=== PATIENT | male | born 1955 | race Caucasian/White ===

== ENCOUNTER → 2023-12-16 15:43 | Outpatient (REF) | payer OTHER, SELFPAY | LOC: RCS 15:43 | PROVIDERS: ATTENDING PHYSICIAN Family Medicine | DX: I10 Essential (primary) hypertension (principal); E78.00 Pure hypercholesterolemia, unspecified; E11.9 Type 2 diabetes mellitus without complications | CPT/HCPCS: 93306 ==

== ENCOUNTER → 2025-01-12 14:28 | Outpatient (REF) | payer OTHER, SELFPAY | LOC: RAD 14:28 | PROVIDERS: ATTENDING PHYSICIAN Student in an Organized Health Care Education/Training Program; FAMILY PHYSICIAN Family Medicine | DX: R79.89 Other specified abnormal findings of blood chemistry (principal) | CPT/HCPCS: 76700; 93975 ==

== ENCOUNTER 2025-02-27 20:09 | Inpatient (IN) | payer OTHER, SELFPAY ==
[2025-02-27] VITALS (28 sets, daily range): BP systolic 46–169; BP diastolic 24–153; BMI 30.1
--- NOTE | 2025-02-27 17:57 | EDRN ---
Dr. Hall and respiratory at the pts bedside preparing for intubation
--- NOTE | 2025-02-27 18:03 | EDRN ---
20 etomidate administered
--- NOTE | 2025-02-27 18:04 | EDRN ---
10 vecoronium administered
--- NOTE | 2025-02-27 18:06 | EDRN ---
pt intubated, positive color change, #8 ETT at 27 at the lip to the right
--- NOTE | 2025-02-27 18:10 | EDRN ---
pt is having runs of Vtach, code cart was brought to the pts bedside
--- NOTE | 2025-02-27 18:13 | EDRN ---
the pt was shocked with 200J by Dr. Hall due to 'unstable Vtach'
--- NOTE | 2025-02-27 18:13 | EDRN ---
the pt was shocked with 200J by Dr. Dao Hall
--- NOTE | 2025-02-27 18:13 | EDRN ---
the pt was shocked with 200J for unstable Vtach
[2025-02-27 18:26] LABS: Glucose - Point of Care 228 mg/dl (70-99)
[2025-02-27 18:29] LABS: Hematocrit 65.0 % (39.0-52.0); Hemoglobin 21.7 g/dL (13.0-18.0); Mean Corp Hgb Conc. 33.4 g/dL (33.0-37.0); Mean Corpuscular Volume 102.5 fL (80.0-94.0); Nucleated Red Blood Cells % 0 % (-); Platelet Count 191 10^3/uL (130-400); Red Cell Dist. Width 15.1 % (11.5-14.5); Venous Blood Gas B.E. 9.7 mmol/L (-4 to +4); Venous Blood Gas O2 Sat % 86.5 %
[2025-02-27 18:33] LABS: Blood Urea Nitrogen 9 mg/dl (9-20); Calcium 9.4 mg/dl (8.4-10.2); Carbon Dioxide 16 mmol/L (22-30); Chloride 105 mmol/L (98-107); Estimated Creatinine Clearance 78 ml/min; Glucose 237 mg/dl (70-99); Sodium 137 mmol/L (135-145); eGFR > 60.00
[2025-02-27] MEDS: CORDARONE 518 MG IV (18:35)
[2025-02-27] MEDS: ATROVENT NEBULES 1 MG INH (18:39)
[2025-02-27] MEDS: VENTOLIN NEBULES 7.5 MG INH (18:39)
[2025-02-27] MEDS: DECADRON 10 MG IV (18:40)
[2025-02-27] MEDS: DIPRIVAN 100 IV (18:57)
--- NOTE | 2025-02-27 19:09 | ED.GENMED ---
History of Present Illness
General
Chief Complaint: Breathing Problem
Time Seen by Provider: 02/27/25 18:29
History of Present Illness
History of Present Illness:
See MDM
Past History
Past History
ED Past Medical History: CVA, GERD, HTN and NIDDM
ED Past Surgical History: None and Other
Social History
Tobacco: Former smoker
Alcohol: Chronic alcoholic
Personal: Other
Living: with family
Employment: Not employed
Family History
Family History: Unable to obtain
Phy Exam
Physical Exam
Physical Exam:
See MDM
Scores
Heart Failure Risk
Heart Failure Risk Score: Not Applicable
Course
Orders/Labs/Results
Orders:
Orders
02/27/25 18:02
Basic Metabolic Panel Urgent
Complete Blood Count/With Diff Urgent
Venous Blood Gas Urgent
%Oxygen/Room Air: 86%
02/27/25 18:04
Propofol 1,000,000 Mcg/100 ml [Diprivan] 1,000,000 mcg in 100 ml .ROUTE .STK-MED
02/27/25 18:26
CXR [CR Chest Portable - 1 View] Urgent
Comment:
Reason For Exam: post intubation
Reason Study Needs to be Portable: Patient Unstable
02/27/25 18:27
Diltiazem HCl [Cardizem] 25 mg .ROUTE .STK-MED ONE
02/27/25 18:30
Amiodarone [Cordarone] 900 mg DEXTROSE 5% PVC-free BAG [D5W PVC-free BAG] 500 ml IV PER PROTOCOL
02/27/25 18:31
Albuterol Sulfate [Ventolin Nebules] 7.5 mg INH R NOW STA
Amiodarone [Cordarone] 900 mg DEXTROSE 5% PVC-free BAG [D5W PVC-free BAG] 500 ml IV NOW
Initial Dose in mg/min:: 1
Duration of initial dose (hours):: 6
Subsequent dose in mg/min:: 0.5
Duration of subsequent dose (hours):: 18
Maximum dose in mg/min:: 1
Hold and notify provider if:: Heart rate < 60 BPM or SBP < 90 mmHg or MAP < 60 mmHg
Dexamethasone Sod Phosphate [Decadron] 10 mg IV NOW STA
Ipratropium Nebs [Atrovent Nebules] 1 mg INH R NOW STA
Propofol 1,000,000 Mcg/100 ml [Diprivan] 1,000,000 mcg in 100 ml IV NOW
Indication:: Light Sedation
Begin Infusion:: Now
Goal:: RASS 0 to -2
Maximum dose in mcg/kg/min:: 50
Initial dose based on RASS:: Yes
If RASS is:: +1 or pt hemodynamically unstable (SBP < 90mmHg), initiate at 10 mcg/kg/min
If RASS is:: +2, initiate at 20 mcg/kg/min
If RASS is:: greater than or equal to +3, initiate at 30 mcg/kg/min
Titration Instructions:: Titrate by 5-10 mcg/kg/min every 5 minutes until RASS 0 to -2 achieved.
Taper Instructions:: If RASS is at or below goal for 4 consecutive hours decrease infusion by
Taper Instructions:: 5-10 mcg/kg/min every 2 hours to off.
Over-sedation Instructions:: If CPOT 0-2 (at goal) AND RASS -3 to -5 (below goal) decrease sedative by
Over-sedation Instructions:: 50% first. If pain score remains at goal and RASS remains below goal in
Over-sedation Instructions:: 1 hour, decrease opioid infusion by 50%.
Notify provider:: immediately if patient exhibits signs/symptoms of propofol-related
Notify provider:: infusion syndrome.
Additional Instructions:: Patient MUST be mechanically ventilated and MUST receive analgesia.
02/27/25 18:33
CT Chest PE Study Urgent
Comment:
Reason For Exam: SOB, cardiac arrest
02/27/25 19:11
Aspirin 300 mg .ROUTE .STK-MED ONE
02/27/25 19:15
CT Head W/o Iv Contrast Urgent
Comment:
Reason For Exam: post cardiac arrest
02/27/25 19:35
CBC/No Diff [Complete Blood Count/No Diff] Urgent
Triglycerides Urgent
02/27/25 19:38
Admit/Transfer Patient As Directed
Co-Sign Provider:
Level of Care: Inpatient admission
Assign to:: ICU
Physician / Group: Ehsan
Diagnosis: Cardiac Arrest
Reason for Hospitalization: Cardiac Arrest
Expected length of stay greater than two midnights?: Yes
ELOS- Estimated Length of Stay in days: 5
I certify the patient meets the requirements for IP care: Yes
Code Status As Directed
Resuscitation Status: Full Code
PRN Pain Medication Management As Directed
May give lesser potent ordered pain med per pt: Yes
preference::
Protocol:: Medication orders for pain may be administered in a
manner that supports deferring to patient preference
when the pt is:
- Requesting an ordered lesser potent pain medication.
Least to most potent pain medications are defined
as: acetaminophen < NSAID < tramadol < opioids
(morphine, oxycodone, hydromorphone).
- Requesting a lesser dose of the same medication IF
ORDERED.
- Requesting a less intrusive route of administration
if both routes are prescribed by the provider (PO <
IV).
02/27/25 19:55
Heparin 5,000 units .ROUTE .STK-MED ONE
02/27/25 20:04
Comprehensive Metabolic Panel Urgent
Magnesium Urgent
NT-proBNP Urgent
Triglycerides Urgent
Troponin I Urgent
Abnormal Lab Results
02/27/25 02/27/25 02/27/25
18:02 18:24 19:35
WBC 20.9 H 10^3/uL
(4.8-10.8)
RBC 6.34 H 10^6/uL 6.39 H 10^6/uL
(4.70-6.10) (4.70-6.10)
Hgb 21.7 H* g/dL 22.4 H* g/dL
(13.0-18.0) (13.0-18.0)
Hct 65.0 H* % 64.9 H* %
(39.0-52.0) (39.0-52.0)
MCV 102.5 H fL 101.6 H fL
(80.0-94.0) (80.0-94.0)
MCH 34.2 H pg 35.1 H pg
(27.0-31.0) (27.0-31.0)
RDW 15.1 H % 15.6 H %
(11.5-14.5) (11.5-14.5)
MPV 11.3 H fL 11.3 H fL
(7.4-10.4) (7.4-10.4)
Abs Immat Gran (auto) 0.1 H 10^3/uL
(0-0.05)
Absolute Lymphs (auto) 5.1 H 10^3/uL
(1.2-3.4)
Immature Gran % 0.6 H %
(0-0.5)
Neutrophils % 37.5 L %
(42.2-75.2)
Lymphocytes % 51.6 H %
(20.5-51.1)
VBG pH 7.31 L
(7.32-7.43)
VBG pCO2 83 H* mmHg
(35-48)
VBG pO2 58 H mmHg
(30-50)
VBG HCO3 41.8 H mmol/L
(22-27)
Carbon Dioxide 16 L mmol/L
(22-30)
Glucose 237 H mg/dl
(70-99)
Triglycerides 205 H mg/dl
(10-149)
POC Glucose 228 H mg/dl
(70-99)
02/27/25 19:35
Vital Signs
Initial and Last Documented VS:
Initial Vital Signs
Temp Pulse Resp BP Pulse Ox
98.6 F 156 36 149/117 80
02/27/25 17:57 02/27/25 17:57 02/27/25 17:57 02/27/25 17:57 02/27/25 17:57
Last Documented Vital Signs
Temp Pulse Resp BP Pulse Ox
98.6 F 123 18 154/104 80
02/27/25 17:57 02/27/25 19:20 02/27/25 19:05 02/27/25 19:25 02/27/25 20:13
MDM/Problems Addressed
Differential Diagnosis Includes:
Note:
CHIEF COMPLAINT(S)
Sudden onset of shortness of breath.
HISTORY OF PRESENT ILLNESS
The patient is a 69-year-old male who [facility] with a sudden onset of shortness of breath. According to the patients spouse, this difficulty in breathing occurred just prior to arrival. The patient attempted
relief using an albuterol inhaler, but it was ineffective. Upon EMS arrival, the patient was experiencing significant sweating and was placed on Continuous Positive Airway Pressure (CPAP) for hypoxia and respiratory distress. Upon evaluation, the
patient showed significant respiratory distress and was able to give verbal consent for intubation due to fatigue and poor air exchange. The patient was noted to be extremely diaphragmatic, tachycardic, and was displayed on the monitor as having
atrial fibrillation (A-fib) with no previous history of the condition. As the patient was transitioning from bag ventilation to a ventilator, no pulses were detected, prompting synchronized cardioversion at 200 joules due to unstable rapid A-fib,
which recurred, necessitating a second cardioversion. Subsequently, the patient transitioned into unstable ventricular tachycardia (VTAC), leading to CPR and the administration of amiodarone, bicarbonate, and calcium. Cardiopulmonary resuscitation
(CPR) was initiated due to cardiac arrest, and epinephrine was administered. The patient underwent defibrillation at 200 joules (unsynchronized) and transitioned into ventricular fibrillation (V-fib), requiring multiple defibrillation attempts until
transitioning into a narrow complex rapid A-fib. An amiodarone drip was started. The complexes appeared wider before the administration of the medications.
PAST MEDICAL AND SURGICAL HISTORY
The patients spouse mentioned multiple medical issues without specific details but noted a history of non-compliance with treatments.
ADDITIONAL HISTORY OBTAINED FROM SOURCES OTHER THAN THE PATIENT
According to the patients spouse, the patient has several underlying medical issues and is known for non-compliance with treatments. The spouse also expressed concern regarding the patients alcohol abuse.
SOCIAL DETERMINANTS AFFECTING HEALTH
The patients spouse is concerned about the patients alcohol abuse.
PHYSICAL EXAM
General: Conversational dyspnea, cyanotic, significant respiratory distress
Skin: Diaphoretic
Head: Normocephalic, atraumatic
Neck: Appears supple, trachea midline.
Eyes, Ears, Nose, Mouth, and Throat: Oral mucosa moist.
Cardiovascular: Tachycardic and irregular
Respiratory: Respirations are labored. Decreased air exchange
Abdomen: Non-distended
Musculoskeletal: No deformities
Neurological: No focal neurological deficit observed.
Psychiatric: Extremely anxious
PROBLEM LIST
Acute:
1. Sudden onset of shortness of breath.
2. Unstable rapid atrial fibrillation.
3. Ventricular tachycardia.
4. Cardiac arrest.
5. Ventricular fibrillation.
PLAN
1. Intubation for airway management and respiratory support.
2. Synchronized cardioversion for unstable rapid atrial fibrillation.
3. Administration of amiodarone, bicarbonate, calcium, and epinephrine during cardiac arrest.
4. Defibrillation was performed at 200 joules for ventricular fibrillation.
5. Initiation of an amiodarone drip.
DIFFERENTIAL DIAGNOSIS
The Differential Diagnosis includes, in no particular order and is not limited to:
1. Acute coronary syndrome.
2. Pulmonary embolism.
3. Chronic obstructive pulmonary disease exacerbation.
4. Congestive heart failure exacerbation.
5. Electrolyte imbalance.
6. Cardiac arrhythmia secondary to alcohol abuse.
7. Pneumonia.
8. Acute respiratory distress syndrome.
9. Atrial fibrillation with rapid ventricular response.
10. Ischemic heart disease.
02/27/25 - 18:56
Repeat EKG indicates a new left bundle branch block. Consulted with red cross worker, and if pulmonary embolism is ruled out through CT, will proceed with laboratory development technician activation.
02/27/25 - 19:12
Interventional cardiology recommended a heparin bolus push and administration of rectal aspirin. Decision made to hold off on Brilinta for now.
SUMMARY OF ENCOUNTER
A patient presented with sudden onset of shortness of breath, which progressed into cardiac arrest. The patient was intubated and placed on an amiodarone drip in response to unstable ventricular tachycardia. The patient exhibited a new left bundle
branch block suggesting a potential ST-elevation myocardial infarction (STEMI) and was treated as such. Following a CT pulmonary embolism (CTPE) scan, which revealed no obvious pulmonary embolism, the patient was transferred to the laboratory development technician.
Management decisions involved an red cross worker, and discussions were held with the admitting hospitalist and intensivists regarding the possibility of initiating therapeutic hypothermia post-cardiac arrest.
DISPOSITION
Admit to laboratory development technician.
MANAGEMENT OF THE PATIENTS CARE WAS DISCUSSED WITH
Management of the patient was discussed with the red cross worker, admitting hospitalist, and intensivists.
PLAN
Proceed with catheterization for further investigation and management of the potential STEMI. Consider therapeutic hypothermia as recommended by the intensivists.
INDEPENDENT REVIEW OF LABS AND INTERPRETATION OF TESTS
My independent review of CTPE shows no obvious pulmonary embolism.
MEDICATION RECONCILIATION
1. Amiodarone drip initiated for unstable ventricular tachycardia.
MEDICAL DECISION MAKING
-Complexity of Data Reviewed: Chronic conditions affecting care include multiple unspecified medical issues and non-compliance with treatments. The differential diagnosis consists of acute coronary syndrome, pulmonary embolism, chronic obstructive
pulmonary disease exacerbation, congestive heart failure exacerbation, electrolyte imbalance, cardiac arrhythmia secondary to alcohol abuse, pneumonia, acute respiratory distress syndrome, atrial fibrillation with rapid ventricular response, and
ischemic heart disease.
-Data:
Category 3
Discussion of management with the red cross worker, hospitalist, and intensivists.
DIAGNOSIS
Acute Myocardial Infarction (ICD-10: I21.3)
Unstable Ventricular Tachycardia (ICD-10: I47.2)
Cardiac Arrest (ICD-10: I46.9)
Bundle Branch Block, Unspecified (ICD-10: I45.2)
*Pulse Oximetry
SaO2: 80
Oxygen Mode of Delivery: CPAP
Patient hypoxic: yes
*EKG
Interpretation: abnormal (Tachycardia, left bundle branch block, wide QRS)
*Critical Care Note
Total Time (30-74mins, 75-104mins- exclusive of procedures): 77 min
comment:
The high probability of a clinically significant, sudden or life threatening deterioration of the respiratory and cardiovascular system(s) required my full and direct attention, intervention and personal management. The aggregate critical care time
was 77 minutes. This time is in addition to time spent performing reported procedures but includes the following:
[x] Data Review and interpretation
[x] Patient assessment and monitoring of vital signs
[x] Documentation
[x] Medication orders and management
Update Note
Update Note:
The ET tube was pulled back approximately 1 to 2 cm after the postintubation x-ray. Radiology called indicating that it was still in the right mainstem after the CT PE. It was then moved back another 1 to 2 cm
ED Attending Note
-
Portions of this chart may have been created with voice recognition software.� Occasional wrong word or��sound alike� substitutions may have occurred due to the inherent limitations of voice recognition software.
Discharge Plan
Departure
Patient Disposition: Admit
Date of Disposition: 02/27/25
Time of Disposition: 19:00
Admit to: ICU
Presentation/result/management discussed w/ accepting MD/DO: Hospitalist
Discharge Problem:
Cardiac arrest, Acute respiratory distress
Interventions
Interventions:
*Risk Screen - Suicide Last Done: 02/27/25 17:57
*General Assessment Last Done: 02/27/25 17:57
*Neglect/Abuse Screening Last Done: 02/27/25 17:57
*ED- Fall Risk Assessment Last Done: 02/27/25 17:57
*ED COVID-19 Vaccine History Last Done: 02/27/25 17:57
ED- Cardiac Assessment Last Done: 02/27/25 18:07
ED- Pulmonary Assessment Last Done: 02/27/25 18:07
--- NOTE | 2025-02-27 19:24 | CON.CAR ---
Consultation
Consultation Request
Date/Time Consultation Requested: 02/27/2025; 19:03
Date/Time Consultation Performed: 02/27/2025; 19:15
Requesting Provider: Dao Hall D.O.
Performing Provider: Maximino Matamoros D.O.
Reason for Consultation: Cardiac arrest.
Medical History
-
Chief Complaint: Difficulty breathing, VDRF, VT/VF arrest.
History of Present Illness:
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
distress requiring intubation and mechanical ventilation. All history is obtained from the patient's and mother as well as the chart and ER staff. The patient was reportedly in his normal state of health this afternoon. His was outside
the house. When she came into the house, she found the patient acutely short of breath, struggling to breath and complete sentences. She administered her bronchodilator inhaler without significant effect. She called for EMS and the patient was
transported to the ED. In the ED, the patient's distress continued and the patient was consented for elective intubation. After intubation, the patient went into cardiac arrest and required CPR/ACLS. He received a total of 6-7 minutes of CPR.
Through this time, he developed VT and VF, both requiring defibrillation. ROSC was achieved. EKG showed new LBBB. CTPE was negative for PE but did suggest marked acute pulmonary edema. cath lab manager was activated and the ICU was consulted for vent
management. ICU requested CT head prior to catheterization.
On speaking with the patient's , she reports that the patient drinks daily/every other day but did not comment on volume. She brings the packet of the patient's pre-packaged medications, but also notes that the patient was not taking medication
for some time.
On review of the patient's outpatient records, he has been seen by GI for transaminitis that was attributed to EtOH abuse. Fibroscan was 7.5 kPa, consistent with moderate fibrosis. However, the patient was also noted ot have elevated Hbg and
ferritin levels, raising concern for hemochromatosis. Initial lab studies show a hemoglobin of 21 g and a hematocrit of 65%.
DATA:
TTE, 12/16/2023:
CONCLUSIONS
Normal left ventricular chamber size. Mild concentric left ventricular
hypertrophy. Normal left ventricular systolic function. Normal regional wall
motion. Left ventricular ejection fraction is 55% by visual assessment. Stage I
diastolic dysfunction suggestive of abnormal relaxation.
Normal right ventricular size and function.
Thickened aortic valve with restricted leaflet motion. Moderate aortic
stenosis. Peak/mean gradients across the aortic valve are 51/26 mmHg. Using an
LVOT diameter of 2.0 cm, the aortic valve by the Continuity equation is
calculated at 1.1 cm2.
Mild tricuspid regurgitation. Estimated pulmonary artery pressure of 35-40
mmHg. Assuming a right atrial pressure of 3 mmHg. Trace tricuspid
regurgitation.
Compared to the previous echo 08/01/21, there is no significant change.
Past Medical History
Past Medical History: CVA, HTN, Hypercholesterolemia and NIDDM
Social History
Tobacco: Former Smoker
Alcohol: Daily
Drug: Marijuana
Personal:
Living: With Family
Family History
Family History: CAD (Father with CAD/CABG, age 63, at age 72.)
Allergies / Home Medications
Allergy/AdvReac Type Severity Reaction Status Date / Time
No Known Allergies Allergy Verified 09/02/20 12:02
�Medication �Instructions �Recorded �Confirmed �Type
atorvastatin 40 mg tablet 40 mg PO QPM High cholesterol 09/02/20 02/27/25 History
aspirin 81 mg tablet,delayed 81 mg PO DAILY 09/07/20 02/27/25 Rx
release
bupropion HCl 100 mg tablet,12 hr 100 mg PO DAILY 09/07/20 02/27/25 Rx
sustained-release
folic acid 1 mg tablet 1 mg PO DAILY 09/07/20 02/27/25 Rx
lisinopril 10 mg tablet 10 mg PO DAILY 09/07/20 02/27/25 Rx
magnesium oxide 500 mg PO BID 09/07/20 02/27/25 Rx
metoprolol succinate 25 mg 25 mg PO DAILY 09/07/20 02/27/25 Rx
tablet,extended release 24 hr
pantoprazole 40 mg tablet,delayed 40 mg PO DAILY 09/07/20 02/27/25 Rx
release
thiamine HCl (vitamin B1) 100 mg 100 mg PO DAILY 02/27/25 02/27/25 History
tablet
Review of Systems
-
Unable to obtain full review of systems at this time due to: Patient Intubation
History Source: Family and Physician
Physical Exam
Vital Signs
Temp Pulse Resp BP Pulse Ox
37.0 C 104 16 147/100 92
02/27/25 17:57 02/27/25 18:28 02/27/25 18:28 02/27/25 18:28 02/27/25 19:11
Lab Results
Troponin I Cancelled 02/27/25 18:31
[id number] Pept Cancelled 02/27/25 18:31
Physical Exam
General: Well Developed, Well Nourished and Respiratory Distress
HEENT: Normocephalic, Anicteric, Moist Mucous Membranes and Other (ET Tube in place. Patient's face is plethoric and cyanotic.)
Respiratory: Crackles and Rhonchi
Cardiac: S1/S2 and Regular Rhythm
Breast: Deferred by me
GI: Soft, Non Tender, Non Distended and Normal Bowel Sounds
Rectal: Deferred by Provider
Musculoskeletal: No Clubbing, No Cyanosis and No Edema
Neuro: Sedated
Impression / Plan
-
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 possible hemochromatosis with at least moderate hepatic fibrosis and medication non-compliance admitted with acute, vent
dependent respiratory failure complicated by VT/VF arrest and new LBBB.
#Cardiac Arrest
-Acute, threat to life.
-VT/VF arrest in ER. EKG shows LBBB.
-CTPE negative for PE, does show marked pulmonary edema.
-Given VT/VF, risk factors and new LBBB, it is reasonable to proceed to cardiac catheterization after ruling out SAH/global anoxic brain injury.
-Risks/benefits and severity of presentation explained to the patient's and mother, in detail.
-Consent is signed and on the chart.
-Assuming negative CT head, we will proceed to cardiac catheterization.
#HTN
-Chronic, untreated.
-We will address medications post procedure.
#HLD
-Chronic, untreated.
-Patient would benefit from restarting statin.
#EtOH
-Chronic.
-Intubated, sedated.
-MSAS protocol when extubated.
#Hepatic fibrosis
-Chronic.
-At least moderate by Fibroscan.
-Etiology is likely EtOH vs. hemochromatosis.
-Check HFE gene mutation if he survives acute presentation.
Critical Care Time = 50 minutes.
Data Reviewed
-
EKG: Tracing Personally Visualized and interpreted, Report Reviewed by me and Discussed with Physician
Radiology: Image Personally Visualized and interpreted and Report Reviewed by me
CT Scan: Image Personally Visualized and interpreted and Report Reviewed by me
Ultrasound: Report Reviewed by me
Medical Tests (Nuc Med, Echo etc): Report Reviewed by me
Labs: Labs Reviewed by me
[2025-02-27 19:47] LABS: Hematocrit 64.9 % (39.0-52.0); Hemoglobin 22.4 g/dL (13.0-18.0); Mean Corp Hgb Conc. 34.5 g/dL (33.0-37.0); Mean Corpuscular Volume 101.6 fL (80.0-94.0); Platelet Count 165 10^3/uL (130-400); Red Cell Dist. Width 15.6 % (11.5-14.5)
--- NOTE | 2025-02-27 19:50 | HPS.HSE ---
Addendum entered and electronically signed by Abhi Moser, 02/27/25 21:18:
Update: Spoke with Cardiology post-cath. Chronic occlusions appreciated, but EMMA-3 flow / good perfusion throughout. No STEMI. Bumetanide infusion for elevated LVEDP / flash pulmonary edema. IV heparin gtt for now.
Patient with some meaningful movements post-cath - no need for TTM protocols.
Original Note:
Family Physician
-
Family Physician:
Chief Complaint
-
SOB
History of Present Illness
Patient is a 69y M with PMH significant for hypertension, DM-II and prior CVA with L hemiparesis who presents to ED complaining of SOB. History obtained from family at the beside and ED staff. states that patient began to complain of
significant SOB suddenly this evening around 5:15PM. He had significant work of breathing and 911 was called. Patient presented to the ED via EMS in respiratory distress with marked hypoxemia, diaphoresis and tachypnea. Patient was intubated in
the ED. During / shortly after intubation, patient became pulseless. He underwent synch cardioversion x 2 for suspected unstable A-Fib. He was then noted to have pulseless VT and periods of V-Fib on monitor. He underwent CPR and multiple rounds
of defibrillation here in the ED. He received epinephrine, bicarbonate, amiodarone and calcium. ROSC was achieved.
Patient has remained unresponsive since this event. EKG done in the ED shows new LBBB and patient is being taken to the cathead worker for emergent ischemic evaluation.
states that patient has had no specific complaints prior to this evening. No recent cough, fevers / chills, etc.
She states that he has not taken any of his prescribed medications for at least two years.
He does not smoke cigarettes, but smokes occasional marijuana.
He drinks about 10-12 beers daily.
Medical History
Past Medical History
Past Medical History: Reports Other
Additional Past Medical History:
ASCVD / CVA
Left Hemiparesis as Late Effect of CVA
Hypertension
DM-II
Alcoholic Hepatitis
Moderate Aortic Stenosis
Depression
Past Surgical History: Reports None
Social History
Tobacco: Non-smoker
Alcohol: Daily (10-12 beers daily.)
Drug: Marijuana (Occasional marijuana.)
Personal:
Living: With Family
Family History
Family History: Other (Father: CAD)
Allergies / Home Medications
Allergies reflects when Allergies were last updated in [employer].
Home Medications with original date entered in [employer]
Allergy/Medication List:
Rx med list 'reconciled' - however, patient has not taken any medications for at least two years.
i.e. - No Current Medications
Review of Systems
-
Unable to obtain full review of systems at this time due to: Patient Intubation
History Source: Family
Constitutional: Denies Fever
Respiratory: Denies Cough
Abdomen/GI: Denies Nausea, Vomiting or Diarrhea
Neurological: Denies Headache
Physical Exam
Vital Signs
Vital Signs
Temp Pulse Resp BP Pulse Ox
98.6 F 123 18 154/104 92
02/27/25 17:57 02/27/25 19:20 02/27/25 19:05 02/27/25 19:25 02/27/25 19:11
Physical Exam
General: Other (Critically ill-appearing 69y M intubated and sedated in the ED.)
HEENT: Moist mucous membranes and Other (ETT in place.)
Respiratory: Other (Decreased BS bilaterally.)
Cardiac: S1/S2, Tachycardia and Murmur (III/ NARGIS )
GI: Soft, Non Tender, Non Distended and Normal Bowel Sounds
Musculoskeletal: No Clubbing, No Cyanosis and No Edema
Neuro: Other (Unresponsive on ventilator.)
Laboratory Results
-
02/27/25 19:35
Laboratory Results
Total Bilirubin Cancelled 02/27/25 18:31
AST Cancelled 02/27/25 18:31
ALT Cancelled 02/27/25 18:31
Alkaline Phosphatase Cancelled 02/27/25 18:31
Troponin I Cancelled 02/27/25 18:31
Impression/Plan
-
A/P: Patient is a 69y M with PMH significant for HTN, DM-II and prior stroke who presents to ED complaining of SOB and suffered cardiac arrest in the ED.
V-Tach / V-Fib Cardiac Arrest
- Admit for further evaluation and treatment.
- With abrupt onset, significant risk factors, new LBBB, etc - patient going for emergent ischemic evaluation now.
- CT head to be completed prior to / en route to cathead worker.
- Admit to ICU post-cath.
- Continue IV amiodarone infusion protocol s/p V-Fib arrest.
- Cardiology and [employer] Expeditor [employer] Drier evaluations for additional recommendations.
- Continue vent support overnight.
- Remain off of sedation post-cath and monitor for responsiveness / recovery in mental function.
ASCVD
- Presentation suspicious for STEMI with abrupt SOB, EKG changes and ultimately VT / V-Fib arrest.
- lab head now as noted above.
- ASA via OGT.
- IV heparin gtt.
- Follow serial troponin to peak.
- IV Lopressor with holding parameters.
- Cardiology evaluation as noted above.
Pulmonary Edema
Acute Hypoxemic Respiratory Failure / VDRF
- CXR / CT chest shows pulmonary edema - likely secondary to acute ischemia as noted above,.
- lab head now as noted.
- IV Lasix BID and follow I/Os, daily weights, etc.
- Cardiology evaluation as noted above.
Polycythemia
- Patient with marked polycythemia with Hgb = 21 (confirmation / repeat = 22).
- Likely multiple underlying reasons for secondary polycythemia including chronic hypoxemia, liver disease, etc - but current elevation seems excessive.
- Check iron studies, AFP, EPO.
- Follow cell counts for changes.
- Hematology evaluation for additional recommendations.
Anion Gap Metabolic Acidosis
- Likely secondary to acute ischemia.
- Follow serial lactate levels.
Benign Hypertension
- Patient non-compliant with medications chronically.
- IV Lopressor for now + diuresis as noted above.
- Adjust med regimen as needed for BP control.
DM-II
- Uncontrolled / non-compliant.
- Follow glucose and cover with SSI as needed.
- Check A1C.
Left Hemiparesis as Late Effect of CVA
- CT head shows prior R MCA stroke. No acute findings appreciated / no significant cerebral edema.
- Patient has been non-compliant with med regimen for years - including ASA, etc.
Alcohol Use Disorder
- Long-standing alcohol use disorder. 10-12 beers daily per .
- Monitor for any evidence of withdrawal symptoms and treat with BZDs as needed.
- Thiamine, folate replacement.
- Check EPO and AFP levels given polycythemia.
DVT Prophylaxis: On IV Heparin
Code Status: Full
[2025-02-27 20:07] LABS: Triglycerides 205 mg/dl (10-149)
--- NOTE | 2025-02-27 21:00 | PTCARENOTE ---
pt adm from laborer carpentry dock, intubated/sedated, ST BBB HR 1teens. MV Fi02 100%. IV x 3 WNL- Amio/Prop gtt infusing per work list. cards to bedside to discuss plan. KFlahertyNP to insert delroy, care ongoing.
--- NOTE | 2025-02-27 21:02 | ITS.CL.CATH ---
Semiconductor Engineer - Catheterization
Cardiac Catheterization
Procedure Report:
CARDIAC CATHETERIZATION REPORT
Date of Procedure: 02/27/2025
Referring: Dao Hall D.O.
INDICATION: Cardiac arrest, left bundle branch block.
PROCEDURE:
1. Left heart catheterization.
2. Coronary angiography.
A total of 41 minutes of procedural/moderate sedation was utilized. An independent medical transcription radiology was present to assist with and help manage the patient's level of consciousness and physiologic status.
ACCESS:
1. 6 [place] right radial artery using a modified Seldinger technique.
CATHETERS:
1. 5 [place] JR4.
2. 5 [place] JL 3.5.
HEMODYNAMIC DATA
Weight (kg): 89.4
AO (s/d/x, mmHg): 168/113/133
LV (s/x mmHg): 202/40
LEFT VENTRICULOGRAPHY: Not performed.
CORONARY ANGIOGRAPHY
Dominance: Right.
Left Main: Normal size, bifurcating vessel. There is no coronary artery disease.
LAD: Large size vessel giving rise to 2 diagonals. There is severe, complex disease in the proximal/mid LAD around the origin of the second diagonal, including a 90% Sinha 1, 1, 1 lesion with EMMA-3 flow.
Ramus: Congenitally absent.
Circumflex: Normal size vessel giving rise to an obtuse marginal that subsequently bifurcates into an upper and lower branch. The distal circumflex after the origin of the first marginal is chronically totally occluded and supplied by collaterals
from the RCA, revealing at least 1 more notable marginal. The upper branch is chronically totally occluded. There is moderate disease throughout the remainder of the circumflex.
RCA: Normal size, dominant vessel. The vessel is chronically totally occluded in its proximal margin with a bridging right to right collateral. Competitive flow is observed in the distal RCA/RPDA. The distal RPDA is supplied by collaterals
from the distal LAD and septal perforators.
INTERVENTION(S)
None.
Closure Device: Vascular band.
Radiation (mGy): 489.50
DAP (cm2.Gy): 28.9910
Fluoroscopy time (minutes): 2.1
CONCLUSIONS
1. Right dominant circulation with a chronic total occlusion of the proximal RCA with a bridging right to right collateral, a chronic total occlusion of the distal circumflex immediately after the origin of OM1, chronic total occlusion of the small
upper branch of OM1, and a complex, 90% Sinha 1, 1, 1 lesion in the proximal/mid LAD with EMMA-3 flow. Collaterals are visible from the distal LAD to the distal RPDA and from the distal RCA to the distal circumflex.
2. Severely elevated filling pressures (LVEDP = 40 mmHg at 89.4 kg).
3. At least moderate aortic valve stenosis (mean gradient = 32 mmHg on pullback).
RECOMMENDATIONS:
1. Expectant management after cardiac catheterization via right radial approach.
2. Limited weight bearing on the right for one week.
3. Given the nature of the patient's presentation, including respiratory arrest with subsequent cardiac collapse, this raises suspicion for flash pulmonary edema rather than true acute coronary syndrome.
4. Revascularization was deferred to allow for medical management and recovery prior to intervention.
5. A Schultz catheter was placed. We will start bumetanide drip at 1 mg/h.
6. We will treat with therapeutic enoxaparin.
7. Blood pressure control with nicardipine drip.
8. Echocardiogram ordered and pending.
Copy to: Sobia Street M.D.
Maximino Matamoros DO, FACC, FACP
[2025-02-27 21:05] LABS: ALT (SGPT) 25 U/L (0-50); AST (SGOT) 159 U/L (17-59); Albumin 3.7 g/dl (3.5-5.0); Alkaline Phosphatase 69 U/L (38-126); Blood Urea Nitrogen 12 mg/dl (9-20); Calcium 9.9 mg/dl (8.4-10.2); Carbon Dioxide 25 mmol/L (22-30); Chloride 103 mmol/L (98-107); Estimated Creatinine Clearance 71 ml/min; Glucose 264 mg/dl (70-99); Magnesium 2.0 mg/dl (1.6-2.3); Potassium 3.8 mmol/L (3.5-5.1); Sodium 135 mmol/L (135-145); Total Protein 7.3 g/dl (6.3-8.2); Triglycerides 157 mg/dl (10-149); eGFR > 60.00
[2025-02-27 21:23] LABS: Troponin I 9.770 ng/ml
[2025-02-27 21:52] LABS: Glucose - Point of Care 251 mg/dl (70-99)
[2025-02-27] MEDS: SUBLIMAZE 50 MCG IV (22:11)
[2025-02-27 22:13] LABS: Hematocrit 65.6 % (39.0-52.0); Hemoglobin 22.1 g/dL (13.0-18.0); Mean Corp Hgb Conc. 33.7 g/dL (33.0-37.0); Mean Corpuscular Volume 102.5 fL (80.0-94.0); Platelet Count 181 10^3/uL (130-400); Red Cell Dist. Width 15.4 % (11.5-14.5)
[2025-02-27 22:29] LABS: Iron 312 ug/dl (49-181)
[2025-02-27] MEDS: LEVOPHED 250 IV (22:30)
[2025-02-27 22:36] LABS: Total Iron Binding Capacity 313 ug/dl (261-462)
[2025-02-27] MEDS: BUMEX 100 IV (22:45)
[2025-02-27 22:46] LABS: APTT 53.6 Sec (23.4-35.0)
[2025-02-27 22:55] LABS: Troponin I 11.900 ng/ml
--- NOTE | 2025-02-27 22:58 | W.PN.UPDATE ---
Update Note
Progress Note Update
ARTERIAL LINE (A-Line) PLACEMENT
Date: 02/27/25
Time: 2244
Indication: Hemodynamic monitoring, consent implied emergent
A time-out was completed verifying correct patient, procedure, site, positioning, and special equipment if applicable. Keegan�s test was performed to ensure adequate perfusion. The patient�s left wrist was prepped and draped in sterile fashion. A 18G
Arrow arterial line was introduced into the radial artery. The catheter was threaded over the guide wire and the needle was removed with appropriate pulsatile�blood return. A sterile dressing applied. Perfusion to the extremity distal to the point
of catheter insertion was checked and found to be adequate.
Estimated Blood Loss: <5cc
The patient tolerated the procedure well and there were no complications.
[2025-02-27 23:15] LABS: B.E. -6.4 mmol/L; HCO3 21.1 mmol/L (21-28); O2 Saturation % 98.7 % (94-98); PCO2 47 mmHg (35-48); PO2 97 mmHg (83-108)
[2025-02-27 23:23] LABS: Urine Character Clear (Clear)
[2025-02-27] MEDS: SUBLIMAZE 100 MCG IV (23:34)
[2025-02-27] MEDS: SUBLIMAZE 100 IV (23:34)
[2025-02-27 23:35] LABS: Ferritin 253.0 ng/ml (17.9-464.0)
[2025-02-27] MEDS: PITRESSIN 100 IV (23:59)
[2025-02-28] MEDS: KCL 160 MEQ IV (00:17)
[2025-02-28] MEDS: THIAMINE INJECTION 200 MG IV ×3 (00:17→15:59)
[2025-02-28 00:45] LABS: Glucose - Point of Care 308 mg/dl (70-99)
[2025-02-28] MEDS: NOVOLIN R 6 UNITS IV (01:03)
[2025-02-28] MEDS: NOVOLIN R INSULIN INFUSION 100 IV ×2 (01:04→07:21)
[2025-02-28 01:13] LABS: INR 1.07; PT 14.2 Sec (11.4-14.6)
[2025-02-28] MEDS: LEVOPHED 250 IV (01:59)
[2025-02-28 02:21] LABS: Glucose - Point of Care 280 mg/dl (70-99)
[2025-02-28] MEDS: DIPRIVAN 100 IV ×3 (02:22→18:12)
[2025-02-28] MEDS: HEPARIN 25000 UNITS/250 ML IV ×2 (02:22→23:12)
--- NOTE | 2025-02-28 03:09 | VATNOTE ---
5FR DL R PICC INSERTED DOCUMENTED.RETRACTED 1CM AND RD PER Ping CHARLTON NP.
[2025-02-28 03:28] LABS: Glucose - Point of Care 240 mg/dl (70-99)
[2025-02-28 03:42] LABS: B.E. -5.8 mmol/L; HCO3 20.7 mmol/L (21-28); O2 Saturation % 99.3 % (94-98); PCO2 43 mmHg (35-48); PO2 116 mmHg (83-108)
[2025-02-28 03:43] LABS: O2 Therapy VENT
[2025-02-28] MEDS: LEVOPHED 258 MG IV ×3 (04:12→16:01)
[2025-02-28 04:13] LABS: Hematocrit 59.9 % (39.0-52.0); Hemoglobin 20.4 g/dL (13.0-18.0); Mean Corp Hgb Conc. 34.1 g/dL (33.0-37.0); Mean Corpuscular Volume 101.7 fL (80.0-94.0); Platelet Count 193 10^3/uL (130-400); Red Cell Dist. Width 14.6 % (11.5-14.5)
[2025-02-28 04:15] LABS: Troponin I 28.900 ng/ml
[2025-02-28 04:17] LABS: AST (SGOT) 313 U/L (17-59); Albumin 4.0 g/dl (3.5-5.0); Alkaline Phosphatase 57 U/L (38-126); Blood Urea Nitrogen 13 mg/dl (9-20); Calcium 9.5 mg/dl (8.4-10.2); Carbon Dioxide 21 mmol/L (22-30); Chloride 104 mmol/L (98-107); Estimated Creatinine Clearance 65 ml/min; Glucose 295 mg/dl (70-99); HDL Cholesterol 63 mg/dl; LDL Cholesterol, Calculated 119 mg/dl; Magnesium 1.6 mg/dl (1.6-2.3); Potassium 4.6 mmol/L (3.5-5.1); Sodium 136 mmol/L (135-145); Total Protein 7.2 g/dl (6.3-8.2); Very Low Density Lipoprotein 63 mg/dl (0-30); eGFR > 60.00
[2025-02-28 04:31] LABS: ALT (SGPT) 40 U/L (0-50)
[2025-02-28] MEDS: CORDARONE 518 MG IV (04:33)
[2025-02-28 04:40] LABS: Glucose - Point of Care 233 mg/dl (70-99)
[2025-02-28 05:28] LABS: Glucose - Point of Care 292 mg/dl (70-99)
[2025-02-28] MEDS: MAGNESIUM SULFATE 102 GRAMS IV (05:56)
[2025-02-28 06:00] VITALS: BMI 29.7
--- NOTE | 2025-02-28 06:00 | PTCARENOTE ---
pt SR, BBB, BP labile t/o shift- dbl conc levo & vaso gtts now maxed. L rad Marysol & RUE PICC inserted during shift. pt now on amio, fent, prop, heparin, bumex, insulin, levo and vaso gtts. intermittent agitation, +simple commands when sedation
lowered. OGT at 65, clamped. Schultz draining large amts yellow urine. KFlahertyNP made aware pt temp rising- now 100.3 core. BOWLING FLOOR MANAGER ordered schneider cx, flu & covid swabs, ofirmev, abx. care ongoing. updated at bedside last night and again this am over
phone.
[2025-02-28 06:31] LABS: Glucose - Point of Care 168 mg/dl (70-99)
[2025-02-28] MEDS: OFIRMEV 100 IV (06:51)
[2025-02-28 07:28] LABS: Glucose - Point of Care 140 mg/dl (70-99)
[2025-02-28] MEDS: FOLVITE 1 MG PO (07:28)
[2025-02-28] MEDS: NSS (PRESERVATIVE FREE) 10 ML IV (07:28)
[2025-02-28] MEDS: PROTONIX IV 40 MG IV (07:28)
[2025-02-28] MEDS: UNASYN IV ×3 (07:29→20:04)
[2025-02-28] MEDS: LOW STRENGTH ASPIRIN 81 MG TUBE (07:29)
[2025-02-28 07:32] LABS: COVID-19 Antigen Negative (Negative)
--- NOTE | 2025-02-28 07:55 | PN.DE.MGMTRT ---
Insulin Management
- -
02/28/2025: Diabetes Management Consult
69 year old male with cardiac arrest in the ED. PMH: HTN, HLD, T2DM, Hx of CVA with L hemiparesis. Pt presented to the ED c/o SOB. He was then noted to have pulseless VT and periods of V-Fib on monitor. He underwent CPR and multiple rounds of
defibrillation here in the ED. He received epinephrine, bicarbonate, amiodarone and calcium. ROSC was achieved. Patient remained unresponsive since this event. EKG showed new LBBB and patient was taken to the laborer tan house for emergent ischemic
evaluation.
Pt is intubated and sedated. No family at bedside. History obtained from chart review and Nurse. Per chart review, stated that pt had not taken any of his prescribed medications for at least two years. He does not smoke cigarettes, but smokes
occasional marijuana and drinks about 10-12 beers daily. A1C is pending, Cr 1.2, eGFR >60.
Glucose on admission was 237 Venous. Pt was started on critical care glycemic protocol, glucose range 140 to 308, requiring 6 to 22 units of insulin/hr.
Pt will remain on continuos insulin infusion for now given his critically ill condition on pressors and high insulin requirements.
Will con to follow. Discussed with Nurse.
Diabetes History
- -
Type of Diabetes: 2 requiring insulin
Pre-Admission Diabetes Regimen
02/27/25 02/27/25 02/27/25
18:02 18:31 19:35
Creatinine 1.0 Cancelled Cancelled
02/27/25 02/28/25
Unknown 03:28
Creatinine 1.1 1.2
Insulin Pump Settings
IP Diabetes Regimen
02/27/25 02/27/25 02/27/25
18:02 18:24 18:31
Glucose 237 H Cancelled
POC Glucose 228 H
02/27/25 02/27/25 02/27/25
19:35 21:40 Unknown
Glucose Cancelled 264 H
POC Glucose 251 H
02/28/25 02/28/25 02/28/25
00:33 02:09 03:17
Glucose
POC Glucose 308 H 280 H 240 H
02/28/25 02/28/25 02/28/25
03:28 04:28 05:16
Glucose 295 H
POC Glucose 233 H 292 H
02/28/25 02/28/25
06:20 07:17
Glucose
POC Glucose 168 H 140 H
Patient Education
[2025-02-28 08:03] LABS: Urine Character Clear (Clear)
--- NOTE | 2025-02-28 08:20 | W.PN.HOSP.TC ---
Today's Communication/Plan
-
See plan
Assessment / Plan
Assessment / Plan
Physical Exam
General: Intubated and Sedated
HEENT: ETT in place.
Respiratory: Equal air entry bilaterally
Cardiac: S1/S2, RRR
GI: Soft, Non Tender, Non Distended and Normal Bowel Sounds
Musculoskeletal: No Cyanosis
Neuro: Other (Unresponsive on ventilator.)
Assessment/Plan
69 y/o male with past medical history significant for medication non-compliance (for at least 2 years), hypertension, DM-II, occasional Marijuana smoking, alcohol (drinking 10-12 beers daily) and prior CVA with left hemiparesis who presented to [facility]
ED complaining of SOB (prior to this patient was okay and had no specific complaints). stated that patient began to complain of significant SOB suddenly on 02/28/25 evening around 5:15PM. He had significant work of breathing and 911 was called.
Patient presented to the ED via EMS in respiratory distress with marked hypoxemia, diaphoresis and tachypnea. Patient was intubated in the ED. During/shortly after intubation, patient became pulseless. He underwent synch cardioversion x 2 for
suspected unstable A-Fib. He was then noted to have pulseless VT and periods of V-Fib on monitor. He underwent CPR and multiple rounds of defibrillation here in the ED. He received epinephrine, bicarbonate, amiodarone and calcium. ROSC was
achieved. Patient has remained unresponsive since this event. EKG done in the ED shows new LBBB and patient was taken to the flower shop laborer/designer for emergent ischemic evaluation.
V-Tach / V-Fib Cardiac Arrest
Shock -- suspected cardiogenic
- Flash pulmonary edema and hypoxia on presentation (LVEDP was high on cardiac cath)
- With abrupt onset, significant risk factors, new LBBB, etc - patient went for emergent ischemic evaluation 02/27/25
- Cath above showed chronic RCA occlusion, 90% LAD proximal LAD, and LVEDP = 40 mmHg
- No stents placed/medical management recommended
- Heparin Drip
- Continue IV amiodarone infusion protocol s/p V-Fib arrest.
- Continue vasopressors and wean as tolerated
- Cardiology and Ent Nurse evaluations for additional recommendations.
- Continue vent support
- Continue orogastric tube
- May need tube feeds
- Cardiology and curtain feller blindstitch evaluation appreciated
Pulmonary Edema
Acute Hypoxemic Respiratory Failure / VDRF
- CXR / CT chest showed pulmonary edema - possibly flash pulmonary edema
- laborer high density press results as above
- Continue IV Bumex
- Cardiology evaluation as noted above.
Leukocytosis
Low-Grade Fever
- Could be from CPR vs. infection
- With Temp at 100.3, continue Unasyn
Polycythemia
- Patient with marked polycythemia with Hgb = 21 (confirmation / repeat = 22).
- Likely multiple underlying reasons for secondary polycythemia including chronic hypoxemia, liver disease, etc - but current elevation seems excessive.
- Check EPO (pending), JAK2, hemochromatosis genetic panel.
- Follow cell counts for changes.
- Hematology evaluation appreciated: patient is not eligible for phlebotomy.
- Outpatient work-up for hemochromatosis demonstrated heterozygous mutation for H63D.
Anion Gap Metabolic Acidosis Suspected Secondary to Lactic Acidosis
- Likely secondary to acute ischemia
- Lactic acidosis trending down
Benign Hypertension
- Patient non-compliant with medications chronically.
- IV Lopressor 12.5 mg BID for now + IV Bumex diuresis above
- Adjust med regimen as needed for BP control.
DM-II
- Uncontrolled / non-compliant outpatient
- Was on Insulin Drip in the ICU
Left Hemiparesis as Late Effect of CVA
- CT head showed prior R MCA stroke. No acute findings appreciated / no significant cerebral edema.
- Patient has been non-compliant with med regimen for years - including ASA, etc.
Alcohol Use Disorder
- Long-standing alcohol use disorder. 10-12 beers daily per .
- Monitor for any evidence of withdrawal symptoms and treat with BZDs as needed.
- Patient is currently on sedation in the ICU
- Thiamine, folate replacement.
DVT Prophylaxis: On IV Heparin
Code Status: Full Code
Status post cardiac arrest needing ICU level of care, intubation, vasopressors, sedation, Heparin Drip and intravenous Bumex Drip is a high risk encounter.
Anticipated Discharge: > 48 hours
Subjective/Interval History
-
Date of Service: February 28, 2025
Patient was seen and examined. He remained intubated and sedated.
Objective Data
-
Labs:
Laboratory Results
02/27/25 02/27/25 02/27/25
21:50 22:21 22:57
WBC 18.8 H
Hgb 22.1 H*
Hct 65.6 H*
Plt Count 181
PT 14.2
INR 1.07
APTT Cancelled 53.6 H
HCO3 Cancelled 21.1
Sodium
Potassium
Chloride
Carbon Dioxide
BUN
Creatinine
Glucose
Calcium
Total Bilirubin
AST
ALT
Alkaline Phosphatase
02/27/25 02/28/25 02/28/25
Unknown 03:28 08:03
WBC 19.1 H
Hgb 20.4 H*
Hct 59.9 H
Plt Count 193
PT Pending
INR Pending
APTT Pending
HCO3 20.7 L
Sodium 135 136
Potassium 3.8 4.6
Chloride 103 104
Carbon Dioxide 25 21 L
BUN 12 13
Creatinine 1.1 1.2
Glucose 264 H 295 H
Calcium 9.9 9.5
Total Bilirubin 1.7 H 1.6 H
AST 159 H 313 H
ALT 25 40
Alkaline Phosphatase 69 57
Vital Signs:
Vital Signs
Temp Pulse Resp BP Pulse Ox
100.3 F 71 17 46 97
02/28/25 07:15 02/28/25 05:45 02/28/25 05:45 02/27/25 23:49 02/28/25 07:52
I&O
02/27/25 02/28/25 03/01/25
06:59 06:59 06:59
Intake Total 1172.8 / 1172.8
Output Total 1825 / 1825
Balance -652.2 / -652.2
[2025-02-28 08:22] LABS: AFP Male/Tumor Marker 13.7 ng/ml
--- NOTE | 2025-02-28 08:30 | PTCARENOTE ---
Assumed care of pt. Pt sedated with RASS -3 on propofol and fentanyl, propofol titrated down. Weak cough/gag, withdraws to pain. SR with LBBB on monitor, no edema, weak pedal pulses, murmur appreciated. Intubated with 8ETT/22cm at lip.
AC18/500/8/100%, SpO2 97%. Course rhonchi with thick yellow sputum, cx sent. OGT, 65cm clamped. Schultz draining clear yellow urine, on Bumex gtt. Amiodarone, Double concentrated Levophed, vasopressin, insulin, heparin gtts infusing as ordered.
[2025-02-28 08:34] LABS: Glucose - Point of Care 93 mg/dl (70-99)
[2025-02-28 08:36] LABS: INR 1.05; PT 14.2 Sec (11.4-14.6)
[2025-02-28 08:38] LABS: APTT 69.8 Sec (23.4-35.0)
[2025-02-28 08:43] LABS: Troponin I 45.800 ng/ml
[2025-02-28 09:00] VITALS: BP 102/68
[2025-02-28 09:10] LABS: Urine Squamous Cell 0-2 /LPF (Few); Urine Urothelial Cell 0-2 /LPF (FEW)
[2025-02-28 09:11] LABS: Urine Red Blood Cell 0-2 /HPF (0-2); Urine White Cell 0-2 /HPF (0-5)
--- NOTE | 2025-02-28 09:17 | CON.INTV ---
Consultation
Consultation Request
Date/Time Consultation Requested: 21:18 02/27/25
Date/Time Consultation Performed: 7:00 02/28/25
Medical History
-
History of Present Illness:
69yoM PMH HTN, HLD, CVA w/ residual hemiplegia/paresis, NIDDM, , hepatic fibrosis, and EtOH use presenting with acute respiratory distress s/p cardiac arrest and resuscitation.
Per chart, was with pt at his normal state of health with sudden SOB refractory to inhaler so she called EMS. In ED, pt consented to intubation in setting of acute respiratory distress. Once intubated, pt coded for around 7 min Vt/Vf with
eventual ROSC.
Overnight, followed commands. This morning, pt is sedated.
Pt was being worked up by PCP for hemochromatosis outpt with elevated ferritin 607. He was found to have heterozygous H63D mutation significant for hemochromatosis. His PCP discussed this was only concerning for iron overload if compounded with
alcohol use in which he refused support in stopping.
Past Medical History
Past Medical History: CVA, HTN, Hypercholesterolemia, NIDDM, Psychiatric (alcohol use disorder) and Other (aortic stenosis)
Social History
Alcohol: Chronic Alcoholic
Personal:
Allergies / Home Medications
Allergies
Allergy/AdvReac Type Severity Reaction Status Date / Time
No Known Allergies Allergy Verified 09/02/20 12:02
Home Medications
�Medication �Instructions �Recorded �Confirmed �Last Taken �Type
atorvastatin 40 mg tablet 40 mg PO QPM High cholesterol 09/02/20 02/27/25 09/01/20 History
aspirin 81 mg tablet,delayed 81 mg PO DAILY 09/07/20 02/27/25 Unknown Rx
release
lisinopril 10 mg tablet 10 mg PO DAILY 09/07/20 02/27/25 Unknown Rx
metoprolol succinate 25 mg 25 mg PO DAILY 09/07/20 02/27/25 Unknown Rx
tablet,extended release 24 hr
bupropion HCl 150 mg 24 hr tablet, 150 mg PO DAILY 02/27/25 02/27/25 Unknown History
extended release
Review of Systems
-
Unable to Obtain full review of systems at this time due to: Patient Intubation
Vitals / Labs / Diagnostic Testing
Vital Signs
Temp Pulse Resp BP Pulse Ox
100.3 F 71 17 46/31 97
02/28/25 07:15 02/28/25 05:45 02/28/25 05:45 02/27/25 23:49 02/28/25 08:00
Lab Data
02/28/25 03:28
02/28/25 03:28
Laboratory Results
02/27/25 02/27/25 02/27/25
21:50 22:21 22:57
PT 14.2
INR 1.07
APTT Cancelled 53.6 H
pH Cancelled 7.26 L
pCO2 Cancelled 47
pO2 Cancelled 97
HCO3 Cancelled 21.1
O2 Delivery Level Cancelled
02/28/25 02/28/25
03:28 08:03
PT 14.2
INR 1.05
APTT 69.8 H
pH 7.29 L
pCO2 43
pO2 116 H
HCO3 20.7 L
O2 Delivery Level Vent
Microbiology
02/28/25 06:54 Nasal Swab Influenza Types A & B (JESSA) - Final
Negative for Influenza A & B, NAAT
Negative results must be combined with clinical observations
and patient history.
Nucleic Acid Amplification test (NAAT)performed on the
[employer] platform.
Diagnostic Testing:
Physical Exam
-
HEENT: Normocephalic, Anicteric, Moist Mucous Membranes and Other (intubated)
Cardiovascular: S1/S2 and Regular Rhythm
Respiratory: Other (ventilator )
GI: Soft and Non Distended
Skin: Warm and Dry
Exam:
Pt sedated, intubated.
Assessment
-
69yoM PMH HTN, HLD, CVA with residual hemiplegia, NIDDM, , hepatic fibrosis, EtOH use, being worked up for hemochromatosis outpt presenting with acute respiratory distress compounded by cardiac arrest in ED now on pressors and intubated.
Hgb elevated 20.4. Leukocytosis to 19.1. Tmax 100.3. On pressors and ventilator. Continuing to wean sedation, pressors, and respiratory support.
Outpt Hgb 16 Ferritin 607 heterozygous mutation H63D.
Plan:
Neuro:
Sedated.
RASS goal 0
Hemiplegia at baseline s/p CVA
Cardio:
Sinus tach new LBBB s/p cardiac arrest in ED with ROSC established after 7 min code
kiln labourer yesterday demonstrated chronic RCA occlusion, 90% LAD proximal LAD, and LVEDP = 40 mmHg at 89.4 kg
Cardiology to manage medically no stents placed yesterday
Hemodynamically unstable on 0.03 vasopressin and Norepinephrine 26
Troponin elevated 45.8 post cath
On bumex, nicardipine, amiodarone
Cardiology following
Pulm:
Intubated for acute respiratory failure
Current vent settings 18/min, 500ml, 8 PEEP, 60%. Continue to wean.
GI:
OG tube placed. If continues to be intubated, begin tube feeds
LFTs elevated. Outpt work up for hemochromatosis compounded with EtOH use
Folate and thiamine replacement.
Triglyceridemia.
/renal:
Producing adequate urine.
Bumex
Lactic trending down
ID:
Lactic trending down
Unasyn in setting of leukocytosis and mild fever.
BC pending.
Endo:
NIDDM at baseline. Elevated BG to 295.
Insulin drip was taken off in AM.
No hx hypothyroidism
Heme:
Oncology consulted
Hgb 20.4. Plt normal. Jak2 testing pending.
Outpt work up for hemochromatosis demonstrated heterozygous mutation for H63D.
DVT prophylaxis: heparin
Diet: Tube feeds if still intubated tomorrow
Pain: ofrimev, fentanyl
[2025-02-28 09:23] LABS: Glucose - Point of Care 126 mg/dl (70-99)
--- NOTE | 2025-02-28 09:23 | CON.ONC ---
Consultation
-
Date Consultation Requested: 02/28/25
Date Consultation Performed: 02/28/25
Requesting Provider: Ehsan
Performing Provider: Marty
Reason for Consultation: Polycythemia
Impression
Impression
Cardiac Arrest
HTN-Chronic, untreated.
HLD-Chronic, untreated.
EtOH abuse
Hepatic fibrosis/cirhosis
Polycythemia - Primary vs secondary. Will need EPO and JAK2 testing
Elevayed iron sat with normal ferritin
+ Troponin - likely s/p CPR
Plan
Plan
Critically ill.
Not eligible for phlebotomy. Doubt needed acutely regardless and not indicated in secondary polycythemia.
Check EPO (pending), JAK2, hemochromatosis genetic panel.
Elevated PTT, on heparin.
Patient History
History of Present Illness
CC: SOB and cardiac arrest
HPI: 69y M with hypertension, DM-II and prior CVA with L hemiparesis who presents to ED complaining of SOB. Non-compliant with outpatient meds. states that patient began to complain of significant SOB suddenly yesterday evening around
5:15PM. He had significant work of breathing and 911 was called. Patient presented to the ED via EMS in respiratory distress with marked hypoxemia, diaphoresis and tachypnea. Patient was intubated in the ED. During / shortly after intubation,
patient became pulseless. He underwent synch cardioversion x 2 for suspected unstable A-Fib. He was then noted to have pulseless VT and periods of V-Fib on monitor. He underwent CPR and multiple rounds of defibrillation here in the ED. He
received epinephrine, bicarbonate, amiodarone and calcium. ROSC was achieved.
Patient has remained unresponsive since this event. Patient was taken to the greenhouse laborer for emergent ischemic evaluation.
states that patient has had no specific complaints prior to this evening. No recent cough, fevers / chills, etc.
She states that he has not taken any of his prescribed medications for at least two years.
He does not smoke cigarettes, but smokes occasional marijuana.
He drinks about 10-12 beers daily.
Noted to have abnormal labs with HgB = 22 (down to 20), iron sat 99% but ferritin = 253. Troponin 45.8
Past-Medical/Surgical History
Past Medical History
Past Medical History: CVA, HTN, Hypercholesterolemia and NIDDM
Social History
Tobacco: Former Smoker
Alcohol: Daily
Drug: Marijuana
Personal:
Living: With Family
Patient Medication
�Medication �Instructions �Recorded �Confirmed �Last Taken �Type
atorvastatin 40 mg tablet 40 mg PO QPM High cholesterol 09/02/20 02/27/25 09/01/20 History
aspirin 81 mg tablet,delayed 81 mg PO DAILY 09/07/20 02/27/25 Unknown Rx
release
lisinopril 10 mg tablet 10 mg PO DAILY 09/07/20 02/27/25 Unknown Rx
metoprolol succinate 25 mg 25 mg PO DAILY 09/07/20 02/27/25 Unknown Rx
tablet,extended release 24 hr
bupropion HCl 150 mg 24 hr tablet, 150 mg PO DAILY 02/27/25 02/27/25 Unknown History
extended release
Active Medications
Generic Name Dose Route Start Last Admin
Trade Name Freq PRN Reason Stop Dose Admin
Acetaminophen 650 mg 02/27/25 20:58
Acetaminophen 325 Mg Tablet PO 03/27/25 20:57
Q4HPRN PRN
mild pain
Aspirin 81 mg 02/28/25 08:00 02/28/25 07:29
Aspirin 81 Mg Chewable Tablet TUBE 03/28/25 07:59 81 mg
DAILY DIANE Administration
Bisacodyl 10 mg 02/27/25 23:28
Bisacodyl 10 Mg Rectal Suppository RECTAL 03/27/25 23:27
DAILYPRN PRN
no BM within 72 hours
Dextrose 12.5 grams 02/28/25 00:42
Dextrose 50% (0.5 Grams/Ml) 50 Ml Syringe IV 03/28/25 00:41
[id number] PRN
Blood Glucose < 70
Fentanyl Citrate 50 mcg 02/27/25 23:28
Fentanyl (50 Mcg/Ml) 100 Mcg/2 Ml Ampul IV 03/13/25 23:27
[id number] PRN
see protocol
Protocol
Folic Acid 1 mg 02/28/25 08:00 02/28/25 07:28
Folic Acid 1 Mg Tablet PO 03/28/25 07:59 1 mg
DAILY DIANE Administration
Propofol 1,000,000 mcg in 100 mls @ 0 mls/hr 02/27/25 20:45 02/28/25 05:56
Diprivan IV 100 mls
PER PROTOCOL DIANE Administration
Protocol
Per Protocol
Folic Acid 1 mg/ Sodium 50.2 mls @ 200.8 mls/hr 02/27/25 21:18
Chloride IV 03/27/25 21:17
DAILYPRN PRN
if NPO
Heparin Sodium 25,000 units in 250 mls @ 0 mls/hr 02/27/25 21:18 02/28/25 02:22
Heparin 21376 Units/250 Ml IV 250 mls
PER PROTOCOL DIANE Administration
Protocol
Per Protocol
Bumetanide 25 mg in 100 mls @ 4 mls/hr 02/27/25 21:30 02/27/25 22:45
Bumex IV 100 mls
ORDERED RATE DIANE Administration
1 MG/HR
Nicardipine/Sodium Chloride 40 mg in 200 mls @ 0 mls/hr 02/27/25 21:30
Cardene IV
PER PROTOCOL DIANE
Protocol
Per Protocol
Amiodarone HCl 900 mg/ 518 mls @ 0 mls/hr 02/27/25 22:15 02/28/25 04:33
Dextrose/Water IV 518 mls
PER PROTOCOL DIANE Administration
Protocol
Per Protocol
Fentanyl Citrate 1,000 mcg in 100 mls @ 0 mls/hr 02/27/25 23:30 02/27/25 23:34
Sublimaze IV 100 mls
PER PROTOCOL DIANE Administration
Protocol
Per Protocol
Insulin Human Regular 100 units in 100 mls @ 0 mls/hr 02/28/25 00:45 02/28/25 07:21
Novolin R Insulin Infusion IV 100 mls
PER PROTOCOL DIANE Administration
Protocol
Per Protocol
Norepinephrine Bitartrate 8 mg 258 mls @ 0 mls/hr 02/28/25 03:00 02/28/25 08:19
/ Sodium Chloride IV 258 mls
PER PROTOCOL DIANE Administration
Protocol
Per Protocol
Acetaminophen 1,000 mg in 100 mls @ 400 mls/hr 02/28/25 05:59 02/28/25 06:51
Ofirmev IV 03/01/25 05:58 100 mls
Q6HPRN PRN Administration
fever>100.3
Protocol
Ampicillin Sodium/Sulbactam 120 mls @ 240 mls/hr 02/28/25 08:00 02/28/25 07:29
Sodium 3 gm/ Sodium Chloride IV 120 mls
Q6H DIANE Administration
Insulin Aspart 0 units 02/28/25 07:30 02/28/25 07:28
Insulin Aspart (Novolog) 100 Units/Ml 3 Ml Flexpen SC 03/28/25 07:29 Not Given
AC DIANE
Protocol
Lorazepam 1 mg 02/27/25 21:18
Lorazepam 1 Mg Tablet PO 03/27/25 21:17
Q2HPRN PRN
MSAS 5-7
Lorazepam 1 mg 02/27/25 21:18
Lorazepam 2 Mg/Ml Vial IV 03/27/25 21:17
Q1HPRN PRN
MSAS 8-11
Lorazepam 2 mg 02/27/25 21:18
Lorazepam 2 Mg/Ml Vial IV 03/27/25 21:17
Q1HPRN PRN
MSAS > 11
Metoprolol Tartrate 5 mg 02/28/25 00:00 02/28/25 05:55
Metoprolol 5 Mg/5 Ml Vial IV 03/28/25 00:00 Not Given
Q6 DIANE
Midazolam HCl 1 mg 02/27/25 20:58
Midazolam (Preservative Free) 1 Mg/Ml 2 Ml Vial IV 02/28/25 21:00
Q5MPRN PRN
anxiety
Nitroglycerin 0.4 mg 02/27/25 20:58
Nitroglycerin 0.4 Mg Sl Tablet SL 02/28/25 21:00
[id number] PRN
chest pain or SBP > 150 mmHg
Pantoprazole Sodium 40 mg 02/28/25 08:00 02/28/25 07:28
Pantoprazole Sodium 40 Mg/10 Ml Vial IV 03/28/25 07:59 40 mg
DAILY DIANE Administration
Sodium Chloride 0 ml 02/27/25 21:18
Sodium Chloride 0.9% (Preservative Free) 10 Ml Vial IV 03/27/25 21:17
PRN PRN
To dilute IV Ativan
Protocol
Sodium Chloride 0 flush 02/27/25 22:00
Sodium Chloride 0.9% (Flush) Syringe IV 03/27/25 21:59
PER PROTOCOL DIANE
Sodium Chloride 10 ml 02/28/25 08:00 02/28/25 07:28
Sodium Chloride 0.9% (Preservative Free) 10 Ml Vial IV 03/28/25 07:59 10 ml
DAILY DIANE Administration
Thiamine HCl 200 mg 02/28/25 00:00 02/28/25 07:28
Thiamine (100 Mg/Ml) 2 Ml Vial IV 03/02/25 16:01 200 mg
Q8 DIANE Administration
Thiamine HCl 100 mg 03/02/25 20:00
Thiamine 100 Mg Tablet PO 03/30/25 19:59
BID DIANE
Physical Exam
-
unresponsive on vent
Cardiology: S1, S2 and Murmur
Pulmonary: Clear
GI: Soft
Labs
Lab Results
WBC 19.1 10^3/uL (4.8-10.8) H 02/28/25 03:28
RBC 5.89 10^6/uL (4.70-6.10) 02/28/25 03:28
Hgb 20.4 g/dL (13.0-18.0) H* 02/28/25 03:28
Hct 59.9 % (39.0-52.0) H 02/28/25 03:28
MCV 101.7 fL (80.0-94.0) H 02/28/25 03:28
MCH 34.6 pg (27.0-31.0) H 02/28/25 03:28
MCHC 34.1 g/dL (33.0-37.0) 02/28/25 03:28
RDW 14.6 % (11.5-14.5) H 02/28/25 03:28
Plt Count 193 10^3/uL (130-400) 02/28/25 03:28
MPV 11.5 fL (7.4-10.4) H 02/28/25 03:28
Abs Immat Gran (auto) 0.1 10^3/uL (0-0.05) H 02/27/25 18:02
Absolute Neuts (auto) 3.7 10^3/uL (1.4-6.5) 02/27/25 18:02
Absolute Lymphs (auto) 5.1 10^3/uL (1.2-3.4) H 02/27/25 18:02
Absolute Monos (auto) 0.6 10^3/uL (0.1-0.6) 02/27/25 18:02
Absolute Eos (auto) 0.3 10^3/uL (0-0.7) 02/27/25 18:02
Absolute Basos (auto) 0.2 10^3/uL (0-0.2) 02/27/25 18:02
Immature Gran % 0.6 % (0-0.5) H 02/27/25 18:02
Neutrophils % 37.5 % (42.2-75.2) L 02/27/25 18:02
Lymphocytes % 51.6 % (20.5-51.1) H 02/27/25 18:02
Monocytes % 5.8 % (1.7-9.3) 02/27/25 18:02
Eosinophils % 2.8 % (0-6) 02/27/25 18:02
Basophils % 1.7 % (0-2) 02/27/25 18:02
Creatinine 1.2 mg/dL (0.7-1.3) 02/28/25 03:28
Vital Signs
Vital Signs
Temp Pulse Resp BP Pulse Ox
100.3 F 67 18 102/68 98
02/28/25 07:15 02/28/25 09:15 02/28/25 09:15 02/28/25 09:00 02/28/25 09:15
[2025-02-28 10:11] LABS: Glucose - Point of Care 146 mg/dl (70-99)
[2025-02-28 10:12] LABS: Glycohemoglobin (HgbA1c) 5.4 % (4.0-5.6)
[2025-02-28 11:06] LABS: Glucose - Point of Care 148 mg/dl (70-99)
[2025-02-28] MEDS: PITRESSIN 100 IV ×3 (11:22→23:12)
[2025-02-28 11:52] VITALS: BMI 29.7
[2025-02-28 12:00] VITALS: BP 122/79
[2025-02-28] MEDS: VALIUM INJECTION 10 MG IV ×2 (12:01→20:04)
[2025-02-28 12:05] LABS: Glucose - Point of Care 152 mg/dl (70-99)
--- NOTE | 2025-02-28 12:20 | PTCARENOTE ---
Assessment unchanged. Wean down propofol and levophed. Pt awake and trying to remove lines/tubes, squeezed hand on request but would not nod head or look at RN. Significant diaphoresis, valium given for MSAS 11.
--- NOTE | 2025-02-28 13:35 | W.PN.CD ---
Today's Communication / Plan
-
Hemodynamic support.
Echocardiogram ordered/pending.
Continue diuresis.
Impression / Plan
-
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 possible hemochromatosis with at least moderate hepatic fibrosis and medication non-compliance admitted with acute, vent
dependent respiratory failure complicated by VT/VF arrest and new LBBB.
#Cardiac Arrest
-Acute, threat to life.
-VT/VF arrest in ER. EKG shows LBBB.
-CTPE negative for PE, does show marked pulmonary edema.
-Cardiac catheterization showed severe CAD (SAMPLE CASE PORTER of pRCA, SAMPLE CASE PORTER of smaller OM1, complex 90% Sinha 1,1,1 proximal LAD/Diagonal lesion) with EMMA III flow in all vessels.
-LVEDP 40 mmHg at the time of cath.
-Given his presentation, revascularization was deferred as the thought was his arrest was due to severely elevated LVEDP compounded by moderate and sedation for elective intubation.
-Troponin 11.900 --> 9.770 --> 28.900 --> 45.800.
-He is not ready for revascularization.
-Hemodynamic support with norepinephrine and vasopressin.
-Echocardiogram ordered/pending.
#Hypoxic respiratory failure
-Acute, threat to life.
-Multifactorial - heart failure, possible PNA.
-SARS-CoV-2 negative, Influenza A/B negative; Blood Cx/Respiratory Cx pending.
-ABG = 7.29/43/116/99.3.
-Treating HF with bumetanide gtt. Weight is down 1.4 kg.
-No role for GDMT at this time.
-Pulmonary toilet.
-Daily CXR.
#HTN
-Chronic, untreated.
-We will address medications when he has stabilized.
#HLD
-Chronic, untreated.
-Total cholesterol = 245, LDL = 119, HDL = 63, Triglycerides = 315.
-Resume atorvastatin.
#EtOH
-Chronic.
-Intubated, sedated. Adjust sedation as needed to mitigate withdrawal.
-Agree with B1/B12 supplementation.
-MSAS protocol when extubated.
#Hepatic fibrosis
-Chronic.
-At least moderate by Fibroscan.
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
-Heterozygous HFE gene mutation +.
Critical Care Time = 55 minutes.
Subjective/Interval History:
Presented with abrupt onset shortness in breath and hypoxic respiratory failure, complicated by VT/VF arrest with elective intubation.
Cardiac catheterization last night showed severe CAD with SAMPLE CASE PORTER of the RCA, OM1 and a 90% Sinha 1,1,1 lesion in the proximal LAD/Diagonal.
EMMA III flow in all vessels.
LVEDP 40 mmHg.
Patient transferred to ICU without PCI due to EMMA III flow and LVEDP serving as the likely culprit for the patient's acute decompensation.
Bumetanide gtt started.
Overnight, BP started to fall and the patient was started on norepinephrine and vasopressin.
Ampicillin/sulbactam started.
Hbg fell to 20.4.
Nursing reports increased sedation requirements suspicious for withdrawal.
DATA:
Cardiac Catheterization, 02/27/2025:
CONCLUSIONS
1. Right dominant circulation with a chronic total occlusion of the proximal RCA with a bridging right to right collateral, a chronic total occlusion of the distal circumflex immediately after the origin of OM1, chronic total occlusion of the small
upper branch of OM1, and a complex, 90% Sinha 1, 1, 1 lesion in the proximal/mid LAD with EMMA-3 flow. Collaterals are visible from the distal LAD to the distal RPDA and from the distal RCA to the distal circumflex.
2. Severely elevated filling pressures (LVEDP = 40 mmHg at 89.4 kg).
3. At least moderate aortic valve stenosis (mean gradient = 32 mmHg on pullback).
Physical Exam
Vital Signs/Labs
Vital Signs
Temp Pulse Resp BP Pulse Ox
37.5 C 63 19 122/79 99
02/28/25 11:22 02/28/25 13:00 02/28/25 13:00 02/28/25 12:00 02/28/25 13:00
02/27/25 02/28/25 03/01/25
11:59 11:59 11:59
Actual Weight 88.5 kg
02/28/25 03:28
PT 14.2 Sec (11.4-14.6) 02/28/25 08:03
INR 1.05 02/28/25 08:03
APTT 69.8 Sec (23.4-35.0) H 02/28/25 08:03
Magnesium 1.6 mg/dl (1.6-2.3) 02/28/25 03:28
Triglycerides 315 mg/dl (10-149) H 02/28/25 03:28
LDL Cholesterol, Calc 119 mg/dl 02/28/25 03:28
VLDL Cholesterol, Calc 63 mg/dl (0-30) H 02/28/25 03:28
HDL Cholesterol 63 mg/dl 02/28/25 03:28
02/27/25 02/27/25 02/27/25
18:02 18:31 19:35
[id number] Pept Cancelled Cancelled Cancelled
02/27/25
Unknown
[id number] Pept [id number]
LAB Results
02/27/25 02/27/25 02/27/25
18:02 18:31 19:35
Troponin I Cancelled Cancelled Cancelled
02/27/25 02/27/25 02/27/25
21:50 22:21 Unknown
Troponin I Cancelled 11.900 H* 9.770 H*
02/28/25 02/28/25
03:28 08:03
Troponin I 28.900 H* D 45.800 H* D
Physical Exam
Constitutional: No acute distress and Comfortable
EENT: Anicteric and Moist mucous membranes
Cardiovascular: Rhythm & rate is regular, Pedal edema is absent, Systolic murmur present and S1S2 is normal
Respiratory: Respiratory effort normal, Crackles Present and Rhonchi Present
GI: Soft, Distention absent, Flat, Non tender and Normal bowel sounds
Neuro/Psych: AO x 3
Other: Cath Site (Right radial access site is C/D/I.)
Data Reviewed
-
Date of Service: February 28, 2025
Medical Decision Making: Reviewed Test Results, Independent Historian Assessment and Test Interpretation
EKG: Tracing Personally Visualized and interpreted and Report Reviewed by me
Echo: Ordered by me
X-Ray/CT/US/MRI/NUC/PET: Image Personally Visualized and interpreted and Report Reviewed by me
Medical Tests (PFT, Pathology etc): Image Personally Visualized and interpreted and Report Reviewed by me
Labs: Labs Reviewed by me
Old Records: Reviewed
[2025-02-28 14:08] LABS: Glucose - Point of Care 187 mg/dl (70-99)
[2025-02-28 15:03] LABS: APTT 101.9 Sec (23.4-35.0)
[2025-02-28 15:23] LABS: Glucose - Point of Care 211 mg/dl (70-99)
--- NOTE | 2025-02-28 15:29 | CM ---
Cardiac arrest. Intubated. Initial assessment completed with and mother. Patient lives with and mother in a 1 story ranch style home with a small utility room in basement, 3 steps and/or a ramp. HOME HEALTH NURSE LICENSED [employer]ACTICAL patient was independent in ADL's and
ambulation, drives. Has a rollator and SPC. No in-home services. No VA benefits. No psychiatric hospitalizations. No HC-POA. PCP is Dr. S[address]. [facility] [place]. Discharge POC: TBD. Patient has a history of alcoholism.
Has been adverse to any treatment or services. Will send referral to [facility].
[2025-02-28 15:31] LABS: Blood Urea Nitrogen 19 mg/dl (9-20); Calcium 9.1 mg/dl (8.4-10.2); Carbon Dioxide 22 mmol/L (22-30); Estimated Creatinine Clearance 53 ml/min; Glucose 210 mg/dl (70-99); Magnesium 1.7 mg/dl (1.6-2.3); Potassium 4.3 mmol/L (3.5-5.1); Sodium 133 mmol/L (135-145); eGFR > 60.00
[2025-02-28 15:53] LABS: Chloride 102 mmol/L (98-107)
[2025-02-28 16:00] VITALS: BP 89/67
[2025-02-28 16:12] LABS: Glucose - Point of Care 161 mg/dl (70-99)
--- NOTE | 2025-02-28 16:45 | PTCARENOTE ---
Family at bedside, plan of care discussed with litigation docket manager. Continuing to wean levophed.
[2025-02-28] MEDS: MAGNESIUM OXIDE 400 MG TUBE (16:54)
[2025-02-28] MEDS: BUMEX 100 IV (17:03)
[2025-02-28 17:16] LABS: Glucose - Point of Care 147 mg/dl (70-99)
[2025-02-28 18:05] LABS: Troponin I 31.100 ng/ml
[2025-02-28] MEDS: SUBLIMAZE 100 IV (18:13)
[2025-02-28 18:25] LABS: Glucose - Point of Care 158 mg/dl (70-99)
[2025-02-28] MEDS: LOPRESSOR TUBE (19:37)
[2025-02-28 20:00] VITALS: BP 103/77
--- NOTE | 2025-02-28 20:00 | PTCARENOTE ---
hanger off, pt intub/sedated. SR BBB HR 60s. L rad [place] WNL. LA IV x 3/ RUE PICC WNL- levo, vaso, bumex, amio, heparin, insulin, Fent, prop infusing per work list. Sat 97% on MV Fi02 40%, mouth care done. OGT clamped. Schultz draining adequate amt
yellow urine. turned, repositioned. POC discussed with at bedside. care ongoing.
[2025-02-28 20:18] LABS: Glucose - Point of Care 157 mg/dl (70-99)
[2025-02-28 21:41] LABS: APTT 94.7 Sec (23.4-35.0)
[2025-02-28 22:20] LABS: Glucose - Point of Care 171 mg/dl (70-99)
[2025-03-01] MEDS: THIAMINE INJECTION 200 MG IV ×3 (00:09→15:18)
[2025-03-01 00:22] LABS: Glucose - Point of Care 160 mg/dl (70-99)
[2025-03-01] MEDS: UNASYN IV ×4 (02:16→19:16)
[2025-03-01 02:20] LABS: Glucose - Point of Care 157 mg/dl (70-99)
--- NOTE | 2025-03-01 02:30 | PTCARENOTE ---
increased ectopy/pvcs, am labs sent, KFlahertyNP aware, no further changes in assessment.
[2025-03-01 02:57] LABS: B.E. 7.9 mmol/L; HCO3 27.8 mmol/L (21-28); O2 Saturation % 98.1 % (94-98); PCO2 27 mmHg (35-48); PO2 77 mmHg (83-108)
[2025-03-01 03:01] LABS: Hematocrit 54.0 % (39.0-52.0); Hemoglobin 19.4 g/dL (13.0-18.0); Mean Corp Hgb Conc. 35.9 g/dL (33.0-37.0); Mean Corpuscular Volume 95.4 fL (80.0-94.0); Platelet Count 189 10^3/uL (130-400); Red Cell Dist. Width 14.5 % (11.5-14.5)
[2025-03-01 03:23] LABS: ALT (SGPT) 35 U/L (0-50); AST (SGOT) 181 U/L (17-59); Albumin 3.7 g/dl (3.5-5.0); Alkaline Phosphatase 43 U/L (38-126); Blood Urea Nitrogen 22 mg/dl (9-20); Calcium 9.0 mg/dl (8.4-10.2); Carbon Dioxide 26 mmol/L (22-30); Chloride 101 mmol/L (98-107); Estimated Creatinine Clearance 53 ml/min; Glucose 169 mg/dl (70-99); LDH 761 U/L (120-246); Magnesium 1.7 mg/dl (1.6-2.3); Potassium 3.5 mmol/L (3.5-5.1); Sodium 136 mmol/L (135-145); Total Protein 6.9 g/dl (6.3-8.2); eGFR > 60.00
[2025-03-01] MEDS: DIPRIVAN 100 IV (03:38)
[2025-03-01 04:12] LABS: APTT 84.1 Sec (23.4-35.0)
[2025-03-01 04:28] LABS: Glucose - Point of Care 141 mg/dl (70-99)
--- NOTE | 2025-03-01 04:30 | PTCARENOTE ---
CHG cloths, marty care, pt opens eyes with care/restless. no further changes in assessment.
[2025-03-01] MEDS: VALIUM INJECTION 5 MG IV ×2 (05:13→10:14)
[2025-03-01] MEDS: KCL 100 IV (05:13)
[2025-03-01] MEDS: CORDARONE 518 MG IV (05:38)
[2025-03-01] MEDS: MAGNESIUM SULFATE 102 GRAMS IV (05:49)
[2025-03-01 06:00] VITALS: BMI 28.6
[2025-03-01 06:23] LABS: Glucose - Point of Care 147 mg/dl (70-99)
--- NOTE | 2025-03-01 07:47 | W.PN.HOSP.TC ---
Today's Communication/Plan
-
Decrease Bumex Drip
Sedation trial
Continue Heparin Drip
Amiodarone Drip
Antibiotics
Assessment / Plan
Assessment / Plan
Physical Exam
General: Intubated and Sedated
HEENT: ETT in place.
Respiratory: Equal air entry bilaterally
Cardiac: S1/S2, RRR
GI: Soft, Non Tender, Non Distended and Normal Bowel Sounds
Musculoskeletal: No Cyanosis
Neuro: Other (Unresponsive on ventilator.)
Assessment/Plan
69 y/o male with past medical history significant for medication non-compliance (for at least 2 years), hypertension, DM-II, occasional Marijuana smoking, alcohol (drinking 10-12 beers daily) and prior CVA with left hemiparesis who presented to [facility]
ED complaining of SOB (prior to this patient was okay and had no specific complaints). stated that patient began to complain of significant SOB suddenly on 02/28/25 evening around 5:15PM. He had significant work of breathing and 911 was called.
Patient presented to the ED via EMS in respiratory distress with marked hypoxemia, diaphoresis and tachypnea. Patient was intubated in the ED. During/shortly after intubation, patient became pulseless. He underwent synch cardioversion x 2 for
suspected unstable A-Fib. He was then noted to have pulseless VT and periods of V-Fib on monitor. He underwent CPR and multiple rounds of defibrillation here in the ED. He received epinephrine, bicarbonate, amiodarone and calcium. ROSC was
achieved. Patient has remained unresponsive since this event. EKG done in the ED shows new LBBB and patient was taken to the public works laborer for emergent ischemic evaluation.
V-Tach / V-Fib Cardiac Arrest
Shock -- suspected cardiogenic
- Flash pulmonary edema and hypoxia on presentation (LVEDP was high on cardiac cath)
- With abrupt onset, significant risk factors, new LBBB, etc - patient went for emergent ischemic evaluation 02/27/25
- Cath above showed chronic RCA occlusion, 90% LAD proximal LAD, and LVEDP = 40 mmHg
- No stents placed/medical management recommended
- CT PE study showed no PE
- Heparin Drip
- Continue IV amiodarone infusion protocol s/p V-Fib arrest.
- Continue vasopressors and wean as tolerated
- Cardiology and Kids Activities Coach evaluations for additional recommendations.
- Continue vent support --- sedation weaning trials
- Continue orogastric tube
- May need tube feeds
- Cardiology and director bioinformatics evaluation appreciated
Medication Non-Compliance
Pulmonary Edema
Acute Hypoxemic Respiratory Failure / VDRF
- CXR / CT chest showed pulmonary edema - possibly flash pulmonary edema
- warehouse laborer results as above
- Continue IV Bumex drip -- decrease rate today to 0.5
- Cardiology evaluation as noted above.
- COVID negative, Influenza A/B negative, S. Pneumoniae UAG negative, Legionella UAG negative
Leukocytosis
Low-Grade Fever
- Could be from CPR vs. infection
- With Temp at 100.3, continue Unasyn
Polycythemia
- Patient with marked polycythemia with Hgb = 21 (confirmation / repeat = 22).
- Likely multiple underlying reasons for secondary polycythemia including chronic hypoxemia, liver disease, etc - but current elevation seems excessive.
- Check EPO (pending), JAK2, hemochromatosis genetic panel.
- Follow cell counts for changes.
- Hematology evaluation appreciated: patient is not eligible for phlebotomy.
- Outpatient work-up for hemochromatosis demonstrated heterozygous mutation for H63D.
Anion Gap Metabolic Acidosis Suspected Secondary to Lactic Acidosis
- RESOLVED
- Likely secondary to acute ischemia
- Lactic acidosis trended down
Benign Hypertension
- Patient non-compliant with medications chronically.
- IV Lopressor 12.5 mg BID for now + IV Bumex diuresis above
- Adjust med regimen as needed for BP control.
DM-II
- Uncontrolled / non-compliant outpatient
- Was on Insulin Drip in the ICU
Left Hemiparesis as Late Effect of CVA
- CT head showed prior R MCA stroke. No acute findings appreciated / no significant cerebral edema.
- Patient has been non-compliant with med regimen for years - including ASA, etc.
Alcohol Use Disorder
- Long-standing alcohol use disorder. 10-12 beers daily per .
- Monitor for any evidence of withdrawal symptoms and treat with BZDs as needed.
- Patient is currently on sedation in the ICU
- Thiamine, folate replacement.
- MSAS protocol
DVT Prophylaxis: On IV Heparin
Code Status: Full Code
Status post cardiac arrest needing ICU level of care, intubation, vasopressors, sedation, Heparin Drip and intravenous Bumex Drip is a high risk encounter.
Anticipated Discharge: > 48 hours
Subjective/Interval History
-
Date of Service: March 01, 2025
Patient was seen and examined. He remained intubated and sedated.
Objective Data
-
Labs:
Laboratory Results
02/28/25 03/01/25 03/01/25
21:09 02:27 03:34
WBC 17.9 H
Hgb 19.4 H
Hct 54.0 H
Plt Count 189
APTT 94.7 H Cancelled 84.1 H
HCO3 27.8
Sodium 136
Potassium 3.5
Chloride 101
Carbon Dioxide 26
BUN 22 H
Creatinine 1.3
Glucose 169 H
Calcium 9.0
Total Bilirubin 1.4 H
AST 181 H
ALT 35
Alkaline Phosphatase 43
03/01/25
08:00
WBC
Hgb
Hct
Plt Count
APTT
HCO3 Pending
Sodium
Potassium
Chloride
Carbon Dioxide
BUN
Creatinine
Glucose
Calcium
Total Bilirubin
AST
ALT
Alkaline Phosphatase
Vital Signs:
Vital Signs
Temp Pulse Resp BP Pulse Ox
99.2 F 57 16 103/77 98
02/28/25 20:00 03/01/25 06:45 03/01/25 06:45 02/28/25 20:00 03/01/25 06:45
I&O
02/28/25 03/01/25 03/02/25
06:59 06:59 06:59
Intake Total 1172.8 / 1358.6 2272.5 / 2272.5
Output Total 1825 / 1825 5385 / 5368
Balance -652.2 / -466.4 -3112.5 / -3112.5
--- NOTE | 2025-03-01 07:55 | W.PN.CD ---
Today's Communication / Plan
-
Continue supportive measures.
Decrease bumetanide gtt to 0.5 mg/hour.
Not ready for GDMT.
MSAS.
Wean vent per protocol.
Titrate pressors for MAP > 65 mmHg.
Impression / Plan
-
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 possible hemochromatosis with at least moderate hepatic fibrosis and medication non-compliance admitted with acute, vent
dependent respiratory failure complicated by VT/VF arrest and new LBBB.
#Cardiac Arrest
-Acute, threat to life.
-VT/VF arrest in ER. EKG shows LBBB.
-CTPE negative for PE, does show marked pulmonary edema.
-Cardiac catheterization showed severe CAD (SILK FOLDER of pRCA, SILK FOLDER of smaller OM1, complex 90% Sinha 1,1,1 proximal LAD/Diagonal lesion) with EMMA III flow in all vessels.
-LVEDP 40 mmHg at the time of cath.
-Given his presentation, revascularization was deferred as the thought was his arrest was due to severely elevated LVEDP compounded by moderate and sedation for elective intubation.
-Troponin 11.900 --> 9.770 --> 28.900 --> 45.800 --> 31.100.
-Lactic acid down to 2.2.
-Medical management of cardiac arrest at this time.
#HFrEF
-Acute on chronic/flash pulmonary edema.
-Likely due to untreated chronic medical conditions in combination with severe CAD.
-Still diuresing. Not ready for GDMT.
-Decrease bumetanide to 0.5 mg/hour.
-Pulmonary toilet.
-Daily CXR.
#Hypoxic respiratory failure
-Acute, threat to life.
-Multifactorial - heart failure, possible PNA.
-SARS-CoV-2 negative, Influenza A/B negative, S. Pneumoniae UAG negative, Legionella UAG negative; Blood Cx/Respiratory Cx pending.
-Diuresis as above.
#HTN
-Chronic, untreated.
-We will address medications when he has stabilized.
#HLD
-Chronic, untreated.
-Total cholesterol = 245, LDL = 119, HDL = 63, Triglycerides = 315.
-Resume atorvastatin.
#EtOH
-Chronic.
-Intubated, sedated. Adjust sedation as needed to mitigate withdrawal.
-Agree with B1/B12 supplementation.
-MSAS protocol when extubated.
#Hepatic fibrosis
-Chronic.
-At least moderate by Fibroscan.
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
-Heterozygous HFE gene mutation +.
Critical Care Time = 45 minutes.
Subjective/Interval History:
Weight down 3.2 kg from yesterday.
SaO2 98% on FiO2 of 0.4, PEEP of 8.
Invasive BP shows MAP consistently > 70 mmHg.
Diazepam given for MSAS protocol (10 mg x2 overnight, 5 mg this morning).
ABG @ 02:27 = 7.62//77/98.1
Echo shows severe LV systolic dysfunction, LVEF 15%
Norepinephrine down to 2 mcg/kg/min.
Vasopressin remains at 20 units.
DATA:
Cardiac Catheterization, 02/27/2025:
CONCLUSIONS
1. Right dominant circulation with a chronic total occlusion of the proximal RCA with a bridging right to right collateral, a chronic total occlusion of the distal circumflex immediately after the origin of OM1, chronic total occlusion of the small
upper branch of OM1, and a complex, 90% Sinha 1, 1, 1 lesion in the proximal/mid LAD with EMMA-3 flow. Collaterals are visible from the distal LAD to the distal RPDA and from the distal RCA to the distal circumflex.
2. Severely elevated filling pressures (LVEDP = 40 mmHg at 89.4 kg).
3. At least moderate aortic valve stenosis (mean gradient = 32 mmHg on pullback).
TTE, 02/28/2025:
SUMMARY
1. Left ventricular cavity size is 4.35 cm which is normal.
2. LV Wall Motion: entire septum, basal inferior segment, entire lateral wall, entire anterior wall, and mid and apical inferior wall are abnormal, as described below.
3. Ejection fraction is 15-20% by Morgan's method of discs.
4. Stage I diastolic dysfunction suggestive of abnormal relaxation.
5. Severe aortic valve stenosis. Aortic valve area = 0.54 cm².
6. The inferior vena cava appears dilated.
7. Compared to a prior transthoracic echocardiogram Left ventricular function is now severely depressed with akinesis of the septum and anteroseptum and global hypokinesis elsewhere. Aortic valve stenosis has progressed to severe.
Physical Exam
Vital Signs/Labs
Vital Signs
Temp Pulse Resp BP Pulse Ox
37.3 C 57 16 103/77 98
02/28/25 20:00 03/01/25 06:45 03/01/25 06:45 02/28/25 20:00 03/01/25 06:45
02/27/25 02/28/25 03/01/25
11:59 11:59 11:59
Actual Weight 88.5 kg 85.3 kg
03/01/25 02:27
03/01/25 02:27
PT 14.2 Sec (11.4-14.6) 02/28/25 08:03
INR 1.05 02/28/25 08:03
APTT 84.1 Sec (23.4-35.0) H 03/01/25 03:34
Magnesium 1.7 mg/dl (1.6-2.3) 03/01/25 02:27
Triglycerides 315 mg/dl (10-149) H 02/28/25 03:28
LDL Cholesterol, Calc 119 mg/dl 02/28/25 03:28
VLDL Cholesterol, Calc 63 mg/dl (0-30) H 02/28/25 03:28
HDL Cholesterol 63 mg/dl 02/28/25 03:28
02/27/25 02/27/25 02/27/25
18:02 18:31 19:35
Eon-V-Pwjnwjmsnck Pept Cancelled Cancelled Cancelled
02/27/25
Unknown
Oww-F-Qdcwosdkbqw Pept 10066
LAB Results
02/27/25 02/27/25 02/27/25
18:02 18:31 19:35
Troponin I Cancelled Cancelled Cancelled
02/27/25 02/27/25 02/27/25
21:50 22:21 Unknown
Troponin I Cancelled 11.900 H* 9.770 H*
02/28/25 02/28/25 02/28/25
03:28 08:03 17:13
Troponin I 28.900 H* D 45.800 H* D 31.100 H*
Physical Exam
Constitutional: No acute distress and Comfortable
EENT: Anicteric, Moist mucous membranes and Other (ET tube in place.)
Cardiovascular: Rhythm & rate is regular, Pedal edema is absent, JVD pressure is normal, Systolic murmur present and S1S2 is normal
Respiratory: Respiratory effort normal and Lungs clear to auscul.
GI: Soft, Distention absent, Flat, Non tender and Normal bowel sounds
Neuro/Psych: Other (Intubated/sedated.)
Other: Cath Site (Right radial access site is C/D/I.)
Data Reviewed
-
Date of Service: March 01, 2025
Medical Decision Making: Reviewed Test Results, Independent Historian Assessment, Test Interpretation and Review of Case with other Provider
EKG: Tracing Personally Visualized and interpreted and Report Reviewed by me
Echo: Tracing Personally Visualized and interpreted and Report Reviewed by me
X-Ray/CT/US/MRI/NUC/PET: Image Personally Visualized and interpreted and Report Reviewed by me
Medical Tests (PFT, Pathology etc): Image Personally Visualized and interpreted and Report Reviewed by me
Labs: Labs Reviewed by me
Old Records: Reviewed
[2025-03-01] MEDS: NSS (PRESERVATIVE FREE) 10 ML IV (08:01)
[2025-03-01] MEDS: FOLVITE 1 MG TUBE (08:02)
[2025-03-01] MEDS: LOW STRENGTH ASPIRIN 81 MG TUBE (08:02)
[2025-03-01] MEDS: VALIUM INJECTION 10 MG IV ×2 (08:02→19:16)
[2025-03-01] MEDS: LOPRESSOR 12.5 MG TUBE (08:02)
[2025-03-01] MEDS: PROTONIX IV 40 MG IV (08:03)
[2025-03-01 08:12] LABS: Glucose - Point of Care 154 mg/dl (70-99)
[2025-03-01 08:23] VITALS: BP 96/74
--- NOTE | 2025-03-01 08:25 | PN.DE.MGMTRT ---
Insulin Management
- -
03/01/2025: Diabetes Management Consult Follow up
Patient admitted by ambulance with c/o SOB - cardiac arrest in the ED. PMH: HTN, HLD, T2DM, Hx of CVA with L hemiparesis. He underwent CPR and multiple rounds of defibrillation in the ED. He received epinephrine, bicarbonate, amiodarone and
calcium. ROSC was achieved. Patient remained unresponsive since this event. EKG showed new LBBB and patient was taken to the labor relations director for emergent ischemic evaluation.
Pt is intubated and sedated. at bedside. History obtained from , chart review and Nurse. stated that pt had not taken any of his prescribed medications for at least two years. He was never diagnosed with diabetes or taken medication
for diabetes. He does not smoke cigarettes, but smokes occasional marijuana and drinks about 10-12 beers daily. A1C is 5.4%, Cr 1.3, eGFR >60.
Pt remained on critical care glycemic protocol overnight, glucose range 147 to 117, requiring 1.7 to 2 units of insulin/hr.
Pt will remain on continuos insulin infusion for now given his critically ill condition on pressors and high insulin requirements.
Will con to follow. Discussed with Nurse.
Diabetes History
- -
Type of Diabetes: 2
Pre-Admission Diabetes Regimen
02/28/25 03/01/25
14:39 02:27
Creatinine 1.3 1.3
Lab Results
Hemoglobin A1c 5.4 % (4.0-5.6) 02/28/25 03:28
Insulin Pump Settings
IP Diabetes Regimen
02/28/25 02/28/25 02/28/25
08:10 09:11 09:59
Glucose
POC Glucose 93 126 H 146 H
02/28/25 02/28/25 02/28/25
10:54 11:54 13:56
Glucose
POC Glucose 148 H 152 H 187 H
02/28/25 02/28/25 02/28/25
14:39 15:12 16:01
Glucose 210 H
POC Glucose 211 H 161 H
02/28/25 02/28/25 02/28/25
17:05 18:03 20:07
Glucose
POC Glucose 147 H 158 H 157 H
02/28/25 03/01/25 03/01/25
22:08 00:11 02:09
Glucose
POC Glucose 171 H 160 H 157 H
03/01/25 03/01/25 03/01/25
02:27 04:17 06:12
Glucose 169 H
POC Glucose 141 H 147 H
03/01/25
08:01
Glucose
POC Glucose 154 H
Patient Education
--- NOTE | 2025-03-01 09:01 | W.PN.INTV ---
Today's Communication / Plan
Recommendations
Plan reviewed with attending.
Assessment
-
69yoM PMH HTN, HLD, CVA with residual hemiplegia, NIDDM, , hepatic fibrosis, EtOH use, being worked up for hemochromatosis outpt presenting with acute respiratory distress compounded by cardiac arrest in ED put on pressors and intubated, now
weaning respiratory and cardiovascular support.
Hgb 19.4 today, improving from yesterday. Leukocytosis 17.9 improving. Continuing to wean sedation, pressors, and respiratory support. Reduced bumex to 0.5. CXR demonstrates resolved pulmonary congestion. Negative fluids balance- becoming euvolemic.
If not extubated later, plan on starting tube feeds. pH 7.55. LDH 761. Tbili and LFTs continue to be elevated, consistent with outpt workup and downtrending. Pt tracked and squeezed hand now off sedation.
Pt has episodes of diaphoresis, facial redness, and flailing scoring on MSAS receiving valium.
Outpt Hgb 16 Ferritin 607 heterozygous mutation H63D.
Plan:
Neuro:
Sedated.
RASS goal 0
Hemiplegia at baseline s/p CVA
Scoring on MSAS with diaphoresis, red face, and agitation. PRN valium.
Cardio:
Sinus tach new LBBB s/p cardiac arrest in ED with ROSC established after 7 min code
crime laboratory analyst yesterday demonstrated chronic RCA occlusion, 90% LAD proximal LAD, and LVEDP = 40 mmHg at 89.4 kg
Cardiology to manage medically no stents placed yesterday
Hemodynamically stable now off pressors
On bumex, reduced to 0.5 from 1
Cardiology following
Echo 02/28 demonstrated hypokinesis, low EF and severe
Pulm:
Intubated for acute respiratory failure. Weaning ventilator now more alert off sedation.
Current vent settings 14/min, 450ml, 8 PEEP, 40%.
GI:
OG tube placed. If continues to be intubated, begin tube feeds today.
LFTs elevated. Outpt work up for hemochromatosis compounded with EtOH use.
Abd US demonstrated no stones, positive for hepatocellular dx.
Folate and thiamine replacement.
Triglyceridemia.
/renal:
Producing adequate urine. euvolemic.
Bumex to 0.5
Lactic trending down
pH improving
ID:
Lactic trending down
Unasyn in setting of leukocytosis and mild fever.
BC pending.
Endo:
NIDDM at baseline. Euglycemic goal.
Insulin drip at 1.2
No hx hypothyroidism
Heme:
Oncology consulted
Elevted Hgb. Plt normal. Jak2 testing pending.
Outpt work up for hemochromatosis demonstrated heterozygous mutation for H63D.
DVT prophylaxis: heparin
Diet: Tube feeds if still intubated tomorrow
Pain: ofrimev, fentanyl
Subjective Dataa
Subjective Data
Date of Service:
Date of Service: March 01, 2025
Subjective:
Pt able to follow simple commands.
Objective Data
Data Reviewed
Vital Signs / I&O / Oxygen:
Vital Signs
Temp Pulse Resp BP Pulse Ox
98.9 F 57 16 103/77 99
03/01/25 08:00 03/01/25 06:45 03/01/25 06:45 02/28/25 20:00 03/01/25 08:12
Intake and Output
02/28/25 03/01/25 03/02/25
06:59 06:59 06:59
Intake Total 1172.8 / 1358.6 2272.5 / 2272.5
Output Total 1825 / 1825 5385 / 5385
Balance -652.2 / -466.4 -3112.5 / -3112.5
SaO2 [A/C] 99
SaO2 99
Physical Exam
General: Comfortable
HEENT: Normocephalic and Anicteric
Cardiovascular: S1-S2 and Regular Rhythm
Respiratory: Clear and ET Tube
GI: Soft and Non Distended
Neurology: Awake (awake following simple commands, tracking in room) and Other
Skin: Warm, Dry and Good Color
Labs/Micro/Reports
Lab Data
03/01/25 02:27
03/01/25 02:27
Laboratory Results
02/28/25 02/28/25 03/01/25
14:39 21:09 02:27
APTT 101.9 H 94.7 H Cancelled
pH 7.62 H*
pCO2 27 L
pO2 77 L
HCO3 27.8
O2 Delivery Level
03/01/25
03:34
APTT 84.1 H
pH
pCO2
pO2
HCO3
O2 Delivery Level
Microbiology
02/28/25 08:03 Blood/Venous Blood Culture - Preliminary
No Growth in 24 hours- Final report to follow
02/28/25 21:09 Urine Legionella Urinary Antigen - Final
Negative for Legionella pneumophila Serogroup 1 antigen.
A negative result does not rule out the possiblity of
Legionella infection due to other serogroups or species of
Legionella. Clinical correlation is recommended.
02/28/25 21:09 Urine Streptococcus pneumoniae Antigen (M - Final
Negative for Streptococcus pneumoniae antigen.
A negative result does not exclude infection with
Streptococcus pneumoniae. Clinical correlation is
recommended.
02/28/25 06:36 Blood/Venous Blood Culture - Preliminary
No Growth in 24 hours- Final report to follow
02/28/25 08:03 Sputum Gram Stain - Preliminary
02/28/25 06:54 Nasal Swab Influenza Types A & B (JESSA) - Final
Negative for Influenza A & B, NAAT
Negative results must be combined with clinical observations
and patient history.
Nucleic Acid Amplification test (NAAT)performed on the
[employer] ID NOW platform.
[2025-03-01 09:34] LABS: B.E. 10.0 mmol/L; HCO3 33.2 mmol/L (21-28); O2 Saturation % 100.0 % (94-98); PCO2 38 mmHg (35-48); PO2 181 mmHg (83-108)
--- NOTE | 2025-03-01 10:24 | W.PN.ONC2 ---
Today's Communication / Plan
-
.
Impression
Impression
Cardiac Arrest s/p CPR
HTN-Chronic, untreated.
HLD-Chronic, untreated.
EtOH abuse
Hepatic fibrosis/cirrhosis
former smoker
Polycythemia - Primary vs secondary unclerar - denies snoring/sleep apnea, carbon monoxide exposure, or active tobacco smoking
Elevayed iron sat with normal ferritin
+ Troponin
Plan
Plan
Critically ill.
Not eligible for phlebotomy. Doubt needed acutely regardless and not indicated in secondary polycythemia.
Check EPO (pending), JAK2, hemochromatosis genetic panel.
Elevated PTT, on heparin.
Subjective/Objective
Subjective
VDRF
Vital Signs:
Vital Signs
Temp Pulse Resp BP Pulse Ox
98.9 F 67 19 96/74 97
03/01/25 08:00 03/01/25 10:15 03/01/25 10:15 03/01/25 08:23 03/01/25 10:15
Lab Results:
Laboratory Data
WBC 17.9 10^3/uL (4.8-10.8) H 03/01/25 02:27
Hgb 19.4 g/dL (13.0-18.0) H 03/01/25 02:27
Plt Count 189 10^3/uL (130-400) 03/01/25 02:27
PT 14.2 Sec (11.4-14.6) 02/28/25 08:03
INR 1.05 02/28/25 08:03
APTT 84.1 Sec (23.4-35.0) H 03/01/25 03:34
eGFR > 60.00 03/01/25 02:27
Physical Exam
HEENT: Moist Mucous Membranes; No Jaundice
Pulmonary: Other (VDRF)
GI: Soft
[2025-03-01 10:25] LABS: Glucose - Point of Care 121 mg/dl (70-99)
--- NOTE | 2025-03-01 10:36 | PTCARENOTE ---
Assumed care of pt. Pt sedated with RASS -2, propofol off for SAT. +cough/weak gag, withdraws to pain. SR with LBBB on monitor, no edema, weak pedal pulses, murmur no longer appreciated. Intubated with 8ETT/22cm at lip. AC14/450/8/40%, SpO2 97%.
rhonchi with minimal sputum. OGT, 65cm clamped. Schultz draining clear yellow urine, on Bumex gtt. Amiodarone, Double concentrated Levophed, insulin, heparin gtts infusing as ordered, vasopressin stopped. at bedside.
--- NOTE | 2025-03-01 11:07 | PN.CDI ---
CDI
- -
CDI:
Physician Documentation Request
Admit Date: 02/27/25 20:09
Dear Doctor Nagi,
Please review the following and provide your response in the progress notes.
Clinical Indicators:
- RN skin assessments indicate Stage 1 sacrum pressure injury, POA
Physician documentation of the type and location of wounds is required for compliant documentation. Based on the above clinical findings and your assessment, please provide the following in your progress note:
1. Location of the ulcer/wound, including laterality.
2. Type (etiology) of ulcer/wound:
- Diabetic ulcer
- Arterial (ischemic) ulcer
- Traumatic wound
- Pressure (decubitus) ulcer
- Other
Use of terms such as suspected, likely, concern for, or probable (associated with a specific diagnosis that is being evaluated, monitored, or treated as if it exists) are acceptable and can be coded in the inpatient setting, when documented at the
time of discharge.
Thank you,
Laurita Minor RN
CDI Specialist
Please use your independent medical judgment in providing your response.
*Source: National Pressure Ulcer Advisory Panel (NPUAP)
[2025-03-01 12:17] LABS: Glucose - Point of Care 109 mg/dl (70-99)
--- NOTE | 2025-03-01 12:21 | PTCARENOTE ---
Propofol, vasopressin, and levophed off. Pt intermittently wakes up and follows basic commands. Very diaphoretic. Attempted spont vent settings unsuccessfully due to min resp drive.
[2025-03-01] MEDS: SUBLIMAZE 50 MCG IV (13:42)
[2025-03-01 14:29] LABS: Glucose - Point of Care 117 mg/dl (70-99)
[2025-03-01] MEDS: PRECEDEX 100 IV (15:18)
--- NOTE | 2025-03-01 15:38 | PTCARENOTE ---
Increasing tremors, diaphoresis, and flushed face noted. Precedex gtt started. Family updated by Draw Bench Operator at bedside.
[2025-03-01 15:50] VITALS: BP_SYST 57
[2025-03-01 16:00] LABS: Blood Urea Nitrogen 24 mg/dl (9-20); Calcium 8.5 mg/dl (8.4-10.2); Carbon Dioxide 31 mmol/L (22-30); Chloride 99 mmol/L (98-107); Estimated Creatinine Clearance 58 ml/min; Glucose 120 mg/dl (70-99); Magnesium 1.8 mg/dl (1.6-2.3); Potassium 3.4 mmol/L (3.5-5.1); Sodium 137 mmol/L (135-145); eGFR > 60.00
[2025-03-01 16:10] LABS: Glucose - Point of Care 108 mg/dl (70-99)
[2025-03-01] MEDS: SUBLIMAZE 100 IV (16:23)
[2025-03-01] MEDS: KCL ELIXIR 40 MEQ TUBE (17:28)
[2025-03-01] MEDS: MAGNESIUM OXIDE 400 MG TUBE (17:28)
[2025-03-01 18:13] LABS: Glucose - Point of Care 129 mg/dl (70-99)
[2025-03-01] MEDS: LEVOPHED 258 MG IV (19:15)
[2025-03-01] MEDS: LOPRESSOR TUBE (19:17)
--- NOTE | 2025-03-01 20:00 | PTCARENOTE ---
contracts administrator, pt intub/sedated. SR BBB HR 60s. L rad [place] WNL. LA IV x 3/ RUE PICC WNL- levo, bumex, amio, heparin, insulin, Fent, dex infusing per work list. Sat 98% on MV Fi02 40%, mouth care done. OGT with TF as documented. Schultz draining
adequate amt yellow urine. turned, repositioned. POC discussed with at bedside. care ongoing.
[2025-03-01] MEDS: HEPARIN 25000 UNITS/250 ML IV (20:17)
[2025-03-01 20:23] LABS: Glucose - Point of Care 116 mg/dl (70-99)
[2025-03-01] MEDS: BUMEX 100 IV (21:10)
[2025-03-01 22:22] LABS: Glucose - Point of Care 160 mg/dl (70-99)
[2025-03-02] MEDS: THIAMINE INJECTION 200 MG IV ×3 (00:12→15:37)
[2025-03-02] MEDS: TYLENOL ORAL SOLUTION 650 MG TUBE ×4 (00:14→16:47)
--- NOTE | 2025-03-02 00:15 | PTCARENOTE ---
temp 101.5, prn tylenol via OGT. no further changes in pt assessment.
[2025-03-02 00:21] LABS: Glucose - Point of Care 134 mg/dl (70-99)
[2025-03-02] MEDS: PRECEDEX 100 IV ×3 (00:21→23:53)
[2025-03-02] MEDS: UNASYN IV ×4 (01:46→20:02)
[2025-03-02 01:57] LABS: Glucose - Point of Care 158 mg/dl (70-99)
[2025-03-02 03:21] LABS: B.E. 10.4 mmol/L; HCO3 34.2 mmol/L (21-28); O2 Saturation % 99.6 % (94-98); PCO2 40 mmHg (35-48); PO2 108 mmHg (83-108)
[2025-03-02] MEDS: VALIUM INJECTION 5 MG IV ×2 (03:31→20:02)
[2025-03-02 03:42] LABS: APTT 60.1 Sec (23.4-35.0)
--- NOTE | 2025-03-02 04:00 | PTCARENOTE ---
CHG cloths, turned, repositioned, mouth care, hep gtt adjusted per protocol. no further changes.
[2025-03-02 04:20] LABS: Glucose - Point of Care 145 mg/dl (70-99)
[2025-03-02 04:41] LABS: ALT (SGPT) 30 U/L (0-50); AST (SGOT) 75 U/L (17-59); Albumin 3.7 g/dl (3.5-5.0); Alkaline Phosphatase 43 U/L (38-126); Blood Urea Nitrogen 29 mg/dl (9-20); Calcium 8.5 mg/dl (8.4-10.2); Carbon Dioxide 32 mmol/L (22-30); Chloride 99 mmol/L (98-107); Estimated Creatinine Clearance 53 ml/min; Glucose 185 mg/dl (70-99); Magnesium 1.9 mg/dl (1.6-2.3); Potassium 3.5 mmol/L (3.5-5.1); Sodium 138 mmol/L (135-145); Total Protein 6.9 g/dl (6.3-8.2); eGFR > 60.00
[2025-03-02 04:55] LABS: Hematocrit 54.0 % (39.0-52.0); Hemoglobin 19.0 g/dL (13.0-18.0); Mean Corp Hgb Conc. 35.2 g/dL (33.0-37.0); Mean Corpuscular Volume 98.4 fL (80.0-94.0); Platelet Count 150 10^3/uL (130-400); Red Cell Dist. Width 14.4 % (11.5-14.5)
[2025-03-02 05:46] VITALS: BMI 28.1
[2025-03-02 05:55] LABS: Glucose - Point of Care 193 mg/dl (70-99)
[2025-03-02] MEDS: MAGNESIUM SULFATE 102 GRAMS IV (06:16)
[2025-03-02] MEDS: KCL 100 IV (06:31)
[2025-03-02] MEDS: CORDARONE 518 MG IV (06:57)
[2025-03-02 07:08] LABS: Glucose - Point of Care 150 mg/dl (70-99)
[2025-03-02] MEDS: PROTONIX IV 40 MG IV (07:48)
[2025-03-02] MEDS: FOLVITE 1 MG TUBE (07:48)
[2025-03-02] MEDS: VALIUM INJECTION 10 MG IV (07:48)
[2025-03-02] MEDS: NSS (PRESERVATIVE FREE) 10 ML IV (07:48)
[2025-03-02] MEDS: LOW STRENGTH ASPIRIN 81 MG TUBE (07:49)
[2025-03-02] MEDS: LOPRESSOR 12.5 MG TUBE ×2 (07:49→20:03)
--- NOTE | 2025-03-02 08:00 | PN.DE.MGMTRT ---
Insulin Management
- -
03/02/2025: Diabetes Management Follow up
69 year old male with cardiac arrest in the ED. PMH: HTN, HLD, T2DM, Hx of CVA with L hemiparesis. Pt presented to the ED c/o SOB. He was then noted to have pulseless VT and periods of V-Fib on monitor. He underwent CPR and multiple rounds of
defibrillation here in the ED. He received epinephrine, bicarbonate, amiodarone and calcium. ROSC was achieved. Patient remained unresponsive since this event. EKG showed new LBBB and patient was taken to the computer lab assistant for emergent ischemic
evaluation.
Pt is intubated and sedated. No family at bedside. History obtained from chart review and Nurse. Per chart review, stated that pt had not taken any of his prescribed medications for at least two years. He does not smoke cigarettes, but smokes
occasional marijuana and drinks about 10-12 beers daily.
Glucose on admission was 237 Venous. A1C 5.4%, Cr 1.3, eGFR >60.
Was started on tube feeds, current rate 30 cc/hr. Continues on critical care glycemic protocol, glucose range 145 to 193, receiving 1.7 to 3 units of insulin/hr.
Pt will remain on continuos insulin infusion for now given his critically ill condition on pressors and high insulin requirements.
Will con to follow. Discussed with Nurse.
Diabetes History
- -
Type of Diabetes: 2 requiring insulin
Pre-Admission Diabetes Regimen
03/01/25 03/02/25
15:17 03:12
Creatinine 1.2 1.3
Lab Results
Hemoglobin A1c 5.4 % (4.0-5.6) 02/28/25 03:28
Insulin Pump Settings
IP Diabetes Regimen
03/01/25 03/01/25 03/01/25
08:01 10:08 12:05
Glucose
POC Glucose 154 H 121 H 109 H
03/01/25 03/01/25 03/01/25
14:08 15:17 15:58
Glucose 120 H
POC Glucose 117 H 108 H
03/01/25 03/01/25 03/01/25
18:02 20:12 22:11
Glucose
POC Glucose 129 H 116 H 160 H
03/02/25 03/02/25 03/02/25
00:10 01:45 03:12
Glucose 185 H
POC Glucose 134 H 158 H
03/02/25 03/02/25 03/02/25
04:09 05:44 06:56
Glucose
POC Glucose 145 H 193 H 150 H
Patient Education
--- NOTE | 2025-03-02 08:30 | PTCARENOTE ---
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 SR BBB, prolonged QT, HR 60s. L rad [place] WNL. LA IV x 3/ RUE PICC WNL- levo, bumex, amio, heparin, insulin, Fent, dex infusing per work list. Sat 98% on MV Fi02 40%, mouth care done. OGT with TF as documented. Schultz
draining adequate amt yellow urine. turned, repositioned. POC discussed with at bedside. care ongoing.
--- NOTE | 2025-03-02 08:46 | W.PN.ONC2 ---
Today's Communication / Plan
-
.
Impression
Impression
Cardiac Arrest s/p CPR
Fever on IVabx, BCx NTD
HTN/HLD/CAD on cath 02/27/severe /AF/HFrEF 15-20% -on heparin gtt -cardiology following
EtOH abuse
Hepatic fibrosis/cirrhosis
former smoker
Polycythemia - Primary vs secondary unclear - denies snoring/sleep apnea, carbon monoxide exposure, or active tobacco smoking. Normal Erythropoietin.
Elevayed iron sat with normal ferritin
Plan
Plan
critically ill in ICU -cardiology following -management per barrel centerer
follow up JAK2, hemochromatosis genetic panel pending
Subjective/Objective
Subjective
Tmax 101.5F
VDRF
Vital Signs:
Vital Signs
Temp Pulse Resp BP Pulse Ox
101.5 F H 67 17 96/74 98
03/02/25 07:36 03/02/25 07:30 03/02/25 07:30 03/01/25 08:23 03/02/25 07:30
Lab Results:
Laboratory Data
WBC 12.1 10^3/uL (4.8-10.8) H 03/02/25 03:12
Hgb 19.0 g/dL (13.0-18.0) H 03/02/25 03:12
Plt Count 150 10^3/uL (130-400) D 03/02/25 03:12
PT 14.2 Sec (11.4-14.6) 02/28/25 08:03
INR 1.05 02/28/25 08:03
APTT 60.1 Sec (23.4-35.0) H 03/02/25 03:12
eGFR > 60.00 03/02/25 03:12
Physical Exam
HEENT: Moist Mucous Membranes; No Jaundice
Pulmonary: Other (VDRF)
Extremities: Pulses Present
[2025-03-02 09:15] LABS: Glucose - Point of Care 163 mg/dl (70-99)
[2025-03-02 09:41] VITALS: BP 77/61
--- NOTE | 2025-03-02 10:18 | W.PN.CD ---
Today's Communication / Plan
-
stop bumex gtt
start bumex 1 mg bid this afternoon
Impression / Plan
-
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 possible hemochromatosis with at least moderate hepatic fibrosis and medication non-compliance admitted with acute, vent
dependent respiratory failure complicated by VT/VF arrest and new LBBB.
#Cardiac Arrest
-Acute, threat to life.
-VT/VF arrest in ER. EKG shows LBBB.
-CTPE negative for PE, does show marked pulmonary edema.
-Cardiac catheterization showed severe CAD (VICE PRESIDENT FIXED INCOME of pRCA, VICE PRESIDENT FIXED INCOME of smaller OM1, complex 90% Sinha 1,1,1 proximal LAD/Diagonal lesion) with EMMA III flow in all vessels.
-LVEDP 40 mmHg at the time of cath.
-Given his presentation, revascularization was deferred as the thought was his arrest was due to severely elevated LVEDP compounded by moderate and sedation for elective intubation.
-Troponin 11.900 --> 9.770 --> 28.900 --> 45.800 --> 31.100.
-Lactic acid down to 2.2.
-Medical management of cardiac arrest at this time.
#HFrEF ICMO
-STOP bumex gtt; Start Bumex 1 mg bid starting this afternoon
-Pulmonary toilet.
-Daily CXR.
#Severe
- noted on echo
#Hypoxic respiratory failure -- improving
-Acute, threat to life.
-Multifactorial - heart failure, possible PNA.
-SARS-CoV-2 negative, Influenza A/B negative, S. Pneumoniae UAG negative, Legionella UAG negative; Blood Cx/Respiratory Cx pending.
-Diuresis as above.
#HTN -- currently hypotensive
-Chronic, untreated.
-We will address medications when he has stabilized.
#HLD
-Chronic, untreated.
-Total cholesterol = 245, LDL = 119, HDL = 63, Triglycerides = 315.
-Resume atorvastatin.
#EtOH -- likely withdrawaling
-Chronic.
-Intubated, sedated. Adjust sedation as needed to mitigate withdrawal.
-Agree with B1/B12 supplementation.
-MSAS protocol when extubated.
#Hepatic fibrosis
-Chronic.
-At least moderate by Fibroscan.
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
-Heterozygous HFE gene mutation +.
Critical Care Time = 35 minutes.
Subjective/Interval History:
Febrile
Stop bumex gtt
Intermittent bumex 1mg bid IV
DATA:
Cardiac Catheterization, 02/27/2025:
CONCLUSIONS
1. Right dominant circulation with a chronic total occlusion of the proximal RCA with a bridging right to right collateral, a chronic total occlusion of the distal circumflex immediately after the origin of OM1, chronic total occlusion of the small
upper branch of OM1, and a complex, 90% Sinha 1, 1, 1 lesion in the proximal/mid LAD with EMMA-3 flow. Collaterals are visible from the distal LAD to the distal RPDA and from the distal RCA to the distal circumflex.
2. Severely elevated filling pressures (LVEDP = 40 mmHg at 89.4 kg).
3. At least moderate aortic valve stenosis (mean gradient = 32 mmHg on pullback).
TTE, 02/28/2025:
SUMMARY
1. Left ventricular cavity size is 4.35 cm which is normal.
2. LV Wall Motion: entire septum, basal inferior segment, entire lateral wall, entire anterior wall, and mid and apical inferior wall are abnormal, as described below.
3. Ejection fraction is 15-20% by Morgan's method of discs.
4. Stage I diastolic dysfunction suggestive of abnormal relaxation.
5. Severe aortic valve stenosis. Aortic valve area = 0.54 cm².
6. The inferior vena cava appears dilated.
7. Compared to a prior transthoracic echocardiogram Left ventricular function is now severely depressed with akinesis of the septum and anteroseptum and global hypokinesis elsewhere. Aortic valve stenosis has progressed to severe.
Physical Exam
Vital Signs/Labs
Vital Signs
Temp Pulse Resp BP Pulse Ox
101.5 F H 63 14 77/61 97
03/02/25 07:36 03/02/25 09:45 03/02/25 09:45 03/02/25 09:41 03/02/25 09:45
03/01/25 03/02/25 03/03/25
06:59 06:59 06:59
Actual Weight 188 lb 0.869 oz 184 lb 8.43 oz
03/02/25 03:12
03/02/25 03:12
PT 14.2 Sec (11.4-14.6) 02/28/25 08:03
INR 1.05 02/28/25 08:03
APTT 60.1 Sec (23.4-35.0) H 03/02/25 03:12
Magnesium 1.9 mg/dl (1.6-2.3) 03/02/25 03:12
Triglycerides 315 mg/dl (10-149) H 02/28/25 03:28
LDL Cholesterol, Calc 119 mg/dl 02/28/25 03:28
VLDL Cholesterol, Calc 63 mg/dl (0-30) H 02/28/25 03:28
HDL Cholesterol 63 mg/dl 02/28/25 03:28
02/27/25 02/27/25 02/27/25
18:02 18:31 19:35
Qix-Q-Velgztuuixh Pept Cancelled Cancelled Cancelled
02/27/25 03/01/25
Unknown 15:17
Suu-Z-Xnniierrhfe Pept [id number]
LAB Results
02/27/25 02/27/25 02/27/25
18:02 18:31 19:35
Troponin I Cancelled Cancelled Cancelled
02/27/25 02/27/25 02/27/25
21:50 22:21 Unknown
Troponin I Cancelled 11.900 H* 9.770 H*
02/28/25 02/28/25 02/28/25
03:28 08:03 17:13
Troponin I 28.900 H* D 45.800 H* D 31.100 H*
Physical Exam
Constitutional: Other (intubated and sedated )
EENT: Anicteric
Cardiovascular: Rhythm & rate is regular
Respiratory: Crackles Present
GI: Soft
Neuro/Psych: Other (intubated )
Data Reviewed
-
Date of Service: March 02, 2025
Medical Decision Making: Reviewed Test Results
EKG: Tracing Personally Visualized and interpreted (sr)
Echo: Report Reviewed by me
Labs: Labs Reviewed by me
[2025-03-02 10:22] LABS: APTT 106.5 Sec (23.4-35.0)
--- NOTE | 2025-03-02 10:43 | W.PN.HOSP.TC ---
Today's Communication/Plan
-
See plan
Assessment / Plan
Assessment / Plan
Physical Exam
General: Intubated and Sedated
HEENT: ETT in place.
Respiratory: Equal air entry bilaterally
Cardiac: S1/S2, RRR
GI: Soft, Non Tender, Non Distended and Normal Bowel Sounds
Musculoskeletal: No Cyanosis
Neuro: Other (Unresponsive on ventilator.)
Assessment/Plan
69 y/o male with past medical history significant for medication non-compliance (for at least 2 years), hypertension, DM-II, occasional Marijuana smoking, alcohol (drinking 10-12 beers daily) and prior CVA with left hemiparesis who presented to [facility]
ED complaining of SOB (prior to this patient was okay and had no specific complaints). stated that patient began to complain of significant SOB suddenly on 02/28/25 evening around 5:15PM. He had significant work of breathing and 911 was called.
Patient presented to the ED via EMS in respiratory distress with marked hypoxemia, diaphoresis and tachypnea. Patient was intubated in the ED. During/shortly after intubation, patient became pulseless. He underwent synch cardioversion x 2 for
suspected unstable A-Fib. He was then noted to have pulseless VT and periods of V-Fib on monitor. He underwent CPR and multiple rounds of defibrillation here in the ED. He received epinephrine, bicarbonate, amiodarone and calcium. ROSC was
achieved. Patient has remained unresponsive since this event. EKG done in the ED shows new LBBB and patient was taken to the supervisor labor gang for emergent ischemic evaluation.
V-Tach / V-Fib Cardiac Arrest
Shock -- suspected cardiogenic
- Flash pulmonary edema and hypoxia on presentation (LVEDP was high on cardiac cath)
- With abrupt onset, significant risk factors, new LBBB, etc - patient went for emergent ischemic evaluation 02/27/25
- Cath above showed chronic RCA occlusion, 90% LAD proximal LAD, and LVEDP = 40 mmHg
- Echo 02/28/25 showed hypokinesis, low EF and severe
- No stents placed/medical management recommended
- CT PE study showed no PE
- Heparin Drip
- Continue IV amiodarone infusion protocol s/p V-Fib arrest.
- Continue vasopressors and wean as tolerated
- Cardiology and Sports Equipment Supervisor evaluations for additional recommendations.
- Continue vent support --- sedation weaning trials
- Continue orogastric tube
- May need tube feeds
- Cardiology and joy operator evaluation appreciated
Fever
- Possibly from post-code state, alcohol withdrawal or infection
- Repeat blood cultures x2, CXR and UA with reflex to culture
- Continue antibiotics
Medication Non-Compliance
Pulmonary Edema
Acute Hypoxemic Respiratory Failure / VDRF
- CXR / CT chest showed pulmonary edema - possibly flash pulmonary edema
- clinical laboratory technician results as above
- IV Bumex drip switched to IV BID Bumex
- Cardiology evaluation as noted above.
- COVID negative, Influenza A/B negative, S. Pneumoniae UAG negative, Legionella UAG negative
Polycythemia
- Patient with marked polycythemia with Hgb = 21 (confirmation / repeat = 22).
- Likely multiple underlying reasons for secondary polycythemia including chronic hypoxemia, liver disease, etc - but current elevation seems excessive.
- Check EPO (pending), JAK2, hemochromatosis genetic panel.
- Follow cell counts for changes.
- Hematology evaluation appreciated: patient is not eligible for phlebotomy.
- Outpatient work-up for hemochromatosis demonstrated heterozygous mutation for H63D.
Anion Gap Metabolic Acidosis Suspected Secondary to Lactic Acidosis
- RESOLVED
- Likely secondary to acute ischemia
- Lactic acidosis trended down
Benign Hypertension
- Patient non-compliant with medications chronically.
- IV Lopressor 12.5 mg BID for now + IV Bumex diuresis above
- Adjust med regimen as needed for BP control.
DM-II
- Uncontrolled / non-compliant outpatient
- Continue Insulin Drip
Left Hemiparesis as Late Effect of CVA
- CT head showed prior R MCA stroke. No acute findings appreciated / no significant cerebral edema.
- Patient has been non-compliant with med regimen for years - including ASA, etc.
Alcohol Use Disorder
- Long-standing alcohol use disorder. 10-12 beers daily per .
- He is currently displaying withdrawal symptoms -- adjust sedation to manage withdrawal symptoms
- Monitor for any evidence of withdrawal symptoms and treat with BZDs as needed.
- Patient is currently on sedation in the ICU
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
- Thiamine, folate replacement
- Vitamin B12 supplementation
- MSAS protocol
Transaminitis
- From alcohol vs. shock state from CPR
Hyperlipidemia
- Continue Atorvastatin
DVT Prophylaxis: On IV Heparin
Diet: Continue orogastric tube feeds
Code Status: Full Code
Status post cardiac arrest needing ICU level of care, intubation, vasopressors, sedation, Heparin Drip, Insulin Drip and intravenous Bumex Drip is a high risk encounter.
Anticipated Discharge: > 48 hours
Subjective/Interval History
-
Date of Service: March 02, 2025
Patient was seen and examined. He remained intubated and sedated.
Objective Data
-
Labs:
Laboratory Results
03/02/25 03/02/25
03:12 10:01
WBC 12.1 H
Hgb 19.0 H
Hct 54.0 H
Plt Count 150 D
APTT 60.1 H 106.5 H
HCO3 34.2 H
Sodium 138
Potassium 3.5
Chloride 99
Carbon Dioxide 32 H
BUN 29 H
Creatinine 1.3
Glucose 185 H
Calcium 8.5
Total Bilirubin 1.5 H
AST 75 H
ALT 30
Alkaline Phosphatase 43
Vital Signs:
Vital Signs
Temp Pulse Resp BP Pulse Ox
101.5 F H 64 15 77/61 98
03/02/25 07:36 03/02/25 10:15 03/02/25 10:15 03/02/25 09:41 03/02/25 10:15
I&O
03/01/25 03/02/25 03/03/25
06:59 06:59 06:59
Intake Total 2272.5 / 2334.4 1994.9 / 2253.1 568.9 / 568.9
Output Total 5385 / 5385 4640 / 4840 650 / 650
Balance -3112.5 / -3050.6 -2645.1 / -2586.9 -81.1 / -81.1
--- NOTE | 2025-03-02 10:51 | W.PN.INTV ---
Documented by User: Bebe Xavier MD, Resident 03/02/25 10:58
Today's Communication / Plan
Recommendations
Plan reviewed with attending.
Attempt extubation today. Continue to wean pressors and sedation.
Assessment
-
69yoM PMH HTN, HLD, CVA with residual hemiplegia, NIDDM, , hepatic fibrosis, EtOH use, being worked up for hemochromatosis outpt presenting with acute respiratory distress compounded by cardiac arrest in ED put on pressors and intubated, now
weaning respiratory and cardiovascular support.
Hgb 19 today, improving from yesterday. Leukocytosis improved to 12.1. Continuing to wean sedation, pressors, and respiratory support. Minimal oral secretions. Reduced bumex to 0.5. CXR demonstrates resolved pulmonary congestion. On tube feeds.
Continues to be febrile 101.5 despite tylenol. Off sedation. Planning to attempt extubation today. Levophed down to 2. LFTs improving.
Plan:
Neuro:
Sedated. fentanyl off. Precedex 0.4
RASS goal 0
Hemiplegia at baseline s/p CVA
MSAS
Cardio:
Sinus tach new LBBB s/p cardiac arrest in ED with ROSC established after 7 min code
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
Cardiology to manage medically no stents placed yesterday
Hemodynamically stable back on low pressors
On bumex 0.5
Cardiology following
Echo 02/28 demonstrated hypokinesis, low EF and severe
Pulm:
Intubated for acute respiratory failure. Weaning ventilator now more alert off sedation.
Current vent settings ASV peep 5 110, 40%
GI:
OG tube tube feeds started
LFTs reducing.
Abd US demonstrated no stones, positive for hepatocellular dx.
Folate and thiamine replacement.
Triglyceridemia.
/renal:
Producing adequate urine. 4L yesterday
Bumex to 0.5
pH improving
ID:
Lactic trending down
Unasyn in setting of leukocytosis and fever.
BC no growth to date. Respiratory and urine cultures negative.
Endo:
NIDDM at baseline. Euglycemic goal.
Insulin drip at 1.7
No hx hypothyroidism
Heme:
Oncology consulted
Elevted Hgb. Plt normal. Jak2 testing pending.
Outpt work up for hemochromatosis demonstrated heterozygous mutation for H63D.
DVT prophylaxis: heparin
Diet: Tube feeds if still intubated tomorrow
Pain: ofrimev, fentanyl
Subjective Dataa
Subjective Data
Date of Service:
Date of Service: March 02, 2025
Subjective:
Pt continues to be on ventilator. Seen right after Valium given, not arousable.
Objective Data
Data Reviewed
Vital Signs / I&O / Oxygen:
Vital Signs
Temp Pulse Resp BP Pulse Ox
101.5 F H 64 15 77/61 98
03/02/25 07:36 03/02/25 10:15 03/02/25 10:15 03/02/25 09:41 03/02/25 10:15
Intake and Output
03/01/25 03/02/25 03/03/25
06:59 06:59 06:59
Intake Total 2272.5 / 2334.4 1994.9 / 2253.1 568.9 / 568.9
Output Total 5385 / 5385 4640 / 4840 650 / 650
Balance -3112.5 / -3050.6 -2645.1 / -2586.9 -81.1 / -81.1
SaO2 [ASV] 98
SaO2 [A/C] 95
SaO2 98
Physical Exam
General: Comfortable
HEENT: Normocephalic and Anicteric
Cardiovascular: S1-S2 and Regular Rhythm
Respiratory: Clear and ET Tube
GI: Soft and Non Distended
Neurology: Awake (awake following simple commands, tracking in room) and Other
Skin: Warm, Dry and Good Color
Labs/Micro/Reports
Lab Data
03/02/25 03:12
03/02/25 03:12
Laboratory Results
03/02/25 03/02/25
03:12 10:01
APTT 60.1 H 106.5 H
pH 7.54 H
pCO2 40
pO2 108
HCO3 34.2 H
O2 Delivery Level
Microbiology
02/28/25 08:03 Sputum Respiratory Culture - Final
Usual Respiratory Evelyn
02/28/25 08:03 Sputum Gram Stain - Final
02/28/25 08:03 Blood/Venous Blood Culture - Preliminary
No Growth in 48 hours- Final report to follow
02/28/25 06:36 Blood/Venous Blood Culture - Preliminary
No Growth in 48 hours- Final report to follow
02/28/25 21:09 Urine Legionella Urinary Antigen - Final
Negative for Legionella pneumophila Serogroup 1 antigen.
A negative result does not rule out the possiblity of
Legionella infection due to other serogroups or species of
Legionella. Clinical correlation is recommended.
02/28/25 21:09 Urine Streptococcus pneumoniae Antigen (M - Final
Negative for Streptococcus pneumoniae antigen.
A negative result does not exclude infection with
Streptococcus pneumoniae. Clinical correlation is
recommended.
02/28/25 06:54 Nasal Swab Influenza Types A & B (JESSA) - Final
Negative for Influenza A & B, NAAT
Negative results must be combined with clinical observations
and patient history.
Nucleic Acid Amplification test (NAAT)performed on the
[employer] platform.

Documented by User: Guy Taveras MD 03/02/25 12:16
Subjective Dataa
Subjective Data
Chief Complaint: Outpatient Coding Specialist Follow Up
[2025-03-02 11:28] LABS: Urine Character Clear (Clear)
[2025-03-02 11:43] LABS: Urine Squamous Cell 0-2 /LPF (Few)
[2025-03-02 11:44] LABS: Urine Red Blood Cell 21-25 /HPF (0-2); Urine Urothelial Cell 0-2 /LPF (FEW)
[2025-03-02 13:18] LABS: Glucose - Point of Care 143 mg/dl (70-99)
--- NOTE | 2025-03-02 13:47 | PTCARENOTE ---
Pt waking up, becoming increasingly diaphoretic. Further assessment unchanged. Family at bedside and updated. Bumex gtt stopped as ordered. IV in LAC displaced due to diaphoresis.
[2025-03-02 13:52] VITALS: BP_SYST 130
[2025-03-02 14:17] VITALS: BP_SYST 116
[2025-03-02 14:19] VITALS: BP_SYST 123
--- NOTE | 2025-03-02 14:47 | CM ---
Remains intubated. Plan to attempt extubation in near future. IV/Bumex d/cd, IV/AB, IV/Vasopressin. Discharge POC: TBD..
[2025-03-02 15:11] LABS: Glucose - Point of Care 152 mg/dl (70-99)
[2025-03-02] MEDS: HEPARIN 25000 UNITS/250 ML IV (15:37)
[2025-03-02 17:03] LABS: Glucose - Point of Care 143 mg/dl (70-99)
[2025-03-02 17:18] LABS: APTT 107.6 Sec (23.4-35.0)
[2025-03-02] MEDS: NOVOLIN R INSULIN INFUSION 100 IV (18:25)
[2025-03-02 19:09] LABS: Glucose - Point of Care 164 mg/dl (70-99)
--- NOTE | 2025-03-02 20:00 | PTCARENOTE ---
Received pt. at 1900. Pt. currently intubated on ventilator. Opens eyes, follow some simple commands. No signs of pain/discomfort. Afebrile. Heart rhythm sinus. Levophed gtt infusing to maintain MAP >65. Ventilator settings verified. Lungs sound
coarse. OG tube in place. Tube feeds running at goal. Schultz catheter in place, draining without issue. Skin as documented. Discussed plan of care with family. Vital signs stable at this time.
[2025-03-02] MEDS: VITAMIN B1 100 MG PO (20:03)
[2025-03-02] MEDS: BUMEX 1 MG IV (20:03)
[2025-03-02 21:08] LABS: Glucose - Point of Care 103 mg/dl (70-99)
[2025-03-02 23:10] LABS: Glucose - Point of Care 158 mg/dl (70-99)
--- NOTE | 2025-03-03 | PTCARENOTE ---
Pt. assessment unchanged. Remains on multiple ICU level drips. Vital signs stable at this time.
[2025-03-03 01:28] LABS: Glucose - Point of Care 137 mg/dl (70-99)
[2025-03-03] MEDS: UNASYN IV ×4 (02:08→19:29)
[2025-03-03] MEDS: TYLENOL ORAL SOLUTION 650 MG TUBE (02:11)
[2025-03-03] MEDS: LEVOPHED 258 MG IV (03:07)
[2025-03-03 03:17] LABS: Glucose - Point of Care 166 mg/dl (70-99)
[2025-03-03 03:29] LABS: Hematocrit 48.5 % (39.0-52.0); Hemoglobin 17.1 g/dL (13.0-18.0); Mean Corp Hgb Conc. 35.3 g/dL (33.0-37.0); Mean Corpuscular Volume 99.6 fL (80.0-94.0); Platelet Count 128 10^3/uL (130-400); Red Cell Dist. Width 14.4 % (11.5-14.5)
[2025-03-03 03:45] LABS: ALT (SGPT) 22 U/L (0-50); AST (SGOT) 44 U/L (17-59); Albumin 3.6 g/dl (3.5-5.0); Alkaline Phosphatase 47 U/L (38-126); Blood Urea Nitrogen 38 mg/dl (9-20); Calcium 8.8 mg/dl (8.4-10.2); Carbon Dioxide 33 mmol/L (22-30); Chloride 100 mmol/L (98-107); Estimated Creatinine Clearance 50 ml/min; Glucose 183 mg/dl (70-99); Magnesium 2.1 mg/dl (1.6-2.3); Potassium 2.9 mmol/L (3.5-5.1); Sodium 139 mmol/L (135-145); Total Protein 7.2 g/dl (6.3-8.2); eGFR 55.09
[2025-03-03 03:59] LABS: APTT 167.6 Sec (23.4-35.0)
--- NOTE | 2025-03-03 04:00 | PTCARENOTE ---
Pt. assessment remains unchanged. AM labs drawn. Vital signs stable at this time.
[2025-03-03] MEDS: KCL 100 IV (04:14)
[2025-03-03] MEDS: KCL ELIXIR 40 MEQ TUBE ×2 (04:14→12:44)
[2025-03-03 05:07] LABS: Glucose - Point of Care 104 mg/dl (70-99)
[2025-03-03 05:23] VITALS: BMI 28.2
[2025-03-03 07:20] LABS: Glucose - Point of Care 201 mg/dl (70-99)
--- NOTE | 2025-03-03 07:40 | PTCARENOTE ---
Precedex off
On Precedex 0.3; SB 53 to 55; Temp 100.8 Precedex infusion off
[2025-03-03 08:27] LABS: Glucose - Point of Care 212 mg/dl (70-99)
--- NOTE | 2025-03-03 08:28 | W.PN.INTV ---
Today's Communication / Plan
Recommendations
Mechanical ventilation with plan to extubate today
Continue intermittent diuresis
Defer PCI + TAVR versus SAVR to interventional cardiology +/- CT surgery, depending on neurological recovery
He is much more awake today and following commands, although is slow to respond
Monitor for alcohol withdrawal and unable to do phenobarbital while on amiodarone
Continue diazepam, weaning down the dose as tolerated
Continue heparin drip
Continue ICU level of care for this critically ill patient
Assessment
-
69yoM PMH HTN, HLD, CVA with residual hemiplegia, NIDDM, , hepatic fibrosis, EtOH use, being worked up for hemochromatosis outpt presenting with acute respiratory distress compounded by cardiac arrest in ED put on pressors and intubated, he went
to [facility] and found to have severe CAD with left-sided heart failure, started on Bumex drip and admitted to the ICU.
Impression:
#Acute hypoxic + hypercapnic respiratory failure on mechanical ventilation (intubated 02/28/2025 in ER)
#Acute pulmonary edema - given its acute onset this is consistent with flash pulmonary edema, likely related to his severe aortic stenosis in setting of chronic hypertension, rapid A-fib and CAD
#In-hospital cardiac arrest with VT/VF with EKG showing LBBB
#History of aortic stenosis (peak/mean gradients were 51/26 mmHg on prior echo in November 2023) which is now severe with mean gradient of 35 mmHg
#Pulmonary hypertension (estimated PASP was 35-40 mmHg with trace TR and normal RV size/function, normal RA size on prior echo from November 2023)--> improved now with PASP 26mmHg
#Hepatic fibrosis
#Polycythemia (unclear if primary versus secondary)
#Elevated iron saturation with normal ferritin
#Transaminitis with hyperbilirubinemia (suspicious for alcoholic steatohepatitis)
#Elevated troponin initially due to suspected demand ischemia and now significantly elevated after his left heart catheterization
#Alcohol abuse (negative level on admission)
#Marijuana use
Plan:
- Patient brought to [facility] which showed severe CAD (GENERAL LEDGER ACCOUNTANT of pRCA, GENERAL LEDGER ACCOUNTANT of smaller OM1, complex 90% Sinha 1,1,1 proximal LAD/Diagonal lesion) with EMMA III flow in all vessels
- Severe left-sided heart failure seen with LVEDP 40 mmHg at the time of the cath
- Revascularization on hold to allow for assessment of neurological recovery, at which point he will likely need a PCI to his LAD/D lesion
- Continue diuresis with intermittent bumex as his CXR looks markedly improved and he has been hypotensive requiring levophed at times; continue strict I/O; while diuresing, replete electrolytes with K>4, Mg>2
- Echo shows severe aortic valve stenosis with HANNAH 0.54 cm� with LVEF 15-20% with severe depression of LV function with abnormal wall motions of the septum, basal inferior segment, entire lateral wall, entire anterior wall and mid and apical
inferior torres.
- Will need interventional cardiology to comment about if he is a candidate for TAVR vs SAVR
- Keep MAP>65; lactate is now <2mmol/L - no longer need to continue trending at this time
- Troponin peaked at 45.8 on 02/28/2025; no longer need to continue trending at this time
- Continue with mechanical ventilation with daily SAT/SBT if clinically appropriate --> planning to extubate today
- Maintain plateau pressure <30 and titrate FiO2 + PEEP to keep SpO2 >90-94%
- Continue aspiration precautions; keep HOB >30-45�
- prn nebulized bronchodilators - not currently bronchospastic
- Oropharyngeal + deep ETT suctioning with subglottic as needed
- Daily CXR + blood gas
- Daily vent adjustments as needed based on blood gas and SaO2
- Low level of sedation with goal RASS as 0 to -2 --> to help wean him off sedation better given his agitation, precedex started --> pt now having bradycardia so precedex now weaned off; believe his alcohol withdrawal is contributing to his
agitation at times although he is much more calm and awake today
- Of note, he has been having fevers but I believe that this is due to Precedex as he is not tachycardic
- Prior to today, he was having low-grade fevers and had possible aspiration --> continue antibiotics with Unasyn
- Follow-up cultures (blood and respiratory - both show NGTD)
- Legionella + strep pneumoniae urine antigens both negative
- Trend WBC and monitor temperature curve
- Given his elevated T bili, RUQ US with Doppler was checked showing diffuse hepatocellular disease with no focal hepatic lesions, with patent portal and hepatic veins and no evidence for cholelithiasis or dilatation of the biliary tree
- Regarding his high iron saturation with concern for hemochromatosis, follow-up HFE-3 variant blood work
- Also follow-up EPO + JAK2 mutation, ordered by hematology, of which recommendations are appreciated
- Trend LFTs; trend Hb
- Maintain euglycemia with goal BG 140-180; HbA1c: 5.4 on 02/28/2025; currently on insulin gtt; I will try to wean this off and start basal-bolus SQ insulin
- Trend H/H and transfuse if needed to keep Hb>7-8g/dL; keep plt>20k, unless there is concern for bleeding then keep plt>50k
- Early nutrition --> continue tube feeds
- DVT ppx: Heparin gtt
Continue ICU level of care for this critically ill patient
Critical care statement: A total of 37 minutes of critical care time was provided for this patient today. This includes management of unstable vital signs, evaluation of the patient at bedside, reviewing the patient's pertinent medical records
including radiographs, microbiology, laboratory evaluations, and discussion with primary team, consultants, pharmacy, nutrition, physical therapy, case management, charge nurse, critical care nursing, and respiratory therapy.
Subjective Dataa
Subjective Data
Date of Service:
Date of Service: March 03, 2025
Chief Complaint: Station Gateman Follow Up
Subjective:
Patient seen this morning. Remains intubated on CPAP trial on 10/23 at 40% FiO2. PIP 13 cmH2O, VTe 277 cc and breathing at 31 breaths/min. He is much more awake today, following commands although slow to respond. He is able to slightly lift his
head up off the pillow. Current heart rate 72, BP via A-line: 139/74 and saturating 97%. Patient's and mother are both at bedside, all questions were answered. Patient currently on amiodarone drip at 0.5 mg/hr and insulin drip at 2 units/hr.
Review of Systems
General: Other (Unobtainable as patient is intubated)
Objective Data
Data Reviewed
Vital Signs / I&O / Oxygen:
Vital Signs
Temp Pulse Resp BP Pulse Ox
100.2 F 61 14 113/72 99
03/03/25 07:26 03/03/25 08:37 03/03/25 06:00 03/03/25 08:37 03/03/25 08:00
Intake and Output
03/02/25 03/03/25 03/04/25
06:59 06:59 06:59
Intake Total 1994.9 / 2253.1 2770.2 / 2808.8 96.8 / 96.8
Output Total 4640 / 4840 2690 / 2865 475 / 475
Balance -2645.1 / -2586.9 80.2 / -56.2 -378.2 / -378.2
SaO2 [CPAP] 96
SaO2 [ASV] 99
SaO2 [A/C] 95
SaO2 99
Physical Exam
General: Respiratory Distress (negative), Comfortable, Chills (negative) and Sweats (positive)
HEENT: Normocephalic, Anicteric and Other (ETT in place)
Cardiovascular: S1-S2, Regular Rhythm and Peripheral Edema (negative)
Respiratory: Wheeze (negative), Crackles (negative), Rhonchi (negative), Non-Labored Respirations, ET Tube (Mechanical breath sounds heard bilaterally) and Other (Reduced inspiratory)
GI: Soft, Distended (Abdominal obesity), Non Tender and Normal Bowel Sounds
Neurology: Awake (following simple commands, tracking in room, sometimes lethargic) and Tremors (negative)
Skin: Warm, Dry, Cyanosis (negative) and Jaundice (negative)
Labs/Micro/Reports
Lab Data
03/03/25 03:19
03/03/25 03:19
Laboratory Results
03/02/25 03/02/25 03/03/25
10: 16:55 03:19
APTT 106.5 H 107.6 H 167.6 H*
Microbiology
02/28/25 08:03 Blood/Venous Blood Culture - Preliminary
No Growth in 72 hours- Final report to follow
02/28/25 06:36 Blood/Venous Blood Culture - Preliminary
No Growth in 72 hours- Final report to follow
02/28/25 08:03 Sputum Respiratory Culture - Final
Usual Respiratory Evelyn
02/28/25 08:03 Sputum Gram Stain - Final
02/28/25 21:09 Urine Legionella Urinary Antigen - Final
Negative for Legionella pneumophila Serogroup 1 antigen.
A negative result does not rule out the possiblity of
Legionella infection due to other serogroups or species of
Legionella. Clinical correlation is recommended.
02/28/25 21:09 Urine Streptococcus pneumoniae Antigen (M - Final
Negative for Streptococcus pneumoniae antigen.
A negative result does not exclude infection with
Streptococcus pneumoniae. Clinical correlation is
recommended.
02/28/25 06:54 Nasal Swab Influenza Types A & B (JESSA) - Final
Negative for Influenza A & B, NAAT
Negative results must be combined with clinical observations
and patient history.
Nucleic Acid Amplification test (NAAT)performed on the
[employer] platform.
[2025-03-03] MEDS: NSS (PRESERVATIVE FREE) 10 ML IV (08:35)
[2025-03-03] MEDS: LOW STRENGTH ASPIRIN 81 MG TUBE (08:35)
[2025-03-03] MEDS: PROTONIX IV 40 MG IV (08:35)
[2025-03-03] MEDS: BUMEX 1 MG IV (08:35)
[2025-03-03] MEDS: VALIUM INJECTION 5 MG IV (08:36)
[2025-03-03] MEDS: VITAMIN B1 100 MG PO ×2 (08:37→19:29)
[2025-03-03] MEDS: LOPRESSOR 12.5 MG TUBE ×2 (08:37→19:29)
[2025-03-03] MEDS: FOLVITE 1 MG TUBE (08:37)
[2025-03-03 09:21] LABS: Glucose - Point of Care 135 mg/dl (70-99)
--- NOTE | 2025-03-03 09:29 | W.PN.CD ---
Today's Communication / Plan
-
Hold bumex today
stop precedex given bradycardia
cont amio
Impression / Plan
-
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 possible hemochromatosis with at least moderate hepatic fibrosis and medication non-compliance admitted with acute, vent
dependent respiratory failure complicated by VT/VF arrest and new LBBB.
#Cardiac Arrest
-Acute, threat to life.
-VT/VF arrest in ER. EKG shows LBBB.
-CTPE negative for PE, does show marked pulmonary edema.
-Cardiac catheterization showed severe CAD (FUEL MANAGER of pRCA, FUEL MANAGER of smaller OM1, complex 90% Sinha 1,1,1 proximal LAD/Diagonal lesion) with EMMA III flow in all vessels.
-LVEDP 40 mmHg at the time of cath.
-Given his presentation, revascularization was deferred as the thought was his arrest was due to severely elevated LVEDP compounded by moderate and sedation for elective intubation.
-Troponin 11.900 --> 9.770 --> 28.900 --> 45.800 --> 31.100.
-Lactic acid down to 2.2.
-Medical management of cardiac arrest at this time.
#HFrEF ICMO
-Hold bumex for now given rise in Cr
-Pulmonary toilet.
-Daily CXR.
- GDMT to be added once stable
#Severe
- noted on echo
#Hypoxic respiratory failure -- improving
-Acute, threat to life.
-Multifactorial - heart failure, possible PNA.
-SARS-CoV-2 negative, Influenza A/B negative, S. Pneumoniae UAG negative, Legionella UAG negative; Blood Cx/Respiratory Cx pending.
-hold diuresis today
#HTN -- stabilized
-Chronic, untreated.
-We will address medications when he has stabilized.
#HLD
-Chronic, untreated.
-Total cholesterol = 245, LDL = 119, HDL = 63, Triglycerides = 315.
-Resume atorvastatin.
#EtOH -- likely withdrawaling
-Chronic.
-Intubated, sedated. Adjust sedation as needed to mitigate withdrawal.
-Agree with B1/B12 supplementation.
-MSAS protocol when extubated.
#Hepatic fibrosis
-Chronic.
-At least moderate by Fibroscan.
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
-Heterozygous HFE gene mutation +.
Critical Care Time = 35 minutes.
Subjective/Interval History:
remains intubated
DATA:
Cardiac Catheterization, 02/27/2025:
CONCLUSIONS
1. Right dominant circulation with a chronic total occlusion of the proximal RCA with a bridging right to right collateral, a chronic total occlusion of the distal circumflex immediately after the origin of OM1, chronic total occlusion of the small
upper branch of OM1, and a complex, 90% Sinha 1, 1, 1 lesion in the proximal/mid LAD with EMMA-3 flow. Collaterals are visible from the distal LAD to the distal RPDA and from the distal RCA to the distal circumflex.
2. Severely elevated filling pressures (LVEDP = 40 mmHg at 89.4 kg).
3. At least moderate aortic valve stenosis (mean gradient = 32 mmHg on pullback).
TTE, 02/28/2025:
SUMMARY
1. Left ventricular cavity size is 4.35 cm which is normal.
2. LV Wall Motion: entire septum, basal inferior segment, entire lateral wall, entire anterior wall, and mid and apical inferior wall are abnormal, as described below.
3. Ejection fraction is 15-20% by Morgan's method of discs.
4. Stage I diastolic dysfunction suggestive of abnormal relaxation.
5. Severe aortic valve stenosis. Aortic valve area = 0.54 cm².
6. The inferior vena cava appears dilated.
7. Compared to a prior transthoracic echocardiogram Left ventricular function is now severely depressed with akinesis of the septum and anteroseptum and global hypokinesis elsewhere. Aortic valve stenosis has progressed to severe.
Physical Exam
Vital Signs/Labs
Vital Signs
Temp Pulse Resp BP Pulse Ox
100.2 F 61 14 113/72 99
03/03/25 07:26 03/03/25 08:37 03/03/25 06:00 03/03/25 08:37 03/03/25 08:00
03/02/25 03/03/25 03/04/25
06:59 06:59 06:59
Actual Weight 184 lb 8.43 oz 185 lb 3.013 oz
03/03/25 03:19
03/03/25 03:19
PT 14.2 Sec (11.4-14.6) 02/28/25 08:03
INR 1.05 02/28/25 08:03
APTT 167.6 Sec (23.4-35.0) H* 03/03/25 03:19
Magnesium 2.1 mg/dl (1.6-2.3) 03/03/25 03:19
Triglycerides 315 mg/dl (10-149) H 02/28/25 03:28
LDL Cholesterol, Calc 119 mg/dl 02/28/25 03:28
VLDL Cholesterol, Calc 63 mg/dl (0-30) H 02/28/25 03:28
HDL Cholesterol 63 mg/dl 02/28/25 03:28
02/27/25 02/27/25 02/27/25
18:02 18:31 19:35
Uoz-O-Bnkhefedwwr Pept Cancelled Cancelled Cancelled
02/27/25 03/01/25
Unknown 15:17
Qpx-Q-Vqskfbdtopm Pept [id number]
LAB Results
02/28/25
17:13
Troponin I 31.100 H*
Physical Exam
Constitutional: Other (intubated)
Cardiovascular: Rhythm & rate is regular
Respiratory: Respiratory effort normal and Other (coarse breath sounds)
GI: Soft
Neuro/Psych: Other (intuabtd and sedated)
Data Reviewed
-
Date of Service: March 03, 2025
Medical Decision Making: Reviewed Test Results
EKG: Tracing Personally Visualized and interpreted (sr)
Echo: Report Reviewed by me
Labs: Labs Reviewed by me
--- NOTE | 2025-03-03 09:37 | PTCARENOTE ---
0700 Assumed care. patient in bed intubated; Precedex 0.3/6.5 + Heparin 04/1100+Levophed 2mcg via Rt PICC line; Amiodorone 0.5 via PICC line.
left radial A/line
Secondary to Sinus Bradycardia heart rate 54 to 56 Precedex and Amiodarone off. per Cardiologis Amiodrone turned back on. Auto BP and [place] BP correlate
[2025-03-03 09:42] VITALS: BP 88/66
[2025-03-03 10:26] LABS: Glucose - Point of Care 165 mg/dl (70-99)
[2025-03-03 11:18] LABS: Glucose - Point of Care 170 mg/dl (70-99)
[2025-03-03] MEDS: HEPARIN 25000 UNITS/250 ML IV (11:24)
[2025-03-03 12:32] VITALS: BP_SYST 142
[2025-03-03 12:34] VITALS: BP_SYST 142
[2025-03-03] MEDS: DIAMOX 250 MG TUBE (12:43)
[2025-03-03 13:15] LABS: APTT > 200 Sec (23.4-35.0)
[2025-03-03 13:24] LABS: Glucose - Point of Care 91 mg/dl (70-99)
[2025-03-03 13:33] VITALS: BP_SYST 133
[2025-03-03] MEDS: CORDARONE 518 MG IV (14:01)
[2025-03-03 14:29] LABS: Glucose - Point of Care 130 mg/dl (70-99)
[2025-03-03 15:02] LABS: B.E. 6.9 mmol/L; HCO3 32.0 mmol/L (21-28); O2 Saturation % 97.8 % (94-98); PCO2 46 mmHg (35-48); PO2 119 mmHg (83-108)
[2025-03-03 15:27] LABS: Glucose - Point of Care 120 mg/dl (70-99)
[2025-03-03 16:36] LABS: Glucose - Point of Care 122 mg/dl (70-99)
--- NOTE | 2025-03-03 16:36 | PTCARENOTE ---
Extubated:
Patietn have bee on Spontaneous wean trial 5/5/40% since 12:36 am; Off Precedex since this am. Tube Feed on hold; AB.45/46/119/32.0. patient awake, alert to himself only. Following commands. Able to lift head off pillow. extubated 16:00 to
oxygen 4L via nasal canual . SpO2 98% 4L via nasal cannula. Suctioned thick white secretion . HOB elevated
[2025-03-03 16:40] LABS: Blood Urea Nitrogen 30 mg/dl (9-20); Calcium 8.5 mg/dl (8.4-10.2); Carbon Dioxide 30 mmol/L (22-30); Chloride 104 mmol/L (98-107); Estimated Creatinine Clearance 53 ml/min; Glucose 129 mg/dl (70-99); Potassium 4.0 mmol/L (3.5-5.1); Sodium 140 mmol/L (135-145); eGFR > 60.00
[2025-03-03 17:35] LABS: Glucose - Point of Care 124 mg/dl (70-99)
[2025-03-03] MEDS: ROBITUSSIN 200 MG TUBE (17:50)
[2025-03-03] MEDS: DUONEB 3 ML INH (17:58)
--- NOTE | 2025-03-03 18:25 | W.PN.HOSP.TC ---
Addendum entered and electronically signed by Felipe Lazar MD 03/03/25 20:38:
Stop Precedex given bradycardia
Hold Bumex given rising creatinine today
Original Note:
Today's Communication/Plan
-
See plan
Assessment / Plan
Assessment / Plan
Physical Exam
General: Intubated and Sedated
HEENT: ETT in place.
Respiratory: Equal air entry bilaterally
Cardiac: S1/S2, RRR
GI: Soft, Non Tender, Non Distended and Normal Bowel Sounds
Musculoskeletal: No Cyanosis
Neuro: Other (Unresponsive on ventilator.)
Assessment/Plan
69 y/o male with past medical history significant for medication non-compliance (for at least 2 years), hypertension, DM-II, occasional Marijuana smoking, alcohol (drinking 10-12 beers daily) and prior CVA with left hemiparesis who presented to [facility]
ED complaining of SOB (prior to this patient was okay and had no specific complaints). stated that patient began to complain of significant SOB suddenly on 02/28/25 evening around 5:15PM. He had significant work of breathing and 911 was called.
Patient presented to the ED via EMS in respiratory distress with marked hypoxemia, diaphoresis and tachypnea. Patient was intubated in the ED. During/shortly after intubation, patient became pulseless. He underwent synch cardioversion x 2 for
suspected unstable A-Fib. He was then noted to have pulseless VT and periods of V-Fib on monitor. He underwent CPR and multiple rounds of defibrillation here in the ED. He received epinephrine, bicarbonate, amiodarone and calcium. ROSC was
achieved. Patient has remained unresponsive since this event. EKG done in the ED shows new LBBB and patient was taken to the catholic priest for emergent ischemic evaluation.
V-Tach / V-Fib Cardiac Arrest
Shock -- suspected cardiogenic
- Flash pulmonary edema and hypoxia on presentation (LVEDP was high on cardiac cath)
- With abrupt onset, significant risk factors, new LBBB, etc - patient went for emergent ischemic evaluation 02/27/25
- Cath above showed chronic RCA occlusion, 90% LAD proximal LAD, and LVEDP = 40 mmHg
- Echo 02/28/25 showed hypokinesis, low EF and severe
- No stents placed/medical management recommended
- CT PE study showed no PE
- Heparin Drip
- Continue IV amiodarone infusion protocol s/p V-Fib arrest.
- Continue vasopressors and wean as tolerated
- Cardiology and Product Design Manager evaluations for additional recommendations.
- Continue vent support --- sedation weaning trials
- Continue orogastric tube
- Tube Feeds
- Cardiology and brand designer evaluation appreciated
Fever
- Suspected from Precedex, as per brand designer -- Precedex now stopped
- Possibly from post-code state, alcohol withdrawal or infection
- Repeat blood cultures x2, CXR and UA with reflex to culture
- Continue antibiotics
Medication Non-Compliance
Pulmonary Edema
Acute Hypoxemic Respiratory Failure / VDRF
- CXR / CT chest showed pulmonary edema - possibly flash pulmonary edema
- floating labor gang supervisor results as above
- IV Bumex drip switched to IV BID Bumex
- Cardiology evaluation as noted above.
- COVID negative, Influenza A/B negative, S. Pneumoniae UAG negative, Legionella UAG negative
Polycythemia
- Patient with marked polycythemia with Hgb = 21 (confirmation / repeat = 22).
- Likely multiple underlying reasons for secondary polycythemia including chronic hypoxemia, liver disease, etc - but current elevation seems excessive.
- Check EPO (pending), JAK2, hemochromatosis genetic panel.
- Follow cell counts for changes.
- Hematology evaluation appreciated: patient is not eligible for phlebotomy.
- Outpatient work-up for hemochromatosis demonstrated heterozygous mutation for H63D.
Anion Gap Metabolic Acidosis Suspected Secondary to Lactic Acidosis
- RESOLVED
- Likely secondary to acute ischemia
- Lactic acidosis trended down
Benign Hypertension
- Patient non-compliant with medications chronically.
- IV Lopressor 12.5 mg BID for now + IV Bumex diuresis above
- Adjust med regimen as needed for BP control.
DM-II
- Uncontrolled / non-compliant outpatient
- Insulin Drip --> subq Insulin
Left Hemiparesis as Late Effect of CVA
- CT head showed prior R MCA stroke. No acute findings appreciated / no significant cerebral edema.
- Patient has been non-compliant with med regimen for years - including ASA, etc.
Alcohol Use Disorder
- Long-standing alcohol use disorder. 10-12 beers daily per .
- He is currently displaying withdrawal symptoms -- adjust sedation to manage withdrawal symptoms
- Monitor for any evidence of withdrawal symptoms and treat with BZDs as needed.
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
- Thiamine, folate replacement
- Vitamin B12 supplementation
- MSAS protocol
Transaminitis
- From alcohol vs. shock state from CPR
Hyperlipidemia
- Continue Atorvastatin
DVT Prophylaxis: On IV Heparin
Diet: Continue orogastric tube feeds
Code Status: Full Code
Status post cardiac arrest needing ICU level of care, intubation, vasopressors, sedation, Heparin Drip is a high risk encounter.
Anticipated Discharge: > 48 hours
Subjective/Interval History
-
Date of Service: March 03, 2025
Patient was seen and examined. He remained intubated and sedated.
Objective Data
-
Labs:
Laboratory Results
03/03/25 03/03/25 03/03/25
12:29 14:55 15:08
APTT > 200 H*
HCO3 32.0 H
Sodium 140
Potassium 4.0 D
Chloride 104
Carbon Dioxide 30
BUN 30 H
Creatinine 1.3
Glucose 129 H
Calcium 8.5
03/03/25 03/03/25
18:00 22:30
APTT Pending
HCO3 Pending
Sodium
Potassium
Chloride
Carbon Dioxide
BUN
Creatinine
Glucose
Calcium
Vital Signs:
Vital Signs
Temp Pulse Resp BP Pulse Ox
99.2 F 74 18 135/71 97
03/03/25 15:00 03/03/25 17:59 03/03/25 17:59 03/03/25 12:43 03/03/25 17:59
I&O
03/02/25 03/03/25 03/04/25
06:59 06:59 06:59
Intake Total 1994.9 / 2253.1 2770.2 / 2808.8 375.7 / 375.7
Output Total 4640 / 4840 2690 / 2865 1025 / 1025
Balance -2645.1 / -2586.9 80.2 / -56.2 -649.3 / -649.3
[2025-03-03 18:29] LABS: Glucose - Point of Care 139 mg/dl (70-99)
[2025-03-03] MEDS: VALIUM INJECTION 2.5 MG IV (19:29)
--- NOTE | 2025-03-03 20:00 | PTCARENOTE ---
Received pt. at 1900. Pt. currently in bed. Lethargic but arousable. Nodding appropriately, following simple commands. Denies pain/discomfort. Afebrile. Heart rhythm sinus. Blood pressure normotensive. Currently on 2L nasal cannula. Strong cough.
Oral suctioning performed. OG tube in place. Schultz catheter in place, draining without issue. Skin as documented. Discussed plan of care with patient. Vital signs stable at this time.
[2025-03-03] MEDS: ATROVENT NEBULES 0.5 MG INH (20:12)
[2025-03-03] MEDS: VENTOLIN NEBULES 1.25 MG INH (20:12)
[2025-03-03 20:48] LABS: B.E. 5.8 mmol/L; HCO3 31.2 mmol/L (21-28); O2 Saturation % 96.4 % (94-98); PCO2 46 mmHg (35-48); PO2 135 mmHg (83-108)
[2025-03-03 22:35] LABS: Glucose - Point of Care 118 mg/dl (70-99)
[2025-03-03 22:47] LABS: APTT 56.2 Sec (23.4-35.0)
[2025-03-03] MEDS: LANTUS 0.08 UNITS SC (22:55)
--- NOTE | 2025-03-04 | PTCARENOTE ---
Pt. assessment unchanged. Remains on heparin gtt and amiodarone gtt. Vital signs stable at this time.
[2025-03-04] MEDS: UNASYN IV ×4 (02:10→21:00)
[2025-03-04 03:44] LABS: B.E. 4.9 mmol/L; HCO3 30.5 mmol/L (21-28); O2 Saturation % 98.9 % (94-98); PCO2 47 mmHg (35-48); PO2 127 mmHg (83-108)
[2025-03-04 03:58] LABS: Hematocrit 47.5 % (39.0-52.0); Hemoglobin 16.1 g/dL (13.0-18.0); Mean Corp Hgb Conc. 33.9 g/dL (33.0-37.0); Mean Corpuscular Volume 103.7 fL (80.0-94.0); Platelet Count 94 10^3/uL (130-400); Red Cell Dist. Width 14.3 % (11.5-14.5)
--- NOTE | 2025-03-04 04:00 | PTCARENOTE ---
Pt. assessment remains unchanged. AM labs drawn. Vital signs stable at this time.
[2025-03-04 04:45] LABS: ALT (SGPT) 20 U/L (0-50); AST (SGOT) 36 U/L (17-59); Albumin 3.4 g/dl (3.5-5.0); Alkaline Phosphatase 45 U/L (38-126); Blood Urea Nitrogen 32 mg/dl (9-20); Calcium 9.1 mg/dl (8.4-10.2); Carbon Dioxide 28 mmol/L (22-30); Chloride 106 mmol/L (98-107); Estimated Creatinine Clearance 63 ml/min; Glucose 131 mg/dl (70-99); Magnesium 2.3 mg/dl (1.6-2.3); Potassium 3.9 mmol/L (3.5-5.1); Sodium 140 mmol/L (135-145); Total Protein 6.6 g/dl (6.3-8.2); eGFR > 60.00
[2025-03-04 05:12] VITALS: BMI 27.9
[2025-03-04 05:46] LABS: APTT 73.4 Sec (23.4-35.0)
[2025-03-04] MEDS: VENTOLIN NEBULES 1.25 MG INH ×3 (07:24→19:40)
[2025-03-04] MEDS: ATROVENT NEBULES 0.5 MG INH ×3 (07:24→19:40)
[2025-03-04] MEDS: VALIUM INJECTION 2.5 MG IV ×2 (07:43→20:59)
[2025-03-04] MEDS: NSS (PRESERVATIVE FREE) 10 ML IV (07:45)
[2025-03-04] MEDS: LOPRESSOR 12.5 MG TUBE (07:45)
[2025-03-04] MEDS: PROTONIX IV 40 MG IV (07:45)
[2025-03-04] MEDS: VITAMIN B1 100 MG PO ×2 (07:45→21:00)
[2025-03-04] MEDS: ROBITUSSIN 200 MG TUBE (07:45)
[2025-03-04] MEDS: LOW STRENGTH ASPIRIN 81 MG TUBE (07:45)
[2025-03-04] MEDS: FOLVITE 1 MG TUBE (07:46)
--- NOTE | 2025-03-04 07:50 | W.PN.CD ---
Addendum entered and electronically signed by Tee Desai MD 03/04/25 12:24:
I saw and evaluated the patient, and I provided the substantive portion of the medical decision making.
I reviewed and agree with the note by Pilo and it accurately reflects our care.
I personally performed the medical decision making of the this encounter and my assessment and plan is below:
GDMT when tolerating PO
Will need discussion about intervention on CAD and when mentating more appropriately
cont amio and heparin gtt; cont metop
Original Note:
Today's Communication / Plan
-
Continue metoprolol
Continue heparin GTT
Continue amiodarone gtt.
Monitor platelets closely.
Impression / Plan
-
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 possible hemochromatosis with at least moderate hepatic fibrosis and medication non-compliance admitted with acute, vent
dependent respiratory failure complicated by VT/VF arrest and new LBBB.
#Cardiac Arrest
VT/VF arrest in ER. EKG with LBBB.
Cardiac catheterization showed severe CAD (RIDING TEACHER of pRCA, RIDING TEACHER of smaller OM1, complex 90% Sinha 1,1,1 proximal LAD/Diagonal lesion)
LVEDP 40 mmHg at the time of cath.
Medically managed without stenting as his arrest likely due to severely elevated LVEDP, moderate and sedation for elective intubation.
Troponin peaked at 45
Lactic acid down to 2.2.
Continue IV amiodarone, IV heparin
#HFrEF
Echo with EF of 15-20%
His Bumex was on hold since yesterday due to elevated creatinine
Creatinine back to 1.1
Weights down to 183
Good urine output
GDMT when able
#Severe
noted on echo -severe aortic valve stenosis with HANNAH 0.54 cm�
Decision for SAVR versus TAVR, pending interventional cardiology evaluation
#Hypoxic respiratory failure
S/p extubation on 03/03/2025
Multifactorial - heart failure with flash pulmonary edema, possible PNA.
SARS-CoV-2 negative, Influenza A/B negative, S. Pneumoniae UAG negative, Legionella UAG negative
Blood Cx/Respiratory Cx pending.
#Thrombocytopenia
Platelet count trending down to 94
Patient on IV heparin
Monitor CBC closely
Patient being worked up for hemochromatosis, marked polycythemia with hemoglobin 21 at admission
#HTN --
stabilized
Continue metoprolol 12.5 mg tube
#HLD
Chronic, untreated.
Total cholesterol = 245, LDL = 119, HDL = 63, Triglycerides = 315.
Resume atorvastatin.
#EtOH
likely in withdrawal
Thiamine/B12 supplementation
Continue with M asif protocol
#Hepatic fibrosis/ steatosis
At least moderate by Fibroscan.
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
Heterozygous HFE gene mutation +.
Physical Exam
Vital Signs/Labs
Vital Signs
Temp Pulse Resp BP Pulse Ox
98 F 66 18 122/65 96
03/04/25 07:09 03/04/25 07:45 03/04/25 07:25 03/04/25 07:45 03/04/25 07:25
03/03/25 03/04/25 03/05/25
06:59 06:59 06:59
Actual Weight 185 lb 3.013 oz 183 lb 3.266 oz
03/04/25 03:37
03/04/25 03:37
PT 14.2 Sec (11.4-14.6) 02/28/25 08:03
INR 1.05 02/28/25 08:03
APTT 73.4 Sec (23.4-35.0) H 03/04/25 04:51
Magnesium 2.3 mg/dl (1.6-2.3) 03/04/25 03:37
Triglycerides 315 mg/dl (10-149) H 02/28/25 03:28
LDL Cholesterol, Calc 119 mg/dl 02/28/25 03:28
VLDL Cholesterol, Calc 63 mg/dl (0-30) H 02/28/25 03:28
HDL Cholesterol 63 mg/dl 02/28/25 03:28
02/27/25 02/27/25 02/27/25
18:02 18:31 19:35
Znz-Y-Wrvoxillijj Pept Cancelled Cancelled Cancelled
02/27/25 03/01/25
Unknown 15:17
Wgq-L-Htxaxbficwn Pept [id number]
Physical Exam
Constitutional: Confusion
Cardiovascular: Rhythm & rate is regular, Pedal edema is absent and S1S2 is normal
Respiratory: Lungs clear to auscul. (Anteriorly)
GI: Soft and Normal bowel sounds
Neuro/Psych: Other (Appears confused, AO x 2)
Data Reviewed
-
Date of Service: March 04, 2025
--- NOTE | 2025-03-04 08:19 | W.PN.INTV ---
Today's Communication / Plan
Recommendations
Extubated yesterday, breathing well on room air
Continue intermittent diuresis
Defer PCI + TAVR versus SAVR to interventional cardiology +/- CT surgery, depending on neurological recovery
Amio gtt
He is more awake and following commands, although is very slow to respond (not his baseline per the )
Monitor for alcohol withdrawal and unable to do phenobarbital while on amiodarone; using valium instead
Continue diazepam, weaning down the dose as tolerated
Continue heparin drip
Will need PT/OT
Continue ICU level of care for this critically ill patient; hopefully we can downgrade him tomorrow to IMU.
Assessment
-
69yoM PMH HTN, HLD, CVA with residual hemiplegia, NIDDM, , hepatic fibrosis, EtOH use, being worked up for hemochromatosis outpt presenting with acute respiratory distress compounded by cardiac arrest in ED put on pressors and intubated, he went
to [facility] and found to have severe CAD with left-sided heart failure, started on Bumex drip and admitted to the ICU.
Impression:
#Acute hypoxic + hypercapnic respiratory failure on mechanical ventilation (intubated 02/28/2025 in ER --> extubated in ICU on 03/03)
#Acute pulmonary edema - given its acute onset this is consistent with flash pulmonary edema, likely related to his severe aortic stenosis in setting of chronic hypertension, rapid A-fib and CAD
#In-hospital cardiac arrest with VT/VF with EKG showing LBBB s/p ROSC
#History of aortic stenosis (peak/mean gradients were 51/26 mmHg on prior echo in November 2023) which is now severe with mean gradient of 35 mmHg
#Pulmonary hypertension (estimated PASP was 35-40 mmHg with trace TR and normal RV size/function, normal RA size on prior echo from November 2023)--> improved now with PASP 26mmHg
#Hepatic fibrosis
#Polycythemia (unclear if primary versus secondary)
#Elevated iron saturation with normal ferritin
#Transaminitis with hyperbilirubinemia (suspicious for alcoholic steatohepatitis)
#Elevated troponin initially due to suspected demand ischemia and now significantly elevated after his left heart catheterization
#Alcohol abuse (negative level on admission)
#Marijuana use
Plan:
- Patient brought to [facility] initially s/p ROSC which showed severe CAD (911 EMERGENCY DISPATCHER of pRCA, 911 EMERGENCY DISPATCHER of smaller OM1, complex 90% Sinha 1,1,1 proximal LAD/Diagonal lesion) with EMMA III flow in all vessels
- Severe left-sided heart failure seen with LVEDP 40 mmHg at the time of the cath
- Revascularization on hold to allow for assessment of neurological recovery, at which point he will likely need a PCI to his LAD/D lesion
- Diuresis now on hold as CXR today (03/04) shows no obvious pleural effusion or pulmonary edema; there is a retrocardiac opacity; continue strict I/O; replete electrolytes with K>4, Mg>2
- Echo on 02/28/2025 showed severe aortic valve stenosis with HANNAH 0.54 cm� with LVEF 15-20% with severe depression of LV function with abnormal wall motions of the septum, basal inferior segment, entire lateral wall, entire anterior wall and mid and
apical inferior torres.
- Will need interventional cardiology to comment about if he is a candidate for TAVR vs SAVR
- Keep MAP>65; lactate is now <2mmol/L - no longer need to continue trending at this time
- Troponin peaked at 45.8 on 02/28/2025; no longer need to continue trending at this time
- Continue amiodarone gtt given his VF/VT arrest - defer transition to PO amio to cardiology
- Patient was extubated on 03/03, and is now breathing comfortably on room air saturating 92%
- Continue with aspiration precautions, keep HOB >30-45�
- Keep SpO2 >90-94%
- prn nebulized bronchodilators - not currently bronchospastic
- Of note, he had been having fevers but I believe that this is due to Precedex as he is not tachycardic --> fevers now resolved since early AM on 03/03
- Prior to today, he was having low-grade fevers and had possible aspiration --> continue antibiotics with Unasyn --> plan for 7 days ABx
- Follow-up cultures (blood and respiratory - both show NGTD)
- Legionella + strep pneumoniae urine antigens both negative
- Trend WBC and monitor temperature curve
- Given his elevated T bili, RUQ US with Doppler was checked showing diffuse hepatocellular disease with no focal hepatic lesions, with patent portal and hepatic veins and no evidence for cholelithiasis or dilatation of the biliary tree
- Regarding his high iron saturation with concern for hemochromatosis, follow-up HFE-3 variant blood work
- Also follow-up EPO + JAK2 mutation, ordered by hematology, of which recommendations are appreciated
- Trend LFTs; trend Hb
- Maintain euglycemia with goal BG 140-180; HbA1c: 5.4 on 02/28/2025; continue basal-bolus SQ insulin s/p insulin gtt
- Trend H/H and transfuse if needed to keep Hb>7-8g/dL; keep plt>20k, unless there is concern for bleeding then keep plt>50k
- Early nutrition --> diet as per PATTERN HAND (to remain NPO for now given mental status with risk of aspiration, but ok for essential meds crushed in puree)
- PT/OT
- DC stress ulcer ppx
- DVT ppx: Heparin gtt
Continue ICU level of care for this critically ill patient; hopefully we can downgrade him tomorrow to IMU.
Total time spent today was 76 minutes for this encounter. Time includes reviewing laboratory test/imaging results, reviewing pertinent medical records, obtaining and reviewing medical history, performing an appropriate exam, ordering medications,
tests and procedures. Time also includes documentation of this encounter, coordinating patient care and communicating with other healthcare professionals. Total time does not include separately billed tests performed on this date of service.
Subjective Dataa
Subjective Data
Date of Service:
Date of Service: March 04, 2025
Chief Complaint: Tobacco Grader Follow Up
Subjective:
Patient was seen and evaluated today at bedside. Extubated yesterday. He is awake, however very slow to respond and according to he is not usually like this. Currently saturating 92% on room air, heart rate 67 and BP via A-line: 132/77.
Currently on amiodarone drip and heparin drip. I answered all the and the mother's questions.
Review of Systems
General: Other (Unable to obtain given patient's acute clinical status)
Objective Data
Data Reviewed
Vital Signs / I&O / Oxygen:
Vital Signs
Temp Pulse Resp BP Pulse Ox
98 F 66 17 122/65 94
03/04/25 07:09 03/04/25 08:00 03/04/25 08:00 03/04/25 07:45 03/04/25 08:00
Intake and Output
03/03/25 03/04/25 03/05/25
06:59 06:59 06:59
Intake Total 2770.2 / 2888.8 1801.6 / 1829.3 27.7 / 27.7
Output Total 2690 / 2865 2004 75 / 75
Balance 80.2 / 23.8 -203.4 / -250.7 -47.3 / -47.3
SaO2 [CPAP/PSV] 100
SaO2 [CPAP] 96
SaO2 [ASV] 99
SaO2 [A/C] 95
SaO2 94
Nasal Cannula flow liters per 4
minute
Physical Exam
General: Respiratory Distress (negative), Comfortable, Chills (negative), Sweats (positive) and Other (obese male in NAD)
HEENT: Normocephalic and Anicteric
Cardiovascular: S1-S2, Regular Rhythm and Peripheral Edema (negative)
Respiratory: Wheeze (negative), Crackles (negative), Rhonchi (negative), Non-Labored Respirations and Other (Reduced inspiratory effort)
GI: Soft, Distended (Abdominal obesity), Non Tender and Normal Bowel Sounds
Neurology: Awake (Slow to respond but answers most questions) and Tremors (negative)
Skin: Warm, Dry, Cyanosis (negative) and Jaundice (negative)
Labs/Micro/Reports
Lab Data
03/04/25 03:37
03/04/25 03:37
Laboratory Results
03/03/25 03/03/25 03/03/25
12: 14:55 20:43
APTT > 200 H*
pH 7.45 7.44
pCO2 46 46
pO2 119 H 135 H
HCO3 32.0 H 31.2 H
O2 Delivery Level
03/03/25 03/04/25 03/04/25
22:29 03:37 04:51
APTT 56.2 H 73.4 H
pH 7.42
pCO2 47
pO2 127 H
HCO3 30.5 H
O2 Delivery Level
Microbiology
02/28/25 08:03 Blood/Venous Blood Culture - Preliminary
No Growth in 4 days- Final report to follow
02/28/25 06:36 Blood/Venous Blood Culture - Preliminary
No Growth in 4 days- Final report to follow
03/02/25 11:06 Blood/Venous Blood Culture - Preliminary
No Growth in 24 hours- Final report to follow
03/02/25 11:06 Blood/Venous Blood Culture - Preliminary
No Growth in 24 hours- Final report to follow
03/02/25 11:07 Urine Urine Culture - Final
NO GROWTH
02/28/25 08:03 Sputum Respiratory Culture - Final
Usual Respiratory Evelyn
02/28/25 08:03 Sputum Gram Stain - Final
02/28/25 21:09 Urine Legionella Urinary Antigen - Final
Negative for Legionella pneumophila Serogroup 1 antigen.
A negative result does not rule out the possiblity of
Legionella infection due to other serogroups or species of
Legionella. Clinical correlation is recommended.
02/28/25 21:09 Urine Streptococcus pneumoniae Antigen (M - Final
Negative for Streptococcus pneumoniae antigen.
A negative result does not exclude infection with
Streptococcus pneumoniae. Clinical correlation is
recommended.
--- NOTE | 2025-03-04 08:31 | PTCARENOTE ---
0700 assumed care; Patient in bed. On Oxygen 4L via nasal cannula; Heparin at 04/1100 next PTT 1130; Amiodarone 0.5; MSAS 5
[2025-03-04 12:04] LABS: APTT 88.1 Sec (23.4-35.0)
[2025-03-04 12:21] LABS: Glucose - Point of Care 125 mg/dl (70-99)
--- NOTE | 2025-03-04 13:27 | W.PN.HOSP.TC ---
Today's Communication/Plan
-
On nasal cannula oxygen
Continue Amio and Heparin Drips
Continue to monitor for alcohol withdrawal -- he was having withdrawal while intubated as well
Continue Unasyn
NPO except meds for now -- speech to re-evaluate
Orogastric tube came out while patient coughing -- if patient still unsafe for PO food, consider placing NG tube
Assessment / Plan
Assessment / Plan
Physical Exam
General: Intubated and Sedated
HEENT: Normocephalic.
Respiratory: Equal air entry bilaterally. NOW ON 2 L NC OXYGEN (EXTUBATED ON 03/03/25)
Cardiac: S1/S2, RRR
GI: Soft, Non Tender, Non Distended and Normal Bowel Sounds
Musculoskeletal: No Cyanosis
Neuro: Other (Unresponsive on ventilator.)
Assessment/Plan
69 y/o male with past medical history significant for medication non-compliance (for at least 2 years), hypertension, DM-II, occasional Marijuana smoking, alcohol (drinking 10-12 beers daily) and prior CVA with left hemiparesis who presented to [facility]
ED complaining of SOB (prior to this patient was okay and had no specific complaints). stated that patient began to complain of significant SOB suddenly on 02/28/25 evening around 5:15PM. He had significant work of breathing and 911 was called.
Patient presented to the ED via EMS in respiratory distress with marked hypoxemia, diaphoresis and tachypnea. Patient was intubated in the ED. During/shortly after intubation, patient became pulseless. He underwent synch cardioversion x 2 for
suspected unstable A-Fib. He was then noted to have pulseless VT and periods of V-Fib on monitor. He underwent CPR and multiple rounds of defibrillation here in the ED. He received epinephrine, bicarbonate, amiodarone and calcium. ROSC was
achieved. Patient has remained unresponsive since this event. EKG done in the ED shows new LBBB and patient was taken to the cardiac cath lab manager for emergent ischemic evaluation.
V-Tach / V-Fib Cardiac Arrest
Shock -- suspected cardiogenic
- Flash pulmonary edema and hypoxia on presentation (LVEDP was high on cardiac cath)
- Extubated on 03/03/25
- With abrupt onset, significant risk factors, new LBBB, etc - patient went for emergent ischemic evaluation 02/27/25
- Cath above showed chronic RCA occlusion, 90% LAD proximal LAD, and LVEDP = 40 mmHg
- Echo 02/28/25 showed hypokinesis, low EF and severe
- No stents placed/medical management recommended
- CT PE study showed no PE
- Continue Heparin Drip
- Continue Amiodarone Drip
- Vasopressors/Levophed previously weaned off
- Orogastric tube came out after patient was coughing
- Cardiology and hardwood sawyer evaluation appreciated
HFrEF
- GDMT when tolerating PO reliably -- trial of other PO medications started on 03/04/25
- Bumex placed on hold due to elevated creatinine
Fever
- Suspected from Precedex, as per hardwood sawyer -- Precedex previously stopped
- Possibly from post-code state, alcohol withdrawal or infection
- Repeat blood cultures x2, CXR and UA with reflex to culture
- Continue antibiotics for 7 days total for pneumonia
Medication Non-Compliance for Years
Pulmonary Edema
Acute Hypoxemic Respiratory Failure / VDRF
- CXR / CT chest showed pulmonary edema - possibly flash pulmonary edema
- laboratory manager results as above
- Bumex on hold given elevated creatinine
- Cardiology evaluation as noted above.
- COVID negative, Influenza A/B negative, S. Pneumoniae UAG negative, Legionella UAG negative
Polycythemia
- Patient with marked polycythemia with Hgb = 21 (confirmation / repeat = 22).
- Likely multiple underlying reasons for secondary polycythemia including chronic hypoxemia, liver disease, etc - but current elevation seems excessive.
- Check EPO (pending), JAK2, hemochromatosis genetic panel.
- Follow cell counts for changes.
- Hematology evaluation appreciated: patient is not eligible for phlebotomy.
- Outpatient work-up for hemochromatosis demonstrated heterozygous mutation for H63D.
Anion Gap Metabolic Acidosis Suspected Secondary to Lactic Acidosis
- RESOLVED
- Likely secondary to acute ischemia
- Lactic acidosis trended down
Benign Hypertension
- Patient non-compliant with medications chronically.
- Continue Metoprolol
- Adjust med regimen as needed for BP control.
DM-II
- Uncontrolled / non-compliant outpatient
- Insulin Drip --> subq Insulin
Left Hemiparesis as Late Effect of CVA
- CT head showed prior R MCA stroke.
- Patient has been non-compliant with med regimen for years - including ASA, etc.
Alcohol Use Disorder
- Long-standing alcohol use disorder. 10-12 beers daily per .
- Continue to monitor for alcohol withdrawal
- Monitor for any evidence of withdrawal symptoms and treat with BZDs as needed.
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
- Thiamine, folate replacement
- Vitamin B12 supplementation
- MSAS protocol
Transaminitis
- From alcohol vs. shock state from CPR
Hyperlipidemia
- Continue Atorvastatin
Stage 1 sacrum pressure injury, POA
-Wound care
DVT Prophylaxis: On Heparin Drip
Diet: NPO except meds as per speech
Code Status: Full Code
Anticipated Discharge: > 48 hours
Subjective/Interval History
-
Date of Service: March 04, 2025
Patient was seen and examined. He was extubated yesterday. He denied any complaints.
Objective Data
-
Labs:
Laboratory Results
03/04/25 03/04/25 03/04/25
03:37 04:51 11:41
WBC 7.6
Hgb 16.1
Hct 47.5
Plt Count 94 L D
APTT 73.4 H 88.1 H
HCO3 30.5 H
Sodium 140
Potassium 3.9
Chloride 106
Carbon Dioxide 28
BUN 32 H
Creatinine 1.1
Glucose 131 H
Calcium 9.1
Total Bilirubin 1.4 H
AST 36
ALT 20
Alkaline Phosphatase 45
Vital Signs:
Vital Signs
Temp Pulse Resp BP Pulse Ox
97.8 F 66 17 122/65 94
03/04/25 11:30 03/04/25 08:00 03/04/25 08:00 03/04/25 07:45 03/04/25 08:00
I&O
03/03/25 03/04/25 03/05/25
06:59 06:59 06:59
Intake Total 2770.2 / 2888.8 1801.6 / 1829.3 27.7 / 27.7
Output Total 2690 / 2865 2004 / 2079 75 / 75
Balance 80.2 / 23.8 -203.4 / -250.7 -47.3 / -47.3
--- NOTE | 2025-03-04 13:38 | PTCARENOTE ---
Left Radial A-line Removed Pressure help unit bleeding stopped. Pressure dressing applied
--- NOTE | 2025-03-04 13:42 | PTOTSP ---
Speech Therapy Evaluation:
Pt presents with signs concerning for oropharyngeal dysphagia, likely chronic related to hx of CVA, acutely compounded by prolonged intubation (02/27-03/03) and cardiac arrest. Pt with intermittent s/sx of aspiration with thin liquids via straw. No
s/sx of aspiration with ice chips, thin liquids via tsp, thin liquids via cup, or puree. CXR's have remained without concern for pneumonia, WBC WNL, and pt on room air.
Recommend:
1. Temporary NPO
2. Essential medications crushed in puree
3. ARHP via sparing ice chips/sips of water via cup only with RN supervision, following oral care
4. Oral care 3x/daily
5. MAT MAN to follow to assess candidacy for diet initiation versus need for instrumental assessment
[2025-03-04] MEDS: HEPARIN 25000 UNITS/250 ML IV (13:59)
[2025-03-04 17:35] LABS: Glucose - Point of Care 100 mg/dl (70-99)
[2025-03-04] MEDS: ROBITUSSIN 200 MG PO ×2 (17:46→22:43)
[2025-03-04] MEDS: CORDARONE 518 MG IV (18:19)
--- NOTE | 2025-03-04 18:23 | PTCARENOTE ---
Patient in bed. Temp 99.0 via Schultz; Normal Sinus Rhythm 65. BP via left upper arm 114/73 MAP 86;
- RASS 0; Awake and alert to person only, disoriented of time and place. Left side upper and lower extremity weakness residual from CVA from about 10 years ago per family
- Lungs clear through, 95%RA No cough.
-abdomen soft. Last BM 03/03; NPO except meds crushed with sip of water.
-Schultz draining clear yellow urine
-RT UE PiCC Line DL: Amiodarone 0.5; Heparin 05/01,000 PTT x 2 therapeutical Next PTT in am; Peripheral rohan left hand x 2 dressing changed +blood return
call asencio within reach
[2025-03-04 18:25] VITALS: BP 114/73
[2025-03-04 19:00] VITALS: BP 122/75
[2025-03-04 20:00] VITALS: BP 123/73
[2025-03-04 21:00] VITALS: BP 113/78
[2025-03-04] MEDS: LOPRESSOR 12.5 MG PO (21:01)
[2025-03-04] MEDS: FLUSH (NSS) 2 FLUSH IV (21:01)
--- NOTE | 2025-03-04 21:30 | PTCARENOTE ---
Report received from previous shift RN [id number]. Pt is AAO2, forgetful to time. Pt has slow speech and very flat/withdrawn affect. MSAS Q4H. Pt denies pain. Pt has chronic weakness of L side from prior CVA. Lung sounds are decreased/coarse throughout w
crackles in b/l base, pox 90-93% on room air, oc weak moist cough, coughing/deep breathing encouraged. Telemetry rhythm reveals SR w BBB and prolonged QT, HR 60-70's, + murmur, no edema noted, palpable peripheral pulses present. B/l foot pumps
placed on pt per MD order. +BS, abdomen soft round nontender, NPO x meds/sips of clears. Pt requested to use bedpan, assisted pt on/off, no bm at this time. Denies discomfort. Thermistor Schultz catheter draining jinny urine. Skin as documented. L FA
and L hand int's flushed and patent, capped. R DL PICC with Heparin infusion at 1100 units/hr via purple lumen and Amiodarone 0.5 mg/min via white lumen. Safe environment maintained, call asencio within reach. Will monitor closely.
[2025-03-04 22:00] VITALS: BP 121/84
[2025-03-04] MEDS: LANTUS 0.08 UNITS SC (22:53)
[2025-03-04 22:59] LABS: Glucose - Point of Care 90 mg/dl (70-99)
[2025-03-04 23:12] VITALS: BP 113/74
[2025-03-05] VITALS (22 sets, daily range): BP systolic 104–125; BP diastolic 64–83; PULSE 76; O2SAT 96; BMI 27.6; BMI 28.7
--- NOTE | 2025-03-05 00:59 | PTCARENOTE ---
Turning pt Q2H for skin integrity. Sacral foam dressing changed, see documentation. Percussion per MD order on sport bed. Complete CHG bath, Schultz care & oral care provided. No change in pt assessment. Will continue to monitor.
[2025-03-05] MEDS: FLUSH (NSS) 1 FLUSH IV (02:32)
[2025-03-05] MEDS: UNASYN IV ×2 (02:32→08:44)
[2025-03-05 04:54] LABS: APTT 66.5 Sec (23.4-35.0)
[2025-03-05 05:01] LABS: Hematocrit 44.2 % (39.0-52.0); Hemoglobin 14.6 g/dL (13.0-18.0); Mean Corp Hgb Conc. 33.0 g/dL (33.0-37.0); Mean Corpuscular Volume 104.0 fL (80.0-94.0); Platelet Count 94 10^3/uL (130-400); Red Cell Dist. Width 14.4 % (11.5-14.5)
[2025-03-05] MEDS: TYLENOL/FEVERALL 650 MG RECTAL (05:53)
--- NOTE | 2025-03-05 06:26 | PTCARENOTE ---
Pt yelled out approx 0400, requested to use bedpan for bm. Assisted pt onto bedpan, however, pt was not able to have bm at that time.
Pt's core temp increased to 100.7 F. JOANN Morataya ordered Tylenol suppository. Administered, will monitor for effect.
[2025-03-05 06:32] LABS: ALT (SGPT) 18 U/L (0-50); AST (SGOT) 27 U/L (17-59); Albumin 3.3 g/dl (3.5-5.0); Alkaline Phosphatase 48 U/L (38-126); Blood Urea Nitrogen 28 mg/dl (9-20); Calcium 8.5 mg/dl (8.4-10.2); Carbon Dioxide 25 mmol/L (22-30); Chloride 110 mmol/L (98-107); Estimated Creatinine Clearance 87 ml/min; Glucose 108 mg/dl (70-99); Magnesium 2.0 mg/dl (1.6-2.3); Potassium 3.6 mmol/L (3.5-5.1); Sodium 141 mmol/L (135-145); Total Protein 6.4 g/dl (6.3-8.2); eGFR > 60.00
[2025-03-05] MEDS: VENTOLIN NEBULES 1.25 MG INH (07:19)
[2025-03-05] MEDS: ATROVENT NEBULES 0.5 MG INH (07:19)
--- NOTE | 2025-03-05 08:05 | W.PN.HOSP.TC ---
Today's Communication/Plan
-
Stop IV heparin
Start argatroban
HIT panel
Speech therapy follow-up
PT/OT
Stop antibiotics
Stop [id number] diazepam
Assessment / Plan
Assessment / Plan
Gen-AAOx3, NAD
HEENT-NC, AT, anicteric, clear oral mm
Neck-supple
CV-reg, no M, +S1/S2
Lungs-clear B/L
Abd-soft, NT, ND
Ext-no edema
Musculoskeletal-no cyanosis, clubbing
Skin-warm and dry
Neuro-left hemiparesis, left leg weaker than arm
Psych-calm, cooperative
V-Tach / V-Fib Cardiac Arrest -in hospital, emergency room.
Shock -- suspected cardiogenic
- Flash pulmonary edema and hypoxia on presentation (LVEDP was high on cardiac cath)
- Extubated on 03/03/25
- With abrupt onset, significant risk factors, new LBBB, etc - patient went for emergent ischemic evaluation 02/27/25
- Cath above showed chronic RCA occlusion, 90% LAD proximal LAD, and LVEDP = 40 mmHg
- Echo 02/28/25 showed hypokinesis, low EF and severe
- No stents placed/medical management recommended
- CT PE study showed no PE
- Continue Heparin Drip
- Continue Amiodarone Drip
- Vasopressors/Levophed previously weaned off
- Orogastric tube came out after patient was coughing
- Cardiology and gill tender evaluation appreciated
Acute heart failure reduced EF exacerbation
- GDMT when tolerating PO reliably -- trial of other PO medications started on 03/04/25
- Bumex placed on hold due to elevated creatinine
Fever -no evidence of pneumonia or infection. Has received 5 days of Unasyn so far. Discontinue further antibiotics. Patient denies cough.
- Suspected from Precedex, as per gill tender -- Precedex previously stopped
- Possibly from post-code state, alcohol withdrawal or infection
- Repeat blood cultures x2, CXR and UA with reflex to culture
- COVID negative, Influenza A/B negative, S. Pneumoniae UAG negative, Legionella UAG negative
Medication Non-Compliance for Years
Pulmonary Edema
Acute Hypoxemic Respiratory Failure / VDRF -due to acute heart failure exacerbation.
- CXR / CT chest showed pulmonary edema - possibly flash pulmonary edema
- lab systems analyst results as above
- Bumex on hold given elevated creatinine
- Cardiology evaluation as noted above.
Polycythemia
- Patient with marked polycythemia with Hgb = 21 (confirmation / repeat = 22). Hemoglobin improved to 14.6 today.
- Likely multiple underlying reasons for secondary polycythemia including chronic hypoxemia, liver disease, etc - but current elevation seems excessive.
- Check JAK2, hemochromatosis genetic panel. Erythropoietin level normal.
- Follow cell counts for changes.
- Hematology evaluation appreciated: patient is not eligible for phlebotomy.
- Outpatient work-up for hemochromatosis demonstrated heterozygous mutation for H63D.
Acute thrombocytopenia -platelet count dropped to 128k on 03/03, 94,000 today. Admission platelet count 191k.
4T score is 5. Stop IV heparin, start IV argatroban. Check HIT panel. Discussed with hematology.
Anion Gap Metabolic Acidosis Suspected Secondary to Lactic Acidosis
- RESOLVED
- Likely secondary to acute ischemia
- Lactic acidosis trended down
Essential hypertension
- Patient non-compliant with medications chronically.
- Continue Metoprolol
- Adjust med regimen as needed for BP control.
DM 2 without hyperglycemia
- Uncontrolled / non-compliant outpatient
- Insulin Drip discontinued. Now on Lantus 8 units at bedtime, moderate resistance aspart scale. Will change to low resistance
Left Hemiparesis as Late Effect of CVA
- CT head showed prior R MCA stroke.
- Patient has been non-compliant with med regimen for years - including ASA, etc.
- Patient claims he ambulates at home without assistive device. Consult PT/OT.
Alcohol Use Disorder
- Long-standing alcohol use disorder. 10-12 beers daily per .
- Continue to monitor for alcohol withdrawal
- Monitor for any evidence of withdrawal symptoms and treat with BZDs as needed. Stop diazepam [id number]. Continue as needed.
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
- Thiamine, folate replacement
- Vitamin B12 supplementation
- MSAS protocol
Transaminitis
- From alcohol vs. shock state from CPR. Transaminases normalized. Bilirubin now normal.
Hyperlipidemia
- Continue Atorvastatin
Stage 1 sacrum pressure injury, POA
-Wound care
DVT Prophylaxis: On Heparin Drip
Diet: NPO except meds as per speech
Code Status: Full Code
Anticipated Discharge: > 48 hours
Subjective/Interval History
-
Date of Service: March 05, 2025
Patient seen and examined, no complaints.
Objective Data
-
Labs:
Laboratory Results
03/05/25 03/05/25 03/05/25
04:30 05:22 11:10
WBC 8.8
Hgb 14.6
Hct 44.2
Plt Count 94 L
APTT 66.5 H Pending
Sodium Cancelled 141
Potassium Cancelled 3.6
Chloride Cancelled 110 H
Carbon Dioxide Cancelled 25
BUN Cancelled 28 H
Creatinine Cancelled 0.8
Glucose Cancelled 108 H
Calcium Cancelled 8.5
Total Bilirubin Cancelled 1.3
AST Cancelled 27
ALT Cancelled 18
Alkaline Phosphatase Cancelled 48
Vital Signs:
Vital Signs
Temp Pulse Resp BP Pulse Ox
99.2 F 77 20 119/77 93
03/05/25 07:59 03/05/25 07:22 03/05/25 07:22 03/05/25 06:00 03/05/25 07:22
I&O
03/04/25 03/05/25 03/06/25
06:59 06:59 06:59
Intake Total 1801.6 / 1829.3 870.1 / 898.8 57.4 / 57.4
Output Total 2004 1235 / 123 60 / 60
Balance -203.4 / -250.7 -364.9 / -336.2 -2.6 / -2.6
Review of Systems
-
History Source: Patient
All other systems: Reviewed and negative
--- NOTE | 2025-03-05 08:14 | PN.DE.MGMTRT ---
Insulin Management
- -
03/05/2025: Diabetes Management Follow up
69 year old male with cardiac arrest in the ED. PMH: HTN, HLD, T2DM, Hx of CVA with L hemiparesis. Pt presented to the ED c/o SOB. He was then noted to have pulseless VT and periods of V-Fib on monitor. He underwent CPR and multiple rounds of
defibrillation here in the ED. He received epinephrine, bicarbonate, amiodarone and calcium. ROSC was achieved. Patient remained unresponsive since this event. EKG showed new LBBB and patient was taken to the open hearth furnace laborer for emergent ischemic
evaluation. No family at bedside. History obtained from chart review and Nurse. Per chart review, stated that pt had not taken any of his prescribed medications for at least two years. He does not smoke cigarettes, but smokes occasional
marijuana and drinks about 10-12 beers daily.
Glucose on admission was 237 Venous. A1C 5.4%, Cr 1.3, eGFR >60.
Pt was extubated on 03/03. Awake, alert, disoriented to place and time and forgetful, able to briefly discuss diabetes care plan
Was transitioned off insulin infusion on 03/04 to Lantus 8 units @ HS and corrective insulin.
Remains NPO due to failed swallow eval yesterday. Scheduled for repeat swallow eval today.
Glucose range of 100 to 125, fasting 108 V this AM.
Will make no changes to current regimen. Cont Lantus 8 units @ HS and low corrective.
Will con to follow. Discussed with Nurse.
Diabetes History
- -
Type of Diabetes: 2
Pre-Admission Diabetes Regimen
03/05/25 03/05/25
04:30 05:22
Creatinine Cancelled 0.8
Lab Results
Hemoglobin A1c 5.4 % (4.0-5.6) 02/28/25 03:28
Insulin Pump Settings
IP Diabetes Regimen
03/04/25 03/04/25 03/04/25
12:07 17:23 22:47
Glucose
POC Glucose 125 H 100 H 90
03/05/25 03/05/25
04:30 05:22
Glucose Cancelled 108 H
POC Glucose
Meal type: Breakfast
Patient Education
--- NOTE | 2025-03-05 08:42 | W.PN.INTV ---
Today's Communication / Plan
Recommendations
Plan reviewed with attending
Assessment
-
69yoM PMH HTN, HLD, CVA with residual hemiplegia, NIDDM, , hepatic fibrosis, EtOH use, being worked up for hemochromatosis outpt presenting with acute respiratory distress compounded by cardiac arrest in ED put on pressors and intubated, he went
to Occupational Health And Safety Officer and found to have severe CAD with left-sided heart failure, started on Bumex drip and admitted to the ICU.
Today, pt continues to have slower verbal responses but answers questions appropriately. Unable to move L side, residual hemiplegia from remote stroke seems worse than baseline. Breathing comfortably on room air. Hemodynamically stable off pressors,
AFVSS. plan to downgrade today
#Acute hypoxic + hypercapnic respiratory failure on mechanical ventilation (intubated 02/28/2025 in ER --> extubated in ICU on 03/03)
- Patient was extubated on 03/03, and is now breathing comfortably on room air saturating well
- Continue with aspiration precautions, keep HOB >30-45�
- Keep SpO2 >90-94%
- prn nebulized bronchodilators - not currently bronchospastic
#Acute pulmonary edema - given its acute onset this is consistent with flash pulmonary edema, likely related to his severe aortic stenosis in setting of chronic hypertension, rapid A-fib and CAD
- CXR improving. Diuresing well
- Diuresis now on hold as CXR today (03/04) shows no obvious pleural effusion or pulmonary edema; there is a retrocardiac opacity; continue strict I/O; replete electrolytes with K>4, Mg>2
#In-hospital cardiac arrest with VT/VF with EKG showing LBBB s/p ROSC
#History of aortic stenosis (peak/mean gradients were 51/26 mmHg on prior echo in November 2023) which is now severe with mean gradient of 35 mmHg
#Pulmonary hypertension (estimated PASP was 35-40 mmHg with trace TR and normal RV size/function, normal RA size on prior echo from November 2023)--> improved now with PASP 26mmHg
#Elevated troponin initially due to suspected demand ischemia and now significantly elevated after his left heart catheterization
- Patient brought to Occupational Health And Safety Officer initially s/p ROSC which showed severe CAD (FOUNDRY PATTERNMAKER of pRCA, FOUNDRY PATTERNMAKER of smaller OM1, complex 90% Sinha 1,1,1 proximal LAD/Diagonal lesion) with EMMA III flow in all vessels
- Severe left-sided heart failure seen with LVEDP 40 mmHg at the time of the cath
- Revascularization on hold to allow for assessment of neurological recovery, at which point he will likely need a PCI to his LAD/D lesion
- Echo on 02/28/2025 showed severe aortic valve stenosis with HANNAH 0.54 cm� with LVEF 15-20% with severe depression of LV function with abnormal wall motions of the septum, basal inferior segment, entire lateral wall, entire anterior wall and mid and
apical inferior torres.
- Will need interventional cardiology to comment about if he is a candidate for TAVR vs SAVR
- Keep MAP>65; lactate is now <2mmol/L - no longer need to continue trending at this time
- Troponin peaked at 45.8 on 02/28/2025; no longer need to continue trending at this time
- Continue amiodarone gtt given his VF/VT arrest - defer transition to PO amio to cardiology
#Hepatic fibrosis
#Transaminitis with hyperbilirubinemia (suspicious for alcoholic steatohepatitis)
- Given his elevated T bili, RUQ US with Doppler was checked showing diffuse hepatocellular disease with no focal hepatic lesions, with patent portal and hepatic veins and no evidence for cholelithiasis or dilatation of the biliary tree
- Improved LFTs. Below baseline
#Alcohol abuse (negative level on admission)
#Marijuana use
-MSAS stopped. 6 days from admission
-Standing Valium stopped for continued somnolence
#NIDDM
- Maintain euglycemia with goal BG 140-180; HbA1c: 5.4 on 02/28/2025; continue basal-bolus SQ insulin s/p insulin gtt
#Fevers of unknown origin
- Continues having low grade fevers. Thought due to Precedex as he is not tachycardic, now off since 03/03
- Prior to today, he was having low-grade fevers and had possible aspiration --> antibiotics with Unasyn --> plan for 7 days ABx. Stopped this morning
- Follow-up cultures (blood and respiratory - both show NGTD)
- Legionella + strep pneumoniae urine antigens both negative
- Trend WBC and monitor temperature curve
#Polycythemia
#Elevated iron saturation with normal ferritin
- Trend H/H and transfuse if needed to keep Hb>7-8g/dL; keep plt>20k, unless there is concern for bleeding then keep plt>50k
- Heme/onc following
- Regarding his high iron saturation with concern for hemochromatosis, follow-up HFE-3 variant blood work
- Also follow-up EPO + JAK2 mutation, ordered by hematology, of which recommendations are appreciated
- Trend LFTs; trend Hb
- Diffuse reduction in blood lines with plts dropped to 94 and Hgb 14.6. HIT panel sent. Heparin transitioned to argatroban
- Early nutrition --> diet as per MANAGER TRANSITION (to remain NPO for now given mental status with risk of aspiration, but ok for essential meds crushed in puree) Stop scheduled Valium to improve mental status
- PT/OT
- DC stress ulcer ppx
- DVT ppx: Argatroban. Heparin held pending HIT panel
- Disposition: downgrade from ICU
Subjective Dataa
Subjective Data
Date of Service:
Date of Service: March 05, 2025
Chief Complaint: Fisher Trawl Line Follow Up
Subjective:
Pt denies SOB since extubation. Reports controlled pain.
Objective Data
Data Reviewed
Vital Signs / I&O / Oxygen:
Vital Signs
Temp Pulse Resp BP Pulse Ox
99.2 F 77 20 119/77 93
03/05/25 07:59 03/05/25 07:22 03/05/25 07:22 03/05/25 06:00 03/05/25 07:22
Intake and Output
03/04/25 03/05/25 03/06/25
06:59 06:59 06:59
Intake Total 1801.6 / 1829.3 870.1 / 898.8 57.4 / 57.4
Output Total 2004 1235 / 123 60 / 60
Balance -203.4 / -250.7 -364.9 / -336.2 -2.6 / -2.6
SaO2 [CPAP/PSV] 100
SaO2 [CPAP] 96
SaO2 [ASV] 99
SaO2 [A/C] 95
SaO2 93
Nasal Cannula flow liters per 2
minute
Physical Exam
General: Respiratory Distress (negative), Comfortable, Chills (negative), Sweats (positive) and Other (obese male in NAD)
HEENT: Normocephalic and Anicteric
Cardiovascular: S1-S2, Regular Rhythm, Murmur and Peripheral Edema (negative)
Respiratory: Wheeze (negative), Crackles (negative), Rhonchi (negative), Non-Labored Respirations and Other (Reduced inspiratory effort)
GI: Soft, Distended (Abdominal obesity) and Non Tender
Neurology: Awake (Slow to respond but answers most questions), AO x 3, No Motor Deficits (worsened L sided hemiparesis from baseline hemiplegia) and Tremors (negative)
Skin: Warm, Dry, Cyanosis (negative) and Jaundice (negative)
Labs/Micro/Reports
Lab Data
03/05/25 04:30
03/05/25 05:22
Laboratory Results
03/04/25 03/05/25 03/05/25
11:41 04:30 11:10
APTT 88.1 H 66.5 H Cancelled
Microbiology
02/28/25 08:03 Blood/Venous Blood Culture - Final
No Growth - Final Report
02/28/25 06:36 Blood/Venous Blood Culture - Final
No Growth - Final Report
03/02/25 11:06 Blood/Venous Blood Culture - Preliminary
No Growth in 48 hours- Final report to follow
03/02/25 11:06 Blood/Venous Blood Culture - Preliminary
No Growth in 48 hours- Final report to follow
03/02/25 11:07 Urine Urine Culture - Final
NO GROWTH
02/28/25 08:03 Sputum Respiratory Culture - Final
Usual Respiratory Evelyn
02/28/25 08:03 Sputum Gram Stain - Final
[2025-03-05] MEDS: VALIUM INJECTION IV (08:44)
[2025-03-05] MEDS: VITAMIN B1 100 MG PO ×2 (08:48→20:53)
[2025-03-05] MEDS: FOLVITE 1 MG PO (08:48)
[2025-03-05] MEDS: LOPRESSOR 12.5 MG PO ×2 (08:48→20:52)
[2025-03-05] MEDS: LOW STRENGTH ASPIRIN 81 MG PO (08:48)
[2025-03-05] MEDS: ROBITUSSIN 200 MG PO ×3 (08:48→22:00)
--- NOTE | 2025-03-05 09:11 | PTCARENOTE ---
will continue to be NPO with meds and sips of water today. diet advancement vs. video swallow tomorrow per speech.
[2025-03-05] MEDS: ARGATROBAN 252.5 MG IV (09:46)
[2025-03-05] MEDS: KCL 100 IV (10:18)
[2025-03-05 12:42] LABS: Glucose - Point of Care 105 mg/dl (70-99)
[2025-03-05 13:37] LABS: APTT 152 Sec (23.4-35.0)
--- NOTE | 2025-03-05 13:53 | W.PN.ONC ---
Today's Communication / Plan
-
Continue Argatroban
Pending Heparin-Induced Platelet Antibody study
Impression
Impression
Cardiac Arrest s/p CPR
Fever on IVabx, BCx NTD
HTN/HLD/CAD on cath 02/27/severe /AF/HFrEF 15-20% -on heparin gtt -cardiology following
EtOH abuse
Hepatic fibrosis/cirrhosis
Former smoker
Polycythemia - Primary vs secondary unclear - denies snoring/sleep apnea, carbon monoxide exposure, or active tobacco smoking. Normal Erythropoietin.
Elevayed iron sat with normal ferritin
Plan
Plan
-Patient has had recent decrease in platelet counts over the last few days with history of Heparin administration on 02/27/2025.
-Platelet count on 02/27/2025 191, 128 on 03/03/2025, and 94 since 03/04
-Hemoglobin has also decreased from 21.7 on 02/27/2025 to 14.6 today. His white blood cell count has also been downtrending since admission, though both of these values are currently normal. Would monitor these over time as they too may decrease
further.
-In patient with complicated medical course thus far requiring antibiotics and history of alcohol abuse, overall have low clinical suspicion for HIT. However, given patient does need anticoagulation and concern for HIT, do not disagree with the
decision to switch anticoagulation to Argatroban. Patient should continue Argatroban
-Pending Heparin-Induced Platelet Antibody study
-Will monitor
Subjective/Objective
Subjective/Objective
Patient had just finished participation with physical therapy when I arrived. He was tired on presentation, and his and mother who were present state he seems more tired today than he did yesterday. He was responsive to calling his name but did
not contribute much to the conversation as a whole. His reports patient does have a history of alcohol abuse, and was told he had elevated iron counts requiring he stop drinking. He was supposed to follow up outpatient for this this week. He
has no known history of reaction to Heparin that his or mother is aware of.
Vital Signs:
Vital Signs
Temp Pulse Resp BP Pulse Ox
100.9 F H 83 29 113/83 96
03/05/25 12:05 03/05/25 13:00 03/05/25 13:00 03/05/25 13:00 03/05/25 12:30
Lab Results:
Laboratory Data
WBC 8.8 10^3/uL (4.8-10.8) 03/05/25 04:30
Hgb 14.6 g/dL (13.0-18.0) 03/05/25 04:30
Plt Count 94 10^3/uL (130-400) L 03/05/25 04:30
PT 14.2 Sec (11.4-14.6) 02/28/25 08:03
INR 1.05 02/28/25 08:03
APTT 152 Sec (23.4-35.0) H* 03/05/25 12:17
eGFR > 60.00 03/05/25 05:22
[2025-03-05] MEDS: TYLENOL ORAL SOLUTION 650 MG PO (14:16)
[2025-03-05 14:25] LABS: APTT 66.5 Sec (23.4-35.0)
--- NOTE | 2025-03-05 14:48 | CM ---
Addendum entered by Bo Steven 03/05/25 15:24:
[facility] notified of need for eval since extubated. Being transferred to [address] [place] [address].
Original Note:
Extubated 03/03/25. Awake and alert, drowsy. Responds to questioning with nod of head. On RA, aspiration precautions. Bumex IV. First therapy eval today. Discharge POC: Recommended for SNF. [employer] lists provided and explained to
and mother.
--- NOTE | 2025-03-05 15:03 | PTCARENOTE ---
initial PTT believed to be erroneous, resent and is in therapeutic range.
--- NOTE | 2025-03-05 15:08 | W.PN.CD ---
Today's Communication / Plan
-
no more heparin/amio
start valsartan 40 BID
cont. diuresis
complex planning re: valvular heart disease and CAD pending mental status improvement
Impression / Plan
-
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 possible hemochromatosis with at least moderate hepatic fibrosis and medication non-compliance admitted with acute, vent
dependent respiratory failure complicated by VT/VF arrest and new LBBB. Found to have severe MV CAD and severe .
#Cardiac Arrest
VT/VF arrest in ER. EKG with LBBB.
Cardiac catheterization showed severe CAD (INSIDE SALES TERRITORY MANAGER of pRCA, INSIDE SALES TERRITORY MANAGER of smaller OM1, complex 90% Sinha 1,1,1 proximal LAD/Diagonal lesion)
LVEDP 40 mmHg at the time of cath.
now nearly 10 kg negative with diuresis
Medically managed without stenting as his arrest likely due to severely elevated LVEDP, moderate and sedation for elective intubation.
Troponin peaked at 45
At this point would stop IV heparin as no clear thrombotic culprit lesion and >48 hours from NH
At this point would stop IV amio as no ongoing VT and arrest likely precipitated in setting of acute CHF/ischemia
#HFrEF
Echo with EF of 15-20%
His Bumex has been on hold since yesterday due to elevated creatinine; Cr now normal, would continue to challenge with diruesis until signs of euvolemia (contraction, etc.)
Low dose GDMT with metop 12.5 BID and valsartan 40 BID, uptitrate as tolerated
Outpatient re-evaluation of EF to determine ICD/RUBBER TILE FLOOR LAYER need
#Severe
noted on echo -severe aortic valve stenosis with HANNAH 0.54 cm�
Decision for SAVR versus TAVR, complex decision making and will await improved mental status if possible. Will need to decide on inpatient vs. outpatient workup pending patient trajectory.
#Hypoxic respiratory failure
S/p extubation on 03/03/2025
Multifactorial - heart failure with flash pulmonary edema, possible PNA.
SARS-CoV-2 negative, Influenza A/B negative, S. Pneumoniae UAG negative, Legionella UAG negative
Blood Cx/Respiratory Cx pending.
#Thrombocytopenia
Platelet count stable at 94
Stop heparin
Monitor CBC closely
Patient being worked up for hemochromatosis, marked polycythemia with hemoglobin 21 at admission
#HTN
stabilized
Continue metoprolol 12.5 mg tube
#HLD
Chronic, untreated.
Total cholesterol = 245, LDL = 119, HDL = 63, Triglycerides = 315.
Resume atorvastatin.
#EtOH
likely in withdrawal
Thiamine/B12 supplementation
Continue with M asif protocol
#Hepatic fibrosis/ steatosis
At least moderate by Fibroscan.
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
Heterozygous HFE gene mutation +.
Physical Exam
Vital Signs/Labs
Vital Signs
Temp Pulse Resp BP Pulse Ox
38.3 C H 83 31 112/69 92
03/05/25 12:05 03/05/25 15:00 03/05/25 15:00 03/05/25 15:00 03/05/25 15:00
03/04/25 03/05/25 03/06/25
06:59 06:59 06:59
Actual Weight 83.1 kg 82.4 kg
03/05/25 04:30
03/05/25 05:22
PT 14.2 Sec (11.4-14.6) 02/28/25 08:03
INR 1.05 02/28/25 08:03
APTT 66.5 Sec (23.4-35.0) H 03/05/25 13:56
Magnesium 2.0 mg/dl (1.6-2.3) 03/05/25 05:22
Triglycerides 315 mg/dl (10-149) H 02/28/25 03:28
LDL Cholesterol, Calc 119 mg/dl 02/28/25 03:28
VLDL Cholesterol, Calc 63 mg/dl (0-30) H 02/28/25 03:28
HDL Cholesterol 63 mg/dl 02/28/25 03:28
02/27/25 02/27/25 02/27/25
18:02 18:31 19:35
Dzp-C-Iijcustuwzy Pept Cancelled Cancelled Cancelled
02/27/25 03/01/25
Unknown 15:17
Fnh-B-Baqqubbrbot Pept [id number]
Physical Exam
Constitutional: Comfortable
Cardiovascular: Rhythm & rate is regular
Respiratory: Respiratory effort normal
Neuro/Psych: Other (drowsy, oriented to place and self, not time)
Data Reviewed
-
Date of Service: March 05, 2025
Medical Decision Making: Reviewed Test Results
EKG: Tracing Personally Visualized and interpreted
Echo: Tracing Personally Visualized and interpreted
Labs: Labs Reviewed by me
--- NOTE | 2025-03-05 15:47 | PTCARENOTE ---
report given to Tyson MARQUEZ. amio and argatroban discontinued will transffer in bed.
--- NOTE | 2025-03-05 16:05 | WOUNDNOTE ---
ESTIVEN RN NOTE: Confirmed with nurse Ann chanel cancel consult, only one stage 1 PI on sacrum.
--- NOTE | 2025-03-05 16:19 | PTCARENOTE ---
Patient transferred to room 2121. Both argatroban and amio gtt discontinued. patient's family accompanied transport. report given to ALMA flynn.
[2025-03-05 18:10] LABS: Glucose - Point of Care 114 mg/dl (70-99)
[2025-03-05 20:43] LABS: C282y Hemochromatosis Variant Negative; H63D Hemochromatosis Variant Heterozygous; Hemochromatosis (HFE) Specimen Whole Blood; S65c Hemochromatosis Variant Negative
[2025-03-05] MEDS: DIOVAN 40 MG PO (20:52)
[2025-03-05] MEDS: BUMEX 1 MG IV (20:53)
[2025-03-05] MEDS: LANTUS 0.08 UNITS SC (22:00)
[2025-03-05 22:04] LABS: Glucose - Point of Care 107 mg/dl (70-99)
[2025-03-05 22:45] LABS: JAK2 Qual Mutation by PCR Not Detected; JAK2-PCR Source Whole Blood
[2025-03-06] VITALS (10 sets, daily range): BP systolic 91–113; BP diastolic 58–76; BMI 26.9
[2025-03-06 00:11] LABS: Glucose - Point of Care 110 mg/dl (70-99)
[2025-03-06 05:43] LABS: Glucose - Point of Care 114 mg/dl (70-99)
[2025-03-06 06:21] LABS: Hematocrit 48.7 % (39.0-52.0); Hemoglobin 16.5 g/dL (13.0-18.0); Mean Corp Hgb Conc. 33.9 g/dL (33.0-37.0); Mean Corpuscular Volume 103.2 fL (80.0-94.0); Platelet Count 120 10^3/uL (130-400); Red Cell Dist. Width 14.1 % (11.5-14.5)
[2025-03-06 06:30] LABS: ALT (SGPT) 24 U/L (0-50); AST (SGOT) 37 U/L (17-59); Albumin 3.6 g/dl (3.5-5.0); Alkaline Phosphatase 76 U/L (38-126); Blood Urea Nitrogen 29 mg/dl (9-20); Calcium 9.3 mg/dl (8.4-10.2); Carbon Dioxide 23 mmol/L (22-30); Chloride 109 mmol/L (98-107); Estimated Creatinine Clearance 77 ml/min; Glucose 121 mg/dl (70-99); Potassium 3.7 mmol/L (3.5-5.1); Sodium 141 mmol/L (135-145); Total Protein 7.0 g/dl (6.3-8.2); eGFR > 60.00
--- NOTE | 2025-03-06 07:40 | PN.DE.MGMTRT ---
Insulin Management
- -
03/06/2025: Diabetes Management Follow up
69 year old male with cardiac arrest in the ED. PMH: HTN, HLD, T2DM, Hx of CVA with L hemiparesis. Pt presented to the ED c/o SOB. He was then noted to have pulseless VT and periods of V-Fib on monitor. He underwent CPR and multiple rounds of
defibrillation here in the ED. He received epinephrine, bicarbonate, amiodarone and calcium. ROSC was achieved. Patient remained unresponsive since this event. EKG showed new LBBB and patient was taken to the labor relations supervisor for emergent ischemic
evaluation. No family at bedside. History obtained from chart review and Nurse. Per chart review, stated that pt had not taken any of his prescribed medications for at least two years. He does not smoke cigarettes, but smokes occasional
marijuana and drinks about 10-12 beers daily.
Glucose on admission was 237 Venous. A1C 5.4%, Cr 1.3, eGFR >60.
Pt was extubated on 03/03. Awake, alert, nods head appropriately to any questions but does not answer verbally.
Was transitioned off insulin infusion on 03/04 to Lantus 8 units @ HS and corrective insulin.
Remains NPO due to failed swallow eval yesterday. Scheduled for repeat swallow eval today.
Glucose range of 105 to 114, fasting 114 this AM.
Will make no changes to current regimen. Cont Lantus 8 units @ HS and low corrective.
Will con to follow. Discussed with Nurse.
Diabetes History
- -
Type of Diabetes: 2 requiring insulin
Pre-Admission Diabetes Regimen
03/06/25
05:42
Creatinine 0.9
Lab Results
Hemoglobin A1c 5.4 % (4.0-5.6) 02/28/25 03:28
Insulin Pump Settings
IP Diabetes Regimen
03/05/25 03/05/25 03/05/25
12:30 18:08 22:03
Glucose
POC Glucose 105 H 114 H 107 H
03/06/25 03/06/25 03/06/25
00:08 05:38 05:42
Glucose 121 H
POC Glucose 110 H 114 H
Meal type: Dinner
Meal type: Lunch
Meal type: Breakfast
Patient Education
--- NOTE | 2025-03-06 07:57 | W.PN.UPDATE ---
Addendum entered and electronically signed by Letty Flowers MD 03/06/25 09:30:
Correction - argatroban was stopped, no indication for anticoagulation
Original Note:
Update Note
Progress Note Update
Jak2 is negative and EPO normal -- essentially rules out PVera
Testing for hemochromatosis shows one copy of H63D mutation. This genotype has not been associated with symptoms of hereditary hemochromatosis. No indication for phlebotomy.
Continue argatroban while HIT Phylicia pending. Platelet count trending up.
--- NOTE | 2025-03-06 09:06 | W.PN.HOSP.TC ---
Addendum entered and electronically signed by Jeronimo Molina DO 03/06/25 13:44:
SIRS without obvious source for infection. Possibly due to aspiration pneumonitis.
Original Note:
Today's Communication/Plan
-
Speech therapy follow-up
Assessment / Plan
Assessment / Plan
Gen-awake, alert, NAD
HEENT-NC, AT, anicteric, clear oral mm
Neck-supple
CV-reg, no M, +S1/S2
Lungs-clear B/L
Abd-soft, NT, ND
Ext-no edema
Musculoskeletal-no cyanosis, clubbing
Skin-warm and dry
Neuro-left hemiparesis, left leg weaker than arm
Psych-calm, cooperative
V-Tach / V-Fib Cardiac Arrest -in hospital, emergency room.
Shock -- suspected cardiogenic
- Flash pulmonary edema and hypoxia on presentation (LVEDP was high on cardiac cath)
- Extubated on 03/03/25
- With abrupt onset, significant risk factors, new LBBB, etc - patient went for emergent ischemic evaluation 02/27/25
- Cath above showed chronic RCA occlusion, 90% LAD proximal LAD, and LVEDP = 40 mmHg
- Echo 02/28/25 showed hypokinesis, low EF and severe
- No stents placed/medical management recommended
- CT PE study showed no PE
- No need to continue anticoagulation and amiodarone as per cardiology, both were discontinued 03/05.
- Vasopressors/Levophed previously weaned off
- Orogastric tube came out after patient was coughing
- Cardiology and machined parts metal sprayer evaluation appreciated
Acute heart failure reduced EF exacerbation
- GDMT when tolerating PO reliably -- trial of other PO medications started on 03/04/25
- Bumex resumed by cardiology 03/05.
Dysphagia -speech therapy evaluated 03/05 and recommended NPO. Awaiting speech therapy follow-up today.
Fever -no evidence of pneumonia or infection. Has received 5 days of Unasyn so far. Antibiotics discontinued 03/05. Patient denies cough. Last fever 03/05.
Differential diagnosis for fever includes aspiration pneumonitis. 03/04 chest x-ray clear, resolution of pulmonary edema.
- Suspected from Precedex, as per machined parts metal sprayer -- Precedex previously stopped
-Blood cultures 02/28 and 03/02 negative so far. Urine culture no growth.
- COVID negative, Influenza A/B negative, S. Pneumoniae UAG negative, Legionella UAG negative
Medication Non-Compliance for Years
Pulmonary Edema
Acute Hypoxemic Respiratory Failure / VDRF -due to acute heart failure exacerbation.
- CXR / CT chest showed pulmonary edema - possibly flash pulmonary edema
- lab analyst results as above
- Bumex on hold given elevated creatinine
- Cardiology evaluation as noted above.
Polycythemia
- Patient with marked polycythemia with Hgb = 21 (confirmation / repeat = 22). Hemoglobin improved, 16.5 today.
- Likely multiple underlying reasons for secondary polycythemia including chronic hypoxemia, liver disease, etc - but current elevation seems excessive.
- JAK2 negative, erythropoietin level normal. Rules out polycythemia vera. Testing for hemochromatosis shows 1 copy of H63D mutation per hematology. No indication for phlebotomy.
Acute thrombocytopenia -platelet count now improving, 120k. No further indication for anticoagulation, argatroban discontinued 03/05. HIT panel pending.
Anion Gap Metabolic Acidosis Suspected Secondary to Lactic Acidosis
- RESOLVED
- Likely secondary to acute ischemia
- Lactic acidosis trended down
Essential hypertension
- Patient non-compliant with medications chronically.
- Continue Metoprolol
- Adjust med regimen as needed for BP control.
DM 2 without hyperglycemia
- Uncontrolled / non-compliant outpatient
- Insulin Drip discontinued. Now on Lantus 8 units at bedtime, low resistance aspart scale. Glucose 121 this morning. Daytime glucoses controlled.
Left Hemiparesis as Late Effect of CVA
- CT head showed prior R MCA stroke.
- Patient has been non-compliant with med regimen for years - including ASA, etc.
- Patient claims he ambulates at home without assistive device. Continue PT/OT
Alcohol Use Disorder
- Long-standing alcohol use disorder. 10-12 beers daily per .
- Continue to monitor for alcohol withdrawal
- Monitor for any evidence of withdrawal symptoms and treat with BZDs as needed. Stop diazepam [id number]. Continue as needed.
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
- Thiamine, folate replacement
- Vitamin B12 supplementation
- MSAS protocol
Transaminitis
- From alcohol vs. shock state from CPR. Transaminases normalized. Bilirubin now normal.
Hyperlipidemia
- Continue Atorvastatin
Stage 1 sacrum pressure injury, POA
-Wound care
Code Status: Full Code
Dispo -anticipate SNF when medically stable.
Anticipated Discharge: > 48 hours
Subjective/Interval History
-
Date of Service: March 06, 2025
Patient seen and examined, complaining of thirst.
Objective Data
-
Labs:
Laboratory Results
03/06/25
05:42
WBC 10.0
Hgb 16.5
Hct 48.7
Plt Count 120 L D
Sodium 141
Potassium 3.7
Chloride 109 H
Carbon Dioxide 23
BUN 29 H
Creatinine 0.9
Glucose 121 H
Calcium 9.3
Total Bilirubin 1.6 H
AST 37
ALT 24
Alkaline Phosphatase 76
Vital Signs:
Vital Signs
Temp Pulse Resp BP Pulse Ox
99.2 F 80 16 101/71 95
03/06/25 03:29 03/06/25 03:29 03/06/25 03:29 03/06/25 03:29 03/06/25 03:29
I&O
03/05/25 03/06/25 03/07/25
06:59 06:59 06:59
Intake Total 870.1 / 898.8 233.7 / 233.7
Output Total 1235 / 1235 1520 / 1520
Balance -364.9 / -336.2 -1286.3 / -1286.3
Review of Systems
-
History Source: Patient
All other systems: Reviewed and negative
--- NOTE | 2025-03-06 09:19 | PN.CDI ---
CDI
- -
CDI:
Physician Documentation Request
Admit Date: 02/27/25 20:09
Dear Doctor Jesse,
Please review the following and provide your response in the progress notes.
Clinical Indicators:
- Patient admit after cardiac arrest
- Acute pulmonary edema with acute heart failure and acute hypoxic respiratory failure
- 03/06 PN 'Fever -no evidence of pneumonia or infection'
- 'Differential diagnosis for fever includes aspiration pneumonitis'
- WBC 17.9, Tmax 101.5, RR 20s
Please clarify which most accurately describes the patient:
SIRS due to a non-infectious source with associated organ dysfunction, acute hypoxic respiratory failure
Abnormal lab value only
Other
Use of terms such as suspected, likely, concern for, or probable (associated with a specific diagnosis that is being evaluated, monitored, or treated as if it exists) are acceptable and can be coded in the inpatient setting, when documented at the
time of discharge.
Thank you,
Laurita Minor RN
CDI Specialist
Please use your independent medical judgment in providing your response.
[2025-03-06] MEDS: ROBITUSSIN 200 MG PO ×2 (09:23→21:59)
[2025-03-06] MEDS: VITAMIN B1 100 MG PO ×2 (09:23→19:24)
[2025-03-06] MEDS: DIOVAN 40 MG PO (09:24)
[2025-03-06] MEDS: LOPRESSOR 12.5 MG PO (09:24)
[2025-03-06] MEDS: FOLVITE 1 MG PO (09:24)
[2025-03-06] MEDS: LOW STRENGTH ASPIRIN 81 MG PO (09:25)
[2025-03-06] MEDS: BUMEX 1 MG IV ×2 (09:25→22:49)
--- NOTE | 2025-03-06 09:59 | W.PN.CD ---
Today's Communication / Plan
-
- Can consider LifeVest
- Interventional cardiology involved in terms of revascularization and TAVR vs SAVR
- Advancing medical therapy for HFrEF
- Continue IV BID Bumex. Continue low dose ARB
- Will add low dose MRA and add SGLT2-I
- Move to metoprolol succinate from tartrate
- Will be a candidate for CURTAIN INSPECTOR with backup defibrillation in the future
- Will start rosuvastatin 40 daily
- For now no heparin
55 min spent caring for patient today, reviewing all records, discussing with hospitalist, preparing this document
Impression / Plan
-
Background: 69 y/o male with HTN, HLD, remote CVA complicated by left hemiparesis, transaminitis related to EtOH abuse vs. possible hemochromatosis with at least moderate hepatic fibrosis and medication non-compliance admitted with acute, vent
dependent respiratory failure complicated by VT/VF arrest and new LBBB. Found to have severe MV CAD and severe .
Secondary VT/F arrest in the ER
- [place] to be secondary to respiratory failure from lung disease and heart failure
- No further VT/VF since ER admit
- Can consider LifeVest
Severe 3 V CAD
- Cath 02/27/2025: 100% pRCA, 100% dLCx, 100% OM1, 90% complex p-mLAD
- No angina
- Interventional cardiology involved in terms of revascularization
- ASA
Severe HFrEF from a Severe Ischemic cardiomyopathy
- Cath 02/27/2025 LVEDP 40 mmHg
- Echo 02/28/2025: LVEF 15-20%
- Medical therapy in progress
- Low dose ARB
- Low dose metoprolol
- Adding SGLT2-I
- Adding low dose MRA/Aldactone
- On IV BID loop diuretic
Severe Aortic Stenosis
- Echo 02/28/2025: HANNAH 0.54 cm2, mean 35 mmHg
- Interventional cardiology involved in terms of evaluation for TAVR vs SAVR
LBBB, QRS 176 ms
- Watch for heart block
- Will be a candidate for CURTAIN INSPECTOR with backup defibrillation in the future
Elevated Hgb, elevated MCV, and acquired transient thrombocytopenia, heme involved
- Plt improved (plt 120 on 03/06/2025), Heparin off, off Argatroban
- Not sure heparin can be used again
- Per hematology:
- 'Jak2 is negative and EPO normal -- essentially rules out PVera
- One copy of H63D mutation. This genotype has not been associated with symptoms of hereditary hemochromatosis. No indication for phlebotomy.
- HIT Phylicia pending. Platelet count trending up'
HTN
Mixed hyperlipidemia, LDL was not at goal, goal LDL less than 55
- Will start rosuvastatin 40 daily
ETOH
Hepatic fibrosis/ steatosis, at least moderate by Fibroscan.
S/p stroke with chronic LUE weakness an mild LLE weakness
Lung disease suspected, per hospitalist, on Atrovent/albuterol
Subjective:
Supine without chest pain or dyspnea
Physical Exam
Vital Signs/Labs
Vital Signs
Temp Pulse Resp BP Pulse Ox
98.4 F 84 16 113/76 92
03/06/25 07:00 03/06/25 07:00 03/06/25 07:00 03/06/25 07:00 03/06/25 07:00
03/05/25 03/06/25 03/07/25
06:59 06:59 06:59
Actual Weight 82.4 kg 80.15 kg
03/06/25 05:42
03/06/25 05:42
PT 14.2 Sec (11.4-14.6) 02/28/25 08:03
INR 1.05 02/28/25 08:03
APTT Cancelled 03/05/25 18:00
Magnesium 2.0 mg/dl (1.6-2.3) 03/05/25 05:22
Triglycerides 315 mg/dl (10-149) H 02/28/25 03:28
LDL Cholesterol, Calc 119 mg/dl 02/28/25 03:28
VLDL Cholesterol, Calc 63 mg/dl (0-30) H 02/28/25 03:28
HDL Cholesterol 63 mg/dl 02/28/25 03:28
02/27/25 02/27/25 02/27/25
18:02 18:31 19:35
Tht-R-Euwujgjjbin Pept Cancelled Cancelled Cancelled
02/27/25 03/01/25
Unknown 15:17
Olp-V-Hulrsccwtlw Pept [id number]
Physical Exam
Constitutional: No acute distress
EENT: Anicteric
Cardiovascular: Rhythm & rate is regular, Pedal edema is absent and Systolic murmur present
Respiratory: Respiratory effort normal and Lungs clear to auscul.
GI: Soft and Distention absent
Neuro/Psych: Alert
Data Reviewed
-
Date of Service: March 06, 2025
[2025-03-06 11:33] LABS: Glucose - Point of Care 138 mg/dl (70-99)
--- NOTE | 2025-03-06 12:28 | CM ---
CM following re: discharge planning.
Reviewed pt's chart, met with pt. pt's spouse Julián and pt's mother at bedside.
Pt is s/p Cardiac arrest, VT/VF requiring CPR as well as defibrillation, intubated on 02/27/25, extubated 03/03/25, continue supportive care.
PT/OT and ST evaluations noted - skilled services indicated.
Both pt and his spouse and mother are aware, expressed their agreement. Pt responding with verbalizing answers in a very low tone and nodding his head to YES/NO responses.
Both pt and his family requested [facility] as number one choice. Pt and his family have been informed of admitting criteria for acute level of rehab, expressed their understanding. Alternative level of care that is SNF level discussed with pt
and his family and they requested [facility].
Per CM note from yesterday [facility] team following. [facility] team might see the pt in the nearest future when pt improved clinically and physically.
A referral to both [facility] and [facility] SNF made.
D/C plan: Plan A: [facility]. Plan B: [facility]
CM will follow with discharge plan updates as hospitalization progresses
[2025-03-06] MEDS: ROBITUSSIN PO (15:47)
[2025-03-06] MEDS: CRESTOR 40 MG PO (17:08)
[2025-03-06 17:10] LABS: Glucose - Point of Care 102 mg/dl (70-99)
--- NOTE | 2025-03-06 18:03 | PTCARENOTE ---
made aware of soft bp. No new orders at this time. Cw to monitor bp.
[2025-03-06] MEDS: BUMEX IV (21:18)
[2025-03-06] MEDS: DIOVAN PO (21:19)
[2025-03-06] MEDS: LANTUS 0.08 UNITS SC (21:59)
[2025-03-06 22:03] LABS: Glucose - Point of Care 101 mg/dl (70-99)
[2025-03-07] VITALS (7 sets, daily range): BP systolic 98–105; BP diastolic 62–73; BMI 26.7
--- NOTE | 2025-03-07 02:23 | DOWNTIME ---
There was a [employer] Client [employer] Downtime on 03/07/2025 from 0100 to 03/07/2025 at 0215. Downtime documentation of patient's care, including medication administrations, has been reconciled in the electronic record per guidelines. Refer to the
patient's paper chart under the miscellaneous tab to see printed paper medication records and downtime forms.
[2025-03-07 05:12] LABS: Hematocrit 48.3 % (39.0-52.0); Hemoglobin 16.5 g/dL (13.0-18.0); Mean Corp Hgb Conc. 34.2 g/dL (33.0-37.0); Mean Corpuscular Volume 101.7 fL (80.0-94.0); Platelet Count 154 10^3/uL (130-400); Red Cell Dist. Width 13.8 % (11.5-14.5)
[2025-03-07 05:33] LABS: ALT (SGPT) 42 U/L (0-50); AST (SGOT) 68 U/L (17-59); Albumin 3.6 g/dl (3.5-5.0); Alkaline Phosphatase 94 U/L (38-126); Blood Urea Nitrogen 32 mg/dl (9-20); Calcium 8.8 mg/dl (8.4-10.2); Carbon Dioxide 24 mmol/L (22-30); Chloride 106 mmol/L (98-107); Estimated Creatinine Clearance 69 ml/min; Glucose 120 mg/dl (70-99); Potassium 3.4 mmol/L (3.5-5.1); Sodium 139 mmol/L (135-145); Total Protein 6.8 g/dl (6.3-8.2); eGFR > 60.00
[2025-03-07 07:13] LABS: Glucose - Point of Care 111 mg/dl (70-99)
--- NOTE | 2025-03-07 07:16 | PN.DE.MGMTRT ---
Insulin Management
- -
03/07/2025: Diabetes Management Follow up
69 year old male with cardiac arrest in the ED. PMH: HTN, HLD, T2DM, Hx of CVA with L hemiparesis. Pt presented to the ED c/o SOB. He was then noted to have pulseless VT and periods of V-Fib on monitor. He underwent CPR and multiple rounds of
defibrillation here in the ED. He received epinephrine, bicarbonate, amiodarone and calcium. ROSC was achieved. Patient remained unresponsive since this event. EKG showed new LBBB and patient was taken to the receiver/laborer for emergent ischemic
evaluation. No family at bedside.
Glucose on admission was 237 Venous. A1C 5.4%, Cr 1.3, eGFR >60.
Pt was extubated on 03/03. Awake, alert, nods head appropriately to any questions but does not answer verbally.
Was transitioned off insulin infusion on 03/04 to Lantus 8 units @ HS and corrective insulin.
Patient started soft small bite diet yesterday with lunch. Glucose range of 101 to 138, required no corrective insulin.
Fasting glucose today 111.
Will make no changes to current regimen. Cont Lantus 8 units @ HS and low corrective.
Discussed with Nurse.
Will follow.
Diabetes History
- -
Type of Diabetes: 2
Pre-Admission Diabetes Regimen
03/07/25
04:14
Creatinine 1.0
Lab Results
Hemoglobin A1c 5.4 % (4.0-5.6) 02/28/25 03:28
Insulin Pump Settings
IP Diabetes Regimen
03/06/25 03/06/25 03/06/25
11:32 17:09 22:01
Glucose
POC Glucose 138 H 102 H 101 H
03/07/25 03/07/25
04:14 07:12
Glucose 120 H
POC Glucose 111 H
Meal type: Lunch
Meal type: Breakfast
Amount consumed: 50%
Patient Education
--- NOTE | 2025-03-07 08:16 | W.PN.ONC ---
Today's Communication / Plan
-
HIT panel negative, platelets + hemoglobin now normal
Hematology signing off
Impression
Impression
Cardiac Arrest s/p CPR
Fever on IVabx, BCx NTD
HTN/HLD/CAD on cath 02/27/severe /AF/HFrEF 15-20% -on heparin gtt -cardiology following
EtOH abuse
Hepatic fibrosis/cirrhosis
Former smoker
Polycythemia - Primary vs secondary unclear - denies snoring/sleep apnea, carbon monoxide exposure, or active tobacco smoking. Normal Erythropoietin.
Elevayed iron sat with normal ferritin
Plan
Plan
-Patient has had decrease in platelet counts over the last few days with history of Heparin administration on 02/27/2025 with low of 94 on 03/04, but has since increased and is now normal at 154. HIT panel was negative.
-Hemoglobin initially elevated on presentation but has since returned to normal and is 16.5 today.
-Patient has had a complicated medical course thus far requiring many different interventions which could contribute to transiently decreased platelets or transiently increased hemoglobin and also has a personal history of alcohol abuse. These
factors, along with his initial presentation to the hospital, could represent his originally abnormal lab values, which have now returned to normal levels.
-Would recommend continuing to monitor CBC to ensure values remain stable throughout the remainder of his hospital stay
-Thank you for the consult. Hematology will be signing off. If you have any questions, please do not hesitate to contact the team.
Subjective/Objective
Subjective/Objective
Patient was resting comfortably in bed when I arrived. He is more alert than when I had seen him previously. He denies any shortness of breath, chest pain, abdominal pain, nausea, vomiting, fevers, or chills.
Vital Signs:
Vital Signs
Temp Pulse Resp BP Pulse Ox
98.1 F 84 18 99/63 98
03/07/25 03:05 03/07/25 03:05 03/07/25 03:05 03/07/25 03:05 03/07/25 03:05
Lab Results:
Laboratory Data
WBC 9.5 10^3/uL (4.8-10.8) 03/07/25 04:14
Hgb 16.5 g/dL (13.0-18.0) 03/07/25 04:14
Plt Count 154 10^3/uL (130-400) D 03/07/25 04:14
PT 14.2 Sec (11.4-14.6) 02/28/25 08:03
INR 1.05 02/28/25 08:03
APTT Cancelled 03/05/25 18:00
eGFR > 60.00 03/07/25 04:14
--- NOTE | 2025-03-07 08:20 | W.PN.CD ---
Today's Communication / Plan
-
- Planning for revascularization and aortic valve replacement.
- Hold Diovan today
- Hold Bumex this Am
Impression / Plan
-
Background: 69 y/o male with HTN, HLD, remote CVA complicated by left hemiparesis, transaminitis related to EtOH abuse vs. possible hemochromatosis with at least moderate hepatic fibrosis and medication non-compliance admitted with acute, vent
dependent respiratory failure complicated by VT/VF arrest and new LBBB. Found to have severe MV CAD and severe .
Secondary VT/F arrest in the ER
- Severe CAD - obstructive and severe with heart failure and class III-IV NYHA symptoms.
- No further VT/VF since ER admit
- Consider LifeVest if able to achieve revascularization. Otherwise will need ICD before discharge.
Severe 3 V CAD
- Cath 02/27/2025: 100% pRCA, 100% dLCx, 100% OM1, 90% complex p-mLAD
- No angina
- Interventional cardiology involved in terms of revascularization
- ASA
Severe HFrEF from a Severe Ischemic cardiomyopathy
- Cath 02/27/2025 LVEDP 40 mmHg
- Echo 02/28/2025: LVEF 15-20%
- Medical therapy in progress
- Low dose ARB - Hold this Am due to hypotension.
- Low dose metoprolol
- Adding SGLT2-I
- Adding low dose MRA/Aldactone
- On IV loop diuretic - appears euvolemic now alexus with hypotension - will reduce to QD dose.
Severe Aortic Stenosis
- Echo 02/28/2025: HANNAH 0.54 cm2, mean 35 mmHg
- Interventional cardiology involved in terms of evaluation for TAVR vs SAVR
LBBB, QRS 176 ms
- Watch for heart block
- Will be a candidate for UX ENGINEER with backup defibrillation in the future
- Telemetry reviewed - no pause or block noted.
Elevated Hgb, elevated MCV, and acquired transient thrombocytopenia, heme involved
- Plt improved (plt 120 on 03/06/2025), Heparin off, off Argatroban
- Not sure heparin can be used again
- Per hematology:
- 'Jak2 is negative and EPO normal -- essentially rules out PVera
- One copy of H63D mutation. This genotype has not been associated with symptoms of hereditary hemochromatosis. No indication for phlebotomy.
- HIT Phylicia pending. Platelet count trending up'
HTN
Mixed hyperlipidemia, LDL was not at goal, goal LDL less than 55
- Will start rosuvastatin 40 daily
ETOH
Hepatic fibrosis/ steatosis, at least moderate by Fibroscan.
S/p stroke with chronic LUE weakness an mild LLE weakness
Lung disease suspected, per hospitalist, on Atrovent/albuterol
Subjective:
Supine without chest pain or dyspnea
Physical Exam
Vital Signs/Labs
Vital Signs
Temp Pulse Resp BP Pulse Ox
98.1 F 84 18 99/63 98
03/07/25 03:05 03/07/25 03:05 03/07/25 03:05 03/07/25 03:05 03/07/25 03:05
03/06/25 03/07/25 03/08/25
06:59 06:59 06:59
Actual Weight 80.15 kg 79.634 kg
03/07/25 04:14
03/07/25 04:14
PT 14.2 Sec (11.4-14.6) 02/28/25 08:03
INR 1.05 02/28/25 08:03
APTT Cancelled 03/05/25 18:00
Magnesium 2.0 mg/dl (1.6-2.3) 03/05/25 05:22
Triglycerides 315 mg/dl (10-149) H 02/28/25 03:28
LDL Cholesterol, Calc 119 mg/dl 02/28/25 03:28
VLDL Cholesterol, Calc 63 mg/dl (0-30) H 02/28/25 03:28
HDL Cholesterol 63 mg/dl 02/28/25 03:28
02/27/25 02/27/25 02/27/25
18:02 18:31 19:35
Vqb-Z-Xuuoysygwmf Pept Cancelled Cancelled Cancelled
02/27/25 03/01/25
Unknown 15:17
Mem-U-Xrnpmgutzdq Pept [id number]
Physical Exam
Constitutional: No acute distress and Comfortable
EENT: Anicteric and Moist mucous membranes
Cardiovascular: Rhythm & rate is regular, Pedal edema is absent, JVD pressure is normal and Systolic murmur present
Respiratory: Respiratory effort normal, Wheeze Absent and Crackles Absent
GI: Soft, Non tender and Normal bowel sounds
Neuro/Psych: Alert, Oriented and AO x 3
Data Reviewed
-
Date of Service: March 07, 2025
Medical Decision Making: Reviewed Test Results, Test Interpretation and Review of Case with other Provider
EKG: Tracing Personally Visualized and interpreted
Echo: Report Reviewed by me
Labs: Labs Reviewed by me
Old Records: Reviewed
[2025-03-07] MEDS: VITAMIN B1 100 MG PO ×2 (08:41→20:44)
[2025-03-07] MEDS: ALDACTONE PO (08:41)
[2025-03-07] MEDS: FOLVITE 1 MG PO (08:41)
[2025-03-07] MEDS: FARXIGA 10 MG PO (08:41)
[2025-03-07] MEDS: LOW STRENGTH ASPIRIN 81 MG PO (08:42)
[2025-03-07] MEDS: TOPROL XL 25 MG PO (08:42)
[2025-03-07] MEDS: BUMEX IV (08:43)
[2025-03-07] MEDS: DIOVAN PO (08:43)
--- NOTE | 2025-03-07 08:57 | W.PN.HOSP.TC ---
Today's Communication/Plan
-
Continue diuretics
Assessment / Plan
Assessment / Plan
Gen-awake, alert, NAD
HEENT-NC, AT, anicteric, clear oral mm
Neck-supple
CV-reg, no M, +S1/S2
Lungs-clear B/L
Abd-soft, NT, ND
Ext-no edema
Musculoskeletal-no cyanosis, clubbing
Skin-warm and dry
Neuro-left hemiparesis, left leg weaker than arm
Psych-calm, cooperative
V-Tach / V-Fib Cardiac Arrest -in hospital, emergency room.
Shock -- suspected cardiogenic
- Flash pulmonary edema and hypoxia on presentation (LVEDP was high on cardiac cath)
- Extubated on 03/03/25
- With abrupt onset, significant risk factors, new LBBB, etc - patient went for emergent ischemic evaluation 02/27/25
- Cath above showed chronic RCA occlusion, 90% LAD proximal LAD, and LVEDP = 40 mmHg
- Echo 02/28/25 showed hypokinesis, low EF and severe
- No stents placed/medical management recommended
- CT PE study showed no PE
- No need to continue anticoagulation and amiodarone as per cardiology, both were discontinued 03/05.
Cardiology contemplating LifeVest versus ICD before discharge.
Acute heart failure reduced EF exacerbation -EF 15 to 20% on echocardiogram. Stage I diastolic dysfunction.
- GDMT when tolerating PO reliably -- trial of other PO medications started on 03/04/25
- Bumex resumed by cardiology 03/05.
Severe aortic stenosis -noted on echocardiogram, aortic valve area 0.54 cm�. Cardiology planning on AVR. Timing to be determined.
Dysphagia -speech therapy advance diet to minced/moist, thin liquids.
Hypokalemia -suspect due to diuretics. Will replete orally. Check magnesium.
Fever/SIRS -no evidence of pneumonia or infection. Has received 5 days of Unasyn so far. Antibiotics discontinued 03/05. Patient denies cough. Last fever 03/05.
Differential diagnosis for fever includes aspiration pneumonitis. 03/04 chest x-ray clear, resolution of pulmonary edema.
- Suspected from Precedex, as per table keeper -- Precedex previously stopped
-Blood cultures 02/28 and 03/02 negative so far. Urine culture no growth.
- COVID negative, Influenza A/B negative, S. Pneumoniae UAG negative, Legionella UAG negative
Medication Non-Compliance for Years
Pulmonary Edema
Acute Hypoxemic Respiratory Failure / VDRF -due to acute heart failure exacerbation.
- CXR / CT chest showed pulmonary edema - possibly flash pulmonary edema
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
- Bumex on hold given elevated creatinine
- Cardiology evaluation as noted above.
Polycythemia
- Patient with marked polycythemia with Hgb = 21 (confirmation / repeat = 22). Hemoglobin improved, 16.5 today.
- Likely multiple underlying reasons for secondary polycythemia including chronic hypoxemia, liver disease, etc - but current elevation seems excessive.
- JAK2 negative, erythropoietin level normal. Rules out polycythemia vera. Testing for hemochromatosis shows 1 copy of H63D mutation per hematology. No indication for phlebotomy.
Acute thrombocytopenia -platelet count now improving, 154k. No further indication for anticoagulation, argatroban discontinued 03/05. HIT panel negative.
Anion Gap Metabolic Acidosis Suspected Secondary to Lactic Acidosis
- RESOLVED
- Likely secondary to acute ischemia
- Lactic acidosis trended down
Essential hypertension -now hypotensive. Will defer to cardiology as GDMT is being added.
- Patient non-compliant with medications chronically.
- Continue Metoprolol
- Adjust med regimen as needed for BP control.
DM 2 without hyperglycemia
- Uncontrolled / non-compliant outpatient
- Insulin Drip discontinued. Now on Lantus 8 units at bedtime, low resistance aspart scale. Glucose 121 this morning. Daytime glucoses controlled. Hemoglobin A1c 5.4%.
Left Hemiparesis as Late Effect of CVA
- CT head showed prior R MCA stroke.
- Patient has been non-compliant with med regimen for years - including ASA, etc.
- Patient claims he ambulates at home without assistive device. Continue PT/OT
Alcohol Use Disorder
- Long-standing alcohol use disorder. 10-12 beers daily per .
- Continue to monitor for alcohol withdrawal
- Monitor for any evidence of withdrawal symptoms and treat with BZDs as needed. Stopped diazepam [id number].
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
- Thiamine, folate replacement
- Vitamin B12 supplementation
- MSAS protocol
Transaminitis
- From alcohol vs. shock state from CPR. Transaminases normalized. Bilirubin now normal.
Hyperlipidemia
- Continue Atorvastatin
Stage 1 sacrum pressure injury, POA
-Wound care
Code Status: Full Code
Dispo -anticipate acute rehab when medically stable. PMR consulted.
Anticipated Discharge: > 48 hours
Subjective/Interval History
-
Date of Service: March 07, 2025
Patient seen and examined, no complaints.
Objective Data
-
Labs:
Laboratory Results
03/07/25
04:14
WBC 9.5
Hgb 16.5
Hct 48.3
Plt Count 154 D
Sodium 139
Potassium 3.4 L
Chloride 106
Carbon Dioxide 24
BUN 32 H
Creatinine 1.0
Glucose 120 H
Calcium 8.8
Total Bilirubin 1.1
AST 68 H
ALT 42
Alkaline Phosphatase 94
Vital Signs:
Vital Signs
Temp Pulse Resp BP Pulse Ox
98.3 F 86 16 98/62 92
03/07/25 07:00 03/07/25 08:41 03/07/25 07:00 03/07/25 08:41 03/07/25 07:00
I&O
03/06/25 03/07/25 03/08/25
06:59 06:59 06:59
Intake Total 233.7 / 233.7 480 / 480
Output Total 1520 / 1520 1275 / 1275
Balance -1286.3 / -1286.3 -795 / -795
Review of Systems
-
History Source: Patient
All other systems: Reviewed and negative
[2025-03-07] MEDS: KCL ELIXIR 40 MEQ PO (09:39)
--- NOTE | 2025-03-07 09:40 | CON.MR ---
Documented by User: Winston Cortez MD, Resident 03/09/25 17:38
Consultation
Consultation Request
Date/Time Consultation Requested: 03/07/25
Date/Time Consultation Performed: 03/09/25
Requesting Provider: Jeronimo Storey
Performing Provider: Dr. Little
Reason for Consultation: Rehab eval
Medical History
-
Chief Complaint: acute respiratory distresss/ cardiac arrest
History of Present Illness:
Mr. 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
hemochromatosis who presents to ED on 02/27 complaining of SOB. states that patient began to complain of significant SOB suddenly 02/27 evening with significant work of breathing and 911 was called. states that he has not taken any of his
prescribed medications for at least two years. Patient presented to the ED via EMS in respiratory distress with marked hypoxemia, diaphoresis and tachypnea. Patient was intubated in the ED. During /shortly after intubation, patient became
pulseless. He underwent synch cardioversion x 2 for suspected unstable A-Fib. He was then noted to have pulseless VT and periods of V-Fib on monitor. He underwent CPR and multiple rounds of defibrillation here in the ED. He received epinephrine,
bicarbonate, amiodarone and calcium. ROSC was achieved. Patient has remained unresponsive since this event. EKG done in the ED shows new LBBB. CTPE was negative for PE but did suggest marked acute pulmonary edema. cleaning laborer was activated and the
ICU was consulted for vent management. Cath showed chronic RCA occlusion, 90% LAD proximal LAD, and elevated LVEDP. Echo showed ejection fraction of 15 to 20%, revascularization was deferred to allow for medical management of pulmonary edema which
is thought to be the cause of his cardiac arrest and to assess for recovery. CT head showed prior R MCA stroke with no significant findings. 03/01 he was weaned off of vasopressors but remained intubated and was receiving benzos for agitation.
Hematology was consulted for elevated hemoglobin with labs sent for hemochromatosis panel. On 03/03 patient was extubated and breathing well on room air, he was mentating better and following commands. On 03/05 there was concerns for HIT and patient
was stopped on IV heparin and started on DOAC, he was downgraded from ICU to telemetry. On 03/06 hemochromatosis panel came back negative ruling out polycythemia vera patient was stopped on anticoagulation. HIT panel negative. Patient was advanced
on GDMT. Cardiology planning for revascularization and aortic valve replacement. Repeat echo 03/08 showed EF recovery to 25 to 30%.
Past Medical History
Past Medical History: CVA (Residual left hemiparesis), HTN, Hypercholesterolemia, NIDDM, Valvular Disease (Moderate aortic stenosis) and Other (Moderate hepatic fibrosis, SIADH/hyponatremia in the setting of alcohol abuse)
Past Surgical History: None
Family History
Family History: Reviewed & Not Pertinent
Social History
Functional Level Premorbidity:
Independent for all activities.
Current Funct Level: Ambulation, Transfer, UE/LE Dressing:
Bed mobility: Max a
Transfer: Max a
Ambulation: Unable to assess due to safety
ADL status: Toileting dependent
Tobacco: Non-Smoker
Alcohol: Daily (10-12 beers )
Drug: Marijuana
Personal:
Living: With Spouse
Is 24 hour care available: Yes
Number of Floors: 1
# Steps to Enter: 0
# Steps to Second Floor: -
Potential First Floor Set Up: Yes
Driving: Yes
Employment: Disabled
Allergies / Home Medications
Allergy/AdvReac Type Severity Reaction Status Date / Time
No Known Allergies Allergy Verified 09/02/20 12:02
�Medication �Instructions �Recorded �Confirmed �Last Taken �Type
atorvastatin 40 mg tablet 40 mg PO QPM High cholesterol 09/02/20 02/27/25 09/01/20 History
aspirin 81 mg tablet,delayed 81 mg PO DAILY 09/07/20 02/27/25 Unknown Rx
release
lisinopril 10 mg tablet 10 mg PO DAILY 09/07/20 02/27/25 Unknown Rx
metoprolol succinate 25 mg 25 mg PO DAILY 09/07/20 02/27/25 Unknown Rx
tablet,extended release 24 hr
bupropion HCl 150 mg 24 hr tablet, 150 mg PO DAILY Mental 02/27/25 02/27/25 Unknown History
extended release Health/Anxiety
Review Of Systems
-
History Source: Patient
Constitutional: Reports No Symptoms; Denies Fever or Fatigue
Eye: Reports No Symptoms; Denies Blurry Vision or Visual Field Cut
EENT: Reports No Symptoms; Denies Sore Throat or Runny Nose
Respiratory: Reports No Symptoms; Denies Cough or Trouble Breathing
Cardiac: Reports No Symptoms; Denies Chest Pain or Palpitations
Abdomen/GI: Reports No Symptoms; Denies Abdominal Pain, Nausea, Vomiting, Diarrhea or Constipated
: Reports No Symptoms; Denies Dysuria
Musculoskeletal: Reports No Symptoms; Denies Joint Pain
Integumentary: Reports No Symptoms
Neurological: Reports Weakness; Denies Dizzy, Headache or Numbness
Physical Exam
Active Medications
Generic Name Dose Route Start Last Admin
Trade Name Freq PRN Reason Stop Dose Admin
Acetaminophen 650 mg 03/04/25 14:07 03/05/25 14:16
Acetaminophen (Oral Solution) 650 Mg/20.3 Ml Cup PO 03/28/25 10:43 650 mg
Q4HPRN PRN Administration
mild pain, temp >100.4F
Albuterol/Ipratropium 3 ml 03/03/25 17:21 03/03/25 17:58
Ipratropium 0.5/Albuterol 3 Mg (3 Ml Ampul) INH 3 ml
R Q4HPRN PRN Administration
SOB/wheezing/cough
Protocol
Aspirin 81 mg 03/04/25 14:07 03/07/25 08:42
Aspirin 81 Mg Chewable Tablet PO 03/28/25 07:59 81 mg
DAILY DIANE Administration
Bisacodyl 10 mg 02/27/25 23:28
Bisacodyl 10 Mg Rectal Suppository RECTAL 03/27/25 23:27
DAILYPRN PRN
no BM within 72 hours
Bumetanide 1 mg 03/08/25 08:00
Bumetanide (0.25 Mg/1 Ml) 4 Ml Vial IV 04/05/25 07:59
DAILY DIANE
Dapagliflozin 10 mg 03/07/25 08:00 03/07/25 08:41
Dapagliflozin (Farxiga) 10 Mg Tablet PO 04/04/25 07:59 10 mg
DAILY DIANE Administration
Dextrose 12.5 grams 02/28/25 00:42
Dextrose 50% (0.5 Grams/Ml) 50 Ml Syringe IV 03/28/25 00:41
[id number] PRN
Blood Glucose < 70
Enoxaparin Sodium 40 mg 03/07/25 18:00
Enoxaparin Sodium 40 Mg/0.4 Ml Syringe SC 04/04/25 17:59
QPM DIANE
Folic Acid 1 mg 03/04/25 14:07 03/07/25 08:41
Folic Acid 1 Mg Tablet PO 03/29/25 07:59 1 mg
DAILY DIANE Administration
Folic Acid 1 mg/ Sodium 50.2 mls @ 200.8 mls/hr 02/27/25 21:18
Chloride IV 03/27/25 21:17
DAILYPRN PRN
if NPO
Insulin Glargine 8 units/ 0.08 mls @ 0 mls/hr 03/03/25 22:00 03/06/25 21:59
Device SC 03/31/25 21:59 0.08 mls
HS DIANE Administration
As Directed
Insulin Aspart 0 units 03/06/25 15:29 03/07/25 07:18
Insulin Aspart Low Resistance 300 Units/3 Ml Pen.Injctr SC 04/02/25 11:59 Not Given
AC DIANE
Protocol
Metoprolol Succinate 25 mg 03/07/25 08:00 03/07/25 08:42
Metoprolol 25 Mg Extended Release Tablet PO 04/04/25 07:59 25 mg
DAILY DIANE Administration
Potassium Chloride 40 meq 03/08/25 08:00
Potassium Chloride 10% Oral Solution (40 Meq/30 Ml) Cup PO 04/05/25 07:59
DAILY DIANE
Rosuvastatin Calcium 40 mg 03/06/25 18:00 03/06/25 17:08
Rosuvastatin (Crestor) 20 Mg Tablet PO 04/03/25 17:59 40 mg
QPM DIANE Administration
Sodium Chloride 0 flush 02/27/25 22:00 03/05/25 02:32
Sodium Chloride 0.9% (Flush) Syringe IV 03/27/25 21:59 1 flush
PER PROTOCOL DIANE Administration
Spironolactone 12.5 mg 03/07/25 08:00 03/07/25 08:41
Spironolactone 12.5 Mg Dose (1/2 Of 25 Mg Tablet) PO 04/04/25 07:59 Not Given
DAILY DIANE
Thiamine HCl 100 mg 03/02/25 20:00 03/07/25 08:41
Thiamine 100 Mg Tablet PO 03/30/25 19:59 100 mg
BID DIANE Administration
Valsartan 40 mg 03/05/25 20:00 03/07/25 08:43
Valsartan 40 Mg Tablet PO 04/02/25 19:59 Not Given
BID DIANE
Vital Signs
Temp Pulse Resp BP Pulse Ox
98.3 F 86 16 98/62 92
03/07/25 07:00 03/07/25 08:43 03/07/25 07:00 03/07/25 08:43 03/07/25 07:00
Height 5 ft 8 in
Actual Weight 79.634 kg
Body Mass Index (BMI) 26.7
Physical Exam
Physical Exam:
General Appearance/Observation: Well-developed, well-nourished individual in no apparent distress.
Pain/Comfort Assessment: Denies
Mood/Affect: Appropriate
Integumentary/Operative Site:
Pressure Ulcer: absent
Other Type of Wound: absent
Eyes: Conjunctiva/Lids: normal Pupils: pupils equal round and reactive to light and Accommodation
Ears/Nose/Throat: oral mucosa moist, throat clear. Lips/Teeth/Gums: normal
Neck: No muscle spasm or tenderness
Cardiovascular: Heart: regular regular rate, rhythm, murmur present
Pulses: dorsalis pedis 2+ bilaterally
Respiratory: Respiratory Effort/Chest Expansion: normal Auscultation: Clear to auscultation bilaterally
Gastrointestinal: abdomen not tender, no distension, normal abdominal bowel sounds
Genitourinary: Schultz
Rectal Exam: Deferred
Extremities: Edema: None Cyanosis: None Trophic changes: None
Neurology Exam:
Orientation: Alert, Oriented to self, Time, Place
Memory: Intact immediately
Higher cortical function
Speech: Intact
Repetition: Intact
Comprehension: Intact
Two step command: Intact
Naming: Intact
Cranial Nerves:
CNII: Pupillary light reflex: Intact Visual Field: Intact
CN III, IV, : Extraocular muscles: Difficult to assess patient unable to follow instructions
CN V: Facial Sensation at Forehead: Intact , Maxilla: Intact, Mandible: Intact
CN VII: Facial movement: Asymmetric left facial weakness
CN VIII: Hearing: Normal
CN IX/X: Speech & swallow: Normal, Position of Uvula: Midline
CN XI: Shoulder shrug: asymmetric left weakness
CN XII: Tongue protrusion: Midline
Sensory:
Light touch: Intact in bilateral upper and lower extremities
Proprioception: Intact right lower extremity
Reflexes:
Biceps: 2+ bilaterally
Brachioradialis: 2+ bilaterally
Triceps: 0 bilaterally
Patellar: 0 bilaterally
Achilles: 0 bilaterally
Babinski: Downgoing bilaterally
Clonus: None
Sarita: Negative bilaterally
Cerebellar: Dysmetria/Ataxia: None
Musculoskeletal:
Motor: (Manual muscle scale 0-5)
Muscle SA EF WE EE FF FA HF KE DF EHL PF
Right 4 4 4 4 4 4 3 4 4 4 4
Left 3 0 0 0 0 0 0 0 1 1 1
Tone: Normal in all extremities
Range of Motion: Passively within normal limits in all extremities
Lab Results
03/07/25 04:14
03/07/25 04:14
WBC 9.5 10^3/uL (4.8-10.8) 03/07/25 04:14
Hgb 16.5 g/dL (13.0-18.0) 03/07/25 04:14
Hct 48.3 % (39.0-52.0) 03/07/25 04:14
MCV 101.7 fL (80.0-94.0) H 03/07/25 04:14
Plt Count 154 10^3/uL (130-400) D 03/07/25 04:14
PT 14.2 Sec (11.4-14.6) 02/28/25 08:03
INR 1.05 02/28/25 08:03
Sodium 139 mmol/L (135-145) 03/07/25 04:14
Potassium 3.4 mmol/L (3.5-5.1) L 03/07/25 04:14
Chloride 106 mmol/L (98-107) 03/07/25 04:14
Carbon Dioxide 24 mmol/L (22-30) 03/07/25 04:14
BUN 32 mg/dl (9-20) H 03/07/25 04:14
Creatinine 1.0 mg/dL (0.7-1.3) 03/07/25 04:14
eGFR > 60.00 03/07/25 04:14
Glucose 120 mg/dl (70-99) H 03/07/25 04:14
Hemoglobin A1c 5.4 % (4.0-5.6) 02/28/25 03:28
Calcium 8.8 mg/dl (8.4-10.2) 03/07/25 04:14
Phosphorus 2.7 mg/dl (2.5-4.5) 03/05/25 05:22
Magnesium 2.0 mg/dl (1.6-2.3) 03/05/25 05:22
Total Bilirubin 1.1 mg/dl (0.2-1.3) 03/07/25 04:14
Direct Bilirubin 0.7 mg/dl (0.0-0.4) H 03/01/25 02:27
AST 68 U/L (17-59) H 03/07/25 04:14
ALT 42 U/L (0-50) 03/07/25 04:14
Alkaline Phosphatase 94 U/L (38-126) 03/07/25 04:14
Total Protein 6.8 g/dl (6.3-8.2) 03/07/25 04:14
Albumin 3.6 g/dl (3.5-5.0) 03/07/25 04:14
Diagnostic Results
As per HPI.
Assessment / Plan
Assessment
Mr Mckeon is a 69 y/o male with PMHx listed above presents to [facility] with SOB and then suffered a cardiac arrest. Rosc was achieved and was taken to the [facility] where CAD and aortic stenosis was found. Patient was then medically stablized and now Ct
surgery was consulted for surgical evaluation for aortic valve replacement.
Plan
PM&R PT/OT to increase independence with ADLs, improve balance, coordination, endurance, strength, mobility, community reintegration, decreased burden of care on others and family education.
CVA: Secondary prophylaxis with aspirin, statin, and blood pressure control (SBP less than 180 and diastolic less than 100 to participate with therapy for ischemic stroke). Continue to monitor neurologic status.
Left nondominant hemiparesis: High risk for falls and sliding out of chair/bed. Safety reinforced.
- Avoid using affected arm to help lift or pull patient as this will cause trauma to the shoulder.
Left Neglect: makes patient at increased risk for falls. Will need therapy to work on scanning of environment for safe navigation. Patient with increased inattention/cognitive difficulties due to possible anoxic brain injury versus heart failure
versus alcohol use
Dysphagia: speech evaluation, oral care protocol, chlorhexidine rinse after meals and HS, aspiration precautions. Advance diet as tolerated.
HTN: continue medications, monitor closely
HLD: Statin
Coronary artery disease : Aspirin, statin, beta-indigo
CHF: EF 25-30%, beta indigo, monitor fluid status
DM II: Accu-Cheks, insulin sliding scale, metformin, lispro, lantus.
Skin: monitor for pressure sores/rashes/lesions.
Pain: acetaminophen or oxycodone as needed.
Bowel: Colace and Senna, PRN bisacodyl.
Bladder: Time void, PVRs, PRN straight cath.
Alcohol Abuse: Alcohol cessation education, offering of outpatient alcohol abuse program
GI Prophylaxis: no ppx, consider pantoprazole
DVT Prophylaxis: lovenox
Pulmonary: Incentive spirometry
Safety: Continue to reinforce assistance with all transfers.
Code Status: Full code
Dispo: Acute rehab patient will benefit from PT/OT to increase independence with ADLs, improve balance, coordination, endurance, strength, mobility, community reintegration, decreased burden of care on others and family education.
Functional and Medical Goals: Modified Independent with ADL�s, ambulation, transfers
Summary
-
Things that must be addressed in Hospital prior to discharge:
Patient must be stable on oral pain medications.
Only Pigtail chest tubes are possible.
Blood pressure must be less than 180 systolic and 100 diastolic for 24 hours before being stable for transfer to SNF/acute rehab.
Please give blood pressure parameters.
Please comment on sternal precautions.
Please comment on dvt chemoprophylaxis restrictions.
Discharge Destination:
Summary of recommendations:
- Discharge Destination: Acute rehab patient will benefit from PT/OT to increase independence with ADLs, improve balance, coordination, endurance, strength, mobility, community reintegration, decreased burden of care on others and family education.
Will continue to follow patient.
Thank you for allowing me to care for your patient. Please contact me with any questions or concerns.
Comments
-
This note was dictated using a voice recognition system. Please excuse any typographical errors from senior software architect. If you believe there are any discrepancies, please notify our office.

Documented by User: Jai Little MD 03/09/25 21:10
Physical Exam
Physical Exam
Physical Exam:
General Appearance/Observation: Well-developed, well-nourished male in no apparent distress.
Pain/Comfort Assessment: Denies
Mood/Affect: Appropriate
Integumentary/Operative Site: No lesions noted during exam
Eyes: Conjunctiva/Lids: normal Pupils: pupils equal round and reactive to light and Accommodation
Ears/Nose/Throat: oral mucosa moist, throat clear. Lips/Teeth/Gums: normal
Neck: No muscle spasm or tenderness
Cardiovascular: Heart: regular regular rate, rhythm, murmur present
Pulses: dorsalis pedis 2+ bilaterally
Respiratory: Respiratory Effort/Chest Expansion: normal Auscultation: Clear to auscultation bilaterally
Gastrointestinal: abdomen not tender, no distension, normal abdominal bowel sounds
Genitourinary: Schultz with yellow urine
Rectal Exam: Deferred
Extremities: Edema: None Cyanosis: None Trophic changes: None
Neurology Exam:
Orientation: Alert, Oriented to self, Time, Place
Memory: Intact immediately
Repetition: Intact
Comprehension: Intact
Two step command: Intact
Naming: Intact
Cranial Nerves:
CNII: Pupillary light reflex: Intact Visual Field: Intact
CN III, IV, : Extraocular muscles: Appear intact can not get patient to do full range
CN V: Facial Sensation at Forehead: Intact , Maxilla: Intact, Mandible: Intact
CN VII: Facial movement: left facial weakness
CN VIII: Hearing: Normal
CN IX/X: Speech & swallow: Normal, Position of Uvula: Midline
CN XI: Shoulder shrug: asymmetric left weakness
CN XII: Tongue protrusion: Midline
Sensory:
Light touch: Intact in bilateral upper and lower extremities
Reflexes:
Biceps: 2+ bilaterally
Brachioradialis: 2+ bilaterally
Triceps: 2+ bilaterally
Patellar: 2+ bilaterally
Achilles: 0 bilaterally
Babinski: Downgoing bilaterally
Clonus: None
Sarita: Negative bilaterally
Cerebellar: Dysmetria/Ataxia: None on the right, unable to do on the left
Musculoskeletal: Motor: (Manual muscle scale 0-5)
Muscle SA EF WE EE FF FA HF KE DF EHL PF
Right 4 4 4 4 4 4 3 4 4 4 4
Left 1 0 0 0 0 0 0 0 0 0 1
Tone: Normal in all extremities
Range of Motion: Passively within normal limits in all extremities
Assessment / Plan
Assessment
Mr Mckeon is a 69 y/o male with PMHx listed above presents to [facility] with SOB, suffered a cardiac arrest with ROSC, S/P cath noting CAD and aortic stenosis was found now pending Ct surgery surgical evaluation for aortic valve replacement with ADl,
ambulatory, speech and swallow dysfunction.
Plan
PM&R PT/OT to increase independence with ADLs, improve balance, coordination, endurance, strength, mobility, community reintegration, decreased burden of care on others and family education.
CVA history: Secondary prophylaxis with aspirin, statin, and blood pressure control (SBP less than 180 and diastolic less than 100 to participate with therapy for ischemic stroke). Continue to monitor neurologic status.
Left nondominant hemiparesis: High risk for falls and sliding out of chair/bed. Safety reinforced.
- Avoid using affected arm to help lift or pull patient as this will cause trauma to the shoulder.
Left Neglect: makes patient at increased risk for falls. Will need therapy to work on scanning of environment for safe navigation. Patient with increased inattention/cognitive difficulties due to possible anoxic brain injury versus heart failure
versus alcohol use
Dysphagia: speech, oral care protocol, aspiration precautions. Advance soft and bite diet as tolerated.
Cognitive dysfunction: Patient notes worse cognition. Could be from anoxic injury during cardiac arrest or significant acute heart failure with EF 15-20% initially. Also with significant alcohol history.
HTN: IV bumex, metoprolol, spironolactone, valsartan, monitor closely
HLD: Statin
Coronary artery disease: Aspirin, statin, beta-indigo
CHF: EF 25-30%, beta indigo, monitor fluid status
DM II: Accu-Cheks, insulin sliding scale, lantus. Farxiga
FEN: potassium supplement
Skin: monitor for pressure sores/rashes/lesions.
Pain: acetaminophen as needed.
Bowel: Colace and Senna, PRN bisacodyl.
Bladder: Time void, PVRs, PRN straight cath.
Alcohol Abuse: Alcohol cessation education, offering of outpatient alcohol abuse program. folic acid, thiamine
GI Prophylaxis: consider pantoprazole
DVT Prophylaxis: mechanical and lovenox
Pulmonary: Incentive spirometry
Safety: Continue to reinforce assistance with all transfers.
Code Status: Full code
Dispo: Acute rehab patient will benefit from PT/OT to increase independence with ADLs, improve balance, coordination, endurance, strength, mobility, community reintegration, decreased burden of care on others and family education.
Functional and Medical Goals: Modified Independent with ADL�s, ambulation, transfers
Attending Statement: I performed a history and examined the patient today.� I reviewed the care plan with therapy, nursing, and the resident.� I agree with the history and ROS above as modified.� The physical exam and plan documented reflects my
examination and plan.��A total of 60 minutes were spent with the patient preparing for the evaluation, obtaining history, performing examination and evaluation, counseling, data review, case management, care coordination, drive thru order taker, and EMR
documentation.�������
Summary
-
Summary of recommendations:
- Discharge Destination: Acute rehab patient will benefit from PT/OT to increase independence with ADLs, improve balance, coordination, endurance, strength, mobility, community reintegration, decreased burden of care on others and family education.
Left nondominant hemiparesis: High risk for falls and sliding out of chair/bed. Safety reinforced.
- Avoid using affected arm to help lift or pull patient as this will cause trauma to the shoulder.
Left Neglect: makes patient at increased risk for falls. Will need therapy to work on scanning of environment for safe navigation. Patient with increased inattention/cognitive difficulties due to possible anoxic brain injury versus heart failure
versus alcohol use
Cognitive dysfunction: Patient notes worse cognition. Could be from anoxic injury during cardiac arrest or significant acute heart failure with EF 15-20% initially. Also with significant alcohol history.
Bowel: Colace and Senna, PRN bisacodyl.
Bladder: Time void, PVRs, PRN straight cath.
GI Prophylaxis: consider pantoprazole
DVT Prophylaxis: mechanical and lovenox
Will continue to follow patient.
Thank you for allowing me to care for your patient. Please contact me with any questions or concerns.
[2025-03-07 09:45] LABS: Magnesium 2.1 mg/dl (1.6-2.3)
[2025-03-07 12:22] LABS: Glucose - Point of Care 130 mg/dl (70-99)
--- NOTE | 2025-03-07 15:16 | CM ---
CM following re: discharge planning.
Reviewed pt's chart, met with pt. pt's spouse Julián and pt's mother at bedside.
Pt is s/p Cardiac arrest, VT/VF requiring CPR as well as defibrillation, intubated on 02/27/25, extubated 03/03/25, continue supportive care.
PT/OT and ST evaluations noted - acute rehab level of care recommended.
Per pt and his family request a referral to both [facility] and [facility] made yesterday. [facility] liaison following.
D/C plan: Plan A: [facility]. Plan B: [facility]
CM will follow with discharge plan updates as hospitalization progresses
--- NOTE | 2025-03-07 15:18 | PTOTSP ---
Videofluoroscopic swallow study
Patient presents with mild oral/pharyngeal dysphagia. Trace transient aspiration occurred with thin liquids via consecutive straw sips and cleared to supraglottic space with a cued throat clear.
Recommend:
1. IDDSI 6 Soft/Bite Sized, Thin Liquids
2. Medications: in puree (whole or crushed)
3. Strategies: full supervision, assist as needed, single sips, slow rate, ensure oral cavity clear before next sip/bite, single sips of liquid as needed to assist with oral clearance
4. Dysphagia therapy at the acute care level for education, trials of advanced solids
[2025-03-07 16:49] LABS: Glucose - Point of Care 93 mg/dl (70-99)
[2025-03-07] MEDS: LOVENOX 40 MG SC (17:16)
[2025-03-07] MEDS: CRESTOR 40 MG PO (17:16)
[2025-03-07] MEDS: DIOVAN 40 MG PO (20:44)
[2025-03-07] MEDS: DESENEX/MITRAZOL/ZEASORB 1 APPLIC TOPICAL (20:44)
[2025-03-07 21:54] LABS: Glucose - Point of Care 115 mg/dl (70-99)
[2025-03-07] MEDS: LANTUS 0.08 UNITS SC (22:00)
[2025-03-08] VITALS (9 sets, daily range): BP systolic 102–113; BP diastolic 64–79; PULSE 87–89; O2SAT 92; BMI 26.9
--- NOTE | 2025-03-08 07:23 | PN.DE.MGMTRT ---
Insulin Management
- -
03/08/2025: Diabetes Management Follow up
69 year old male with cardiac arrest in the ED. PMH: HTN, HLD, T2DM, Hx of CVA with L hemiparesis. Pt presented to the ED c/o SOB. He was then noted to have pulseless VT and periods of V-Fib on monitor. He underwent CPR and multiple rounds of
defibrillation here in the ED. He received epinephrine, bicarbonate, amiodarone and calcium. ROSC was achieved. Patient remained unresponsive since this event. EKG showed new LBBB and patient was taken to the feed mill lab technician for emergent ischemic
evaluation. No family at bedside.
Glucose on admission was 237 Venous. A1C 5.4%, Cr 1.3, eGFR >60.
Patient off the unit for ECHO this AM.
Was transitioned off insulin infusion on 03/04 to Lantus 8 units @ HS and corrective insulin.
Patient started soft small bite diet, tolerating well. Glucose range of 93 to 130, required no corrective insulin.
Fasting glucose today 111.
Will make no changes to current regimen. Cont Lantus 8 units @ HS and low corrective.
Discussed with Nurse.
Will follow.
Diabetes History
- -
Pre-Admission Diabetes Regimen
Lab Results
Hemoglobin A1c 5.4 % (4.0-5.6) 02/28/25 03:28
Insulin Pump Settings
IP Diabetes Regimen
03/07/25 03/07/25 03/07/25
12:21 16:48 21:49
POC Glucose 130 H 93 115 H
Meal type: Dinner
Meal type: Lunch
Meal type: Breakfast
Amount consumed: 25%
Amount consumed: 0
Amount consumed: 50%
Patient Education
[2025-03-08 07:54] LABS: Glucose - Point of Care 92 mg/dl (70-99)
--- NOTE | 2025-03-08 08:21 | W.PN.HOSP.TC ---
Today's Communication/Plan
-
Continue current care
Await labs
Assessment / Plan
Assessment / Plan
Gen-sleepy but arousable, NAD
HEENT-NC, AT, anicteric, clear oral mm
Neck-supple
CV-reg, no M, +S1/S2
Lungs-clear B/L
Abd-soft, NT, ND
Ext-no edema
Musculoskeletal-no cyanosis, clubbing
Skin-warm and dry
Neuro-left hemiparesis, left leg weaker than arm
Psych-calm, cooperative
V-Tach / V-Fib Cardiac Arrest -in hospital, emergency room.
Shock -- suspected cardiogenic
- Flash pulmonary edema and hypoxia on presentation (LVEDP was high on cardiac cath)
- Extubated on 03/03/25
- With abrupt onset, significant risk factors, new LBBB, etc - patient went for emergent ischemic evaluation 02/27/25
- Cath above showed chronic RCA occlusion, 90% LAD proximal LAD, and LVEDP = 40 mmHg
- Echo 02/28/25 showed hypokinesis, low EF and severe
- No stents placed/medical management recommended. Cardiology contemplating revascularization.
- CT PE study showed no PE
- No need to continue anticoagulation and amiodarone as per cardiology, both were discontinued 03/05.
Cardiology contemplating LifeVest versus ICD before discharge.
Acute heart failure reduced EF exacerbation -EF 15 to 20% on echocardiogram. Stage I diastolic dysfunction.
- GDMT when tolerating PO reliably -- trial of other PO medications started on 03/04/25
- Bumex per cardiology. Currently on IV 1 mg daily.
Severe aortic stenosis -noted on echocardiogram, aortic valve area 0.54 cm�. Cardiology planning on AVR. Timing to be determined.
Dysphagia -speech therapy advance diet to soft/bite sized with thin liquids.
Hypokalemia -labs pending for today.
Fever/SIRS -no evidence of pneumonia or infection. Has received 5 days of Unasyn so far. Antibiotics discontinued 03/05. Patient denies cough. Last fever 03/05.
Differential diagnosis for fever includes aspiration pneumonitis. 03/04 chest x-ray clear, resolution of pulmonary edema.
- Suspected from Precedex, as per generator worker -- Precedex previously stopped
-Blood cultures 02/28 and 03/02 negative so far. Urine culture no growth.
- COVID negative, Influenza A/B negative, S. Pneumoniae UAG negative, Legionella UAG negative
Medication Non-Compliance for Years
Pulmonary Edema
Acute Hypoxemic Respiratory Failure / VDRF -due to acute heart failure exacerbation.
- CXR / CT chest showed pulmonary edema - possibly flash pulmonary edema
- roving tester laboratory results as above
- Bumex on hold given elevated creatinine
- Cardiology evaluation as noted above.
Polycythemia
- Patient with marked polycythemia with Hgb = 21 (confirmation / repeat = 22). Hemoglobin improved, 16.5 today.
- Likely multiple underlying reasons for secondary polycythemia including chronic hypoxemia, liver disease, etc - but current elevation seems excessive.
- JAK2 negative, erythropoietin level normal. Rules out polycythemia vera. Testing for hemochromatosis shows 1 copy of H63D mutation per hematology. No indication for phlebotomy.
Acute thrombocytopenia -platelet count now improving. No further indication for anticoagulation, argatroban discontinued 03/05. HIT panel negative.
Anion Gap Metabolic Acidosis Suspected Secondary to Lactic Acidosis
- RESOLVED
- Likely secondary to acute ischemia
- Lactic acidosis trended down
Essential hypertension -now hypotensive. Will defer to cardiology as GDMT is being added.
- Patient non-compliant with medications chronically.
- Continue Metoprolol
- Adjust med regimen as needed for BP control.
DM 2 without hyperglycemia
- Uncontrolled / non-compliant outpatient
- Insulin Drip discontinued. Now on Lantus 8 units at bedtime, low resistance aspart scale. Glucose 92 this morning. Daytime glucoses controlled. Hemoglobin A1c 5.4%.
Left Hemiparesis as Late Effect of CVA
- CT head showed prior R MCA stroke.
- Patient has been non-compliant with med regimen for years - including ASA, etc.
- Patient claims he ambulates at home without assistive device. Continue PT/OT
Alcohol Use Disorder
- Long-standing alcohol use disorder. 10-12 beers daily per .
- Continue to monitor for alcohol withdrawal
- Monitor for any evidence of withdrawal symptoms and treat with BZDs as needed. Stopped diazepam [id number].
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
- Thiamine, folate replacement
- Vitamin B12 supplementation
- MSAS protocol
Transaminitis
- From alcohol vs. shock state from CPR. Transaminases normalized. Bilirubin now normal.
Hyperlipidemia
- Continue Atorvastatin
Stage 1 sacrum pressure injury, POA
-Wound care
Code Status: Full Code
Dispo -anticipate acute rehab when medically stable. PMR consulted.
Anticipated Discharge: 24 - 48 hours
Subjective/Interval History
-
Date of Service: March 08, 2025
Patient seen and examined. Feeling sleepy this morning. No complaints.
Objective Data
-
Labs:
Laboratory Results
03/08/25
08:01
WBC Pending
Hgb Pending
Hct Pending
Plt Count Pending
Sodium Pending
Potassium Pending
Chloride Pending
Carbon Dioxide Pending
BUN Pending
Creatinine Pending
Glucose Pending
Calcium Pending
Total Bilirubin Pending
AST Pending
ALT Pending
Alkaline Phosphatase Pending
Vital Signs:
Vital Signs
Temp Pulse Resp BP Pulse Ox
98 F 82 16 104/73 93
03/08/25 07:04 03/08/25 07:04 03/08/25 07:04 03/08/25 07:04 03/08/25 07:04
I&O
03/07/25 03/08/25 03/09/25
06:59 06:59 06:59
Intake Total 480 / 480 1200 / 1200
Output Total 1275 / 1275 1075 / 1075
Balance -795 / -795 125 / 125
Review of Systems
-
History Source: Patient
All other systems: Reviewed and negative
[2025-03-08] MEDS: ALDACTONE 12.5 MG PO (08:48)
[2025-03-08] MEDS: DIOVAN 40 MG PO ×2 (08:48→20:33)
[2025-03-08] MEDS: FARXIGA 10 MG PO (08:48)
[2025-03-08] MEDS: BUMEX 1 MG IV (08:48)
[2025-03-08] MEDS: FOLVITE 1 MG PO (08:48)
[2025-03-08] MEDS: TOPROL XL 25 MG PO (08:48)
[2025-03-08] MEDS: VITAMIN B1 100 MG PO ×2 (08:48→20:35)
[2025-03-08] MEDS: LOW STRENGTH ASPIRIN 81 MG PO (08:48)
[2025-03-08] MEDS: KCL ELIXIR 40 MEQ PO (08:50)
[2025-03-08] MEDS: DESENEX/MITRAZOL/ZEASORB 1 APPLIC TOPICAL ×2 (08:55→20:32)
[2025-03-08 09:12] LABS: Hematocrit 49.3 % (39.0-52.0); Hemoglobin 16.8 g/dL (13.0-18.0); Mean Corp Hgb Conc. 34.1 g/dL (33.0-37.0); Mean Corpuscular Volume 100.6 fL (80.0-94.0); Platelet Count 186 10^3/uL (130-400); Red Cell Dist. Width 13.8 % (11.5-14.5)
[2025-03-08 09:41] LABS: ALT (SGPT) 76 U/L (0-50); AST (SGOT) 106 U/L (17-59); Albumin 3.5 g/dl (3.5-5.0); Alkaline Phosphatase 113 U/L (38-126); Blood Urea Nitrogen 29 mg/dl (9-20); Calcium 9.3 mg/dl (8.4-10.2); Carbon Dioxide 22 mmol/L (22-30); Chloride 106 mmol/L (98-107); Estimated Creatinine Clearance 87 ml/min; Glucose 102 mg/dl (70-99); Potassium 3.8 mmol/L (3.5-5.1); Sodium 137 mmol/L (135-145); Total Protein 7.0 g/dl (6.3-8.2); eGFR > 60.00
[2025-03-08 12:38] LABS: Glucose - Point of Care 143 mg/dl (70-99)
--- NOTE | 2025-03-08 13:09 | CM ---
CM following re: discharge planning.
Reviewed pt's chart, met with pt. pt's spouse Julián and pt's mother at bedside.
Pt is s/p Cardiac arrest, VT/VF requiring CPR as well as defibrillation, intubated on 02/27/25, extubated 03/03/25, continue supportive care.
PT/OT and ST evaluations noted - acute rehab level of care recommended.
Per pt and his family request a referral to both [facility] and [facility] made yesterday. [facility] office coordinator following.
D/C plan: Plan A: [facility]. Plan B: [facility]
CM will follow with discharge plan updates as hospitalization progresses
--- NOTE | 2025-03-08 14:00 | PTCARENOTE ---
Patient ringing call asencio stating to this RN and tech he feels wet, upon assessment patient saturated in urine despite Schultz catheter in place. Schultz order to be DCed in AM, this RN communicated with MD, Schultz order DCed at this time, catheter
pulled by this RN, patient due to void by 20:00. CC #[id number] short placed on patient - see charting.
[2025-03-08] MEDS: CRESTOR 40 MG PO (17:18)
[2025-03-08] MEDS: LOVENOX 40 MG SC (17:18)
--- NOTE | 2025-03-08 17:19 | W.PN.CD ---
Today's Communication / Plan
-
need to discuss procedural planning and timing with POA
called today without sucess, will continue to reach out
Impression / Plan
-
Background: 69 y/o male with HTN, HLD, remote CVA complicated by left hemiparesis, transaminitis related to EtOH abuse vs. possible hemochromatosis with at least moderate hepatic fibrosis and medication non-compliance admitted with acute, vent
dependent respiratory failure complicated by VT/VF arrest and new LBBB. Found to have severe MV CAD and severe .
Secondary VT/F arrest in the ER
- Severe CAD - obstructive and severe with heart failure and class III-IV NYHA symptoms.
- No further VT/VF since ER admit
- Consider LifeVest if able to achieve revascularization. Otherwise consider ICD before discharge.
Severe 3 V CAD
- Cath 02/27/2025: 100% pRCA, 100% dLCx, 100% OM1, 90% complex p-mLAD; no clear cuprit lesion for FL, arrest may have been in setting of decompensated heart failure with underlying IHD
- No angina
- Will discussion timing and mode of revascularization
- cont. ASA
Severe HFrEF from a Severe Ischemic cardiomyopathy
- Cath 02/27/2025 LVEDP 40 mmHg
- Echo 02/28/2025: LVEF 15-20%
- Echo 03/08/2025: LVEF 25-30%
- Medical therapy in progress
- Low dose ARB
- Low dose metoprolol
- SGLT2-I
- low dose MRA/Aldactone
- On IV loop diuretic daily, appears euvolemic
Severe Aortic Stenosis
- Echo 02/28/2025: HANANH 0.54 cm2, mean 35 mmHg
- will discuss mode and timing of valve replacement
LBBB, QRS 176 ms
- Watch for heart block
- Will be a candidate for WHEAT SHIPPER with backup defibrillation in the future
- Telemetry reviewed - no pause or block noted.
Elevated Hgb, elevated MCV, and acquired transient thrombocytopenia, heme involved
- Plt improved (plt 120 on 03/06/2025), Heparin off, off Argatroban
- HIT negative, heparin can be used again if needed
- Per hematology:
- 'Jak2 is negative and EPO normal -- essentially rules out PVera
- One copy of H63D mutation. This genotype has not been associated with symptoms of hereditary hemochromatosis. No indication for phlebotomy.
- HIT Phylicia pending. Platelet count trending up'
HTN
Mixed hyperlipidemia, LDL was not at goal, goal LDL less than 55
- cont. rosuvastatin 40 daily
ETOH
Hepatic fibrosis/ steatosis, at least moderate by Fibroscan.
S/p stroke with chronic LUE weakness an mild LLE weakness
Lung disease suspected, per hospitalist, on Atrovent/albuterol
Subjective:
Supine without chest pain or dyspnea
Physical Exam
Vital Signs/Labs
Vital Signs
Temp Pulse Resp BP Pulse Ox
37.1 C 83 16 104/64 94
03/08/25 15:00 03/08/25 15:00 03/08/25 15:00 03/08/25 15:00 03/08/25 15:00
03/07/25 03/08/25 03/09/25
06:59 06:59 06:59
Actual Weight 79.634 kg 80.331 kg
03/08/25 08:01
03/08/25 08:01
PT 14.2 Sec (11.4-14.6) 02/28/25 08:03
INR 1.05 02/28/25 08:03
APTT Cancelled 03/05/25 18:00
Magnesium 2.1 mg/dl (1.6-2.3) 03/07/25 04:14
Triglycerides 315 mg/dl (10-149) H 02/28/25 03:28
LDL Cholesterol, Calc 119 mg/dl 02/28/25 03:28
VLDL Cholesterol, Calc 63 mg/dl (0-30) H 02/28/25 03:28
HDL Cholesterol 63 mg/dl 02/28/25 03:28
02/27/25 02/27/25 02/27/25
18:02 18:31 19:35
Gpt-L-Xhbjjfxvqmn Pept Cancelled Cancelled Cancelled
02/27/25 03/01/25
Unknown 15:17
Akq-V-Qyytpnoejez Pept [id number]
Physical Exam
Constitutional: Comfortable
Cardiovascular: Rhythm & rate is regular
Respiratory: Respiratory effort normal
Neuro/Psych: AO x 3
Data Reviewed
-
Date of Service: March 08, 2025
Medical Decision Making: Reviewed Test Results
EKG: Tracing Personally Visualized and interpreted
Echo: Tracing Personally Visualized and interpreted
Labs: Labs Reviewed by me
[2025-03-08 17:20] LABS: Glucose - Point of Care 145 mg/dl (70-99)
[2025-03-08] MEDS: LANTUS 0.08 UNITS SC (21:38)
[2025-03-08 21:53] LABS: Glucose - Point of Care 114 mg/dl (70-99)
[2025-03-09] VITALS (7 sets, daily range): BP systolic 87–111; BP diastolic 58–72; BMI 26.8
[2025-03-09 07:04] LABS: Glucose - Point of Care 100 mg/dl (70-99)
[2025-03-09 07:45] LABS: Blood Urea Nitrogen 28 mg/dl (9-20); Calcium 9.2 mg/dl (8.4-10.2); Carbon Dioxide 26 mmol/L (22-30); Chloride 103 mmol/L (98-107); Estimated Creatinine Clearance 69 ml/min; Glucose 121 mg/dl (70-99); Potassium 4.4 mmol/L (3.5-5.1); Sodium 137 mmol/L (135-145); eGFR > 60.00
--- NOTE | 2025-03-09 08:16 | PN.DE.MGMTRT ---
Insulin Management
- -
03/09/2025: Diabetes Management Follow up
69 year old male with cardiac arrest in the ED. PMH: HTN, HLD, T2DM, Hx of CVA with L hemiparesis. Pt presented to the ED c/o SOB. He was then noted to have pulseless VT and periods of V-Fib on monitor. He underwent CPR and multiple rounds of
defibrillation here in the ED. He received epinephrine, bicarbonate, amiodarone and calcium. ROSC was achieved. Patient remained unresponsive since this event. EKG showed new LBBB and patient was taken to the cathode ray tube salvage processor for emergent ischemic
evaluation. No family at bedside.
Glucose on admission was 237 Venous. A1C 5.4%, Cr 1.3, eGFR >60.
Pt was extubated on 03/03. Awake, alert, able to briefly discuss diabetes care plan, family at bedside.
Was transitioned off insulin infusion on 03/04 to Lantus 8 units @ HS and corrective insulin.
Patient started soft small bite diet, tolerating well. Currently NPO for TAVR workup.
Glucose range of 93 to 145 yesterday, required no corrective insulin.
Fasting glucose today 121 V, 100 POC.
Will make no changes to current regimen. Cont Lantus 8 units @ HS and low corrective.
Discussed with Nurse. Will cont to follow.
Diabetes History
- -
Type of Diabetes: 2 requiring insulin
Pre-Admission Diabetes Regimen
03/08/25 03/09/25
08:01 06:35
Creatinine 0.8 1.0
Lab Results
Hemoglobin A1c 5.4 % (4.0-5.6) 02/28/25 03:28
Insulin Pump Settings
IP Diabetes Regimen
03/08/25 03/08/25 03/08/25
08:01 12:33 17:19
Glucose 102 H
POC Glucose 143 H 145 H
03/08/25 03/09/25 03/09/25
21:43 06:35 07:03
Glucose 121 H
POC Glucose 114 H 100 H
Meal type: Lunch
Meal type: Breakfast
Amount consumed: 50%
Amount consumed: 70%
Patient Education
[2025-03-09] MEDS: ALDACTONE 12.5 MG PO (08:41)
[2025-03-09] MEDS: KCL ELIXIR PO (08:41)
[2025-03-09] MEDS: LOW STRENGTH ASPIRIN 81 MG PO (08:41)
[2025-03-09] MEDS: TOPROL XL 25 MG PO (08:41)
[2025-03-09] MEDS: FARXIGA 10 MG PO (08:41)
[2025-03-09] MEDS: DIOVAN 40 MG PO (08:41)
[2025-03-09] MEDS: VITAMIN B1 100 MG PO ×2 (08:41→20:21)
[2025-03-09] MEDS: BUMEX 1 MG IV (08:41)
[2025-03-09] MEDS: FOLVITE 1 MG PO (08:41)
[2025-03-09] MEDS: DESENEX/MITRAZOL/ZEASORB 1 APPLIC TOPICAL ×2 (08:42→20:22)
--- NOTE | 2025-03-09 08:53 | W.PN.HOSP.TC ---
Today's Communication/Plan
-
Continue current care
Assessment / Plan
Assessment / Plan
Gen-sleepy but arousable, NAD
HEENT-NC, AT, anicteric, clear oral mm
Neck-supple
CV-reg, no M, +S1/S2
Lungs-clear B/L
Abd-soft, NT, ND
Ext-no edema
Musculoskeletal-no cyanosis, clubbing
Skin-warm and dry
Neuro-left hemiparesis, left leg weaker than arm
Psych-calm, cooperative
V-Tach / V-Fib Cardiac Arrest -in hospital, emergency room.
Shock -- suspected cardiogenic
- Flash pulmonary edema and hypoxia on presentation (LVEDP was high on cardiac cath)
- Extubated on 03/03/25
- With abrupt onset, significant risk factors, new LBBB, etc - patient went for emergent ischemic evaluation 02/27/25
- Cath above showed chronic RCA occlusion, 90% LAD proximal LAD, and LVEDP = 40 mmHg
- Echo 02/28/25 showed hypokinesis, low EF and severe
- No stents placed/medical management recommended. Cardiology contemplating revascularization.
- CT PE study showed no PE
- No need to continue anticoagulation and amiodarone as per cardiology, both were discontinued 03/05.
Cardiology contemplating LifeVest versus ICD before discharge.
Acute heart failure reduced EF exacerbation -EF 15 to 20% on echocardiogram. Stage I diastolic dysfunction.
- GDMT when tolerating PO reliably -- trial of other PO medications started on 03/04/25
- Bumex per cardiology. Currently on IV 1 mg daily.
Weight stable at 80 kg. Admission weight was 89 kg.
Severe aortic stenosis -noted on echocardiogram, aortic valve area 0.54 cm�. Cardiology planning on AVR. Timing to be determined.
Dysphagia -speech therapy advance diet to soft/bite sized with thin liquids.
Hypokalemia -improved.
Fever/SIRS -no evidence of pneumonia or infection. Has received 5 days of Unasyn so far. Antibiotics discontinued 03/05. Patient denies cough. Last fever 03/05.
Differential diagnosis for fever includes aspiration pneumonitis. 03/04 chest x-ray clear, resolution of pulmonary edema.
- Suspected from Precedex, as per special needs tutor -- Precedex previously stopped
-Blood cultures 02/28 and 03/02 negative so far. Urine culture no growth.
- COVID negative, Influenza A/B negative, S. Pneumoniae UAG negative, Legionella UAG negative
Medication Non-Compliance for Years
Pulmonary Edema
Acute Hypoxemic Respiratory Failure / VDRF -due to acute heart failure exacerbation.
- CXR / CT chest showed pulmonary edema - possibly flash pulmonary edema
- slab polisher results as above
- Bumex on hold given elevated creatinine
- Cardiology evaluation as noted above.
Polycythemia
- Patient with marked polycythemia with Hgb = 21 (confirmation / repeat = 22). Hemoglobin improved, 16.5 today.
- Likely multiple underlying reasons for secondary polycythemia including chronic hypoxemia, liver disease, etc - but current elevation seems excessive.
- JAK2 negative, erythropoietin level normal. Rules out polycythemia vera. Testing for hemochromatosis shows 1 copy of H63D mutation per hematology. No indication for phlebotomy.
Acute thrombocytopenia -platelet count now improving. No further indication for anticoagulation, argatroban discontinued 03/05. HIT panel negative.
Anion Gap Metabolic Acidosis Suspected Secondary to Lactic Acidosis
- RESOLVED
- Likely secondary to acute ischemia
- Lactic acidosis trended down
Essential hypertension -now hypotensive. Will defer to cardiology as GDMT is being added.
- Patient non-compliant with medications chronically.
- Continue Metoprolol
- Adjust med regimen as needed for BP control.
DM 2 without hyperglycemia
- Uncontrolled / non-compliant outpatient
- Insulin Drip discontinued. Now on Lantus 8 units at bedtime, low resistance aspart scale. Glucose 92 this morning. Daytime glucoses controlled. Hemoglobin A1c 5.4%.
Left Hemiparesis as Late Effect of CVA
- CT head showed prior R MCA stroke.
- Patient has been non-compliant with med regimen for years - including ASA, etc.
- Patient claims he ambulates at home without assistive device. Continue PT/OT
Alcohol Use Disorder
- Long-standing alcohol use disorder. 10-12 beers daily per .
- Continue to monitor for alcohol withdrawal
- Monitor for any evidence of withdrawal symptoms and treat with BZDs as needed. Stopped diazepam [id number].
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
- Thiamine, folate replacement
- Vitamin B12 supplementation
- MSAS protocol
Transaminitis
- From alcohol vs. shock state from CPR. Transaminases normalized. Bilirubin now normal.
Hyperlipidemia
- Continue Atorvastatin
Stage 1 sacrum pressure injury, POA
-Wound care
Acute urinary retention -Schultz catheter remains in place.
Code Status: Full Code
Dispo -anticipate acute rehab when medically stable. PMR consulted.
Anticipated Discharge: > 48 hours
Subjective/Interval History
-
Date of Service: March 09, 2025
Patient seen and examined. No complaints.
Objective Data
-
Labs:
Laboratory Results
03/09/25
06:35
Sodium 137
Potassium 4.4
Chloride 103
Carbon Dioxide 26
BUN 28 H
Creatinine 1.0
Glucose 121 H
Calcium 9.2
Vital Signs:
Vital Signs
Temp Pulse Resp BP Pulse Ox
98.5 F 81 16 110/72 94
03/09/25 07:00 03/09/25 07:00 03/09/25 07:00 03/09/25 07:00 03/09/25 07:00
I&O
03/08/25 03/09/25 03/10/25
06:59 06:59 06:59
Intake Total 1200 / 1200 1440 / 1440
Output Total 1075 / 1075 1160 / 1160
Balance 125 / 125 280 / 280
Review of Systems
-
History Source: Patient
All other systems: Reviewed and negative
--- NOTE | 2025-03-09 09:04 | CONSULT.CT ---
Consultation
-
Date/Time Consultation Requested: 03/09/25 0754
Date/Time Consultation Performed: 03/09/25 0900
Requesting Provider: Imer DESOUZA
Performing Provider: Jem DESOUZA for Shaina NORMAN
Reason for Consultation: AVR VS TAVR evaluation
Patient History
Physicians
Family Physician: unknown
Outpatient [employer]: unknown
Inpatient [employer]: Dr. Matamoros
History of Present Illness
69-year-old male with past medical history significant for hypertension, diabetes type 2, and prior CVA with left hemiparesis presented to [facility] on 02/27 with complaints of shortness of breath. The respiratory distress started that evening and got
significantly worse where EMS was then called. He was intubated in the emergency room and shortly after patient became pulseless and underwent 2 synchronized cardioversions for suspected unstable atrial fibrillation. He was then noted to have
progressed to pulseless ventricular tachycardia with periods of ventricular fibrillation. Patient underwent several rounds of CPR, defibrillation and medications until ROSC was achieved. Postarrest patient's EKG noted to have a new left bundle
branch block and patient was emergently taken to the cardiac Customer Marketing Assistant. During the cath he was found to have chronic total occlusions of multiple coronary arteries, severely elevated filling pressures, and moderate aortic valve stenosis. Given the
patient's presentation he was then started on a Bumex, amiodarone, and heparin drip and an echocardiogram was performed. Echocardiogram on 02/28 showed hypokinesis, low EF, and severe .
Subsequently patient was extubated on 03/03. Of note patient was noted to be febrile however workup has been negative so far. He has completed 5 days of Unasyn. Patient's transaminitis has since normalized and a Schultz catheter remains in place for
urinary retention. Patient is also noted to have a stage I sacral pressure injury. Due to the patient's comorbidities CT surgery was consulted for SAVR versus TAVR evaluation.
Past Medical History
Past Medical History: CAD, CVA/TIA, HTN, NIDDM, Psychiatric (depression), SOB and Valvular Disease
Past Surgical History
Past Surgical History: None
Family History
Family Medical History: CAD
Social History
Alcohol: Daily
Drug: Marijuana
Tobacco: Non-Smoker
Personal:
Living: With Spouse
Allergies
Allergy/AdvReac Type Severity Reaction Status Date / Time
No Known Allergies Allergy Verified 09/02/20 12:02
Home Medications
�Medication �Instructions �Recorded �Confirmed �Type
atorvastatin 40 mg tablet 40 mg PO QPM High cholesterol 09/02/20 02/27/25 History
aspirin 81 mg tablet,delayed 81 mg PO DAILY 09/07/20 02/27/25 Rx
release
lisinopril 10 mg tablet 10 mg PO DAILY 09/07/20 02/27/25 Rx
metoprolol succinate 25 mg 25 mg PO DAILY 09/07/20 02/27/25 Rx
tablet,extended release 24 hr
bupropion HCl 150 mg 24 hr tablet, 150 mg PO DAILY Mental 02/27/25 02/27/25 History
extended release Health/Anxiety
Review of Systems
-
Unable to obtain full review of systems at this time due to: Patient Non Verbal (patient would only nod to certain questions)
History Source: Patient
General: Reports Fatigue
HEENT: Reports No Symptoms
Respiratory: Reports SOB
Cardiac: Reports No Symptoms
Abdomen/GI: Reports No Symptoms
: Reports No Symptoms
Musculoskeletal: Reports No Symptoms
Skin: Reports No Symptoms
Neurological: Reports No Symptoms
Vascular: Reports No Symptoms
Physical Exam
Vital Signs
Temp 98.5 F 03/09/25 07:00
Temp route: Oral 03/09/25 07:00
Pulse 81 03/09/25 07:00
Rhythm: Normal sinus rhythm 03/08/25 20:00
With- Left Bundle Branch Block, Prolonged QT interval 03/08/25 20:00
Resp Rate 16 03/09/25 07:00
Systolic BP: 133 03/03/25 13:33
Blood pressure 110/72 03/09/25 07:00
Blood pressure extremity used: Right upper arm 03/09/25 07:00
Position: Lying 03/09/25 07:00
MAP (cuff-Funmilayo Monitor) 83 03/05/25 15:00
MAP 114 02/27/25 18:28
SaO2 94 03/09/25 07:00
Nasal Cannula flow liters per minute 2 03/04/25 13:39
Oxygen Mode of Delivery Room air 03/09/25 07:00
% Oxygen delivered 40 03/02/25 20:00
Pulse Ox at Rest 92 03/08/25 16:28
Acceptable pain level during hospitalization? 5 02/27/25 17:57
Can the patient verbally communicate their pain? Yes 03/08/25 20:00
Pain scale ratin 03/04/25 08:18
Arterial Systolic Pressure 126 03/04/25 13:00
Arterial Diastolic Pressure 72 03/04/25 13:00
MAP (W-Yvni-Tymrblu Monitor) 90 03/04/25 13:00
Actual Weight 80.031 kg 03/09/25 06:00
Body Mass Index (BMI) 26.8 03/09/25 06:00
Supine- Blood Pressure 113/79 03/08/25 16:28
Supine- Pulse 89 03/08/25 16:28
etC02 value 25 02/28/25 23:25
Heart rate after activity 71 03/05/25 12:00
Blood pressure after activity 105/74 03/05/25 12:00
Labs
03/08/25 08:01
03/09/25 06:35
PT 14.2 Sec (11.4-14.6) 02/28/25 08:03
APTT Cancelled 03/05/25 18:00
Hemoglobin A1c 5.4 % (4.0-5.6) 02/28/25 03:28
Troponin I 31.100 ng/ml H* 02/28/25 17:13
Fxx-Y-Zmeqwjaxuvl Pept 7350 pg/ml 03/01/25 15:17
Arterial Blood Gases
pH 7.42 (7.35-7.45) 03/04/25 03:37
pCO2 47 mmHg (35-48) 03/04/25 03:37
pO2 127 mmHg (83-108) H 03/04/25 03:37
HCO3 30.5 mmol/L (21-28) H 03/04/25 03:37
Base Excess 4.9 mmol/L 03/04/25 03:37
ABG O2 Sat (Measured) 98.9 % (94-98) H 03/04/25 03:37
O2 Delivery Level 03/04/25 03:37
Urinalysis
Urine Color Yellow 03/02/25 11:07
Urine Clarity Clear (Clear) 03/02/25 11:07
Urine pH 6.0 (5.0-9.0) 03/02/25 11:07
Ur Specific [place] 1.010 (<1.030) 03/02/25 11:07
Urine Ketones Negative (Negative) 03/02/25 11:07
Urine Occult Blood 4+ (Negative) A 02/27/25 22:57
Ur Occult Blood Reflex 4+ (Negative) A 03/02/25 11:07
Urine Bilirubin Negative (Negative) 03/02/25 11:07
Ur Leukocyte Esterase 1+ (Negative) A 02/27/25 22:57
Leukocyte Esterase Rfl 1+ (Negative) A 03/02/25 11:07
Urine RBC 21-25 /HPF (0-2) A 03/02/25 11:07
Urine WBC 3-5 /HPF (0-5) 02/27/25 22:57
Urine WBC (Reflex) 6-10 /HPF (0-5) 03/02/25 11:07
Ur Squamous Epith Cells 0-2 /LPF (Few) 03/02/25 11:07
Urine Bacteria (Reflex) Few (Negative) A 02/28/25 06:45
Urine Mucus Few 03/02/25 11:07
Urine Glucose Negative (Negative) 03/02/25 11:07
Urine Albumin 3+ (Neg - Trace) A 02/27/25 22:57
Urine Albumin (Reflex) 1+ (Neg - Trace) A 03/02/25 11:07
Exam
General: No Apparent Distress and Comfortable
HEENT: Normocephalic
Neck: JVD
Respiratory: Crackles
Cardiac: S1/S2 and Murmur
GI: Soft and Non Distended
Rectal: Deferred by Provider
Skin: Warm
Neuro: Other (patient wouldn't open eyes but nodding to questions)
Lymph: No Lymphadenopathy
Psych: Calm
Assessment / Plan
-
69 y/o male with PMHx listed above presents to [facility] with SOB and then suffered a cardiac arrest. Rosc was achieved and was taken to the CCL where CAD and aortic stenosis was found. Patient was then medically stablized and now Ct surgery was
consulted for surgical evaluation for aortic valve replacement.
#Severe
-Patient's case will be discussed with attending physician. Further details regarding surgical timing intervention will be determined after attending physicians full evaluation
-Routine preoperative cardiothoracic surgery orders will be initiated.
-STS risk stratification score will be calculated after preoperative testing is complete
--- NOTE | 2025-03-09 10:05 | CM ---
CM following re: discharge planning.
Reviewed pt's chart, met with pt.
Pt is s/p Cardiac arrest, VT/VF requiring CPR as well as defibrillation, intubated on 02/27/25, extubated 03/03/25, continue supportive care.
PT/OT and ST evaluations noted - acute rehab level of care recommended. PM&R evaluation pending.
[facility] acute rehabilitation engineer following.
[facility] civil defense director requested more information closer to discharge.
D/C plan: Plan A: [facility]. Plan B: [facility]
CM will follow with discharge plan updates as hospitalization progresses
[2025-03-09 11:51] LABS: Glucose - Point of Care 114 mg/dl (70-99)
[2025-03-09] MEDS: LOVENOX 40 MG SC (17:03)
[2025-03-09] MEDS: CRESTOR 40 MG PO (17:04)
[2025-03-09 17:09] LABS: Glucose - Point of Care 101 mg/dl (70-99)
--- NOTE | 2025-03-09 18:01 | W.PN.CD ---
Today's Communication / Plan
-
likely robotic CABG and TAVR next week. CT AP TAVR tomorrow.
Impression / Plan
-
Background: 69 y/o male with HTN, HLD, remote CVA complicated by left hemiparesis, transaminitis related to EtOH abuse vs. possible hemochromatosis with at least moderate hepatic fibrosis and medication non-compliance admitted with acute, vent
dependent respiratory failure complicated by VT/VF arrest and new LBBB. Found to have severe MV CAD and severe .
I had an extensive conversion with the patient, his , and his mother at bedside today, and discussed his case at length with the structural heart team in detail and specifically with Dr. Merritt. Mr. Mckeon was alert and participated in all
aspects of the conversion, however, he still is slow to respond to questions and his believes this is a change from prior to his presentation. He does seem to understand his current medical situation and appears today to have capacity to make
medical decisions. We discussed options including percutaneous and surgical revascularization and AVR, as well as timing of any possible procedures (i.e., on this admission vs. after close outpatient follow up). Given the patient's severe coronary
and valvular disease and cardiac arrest, as well as concern for loss to follow up, we feel, and the patient/family agrees, that inpatient treatment would be optimal. We discussed various options in detail and the patient and family are interested in
being aggressive and optimizing fpc health, but also wish to avoid highest risk interventions. In this spirit, we think a hybrid approach of minimally invasive surgical revascularization of his GARCIA-LAD/diag before or after transfemoral TAVR
would be optimal. He still needs to undergo CT A&P which can be completed this weekend, and then we will finalize plans. Surgery is tentatively scheduled for Tuesday 03/[address] Merritt, and relative timing of surgery and TAVR will need to be
determined. For now, will cont. current mediations and complete TAVR CT scan over the weekend.
Severe 3 V CAD
- Cath 02/27/2025: 100% pRCA, 100% dLCx, 100% OM1, 90% complex p-mLAD; no clear cuprit lesion for IA, arrest may have been in setting of decompensated heart failure with underlying IHD
- No angina
- cont. ASA
Severe Aortic Stenosis
- Echo 02/28/2025: HANNAH 0.54 cm2, mean 35 mmHg
Secondary VT/F arrest in the ER
- Severe CAD - obstructive and severe with heart failure and class III-IV NYHA symptoms.
- No further VT/VF since ER admit
- Consider LifeVest if able to achieve revascularization.
Severe HFrEF from a Severe Ischemic cardiomyopathy
- Cath 02/27/2025 LVEDP 40 mmHg
- Echo 02/28/2025: LVEF 15-20%
- Echo 03/08/2025: LVEF 25-30%
- Medical therapy in progress
- Low dose ARB
- Low dose metoprolol
- SGLT2-I
- low dose MRA/Aldactone
- On IV loop diuretic daily, appears euvolemic
LBBB, QRS 176 ms
- Watch for heart block
- Will be a candidate for SOAP BOILER with backup defibrillation in the future
- Telemetry reviewed - no pause or block noted.
Elevated Hgb, elevated MCV, and acquired transient thrombocytopenia, heme involved
- Plt improved (plt 120 on 03/06/2025), Heparin off, off Argatroban
- HIT negative, heparin can be used again if needed
- Per hematology:
- 'Jak2 is negative and EPO normal -- essentially rules out PVera
- One copy of H63D mutation. This genotype has not been associated with symptoms of hereditary hemochromatosis. No indication for phlebotomy.
- HIT Phylicia pending. Platelet count trending up'
HTN
Mixed hyperlipidemia, LDL was not at goal, goal LDL less than 55
- cont. rosuvastatin 40 daily
ETOH
Hepatic fibrosis/ steatosis, at least moderate by Fibroscan.
S/p stroke with chronic LUE weakness an mild LLE weakness
Lung disease suspected, per hospitalist, on Atrovent/albuterol
Subjective:
Supine without chest pain or dyspnea
Physical Exam
Vital Signs/Labs
Vital Signs
Temp Pulse Resp BP Pulse Ox
36.7 C 94 18 100/66 94
03/09/25 15:00 03/09/25 15:00 03/09/25 15:00 03/09/25 15:00 03/09/25 15:00
03/08/25 03/09/25 03/10/25
06:59 06:59 06:59
Actual Weight 80.331 kg 80.031 kg
03/08/25 08:01
03/09/25 06:35
PT 14.2 Sec (11.4-14.6) 02/28/25 08:03
INR 1.05 02/28/25 08:03
APTT Cancelled 03/05/25 18:00
Magnesium 2.1 mg/dl (1.6-2.3) 03/07/25 04:14
Triglycerides 315 mg/dl (10-149) H 02/28/25 03:28
LDL Cholesterol, Calc 119 mg/dl 02/28/25 03:28
VLDL Cholesterol, Calc 63 mg/dl (0-30) H 02/28/25 03:28
HDL Cholesterol 63 mg/dl 02/28/25 03:28
02/27/25 02/27/25 02/27/25
18:02 18:31 19:35
Rok-Z-Phbutssubrq Pept Cancelled Cancelled Cancelled
02/27/25 03/01/25
Unknown 15:17
Akn-H-Nvmqcedgjdk Pept [id number]
Physical Exam
Constitutional: Comfortable
Cardiovascular: Rhythm & rate is regular
Respiratory: Respiratory effort normal
Neuro/Psych: AO x 3
Data Reviewed
-
Date of Service: March 09, 2025
Medical Decision Making: Reviewed Test Results
EKG: Tracing Personally Visualized and interpreted
Echo: Tracing Personally Visualized and interpreted
X-Ray/CT/US/MRI/NUC/PET: Image Personally Visualized and interpreted
Labs: Labs Reviewed by me
[2025-03-09] MEDS: DIOVAN PO (20:21)
[2025-03-09 21:29] LABS: Glucose - Point of Care 116 mg/dl (70-99)
[2025-03-09] MEDS: LANTUS 0.08 UNITS SC (22:14)
[2025-03-10] VITALS (8 sets, daily range): BP systolic 92–109; BP diastolic 62–75; BMI 27.1
[2025-03-10 07:01] LABS: ALT (SGPT) 105 U/L (0-50); AST (SGOT) 99 U/L (17-59); Albumin 3.6 g/dl (3.5-5.0); Alkaline Phosphatase 162 U/L (38-126); Blood Urea Nitrogen 34 mg/dl (9-20); Calcium 9.4 mg/dl (8.4-10.2); Carbon Dioxide 24 mmol/L (22-30); Chloride 101 mmol/L (98-107); Estimated Creatinine Clearance 58 ml/min; Glucose 108 mg/dl (70-99); Potassium 3.9 mmol/L (3.5-5.1); Sodium 136 mmol/L (135-145); Total Protein 7.3 g/dl (6.3-8.2); eGFR > 60.00
[2025-03-10 07:38] LABS: Glucose - Point of Care 111 mg/dl (70-99)
--- NOTE | 2025-03-10 08:33 | W.PN.HOSP.TC ---
Today's Communication/Plan
-
Continue current care
Assessment / Plan
Assessment / Plan
Gen-sleepy but arousable, NAD
HEENT-NC, AT, anicteric, clear oral mm
Neck-supple
CV-reg, no M, +S1/S2
Lungs-clear B/L
Abd-soft, NT, ND
Ext-no edema
Musculoskeletal-no cyanosis, clubbing
Skin-warm and dry
Neuro-left hemiparesis, left leg weaker than arm
Psych-calm, cooperative
V-Tach / V-Fib Cardiac Arrest -in hospital, emergency room.
Shock -- suspected cardiogenic
- Flash pulmonary edema and hypoxia on presentation (LVEDP was high on cardiac cath)
- Extubated on 03/03/25
- With abrupt onset, significant risk factors, new LBBB, etc - patient went for emergent ischemic evaluation 02/27/25
- Cath above showed chronic RCA occlusion, 90% LAD proximal LAD, and LVEDP = 40 mmHg
- Echo 02/28/25 showed hypokinesis, low EF and severe
- No stents placed/medical management recommended. Cardiology contemplating revascularization.
- CT PE study showed no PE
- No need to continue anticoagulation and amiodarone as per cardiology, both were discontinued 03/05.
Cardiology contemplating LifeVest versus ICD before discharge.
Acute heart failure reduced EF exacerbation -EF 15 to 20% on echocardiogram. Stage I diastolic dysfunction.
- GDMT when tolerating PO reliably -- trial of other PO medications started on 03/04/25
- Bumex per cardiology. Currently on IV 1 mg daily. Blood pressure relatively low, consider changing to oral Bumex.
Weight stable at 80 kg. Admission weight was 89 kg.
Severe three-vessel CAD -Plan for TAVR with minimally invasive surgical revascularization of his CAD this Tuesday 03/13.
Severe aortic stenosis -noted on echocardiogram, aortic valve area 0.54 cm�. Plan for TAVR with minimally invasive surgical revascularization of his CAD this Tuesday 03/13.
Dysphagia -speech therapy advance diet to soft/bite sized with thin liquids.
Hypokalemia -improved.
Fever/SIRS -no evidence of pneumonia or infection. Has received 5 days of Unasyn so far. Antibiotics discontinued 03/05. Patient denies cough. Last fever 03/05.
Differential diagnosis for fever includes aspiration pneumonitis. 03/04 chest x-ray clear, resolution of pulmonary edema.
- Suspected from Precedex, as per clockmaker -- Precedex previously stopped
-Blood cultures 02/28 and 03/02 negative so far. Urine culture no growth.
- COVID negative, Influenza A/B negative, S. Pneumoniae UAG negative, Legionella UAG negative
Medication Non-Compliance for Years
Pulmonary Edema
Acute Hypoxemic Respiratory Failure / VDRF -due to acute heart failure exacerbation.
- CXR / CT chest showed pulmonary edema - possibly flash pulmonary edema
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
- Bumex on hold given elevated creatinine
- Cardiology evaluation as noted above.
Polycythemia
- Patient with marked polycythemia with Hgb = 21 (confirmation / repeat = 22). Hemoglobin improved, 16.5 today.
- Likely multiple underlying reasons for secondary polycythemia including chronic hypoxemia, liver disease, etc - but current elevation seems excessive.
- JAK2 negative, erythropoietin level normal. Rules out polycythemia vera. Testing for hemochromatosis shows 1 copy of H63D mutation per hematology. No indication for phlebotomy.
Acute thrombocytopenia -platelet count now improving. No further indication for anticoagulation, argatroban discontinued 03/05. HIT panel negative.
Anion Gap Metabolic Acidosis Suspected Secondary to Lactic Acidosis
- RESOLVED
- Likely secondary to acute ischemia
- Lactic acidosis trended down
Essential hypertension -now hypotensive. Will defer to cardiology as GDMT is being added.
- Patient non-compliant with medications chronically.
- Continue Metoprolol
- Adjust med regimen as needed for BP control.
DM 2 without hyperglycemia
- Uncontrolled / non-compliant outpatient
- Insulin Drip discontinued. Now on Lantus 8 units at bedtime, low resistance aspart scale. Glucose 92 this morning. Daytime glucoses controlled. Hemoglobin A1c 5.4%.
Left Hemiparesis as Late Effect of CVA
- CT head showed prior R MCA stroke.
- Patient has been non-compliant with med regimen for years - including ASA, etc.
- Patient claims he ambulates at home without assistive device. Continue PT/OT
Alcohol Use Disorder
- Long-standing alcohol use disorder. 10-12 beers daily per .
- Continue to monitor for alcohol withdrawal
- Monitor for any evidence of withdrawal symptoms and treat with BZDs as needed. Stopped diazepam [id number].
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
- Thiamine, folate replacement
- Vitamin B12 supplementation
- MSAS protocol
Transaminitis
- From alcohol vs. shock state from CPR. Transaminases normalized, but now on the rise again. Bilirubin normal but alkaline phosphatase elevated as well. Etiology unclear but differential diagnosis includes adverse drug reaction versus
hypotension induced ischemic hepatitis versus other.
Hold rosuvastatin. Abdominal ultrasound done December of this year showed no acute hepatobiliary abnormalities, patent portal and hepatic veins. Heterogeneous and echogenic appearance of the hepatic parenchyma suggestive of fatty infiltration,
steatosis. No focal hepatic lesions.
Hyperlipidemia
- Continue Atorvastatin
Stage 1 sacrum pressure injury, POA
-Wound care
Acute urinary retention -Schultz catheter remains in place.
Code Status: Full Code
Dispo -anticipate acute rehab when medically stable. PMR consulted.
Anticipated Discharge: > 48 hours
Subjective/Interval History
-
Date of Service: March 10, 2025
Patient seen and examined. Sleepy but arousable. Denies shortness of breath.
Objective Data
-
Labs:
Laboratory Results
03/10/25
05:23
Sodium 136
Potassium 3.9
Chloride 101
Carbon Dioxide 24
BUN 34 H
Creatinine 1.2
Glucose 108 H
Calcium 9.4
Total Bilirubin 1.0
AST 99 H
ALT 105 H
Alkaline Phosphatase 162 H
Vital Signs:
Vital Signs
Temp Pulse Resp BP Pulse Ox
98.4 F 91 16 101/69 93
03/10/25 07:00 03/10/25 07:00 03/10/25 07:00 03/10/25 07:00 03/10/25 07:00
I&O
03/09/25 03/10/25 03/11/25
06:59 06:59 06:59
Intake Total 1440 / 1440 240 / 240
Output Total 1160 / 1160 1050 / 1050
Balance 280 / 280 -810 / -810
Review of Systems
-
History Source: Patient
All other systems: Reviewed and negative
--- NOTE | 2025-03-10 08:59 | CM ---
CM reviewed chart, tentative plan for TAVR 03/13. Therapy continues to recommend Acute Rehab- PMR consulted, Eric liaison following.
Plan remains [facility], [facility] if [facility] unable to accept.
Will continue to follow for medical progress during hospitalization for all discharge planning.
Plan; [facility] vs SNF ([facility])
[2025-03-10] MEDS: VITAMIN B1 100 MG PO ×2 (09:03→19:37)
[2025-03-10] MEDS: FOLVITE 1 MG PO (09:03)
[2025-03-10] MEDS: LOW STRENGTH ASPIRIN 81 MG PO (09:04)
[2025-03-10] MEDS: KCL ELIXIR PO (09:08)
[2025-03-10] MEDS: FARXIGA 10 MG PO (09:15)
[2025-03-10] MEDS: BUMEX IV (10:33)
[2025-03-10] MEDS: TOPROL XL 25 MG PO (10:36)
[2025-03-10] MEDS: ALDACTONE 12.5 MG PO (10:36)
[2025-03-10] MEDS: DESENEX/MITRAZOL/ZEASORB 1 APPLIC TOPICAL ×2 (10:37→19:45)
[2025-03-10] MEDS: DIOVAN PO (10:52)
--- NOTE | 2025-03-10 11:04 | W.PN.CD ---
Today's Communication / Plan
-
Respiratory status stable appears euvolemic
Hold IV diuretic today
Transition to oral diuretic tomorrow
Continue for evaluation for possible cardiothoracic surgery as outlined by Dr. Thornton (please see Dr. Thornton comments which were also repeated in the note above).
Impression / Plan
-
Background: 69 y/o male with HTN, HLD, remote CVA complicated by left hemiparesis, transaminitis related to EtOH abuse vs. possible hemochromatosis with at least moderate hepatic fibrosis and medication non-compliance admitted with acute, vent
dependent respiratory failure complicated by VT/VF arrest and new LBBB. Found to have severe MV CAD and severe .
On 03/10/2025 Dr. Thornton after conferring with patient, family and CT surgery/Dr. Merritt stated the following in his note 03/09/2025
I had an extensive conversion with the patient, his , and his mother at bedside today, and discussed his case at length with the structural heart team in detail and specifically with Dr. Merritt. Mr. Mckeon was alert and participated in all
aspects of the conversion, however, he still is slow to respond to questions and his believes this is a change from prior to his presentation. He does seem to understand his current medical situation and appears today to have capacity to make
medical decisions. We discussed options including percutaneous and surgical revascularization and AVR, as well as timing of any possible procedures (i.e., on this admission vs. after close outpatient follow up). Given the patient's severe coronary
and valvular disease and cardiac arrest, as well as concern for loss to follow up, we feel, and the patient/family agrees, that inpatient treatment would be optimal. We discussed various options in detail and the patient and family are interested in
being aggressive and optimizing longterm health, but also wish to avoid highest risk interventions. In this spirit, we think a hybrid approach of minimally invasive surgical revascularization of his GARCIA-LAD/diag before or after transfemoral TAVR
would be optimal. He still needs to undergo CT A&P which can be completed this weekend, and then we will finalize plans. Surgery is tentatively scheduled for Tuesday 03/[address] Merritt, and relative timing of surgery and TAVR will need to be
determined.
Patient's condition was stable overnight 03/09 -l 03/15. Patient sitting up awake and alert. Appears euvolemic on exam.
Severe 3 V CAD
- Cath 02/27/2025: 100% pRCA, 100% dLCx, 100% OM1, 90% complex p-mLAD; no clear cuprit lesion for [place], arrest may have been in setting of decompensated heart failure with underlying IHD
- No angina
- cont. ASA
Severe Aortic Stenosis
- Echo 02/28/2025: HANNAH 0.54 cm2, mean 35 mmHg
Secondary VT/F arrest in the ER
- Severe CAD - obstructive and severe with heart failure and class III-IV NYHA symptoms.
- No further VT/VF since ER admit
- Consider LifeVest if able to achieve revascularization.
Severe HFrEF from a Severe Ischemic cardiomyopathy
- Cath 02/27/2025 LVEDP 40 mmHg
- Echo 02/28/2025: LVEF 15-20%
- Echo 03/08/2025: LVEF 25-30%
- Medical therapy in progress
- Low dose ARB
- Low dose metoprolol
- SGLT2-I
- low dose MRA/Aldactone
- Will change to oral diuretic and monitor renal function
LBBB, QRS 176 ms
- Watch for heart block
- Will be a candidate for MOLD TOOLER with backup defibrillation in the future
- Telemetry reviewed - no pause or block noted.
Elevated Hgb, elevated MCV, and acquired transient thrombocytopenia, heme involved
- Plt improved (plt 120 on 03/06/2025), Heparin off, off Argatroban
- HIT negative, heparin can be used again if needed
- Per hematology:
- 'Jak2 is negative and EPO normal -- essentially rules out PVera
- One copy of H63D mutation. This genotype has not been associated with symptoms of hereditary hemochromatosis. No indication for phlebotomy.
- HIT Phylicia pending. Platelet count trending up'
Mixed hyperlipidemia, LDL was not at goal, goal LDL less than 55
- cont. rosuvastatin 40 daily
ETOH
Hepatic fibrosis/ steatosis, at least moderate by Fibroscan.
S/p stroke with chronic LUE weakness an mild LLE weakness
Lung disease suspected, per hospitalist, on Atrovent/albuterol
Subjective:
Sitting up awake cooperative. A little slow responding to questions but answers were appropriate. Without chest pain or dyspnea
Physical Exam
Vital Signs/Labs
Vital Signs
Temp Pulse Resp BP Pulse Ox
98.4 F 93 16 104/75 93
03/10/25 07:00 03/10/25 10:36 03/10/25 07:00 03/10/25 10:36 03/10/25 07:00
03/09/25 03/10/25 03/11/25
06:59 06:59 06:59
Actual Weight 80.031 kg 80.853 kg
03/08/25 08:01
03/10/25 05:23
PT 14.2 Sec (11.4-14.6) 02/28/25 08:03
INR 1.05 02/28/25 08:03
APTT Cancelled 03/05/25 18:00
Magnesium 2.1 mg/dl (1.6-2.3) 03/07/25 04:14
Triglycerides 315 mg/dl (10-149) H 02/28/25 03:28
LDL Cholesterol, Calc 119 mg/dl 02/28/25 03:28
VLDL Cholesterol, Calc 63 mg/dl (0-30) H 02/28/25 03:28
HDL Cholesterol 63 mg/dl 02/28/25 03:28
02/27/25 02/27/25 02/27/25
18:02 18:31 19:35
Wsp-F-Ceaeyrcyiwv Pept Cancelled Cancelled Cancelled
02/27/25 03/01/25
Unknown 15:17
Ggt-A-Olmtegzyubx Pept [id number]
Physical Exam
Constitutional: No acute distress
Cardiovascular: Rhythm & rate is regular and Systolic murmur absent
Respiratory: Wheeze Absent and Rhonchi Absent
GI: Soft
Neuro/Psych: Alert
Data Reviewed
-
Date of Service: March 10, 2025
Medical Decision Making: Reviewed Test Results
Echo: Report Reviewed by me
Labs: Labs Reviewed by me
[2025-03-10 13:22] LABS: Glucose - Point of Care 122 mg/dl (70-99)
[2025-03-10 17:42] LABS: Glucose - Point of Care 111 mg/dl (70-99)
[2025-03-10] MEDS: LOVENOX 40 MG SC (18:13)
[2025-03-10] MEDS: DIOVAN 20 MG PO (19:37)
[2025-03-10 21:15] LABS: Glucose - Point of Care 114 mg/dl (70-99)
[2025-03-10] MEDS: LANTUS 0.08 UNITS SC (21:27)
[2025-03-11] VITALS (8 sets, daily range): BP systolic 89–107; BP diastolic 58–69; BMI 27.3
[2025-03-11 07:17] LABS: ALT (SGPT) 110 U/L (0-50); AST (SGOT) 100 U/L (17-59); Albumin 3.4 g/dl (3.5-5.0); Alkaline Phosphatase 151 U/L (38-126); Blood Urea Nitrogen 34 mg/dl (9-20); Calcium 9.3 mg/dl (8.4-10.2); Carbon Dioxide 21 mmol/L (22-30); Chloride 105 mmol/L (98-107); Estimated Creatinine Clearance 77 ml/min; Glucose 117 mg/dl (70-99); Potassium 4.6 mmol/L (3.5-5.1); Sodium 134 mmol/L (135-145); Total Protein 7.1 g/dl (6.3-8.2); eGFR > 60.00
[2025-03-11 07:57] LABS: Glucose - Point of Care 118 mg/dl (70-99)
[2025-03-11] MEDS: KCL ELIXIR 40 MEQ PO (08:37)
[2025-03-11] MEDS: BUMEX 0.5 MG PO (08:38)
[2025-03-11] MEDS: DIOVAN 20 MG PO ×2 (08:38→19:55)
[2025-03-11] MEDS: TOPROL XL 25 MG PO (08:38)
[2025-03-11] MEDS: FARXIGA 10 MG PO (08:39)
[2025-03-11] MEDS: LOW STRENGTH ASPIRIN 81 MG PO (08:39)
[2025-03-11] MEDS: ALDACTONE 12.5 MG PO (08:39)
[2025-03-11] MEDS: FOLVITE 1 MG PO (08:39)
[2025-03-11] MEDS: DESENEX/MITRAZOL/ZEASORB 1 APPLIC TOPICAL ×2 (08:39→19:55)
[2025-03-11] MEDS: VITAMIN B1 100 MG PO ×2 (08:39→19:55)
--- NOTE | 2025-03-11 09:14 | W.PN.UPDATE ---
Addendum entered and electronically signed by Deejay Israel PA-C 03/11/25 11:43:
Addendum 1510
There is now discussion regarding TAVR with robotic assited midcab as opposed to full SAVR/CABG. The patient was not accompanied by his family this morning during our visit and he may not have complete insight into his condition and thus the thought
is that a less invasive approach may be better in this situation. There is a possibility for TAVR/Midcab this week per interventional cardiology. Will have Dr. Merritt reevaluate in AM and decide on approach. Ongoing heart team discussion.
Original Note:
Update Note
Progress Note Update
Brief CTS Note
Dr. Magdaleno and I visited with Mr. Mckeon today. Dr. Merritt discussed options with him last week and he's had time to discuss this with his family. Plan is for ultimate SAVR/CABG at this point.
Given that this is non emergent, he would benefit from physical rehab, abstinence from alcohol, and medical optimization prior to proceeding with surgery.
This was discussed with him in detail. His questions were answered to his satisfaction and he is in agreement with this plan.
Medical management per primary team. We will arrange for outpatient follow up with Dr. Merritt for ultimate surgical planning following rehab.
--- NOTE | 2025-03-11 11:04 | W.PN.CD ---
Today's Communication / Plan
-
On 03/10/2025 Dr. Thornton after conferring with patient, family and CT surgery/Dr. Merritt wrote a summary of treatment options and plan as outlined in 03/09/2025
There was discussion regarding possible hybrid approach of minimally invasive surgical revascularization of his GARCIA-LAD/diag before or after transfemoral TAVR with plans for CT scan which still needs to be reviewed. There were discussions
regarding possible plans for proceeding with further invasive procedures while the patient's an inpatient. Patient seen today by CT surgery and is considering additional medical therapy to allow additional rehab as outlined in their note. Patient
will have further assessment by Dr. Thornton and Dr. Merritt this week in the meantime we will continue medical therapy.
Patient transition from IV to oral diuretics will continue to monitor weight send labs.
Patient's main complaint today was that his bottom is sore. I have reviewed with nursing who is aware and is trying to get him another bed and to optimize measures to avoid pressure sores
Impression / Plan
-
Background: 69 y/o male with HTN, HLD, remote CVA complicated by left hemiparesis, transaminitis related to EtOH abuse vs. possible hemochromatosis with at least moderate hepatic fibrosis and medication non-compliance admitted with acute, vent
dependent respiratory failure complicated by VT/VF arrest and new LBBB. Found to have severe MV CAD and severe .
On 03/10/2025 Dr. Thornton after conferring with patient, family and CT surgery/Dr. Merritt wrote a summary of treatment options and plan as outlined in 03/09/2025
There was discussion regarding possible hybrid approach of minimally invasive surgical revascularization of his GARCIA-LAD/diag before or after transfemoral TAVR with plans for CT scan which still needs to be reviewed. There were discussions
regarding possible plans for proceeding with further invasive procedures while the patient's an inpatient. Patient seen today by CT surgery and is considering additional medical therapy to allow additional rehab as outlined in their note. Patient
will have further assessment by Dr. Thornton and Dr. Merritt this week in the meantime we will continue medical therapy
.
Severe 3 V CAD
- Cath 02/27/2025: 100% pRCA, 100% dLCx, 100% OM1, 90% complex p-mLAD; no clear cuprit lesion for [place], arrest may have been in setting of decompensated heart failure with underlying IHD
- No angina
- cont. ASA
Severe Aortic Stenosis
- Echo 02/28/2025: HANNAH 0.54 cm2, mean 35 mmHg
Secondary VT/F arrest in the ER
- Severe CAD - obstructive and severe with heart failure and class III-IV NYHA symptoms.
- No further VT/VF since ER admit
- Consider LifeVest if able to achieve revascularization.
Severe HFrEF from a Severe Ischemic cardiomyopathy
- Cath 02/27/2025 LVEDP 40 mmHg
- Echo 02/28/2025: LVEF 15-20%
- Echo 03/08/2025: LVEF 25-30%
- Medical therapy in progress
- Low dose ARB
- Low dose metoprolol
- SGLT2-I
- low dose MRA/Aldactone
- Changed from IV Bumex to oral 03/11/2025. Continue to monitor labs and weights
LBBB, QRS 176 ms
- Watch for heart block
- Will be a candidate for [employer] with backup defibrillation in the future
- Telemetry reviewed - no pause or block noted.
Elevated Hgb, elevated MCV, and acquired transient thrombocytopenia, heme involved
- Plt improved (plt 120 on 03/06/2025), Heparin off, off Argatroban
- HIT negative, heparin can be used again if needed
- Per hematology:
- 'Jak2 is negative and EPO normal -- essentially rules out PVera
- One copy of H63D mutation. This genotype has not been associated with symptoms of hereditary hemochromatosis. No indication for phlebotomy.
- HIT Phylicia pending. Platelet count trending up'
Mixed hyperlipidemia, LDL was not at goal, goal LDL less than 55
- cont. rosuvastatin 40 daily
ETOH
Hepatic fibrosis/ steatosis, at least moderate by Fibroscan.
S/p stroke with chronic LUE weakness an mild LLE weakness
Lung disease suspected, per hospitalist, on Atrovent/albuterol
Subjective:
Sitting up awake cooperative. A little slow responding to questions but answers were appropriate. Without chest pain or dyspnea
Physical Exam
Vital Signs/Labs
Vital Signs
Temp Pulse Resp BP Pulse Ox
97.5 F 81 16 107/66 96
03/11/25 07:38 03/11/25 08:38 03/11/25 07:38 03/11/25 08:38 03/11/25 07:38
03/10/25 03/11/25 03/12/25
06:59 06:59 06:59
Actual Weight 80.853 kg 81.556 kg
03/08/25 08:01
03/11/25 06:25
PT 14.2 Sec (11.4-14.6) 02/28/25 08:03
INR 1.05 02/28/25 08:03
APTT Cancelled 03/05/25 18:00
Magnesium 2.1 mg/dl (1.6-2.3) 03/07/25 04:14
Triglycerides 315 mg/dl (10-149) H 02/28/25 03:28
LDL Cholesterol, Calc 119 mg/dl 02/28/25 03:28
VLDL Cholesterol, Calc 63 mg/dl (0-30) H 02/28/25 03:28
HDL Cholesterol 63 mg/dl 02/28/25 03:28
02/27/25 02/27/25 02/27/25
18:02 18:31 19:35
Jeo-T-Nhtkqkdtbku Pept Cancelled Cancelled Cancelled
02/27/25 03/01/25
Unknown 15:17
Qqw-P-Ohvmztxcbus Pept [id number]
Physical Exam
Constitutional: No acute distress
Cardiovascular: Rhythm & rate is regular
Respiratory: Wheeze Absent and Rhonchi Absent
GI: Soft, Normal bowel sounds and Abdomen is tender
Neuro/Psych: Alert and AO x 3
Other: Skin
Data Reviewed
-
Date of Service: March 11, 2025
Medical Decision Making: Reviewed Test Results and Review of Case with other Provider (Discussed issues with nursing staff)
Echo: Report Reviewed by me
Medical Tests (PFT, Pathology etc): Report Reviewed by me
Labs: Labs Reviewed by me
--- NOTE | 2025-03-11 11:49 | W.PN.HOSP.TC ---
Today's Communication/Plan
-
Continue current care
Assessment / Plan
Assessment / Plan
Gen-sleepy but arousable, NAD
HEENT-NC, AT, anicteric, clear oral mm
Neck-supple
CV-reg, no M, +S1/S2
Lungs-clear B/L
Abd-soft, NT, ND
Ext-no edema
Musculoskeletal-no cyanosis, clubbing
Skin-warm and dry
Neuro-left hemiparesis, left leg weaker than arm
Psych-calm, cooperative
V-Tach / V-Fib Cardiac Arrest -in hospital, emergency room.
Shock -- suspected cardiogenic
- Flash pulmonary edema and hypoxia on presentation (LVEDP was high on cardiac cath)
- Extubated on 03/03/25
- With abrupt onset, significant risk factors, new LBBB, etc - patient went for emergent ischemic evaluation 02/27/25
- Cath above showed chronic RCA occlusion, 90% LAD proximal LAD, and LVEDP = 40 mmHg
- Echo 02/28/25 showed hypokinesis, low EF and severe
- No stents placed/medical management recommended.
- CT PE study showed no PE
- No need to continue anticoagulation and amiodarone as per cardiology, both were discontinued 03/05.
Cardiology contemplating LifeVest versus ICD before discharge.
Acute heart failure reduced EF exacerbation -EF 15 to 20% on echocardiogram. Stage I diastolic dysfunction.
- GDMT when tolerating PO reliably -- trial of other PO medications started on 03/04/25
- Bumex per cardiology. Currently on IV 1 mg daily. Blood pressure relatively low, consider changing to oral Bumex.
Weight stable at 80 kg. Admission weight was 89 kg.
Severe three-vessel CAD -Plan for TAVR with minimally invasive surgical revascularization of his CAD this Tuesday 03/13.
Severe aortic stenosis -noted on echocardiogram, aortic valve area 0.54 cm�. Plan for TAVR with minimally invasive surgical revascularization of his CAD this Tuesday 03/13.
Dysphagia -speech therapy advance diet to soft/bite sized with thin liquids.
Hypokalemia -improved.
Fever/SIRS -no evidence of pneumonia or infection. Has received 5 days of Unasyn so far. Antibiotics discontinued 03/05. Patient denies cough. Last fever 03/05.
Differential diagnosis for fever includes aspiration pneumonitis. 03/04 chest x-ray clear, resolution of pulmonary edema.
- Suspected from Precedex, as per [employer] worker -- Precedex previously stopped
-Blood cultures 02/28 and 03/02 negative so far. Urine culture no growth.
- COVID negative, Influenza A/B negative, S. Pneumoniae UAG negative, Legionella UAG negative
Medication Non-Compliance for Years
Pulmonary Edema
Acute Hypoxemic Respiratory Failure / VDRF -due to acute heart failure exacerbation.
- CXR / CT chest showed pulmonary edema - possibly flash pulmonary edema
- clinical laboratory science professor results as above
- Bumex on hold given elevated creatinine
- Cardiology evaluation as noted above.
Polycythemia
- Patient with marked polycythemia with Hgb = 21 (confirmation / repeat = 22). Hemoglobin improved, 16.5 today.
- Likely multiple underlying reasons for secondary polycythemia including chronic hypoxemia, liver disease, etc - but current elevation seems excessive.
- JAK2 negative, erythropoietin level normal. Rules out polycythemia vera. Testing for hemochromatosis shows 1 copy of H63D mutation per hematology. No indication for phlebotomy.
Acute thrombocytopenia -platelet count now improving. No further indication for anticoagulation, argatroban discontinued 03/05. HIT panel negative.
Anion Gap Metabolic Acidosis Suspected Secondary to Lactic Acidosis
- RESOLVED
- Likely secondary to acute ischemia
- Lactic acidosis trended down
Essential hypertension -now hypotensive. Will defer to cardiology as GDMT is being added.
- Patient non-compliant with medications chronically.
- Continue Metoprolol
- Adjust med regimen as needed for BP control.
DM 2 without hyperglycemia
- Uncontrolled / non-compliant outpatient
- Insulin Drip discontinued. Now on Lantus 8 units at bedtime, low resistance aspart scale. Glucose 92 this morning. Daytime glucoses controlled. Hemoglobin A1c 5.4%.
Left Hemiparesis as Late Effect of CVA
- CT head showed prior R MCA stroke.
- Patient has been non-compliant with med regimen for years - including ASA, etc.
- Patient claims he ambulates at home without assistive device. Continue PT/OT
Alcohol Use Disorder
- Long-standing alcohol use disorder. 10-12 beers daily per .
- Continue to monitor for alcohol withdrawal
- Monitor for any evidence of withdrawal symptoms and treat with BZDs as needed. Stopped diazepam cfsrwy-mio-apges.
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
- Thiamine, folate replacement
- Vitamin B12 supplementation
- [facility] protocol
Transaminitis
- From alcohol vs. shock state from CPR. Transaminases normalized, but now on the rise again. Bilirubin normal but alkaline phosphatase elevated as well. Etiology unclear but differential diagnosis includes adverse drug reaction versus
hypotension induced ischemic hepatitis versus other.
Hold rosuvastatin. Abdominal ultrasound done December of this year showed no acute hepatobiliary abnormalities, patent portal and hepatic veins. Heterogeneous and echogenic appearance of the hepatic parenchyma suggestive of fatty infiltration,
steatosis. No focal hepatic lesions.
Patient had CT abdomen/pelvis on 03/10 with liver imaging showing a few small benign calcified granulomas within the liver, no suspicious focal hepatic lesion, no biliary ductal dilation. Gallbladder unremarkable..
Hyperlipidemia -statin on hold for elevated transaminases.
Stage 1 sacrum pressure injury, POA
-Wound care
Acute urinary retention -Schultz catheter remains in place.
Code Status: Full Code
Dispo -anticipate acute rehab when medically stable. PMR consulted.
Anticipated Discharge: > 48 hours
Subjective/Interval History
-
Date of Service: March 11, 2025
Patient seen and examined. No complaints.
Objective Data
-
Labs:
Laboratory Results
03/11/25
06:25
Sodium 134 L
Potassium 4.6
Chloride 105
Carbon Dioxide 21 L
BUN 34 H
Creatinine 0.9
Glucose 117 H
Calcium 9.3
Total Bilirubin 0.9
AST 100 H
ALT 110 H
Alkaline Phosphatase 151 H
Vital Signs:
Vital Signs
Temp Pulse Resp BP Pulse Ox
97.5 F 81 16 107/66 96
03/11/25 07:38 03/11/25 08:38 03/11/25 07:38 03/11/25 08:38 03/11/25 07:38
I&O
03/10/25 03/11/25 03/12/25
06:59 06:59 06:59
Intake Total 240 / 240 960 / 960
Output Total 1050 / 1050 200 / 200
Balance -810 / -810 760 / 760
Review of Systems
-
History Source: Patient
All other systems: Reviewed and negative
[2025-03-11 12:32] LABS: Glucose - Point of Care 128 mg/dl (70-99)
[2025-03-11] MEDS: LOVENOX 40 MG SC (17:23)
[2025-03-11 17:29] LABS: Glucose - Point of Care 121 mg/dl (70-99)
[2025-03-11 21:16] LABS: Glucose - Point of Care 112 mg/dl (70-99)
[2025-03-11] MEDS: LANTUS 0.05 UNITS SC (21:40)
[2025-03-12] VITALS (13 sets, daily range): BP systolic 93–124; BP diastolic 67–87; BMI 27.0
--- NOTE | 2025-03-12 00:30 | PTCARENOTE ---
Addendum entered by Nori Case RN 03/12/25 00:33:
Surgical site prepared/clipped. CHG soap bed bath completed. NPO after midnight
Original Note:
Pt transferred to room 5917. Pt NSR with BBB on monitor, VSS. Pt denies any pain or discomfort at this time. Pt oriented to the room, safety measures in place
[2025-03-12 04:30] LABS: ALT (SGPT) 143 U/L (0-50); AST (SGOT) 169 U/L (17-59); Albumin 3.4 g/dl (3.5-5.0); Alkaline Phosphatase 165 U/L (38-126); Blood Urea Nitrogen 29 mg/dl (9-20); Calcium 9.5 mg/dl (8.4-10.2); Carbon Dioxide 19 mmol/L (22-30); Chloride 106 mmol/L (98-107); Estimated Creatinine Clearance 87 ml/min; Glucose 124 mg/dl (70-99); Potassium 4.6 mmol/L (3.5-5.1); Sodium 134 mmol/L (135-145); Total Protein 7.2 g/dl (6.3-8.2); eGFR > 60.00
[2025-03-12 07:43] LABS: B.E. -1.4 mmol/L; HCO3 21.9 mmol/L (21-28); O2 Saturation % 95.7 % (94-98); PCO2 33 mmHg (35-48); PO2 69 mmHg (83-108); Potassium 4.2 mMOL/L (3.5-5.1); Sodium 128 mMOL/L (136-145)
[2025-03-12 07:45] LABS: O2 Therapy ROOM AIR
--- NOTE | 2025-03-12 08:14 | PN.DE.MGMTRT ---
Insulin Management
- -
03/12/2025: Diabetes Management Follow up
69 year old male with cardiac arrest in the ED. PMH: HTN, HLD, T2DM, Hx of CVA with L hemiparesis. Pt presented to the ED c/o SOB. He was then noted to have pulseless VT and periods of V-Fib on monitor. He underwent CPR and multiple rounds of
defibrillation here in the ED. He received epinephrine, bicarbonate, amiodarone and calcium. ROSC was achieved. Patient remained unresponsive since this event. EKG showed new LBBB and patient was taken to the pathology laboratory director for emergent ischemic
evaluation. No family at bedside.
Glucose on admission was 237 Venous. A1C 5.4%, Cr 1.3, eGFR >60.
Pt was extubated on 03/03. Awake, alert, minimally engaged verbally, able to briefly discuss diabetes care plan, family at bedside.
Was transitioned off insulin infusion on 03/04 to Lantus 8 units @ HS and corrective insulin.
Currently NPO for TAVR workup. Received reduced dose of Lantus @ HS
Glucose range of 118 to 128 yesterday, required no corrective insulin.
Fasting glucose today 124 V, 135 POC.
Will make no changes to current regimen. Cont Lantus 8 units @ HS with low corrective and Farxiga 10mg daily
Discussed with Nurse. Will cont to follow.
Diabetes History
- -
Type of Diabetes: 2 requiring insulin
Pre-Admission Diabetes Regimen
03/12/25
03:48
Creatinine 0.8
Lab Results
Hemoglobin A1c 5.4 % (4.0-5.6) 02/28/25 03:28
Insulin Pump Settings
IP Diabetes Regimen
03/11/25 03/11/25 03/11/25
12:30 17:27 21:14
Glucose
POC Glucose 128 H 121 H 112 H
03/12/25
03:48
Glucose 124 H
POC Glucose
Meal type: Dinner
Amount consumed: 85%
Patient Education
[2025-03-12 08:18] LABS: Hematocrit 49.8 % (39.0-52.0); Hemoglobin 17.5 g/dL (13.0-18.0); Mean Corp Hgb Conc. 35.1 g/dL (33.0-37.0); Mean Corpuscular Volume 99.4 fL (80.0-94.0); Nucleated Red Blood Cells % 0 % (-); Platelet Count 341 10^3/uL (130-400); Red Cell Dist. Width 13.3 % (11.5-14.5)
--- NOTE | 2025-03-12 08:18 | W.PN.HOSP.TC ---
Today's Communication/Plan
-
Hybrid intervention with TAVR and MidCAB later today
Transfer to cardiothoracic surgery service, under Dr. Merritt
Assessment / Plan
Assessment / Plan
Physical Exam
Gen-Not in acute distress
HEENT-NC, AT
Neck-supple
CV-reg, no M, +S1/S2
Lungs-clear B/L
Abd-soft, NT, ND. positive bowel sounds.
Ext-no edema
Musculoskeletal-no cyanosis
Skin-warm and dry
Neuro-left hemiparesis, left leg weaker than arm
Psych-calm, cooperative
Assessment/Plan
V-Tach / V-Fib Cardiac Arrest -in hospital, emergency room.
Shock -- suspected cardiogenic
- Flash pulmonary edema and hypoxia on presentation (LVEDP was high on cardiac cath)
- Extubated on 03/03/25
- With abrupt onset, significant risk factors, new LBBB, etc - patient went for emergent ischemic evaluation 02/27/25
- Cath showed chronic RCA occlusion, 90% LAD proximal LAD, and LVEDP = 40 mmHg
- Echo 02/28/25 showed hypokinesis, low EF and severe
- No stents placed/medical management recommended.
- CT PE study showed no PE
- No need to continue anticoagulation and amiodarone as per cardiology, both were discontinued 03/05/25.
Cardiology contemplating LifeVest versus ICD before discharge.
Acute heart failure reduced EF exacerbation -EF 15 to 20% on echocardiogram. Stage I diastolic dysfunction.
- GDMT when tolerating PO reliably -- trial of other PO medications started on 03/04/25
- Bumex per cardiology.
Severe three-vessel CAD -Plan for TAVR with minimally invasive surgical revascularization of his CAD on 03/12/25
Severe aortic stenosis -noted on echocardiogram, aortic valve area 0.54 cm�. Plan for TAVR with minimally invasive surgical revascularization of his CAD on 09/22/25
Dysphagia -speech therapy advance diet to soft/bite sized with thin liquids.
Hypokalemia -improved.
Fever/SIRS -no evidence of pneumonia or infection. Has received 5 days of Unasyn so far. Antibiotics discontinued 03/05. Patient denies cough. Last fever 03/05.
Differential diagnosis for fever includes aspiration pneumonitis. 03/04 chest x-ray clear, resolution of pulmonary edema.
- Suspected from Precedex, as per operator lights -- Precedex previously stopped
-Blood cultures 02/28 and 03/02 with no growth. Urine culture no growth.
- COVID negative, Influenza A/B negative, S. Pneumoniae UAG negative, Legionella UAG negative
Medication Non-Compliance for Years
Pulmonary Edema
Acute Hypoxemic Respiratory Failure / VDRF -due to acute heart failure exacerbation.
- CXR / CT chest showed pulmonary edema - possibly flash pulmonary edema
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
- Cardiology evaluation as noted above.
Polycythemia
- Patient with marked polycythemia with Hgb = 21 (confirmation / repeat = 22). Hemoglobin improved, 17.5 today.
- Likely multiple underlying reasons for secondary polycythemia including chronic hypoxemia, liver disease, etc - but current elevation seems excessive.
- JAK2 negative, erythropoietin level normal. Rules out polycythemia vera. Testing for hemochromatosis shows 1 copy of H63D mutation per hematology. No indication for phlebotomy.
Acute thrombocytopenia - RESOLVED. No further indication for anticoagulation, argatroban discontinued 03/05. HIT panel negative.
Anion Gap Metabolic Acidosis Suspected Secondary to Lactic Acidosis - RESOLVED
- Likely secondary to acute ischemia
- Lactic acidosis trended down
Non anion gap metabolic acidosis
- Monitor BMP
Essential hypertension -now hypotensive. Will defer to cardiology as GDMT is being added.
- Patient non-compliant with medications chronically.
- Continue Metoprolol
- Adjust med regimen as needed for BP control.
DM 2 without hyperglycemia
- Uncontrolled / non-compliant outpatient
- Glucose is now well-controlled and not needing Sliding Scale Insulin or long-acting Insulin.
Left Hemiparesis as Late Effect of CVA
- CT head showed prior R MCA stroke.
- Patient has been non-compliant with med regimen for years - including ASA, etc.
- Patient claims he ambulates at home without assistive device. Continue PT/OT
Alcohol Use Disorder
- Long-standing alcohol use disorder. 10-12 beers daily per .
- Continue to monitor for alcohol withdrawal
- Monitor for any evidence of withdrawal symptoms and treat with BZDs as needed. Stopped diazepam [id number].
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
- Thiamine, folate replacement
- Vitamin B12 supplementation
- [facility] protocol
Transaminitis
- From alcohol vs. shock state from CPR. Transaminases normalized, but now on the rise again. Bilirubin normal but alkaline phosphatase elevated as well. Etiology unclear but differential diagnosis includes adverse drug reaction versus
hypotension induced ischemic hepatitis versus other.
Hold rosuvastatin. Abdominal ultrasound done December of this year showed no acute hepatobiliary abnormalities, patent portal and hepatic veins. Heterogeneous and echogenic appearance of the hepatic parenchyma suggestive of fatty infiltration,
steatosis. No focal hepatic lesions.
Patient had CT abdomen/pelvis on 03/10 with liver imaging showing a few small benign calcified granulomas within the liver, no suspicious focal hepatic lesion, no biliary ductal dilation. Gallbladder unremarkable..
Hyperlipidemia -statin on hold for elevated transaminases.
Stage 1 sacrum pressure injury, POA
-Wound care
Acute urinary retention -Schultz catheter remains in place.
Code Status: Full Code
Dispo -anticipate acute rehab when medically stable. PMR consulted.
Anticipated Discharge: > 48 hours
Subjective/Interval History
-
Date of Service: March 12, 2025
Patient was seen and examined. He denied any chest pain or any other complaints.
Objective Data
-
Labs:
Laboratory Results
03/12/25 03/12/25 03/12/25
03:48 07:34 07:39
WBC 9.4
Hgb 17.5
Hct 49.8
Plt Count 341 D
PT
INR
APTT
HCO3 21.9
Sodium 134 L
Potassium 4.6
Chloride 106
Carbon Dioxide 19 L
BUN 29 H
Creatinine 0.8
Glucose 124 H
Calcium 9.5
Total Bilirubin 1.0
AST 169 H
ALT 143 H
Alkaline Phosphatase 165 H
03/12/25
07:49
WBC
Hgb
Hct
Plt Count
PT Pending
INR Pending
APTT Pending
HCO3
Sodium
Potassium
Chloride
Carbon Dioxide
BUN
Creatinine
Glucose
Calcium
Total Bilirubin
AST
ALT
Alkaline Phosphatase
Vital Signs:
Vital Signs
Temp Pulse Resp BP Pulse Ox
98.0 F 82 16 106/67 93
03/12/25 03:53 03/12/25 06:30 03/12/25 03:53 03/12/25 03:53 03/12/25 03:53
I&O
03/11/25 03/12/25 03/13/25
06:59 06:59 06:59
Intake Total 960 / 960
Output Total 200 / 200 1375 / 1375
Balance 760 / 760 -1375 / -1375
[2025-03-12 08:47] LABS: Glucose - Point of Care 135 mg/dl (70-99)
[2025-03-12] MEDS: TOPROL XL PO (08:51)
[2025-03-12] MEDS: VITAMIN B1 PO (08:52)
[2025-03-12 09:07] LABS: INR 1.03; PT 13.8 Sec (11.4-14.6)
[2025-03-12 09:08] LABS: APTT 30.6 Sec (23.4-35.0)
--- NOTE | 2025-03-12 09:21 | PTCARENOTE ---
Assumed care. Patient NPO since midnight. AO x3, withdrawn, flat, left upper extremity weakness, can wiggle fingers, left weak hand grasp, and left arm quickly falls to bed, left leg weakness, can lift slightly off the bed. transferred to the
commode with assistance times 2, soft brown stool, does not take steps with left leg. NSR HR 80's, murmur, +1 DP, no edema. Condom catheter intact, jinny urine. Foam on sacrum, heel and elbow foams. Bed and chair alarms audible, call asencio in reach
--- NOTE | 2025-03-12 09:25 | W.CVOR.SURPR ---
CVOR Surgeon Immed Pre Op
-
I have examined this patient prior to performance of the scheduled procedure.
The patient's condition is unchanged from the time of the dictated/written History and
Physical and the patient is able to undergo the scheduled procedure.
TF TAVR
Full Rescue
I reviewed the plan of care with Mr. Mckeon who is more interactive and lucid today. He agrees to move forward for hybrid intervention in the form of TAVR and MidCAB.
[2025-03-12] MEDS: KCL ELIXIR 40 MEQ PO (09:26)
[2025-03-12] MEDS: BUMEX 1 MG PO (09:26)
[2025-03-12] MEDS: LOW STRENGTH ASPIRIN 81 MG PO (09:26)
[2025-03-12] MEDS: ALDACTONE 12.5 MG PO (09:26)
[2025-03-12] MEDS: FOLVITE PO (09:27)
[2025-03-12] MEDS: DESENEX/MITRAZOL/ZEASORB 1 APPLIC TOPICAL ×2 (09:27→22:13)
--- NOTE | 2025-03-12 09:34 | W.PN.UPDATE ---
Update Note
Progress Note Update
STS Risk Assessment:
Procedure Type:�Isolated CABG
Perioperative Outcome Estimate %
Operative Mortality 4.85%
Morbidity & Mortality 20%
Stroke 3.67%
Renal Failure 2.89%
Reoperation 4.72%
Prolonged Ventilation 12.1%
Deep Sternal Wound Infection 0.411%
Long Hospital Stay (>14 days) 16.5%
Short Hospital Stay (<6 days)* 20%
Procedure Type:�Isolated AVR
Perioperative Outcome Estimate %
Operative Mortality 3.45%
Morbidity & Mortality 19.2%
Stroke 1.45%
Renal Failure 2.35%
Reoperation 7.11%
Prolonged Ventilation 11.4%
Deep Sternal Wound Infection 0.169%
Long Hospital Stay (>14 days) 10.4%
Short Hospital Stay (<6 days)* 27.6%
Procedure Type:�CABG + AVR
Perioperative Outcome Estimate %
Operative Mortality 5.83%
Morbidity & Mortality 28.2%
Stroke 5.25%
Renal Failure 4.36%
Reoperation 7.37%
Prolonged Ventilation 24.6%
Deep Sternal Wound Infection 0.522%
Long Hospital Stay (>14 days) 22.6%
Short Hospital Stay (<6 days)* 11.7%
Clinical Summary
Planned Surgery: Isolated CABG, Urgent, First cardiovascular surgery
Demographics: 69 year old, male, 80.4kg, 173cm, BMI: 26.9 kg/m�
Lab Values: Creatinine: 0.8 mg/dL, Hematocrit: 49.8%, WBC Count: 9.4 10�/�L, Platelet Count: 657929 cells/�L
PreOp Medications: GABE Inhibitors/ARBs <=48 hrs, Insulin diabetes control
Substance Abuse: Never smoker, Alcohol use: >=8 drinks/week
Risk Factors / Comorbidities: Insulin-dependent Diabetes Mellitus, Liver Disease, Hypertension
Vascular RF: Cerebrovascular Disease: CVA > 30 days
Cardiac Status: Acute heart failure, NYHA Class III, Ejection Fraction = 25%
Coronary Artery Disease: 3 vessels diseased, Proximal LAD Stenosis >=70%, Non-ST Elevation KS, KS: 8 to 21 Days
Valve Disease: Aortic Stenosis, Trivial/Trace TR
Arrhythmia: Recent A-fib, Paroxysmal, Recent V. Tach / V. Fib
--- NOTE | 2025-03-12 11:09 | W.PN.UPDATE ---
Addendum entered and electronically signed by LYLY Anaya 03/12/25 11:54:
Strike from record_documented on incorrect patient
Original Note:
Update Note
Progress Note Update
No pacing required. Epicardial ventricular wires clipped to skin level. Motrin DC'd due to GI upset. Cochicine dose decreased to 0.6mg daily due to episode of diarrhea.
--- NOTE | 2025-03-12 12:27 | PTCARENOTE ---
Patient incontinent of large amount of brown stool. Complete bed bath given, 2% CHG wipes, patient clipped, NPO since midnight, blood sugar 105
[2025-03-12 12:32] LABS: Glucose - Point of Care 105 mg/dl (70-99)
--- NOTE | 2025-03-12 12:49 | ITS.CL.PN ---
Staff Nurse Anesthetist - Procedure Note
Procedure
Procedure Note:
TRANSCATHETER AORTIC VALVE REPLACEMENT REPORT
Date of Procedure: 03/12/2025
Referring: Dr. Preet Patel MD
Indication: Symptomatic severe aortic valve stenosis
Operators: Gianni Stapleton MD, PhD (interventional cardiology); Dr. Naya Magdaleno MD (CT surgery)
Anesthesia: conscious sedation provided by the anesthesia staff
PROCEDURE: transfemoral, transcatheter aortic valve replacement with an Renner JOSE MARTIN 3 Ultra RESILIA 26 mm valve
ACCESS:
1. 6F left femoral vein (closure: manual hemostasis) - Ultrasound was utilized for vascular access. The vessel was visualized under ultrasound and noted to be patent. An image of the vessel was stored permanently in the patient's medical record.
Under direct ultrasound guidance, vascular access was obtained using a modified Seldinger technique and a 6 Niuean sheath was placed.
2. 6F left common femoral artery (closure: Angioseal) - Ultrasound was utilized for vascular access. The vessel was visualized under ultrasound and noted to be patent. An image of the vessel was stored permanently in the patient's medical record.
Under direct ultrasound guidance, vascular access was obtained using a modified Seldinger technique and a 6 Niuean sheath was placed.
3. 14 F right common femoral artery (closure: Perclose x2) - Ultrasound was utilized for vascular access. The vessel was visualized under ultrasound and noted to be patent. An image of the vessel was stored permanently in the patient's medical
record. Under direct ultrasound guidance, vascular access was obtained using a modified Seldinger technique and a 8 Niuean sheath was placed.
HEMODYNAMIC DATA
LVEDP 17 mmHg
PROCEDURE NARRATIVE:
The patient was prepped and draped in standard sterile fashion. Conscious sedation was provided by the anesthesia staff. 6F left femoral vein and left common femoral artery access was obtained with ultrasound guidance using micropuncture technique
with verification of appropriate arteriotomy location via hand injection angiography. A temporary venous pacing wire was advanced via the left femoral vein to the right ventricle under fluoroscopic guidance with appropriate capture verified. A 5F
pigtail catheter was advanced via the left common femoral artery and seated in the right coronary cusp. Angiography was performed to verify the co-planar angle.
8F right common femoral artery access was obtained with ultrasound guidance using micropuncture technique with verification of appropriate arteriotomy location via hand injection angiography. The arteriotomy was preclosed with two Perclose sutures
followed by replacement of the 8F sheath. Using an AL1 catheter, an Amplatz Extrastiff wire was placed in the descending thoracic aorta. The 8F sheath was removed and the 14 F Renner E-sheath was inserted over the Extrastiff wire and into the
descending aorta. Heparin 6000 units was given. The AL1 catheter was re-advanced through the E-sheath to the level of the ascending aorta. The Extrastiff wire was exchanged for a soft tipped straight wire which was used to cross the aortic valve and
deposit the AL1 in the LV apex. A J-wire was used to exchange the AL1 for a pigtail catheter in the LV and LVEDP was measured. An Amplatz Extrastiff wire with curved proximal end was advanced through the pigtail catheter and seated in the LV apex.
ACT was checked and confirmed to be >300 seconds.
The valve was brought to the table with orientation and deployment contrast volume verified. The valve was advanced over the Extrastiff wire and into the descending aorta. The balloon was withdrawn, and the valve was mounted on the balloon. The
valve was advanced over the aortic arch and into the aortic valve annulus. The pusher device was withdrawn. Low volume aortography confirmed valve positioning. The valve was deployed during rapid ventricular pacing. The balloon was walked back to
the descending aorta while leaving the wire in place. The patient was resuscitated by anesthesia with recovery of adequate blood pressure. Telemetry demonstrating normal sinus rhythm. Aortography demonstrated good valve positioning, adequate
coronary filling, and no aortic valve insufficiency. Echocardiography confirmed no aortic insufficiency. Mean valve gradient was 4 mmHg. The valve deployment system was removed.
The Renner E sheath was removed, and hemostasis obtained with the two Perclose sutures. Protamine 30 mg was given. Aortoiliac angiography demonstrated no evidence of iliofemoral dissection/perforation and good runoff below the common femoral artery
bilaterally. The pacemaker and the pigtail catheter were removed. The left femoral artery sheath was removed using a 6F Angioseal. The left femoral venous sheath was removed with manual pressure.
CONCLUSIONS
1. successful placement of an Renner JOSE MARTIN 3 Ultra RESILIA 26 mm transcatheter aortic valve via right transfemoral approach with no acute complications
2. acute on chronic systolic heart failure with severely reduced LVEF (20-25%)
Signed: Gianni Stapleton MD, PhD
--- NOTE | 2025-03-12 13:09 | CM ---
Chart reviewed. Patient is independent of ADLS prior to surgery, lives with his and mother in a 1 STH, ramp access, does not use any DME but has a SPC and rollator at home. PT evaluation recommending Acute Rehab, Physiatry to see patient and
confirmed. Patient going for a TAVR today and MidCAB 03/13. Preoperative and postoperative instructions and restrictions provided to the patient, and mother. Also showering instruction along with a TAVR and Cardiac Surgery Book. Plan is for
the patient to go to [facility]. Referral also sent to Paulette Salmeron. Plan is for the patient to go to Acute Rehab when medically stable. CM to follow
--- NOTE | 2025-03-12 13:41 | PTCARENOTE ---
Patient sent to the OR
[2025-03-12 15:29] LABS: ACT-LR - POC 279 Seconds (116-155)
--- NOTE | 2025-03-12 15:59 | W.PN.CD ---
Today's Communication / Plan
-
routine post TAVR care
MIDCAB tomorrow
Impression / Plan
-
Background: 69 y/o male with HTN, HLD, remote CVA complicated by left hemiparesis, transaminitis related to EtOH abuse vs. possible hemochromatosis with at least moderate hepatic fibrosis admitted with acute, vent dependent respiratory failure
complicated by VT/VF arrest and new LBBB. Found to have severe MV CAD and severe . Now s/p sucessful TF TAVR (03/12/2025, 26 S3UR Stapleton/Rasta) with plan for MIDCABG to LAD/diagonal tomorrow with Dr. Merritt.
Severe 3 V CAD
- Cath 02/27/2025: 100% pRCA, 100% dLCx, 100% OM1, 90% complex p-mLAD; no clear cuprit lesion for VA, arrest may have been in setting of decompensated heart failure with underlying IHD. LAD supplies collaterals to the CTOs so revascularization of the
LAD and diagonal will provide near complete revasc.
- No angina
- cont. ASA
- MIDCAB tomorrow, NPO@MN
Severe Aortic Stenosis
- Echo 02/28/2025: HANNAH 0.54 cm2, mean 35 mmHg
- s/p TF TAVR with Nicole S3UR 26 mm valve 03/12/2025 (Stapleton/Rasta)
- cont. SAPT with ASA
Secondary VT/F arrest in the ER
- Severe CAD - obstructive and severe with heart failure and class III-IV NYHA symptoms.
- No further VT/VF since ER admit
- Consider LifeVest if able to achieve revascularization.
Severe HFrEF from a Severe Ischemic cardiomyopathy
- Cath 02/27/2025 LVEDP 40 mmHg
- Echo 02/28/2025: LVEF 15-20%
- Echo 03/08/2025: LVEF 25-30%
- Medical therapy in progress
- Low dose ARB
- Low dose metoprolol
- SGLT2-I
- low dose MRA/Aldactone
- consider further GDMT titration post CABG
- Changed from IV Bumex to oral 03/11/2025. Continue to monitor labs and weights
LBBB, QRS 176 ms
- Watch for heart block
- Will be a candidate for RADIAL DRILL OPERATOR FOR PLASTIC with backup defibrillation in the future
- Telemetry reviewed - no pause or block noted.
Elevated Hgb, elevated MCV, and acquired transient thrombocytopenia, heme involved
- Plt improved (plt 120 on 03/06/2025), Heparin off, off Argatroban
- HIT negative, heparin can be used again if needed
- Per hematology:
- 'Jak2 is negative and EPO normal -- essentially rules out PVera
- One copy of H63D mutation. This genotype has not been associated with symptoms of hereditary hemochromatosis. No indication for phlebotomy.
- HIT Phylicia pending. Platelet count trending up'
Mixed hyperlipidemia, LDL was not at goal, goal LDL less than 55
- cont. rosuvastatin 40 daily
ETOH
Hepatic fibrosis/ steatosis, at least moderate by Fibroscan.
S/p stroke with chronic LUE weakness an mild LLE weakness
Lung disease suspected, per hospitalist, on Atrovent/albuterol
Physical Exam
Vital Signs/Labs
Vital Signs
Temp Pulse Resp BP Pulse Ox
36.3 C 91 14 115/83 94
03/12/25 12:58 03/12/25 12:30 03/12/25 08:17 03/12/25 11:55 03/12/25 12:58
03/11/25 03/12/25 03/13/25
06:59 06:59 06:59
Actual Weight 81.556 kg 80.4 kg
03/12/25 07:39
03/12/25 03:48
PT 13.8 Sec (11.4-14.6) 03/12/25 08:46
INR 1.03 03/12/25 08:46
APTT 30.6 Sec (23.4-35.0) 03/12/25 08:46
Magnesium 2.1 mg/dl (1.6-2.3) 03/07/25 04:14
Triglycerides 315 mg/dl (10-149) H 02/28/25 03:28
LDL Cholesterol, Calc 119 mg/dl 02/28/25 03:28
VLDL Cholesterol, Calc 63 mg/dl (0-30) H 02/28/25 03:28
HDL Cholesterol 63 mg/dl 02/28/25 03:28
02/27/25 02/27/25 02/27/25
18:02 18:31 19:35
Tpe-Y-Ovprkhpxgds Pept Cancelled Cancelled Cancelled
02/27/25 03/01/25
Unknown 15:17
Lsw-[id number]-Jhrpdgzpwbd Pept [id number]
Physical Exam
Constitutional: Comfortable
Cardiovascular: Rhythm & rate is regular
Respiratory: Respiratory effort normal
Neuro/Psych: AO x 3
Data Reviewed
-
Date of Service: March 12, 2025
Medical Decision Making: Reviewed Test Results
EKG: Tracing Personally Visualized and interpreted
Labs: Labs Reviewed by me
--- NOTE | 2025-03-12 16:00 | PTCARENOTE ---
Patient received at 1605; ns on monitor; VSS; Doppler DP and normal radial pulses present; Lungs diminished at bases; 6L non rebreather moved to 2L NC; Hypoactive BS; Condom catheter in place draining clear, yellow urine; , right & left groin
puncture, approximated, and CDI, Right radial A-line in place, see nursing flowsheets for further details; see nursing documentation for further details.
--- NOTE | 2025-03-12 16:18 | W.PN.CT.SURG ---
CT Surgery Operative Note
-
OPERATIVE REPORT
Preoperative Diagnosis: Severe aortic valve stenosis, symptomatic, multivessel coronary artery disease
Postoperative Diagnosis: Same
Procedure(s) Performed: Right trans femoral TAVR with a 26 mm Renner Resilia TAVR valve
Date of Procedure: 03/12/2025
Comorbidities:
1. Severe aortic stenosis, symptomatic
2. Hypertension
3. Hyperlipidemia
4. Remote CVA with left hemiparesis
5. Transaminitis secondary to alcohol abuse
6. Multivessel CAD
Cardiac Surgeon: Naya Magdaleno MD, MPH
Filter Tank Tender: Quintin Stapleton MD
Anesthesia: Conscious Sedation and Local Analgesia
EBL: 200 cc
Products: none
Implant: 26 mm Renner Ultra Resilia, SN: [id number]
Indication(s) for Procedures: 69-year-old male with symptomatic severe aortic stenosis, multivessel CAD, HTN, HLD, transaminitis related to alcohol abuse with moderate hepatic fibrosis admitted with acute respiratory failure on ventilator
complicated by VT/VF arrest and a new LBBB. PG/M mmHg, HANNAH 0.54. CT-TAVR protocol revealed acceptable anatomy for TAVR access and implantation. Multiple discussions were had with the patient and family, it was felt that due to his
comorbidities liver disease and current mental status and understanding of his situation to hybrid approach with TAVR first followed by robotic MIDCAB would best serve this patient.
Start time: 1450 hrs
Deployment time: 1525 hrs
End time: 1540 hrs
Radiation Dose (mGy): 332
DAP (cm2.Gy): 28.7
Fluoroscopy time (minutes): 10.9
Contrast volume (ml): 86
TAVR gradient (mmHg): 4 mmHg
Heparin Dose: 8500 units
Protamine Dose: 30 mg
Final Valve Positionin/20
LVEPD: 17 mmHG
Findings: Preoperative LVEF was 25-30% % and was stable following TAVR without inotropic support. The aortic valve was well seated without detectable PVL and mean gradient across the new valve was 4 mmHg. Patient tolerated rapid pacing
extraordinarily well and was stable throughout with minimal support, he returned to sinus with known left bundle branch block while on the cathode ray tube assembler table. There was successful placement of 26 mm TAVR valve without acute complications.
Access:
1. Device -R PERSONNEL RECORDS CLERK, perclose x 2
2. Pigtail -L PERSONNEL RECORDS CLERK + 6Fr angioseal
3. Transvenous Pacer -L femoral vein
Description of Procedure: The patient was taken to the cathode ray tube assembler. Their identity and procedure to be performed were verified and they were positioned supine on the cathode ray tube assembler table. Induction via conscious sedation. The patient was then prepped and
draped from chin to thigh in a sterile fashion. A preoperative time-out was performed with all members of the team present. Arterial and venous access was performed using fluoroscopy and ultrasound guidance with micropuncture and Seldinger
technique. Two perclose devices were used on the device side followed by access to the aorta with a stiff wire to facilitate E-sheath placement. Heparin was given. A stiff straight wire and AL-1 catheter was used to cross the aortic valve. An LVEDP
was measured. The stiff wire was exchanged for an extra stiff coiled tip wire. The valve was prepped and mounted on to the device carrier. An ACT of >250 was achieved. We verified x 3 that the valve was mounted in the correct orientation with the
skirt of the valve directed toward the tip of the device carrier. We advanced the device into the descending thoracic aorta where the valve was them mounted onto the balloon under fluoroscopy. The device was flexed and advanced over the arch into
the root and positioned across the aortic valve. Contrast fluoroscopy was used to visualize the prosthesis across the valve and to guide positioning. A pigtail catheter in the RCC as used as a guide. We aimed to have the bottom of the device marker
at the annular hinge point. The device sheath was pulled back. We performed a quick pre-deployment time out. The pacer was turned on and had capture. Blood pressure fell accordingly, angiography was done to verify the intended final placement and
the valve was deployed with 5 seconds of rapid pacing to nominal volume. The balloon was deflated and the pacer was turned off. We had recovery of vitals. The device carrier was unflexed and positioned back in the descending thoracic aorta. A
transthoracic echocardiogram was performed. The device was removed from the E-Sheath maintaining wire access followed by removal of the E-sheath as we cinched down the perclose devices. There was acceptable hemostasis. The pigtail was withdrawn into
the descending/abdominal and completion aortogram with runoff run-off angiography was performed. There was no stenosis or dissection of bilateral iliofemoral systems. There was acceptable hemostasis of bilateral groins and manual pressure was held
following wire removal. Low dose protamine was administered after checking another ACT.
All instrument, sponge, and needle counts were confirmed to be correct x 2 at the end of the operation. The patient was transferred to the cardiac intensive care unit in stable condition.
I, Dr. Naya Magdaleno, was present, scrubbed for, and performed all critical elements of this procedure.
Naya Magdaleno MD, MPH
Cardiothoracic Surgeon
[facility]
This operative dictation was created using the [employer] dictation system. Please excuse any grammatical, typographical, or 'sound alike' errors
[2025-03-12] MEDS: TORADOL 15 MG IV (17:54)
[2025-03-12 18:27] LABS: Glucose - Point of Care 176 mg/dl (70-99)
--- NOTE | 2025-03-12 18:32 | W.PN.UPDATE ---
Update Note
Progress Note Update
Patient appeared back on our rounding list. I spoke to the CVICU NOTEMAN and asked if patient needs to be seen today. Patient is s/p TAVR and will be undergoing MIDCAB tomorrow. Patient is okay to be seen tomorrow after MIDCAB, per CVICU NOTEMAN.
[2025-03-12 19:29] LABS: Blood Urea Nitrogen 31 mg/dl (9-20); Calcium 8.6 mg/dl (8.4-10.2); Carbon Dioxide 18 mmol/L (22-30); Chloride 103 mmol/L (98-107); Estimated Creatinine Clearance 69 ml/min; Glucose 203 mg/dl (70-99); Magnesium 2.2 mg/dl (1.6-2.3); Potassium 5.3 mmol/L (3.5-5.1); Sodium 131 mmol/L (135-145); eGFR > 60.00
--- NOTE | 2025-03-12 20:41 | PTCARENOTE ---
received pt form previous rn. Pt AAOx4, flat. L sided weakness at pt baseline. afebrile, NSR/Sinus tach per tele monitor HR 90-100s. palpable pulses, VSS, pox 95% on 2L NC. occasional non productive cough. condom cath present draining clear yellow
urine. +bs. B/L groin sites intact. plan of care discussed and questions encouraged. see worklist for full assessment and interventions
[2025-03-12] MEDS: VITAMIN B1 100 MG PO (21:36)
[2025-03-12] MEDS: ANCEF 5 IV (21:37)
[2025-03-12] MEDS: LANTUS 0.05 UNITS SC (21:42)
[2025-03-12 21:43] LABS: Glucose - Point of Care 198 mg/dl (70-99)
[2025-03-12 21:53] LABS: B.E. -3.5 mmol/L; HCO3 20.7 mmol/L (21-28); O2 Saturation % 99.8 % (94-98); PCO2 35 mmHg (35-48); PO2 107 mmHg (83-108); Potassium 5.3 mMOL/L (3.5-5.1)
[2025-03-12] MEDS: SODIUM BICARBONATE 50 MEQ IV (23:34)
[2025-03-12] MEDS: CALCIUM GLUCONATE 100 IV (23:34)
--- NOTE | 2025-03-12 23:50 | PTCARENOTE ---
CHG bed bath complete for midcab tomorrow. VSS. assessment unchanged
[2025-03-13] VITALS (15 sets, daily range): BP systolic 88–127; BP diastolic 57–85; BMI 26.5
--- NOTE | 2025-03-13 00:33 | W.PN.CT ---
Today's Communication / Plan
-
Plan:
-No major issues overnight. Hemodynamically and neurologically intact
-Off all drips
-Groin C/D/I without significant hematoma
-Repeat echo today
-Maintain a-line
-NPO for MIDCAB today
Assessment / Plan
-
Assessment:
S/P Right trans femoral TAVR (26 mm Renner Resilia) by Dr Magdaleno/Pieter on 03/12/25, pod#1
-Severe aortic stenosis, symptomatic
-Multivessel CAD
-ICM
-HFrEF (EF 25-30% per echo 03/08/25)
-Hypertension
-Hyperlipidemia
-T2DM (A1C 5.4)
-Remote CVA with left hemiparesis
-Transaminitis/hepatic fibrosis secondary to alcohol abuse
-Possible hemochromatosis
-Thrombocytopenia
-S/P VT/VF arrest with new LBBB, 02/27/25
-S/P VDRF, extubated on 03/03/25
-Acute postop hyperkalemia
Discussed patient care with: Cardiology, Nursing, Respiratory Therapy, Pharmacy and Care Team
Subjective
-
Date of Service: March 13, 2025
Pt c/o mild incisional pain, otherwise feels well
Objective Data
-
PT 13.8 Sec (11.4-14.6) 03/12/25 08:46
INR 1.03 03/12/25 08:46
APTT 30.6 Sec (23.4-35.0) 03/12/25 08:46
Vital Signs
Vital Signs
Temp Pulse Resp BP Pulse Ox
97.7 F 77 18 103/74 94
03/12/25 23:00 03/12/25 23:50 03/12/25 23:50 03/12/25 23:06 03/12/25 23:50
CT Intake/Output/Weight
03/12/25 03/12/25 03/13/25
06:59 18:59 06:59
Output Total 450 / 1375 1300 / 1600 300 / 1600
Balance -450 / -1375 -1300 / -1600 -300 / -1600
SaO2: 94 (2L)
Physical Exam
-
General: Awake, Oriented and AOx3
Cardiovascular: Regular rate & rhythm, No Murmurs, No Rub and No Gallop
Respiratory: Decreased Breath Sounds
Incision: Clean, Dry and Intact
Extremities: Other (+trace edema)
Data Reviewed
-
Lab Results: Results Reviewed
Medications: Active Meds Reviewed
Chest X-Ray: Report Reviewed and Image Reviewed
ECG: Report Reviewed and Image Reviewed
[2025-03-13 05:27] LABS: Hematocrit 48.8 % (39.0-52.0); Hemoglobin 16.7 g/dL (13.0-18.0); Mean Corp Hgb Conc. 34.2 g/dL (33.0-37.0); Mean Corpuscular Volume 99.0 fL (80.0-94.0); Nucleated Red Blood Cells % 0 % (-); Platelet Count 325 10^3/uL (130-400); Red Cell Dist. Width 13.4 % (11.5-14.5)
[2025-03-13 05:48] LABS: Blood Urea Nitrogen 34 mg/dl (9-20); Calcium 9.8 mg/dl (8.4-10.2); Carbon Dioxide 23 mmol/L (22-30); Chloride 105 mmol/L (98-107); Estimated Creatinine Clearance 77 ml/min; Glucose 156 mg/dl (70-99); Magnesium 2.3 mg/dl (1.6-2.3); Potassium 5.2 mmol/L (3.5-5.1); Sodium 136 mmol/L (135-145); eGFR > 60.00
[2025-03-13] MEDS: PROTONIX 40 MG PO (06:03)
[2025-03-13] MEDS: BACTROBAN 2% OINTMENT 1 APPLIC NASAL ×2 (06:03→20:32)
[2025-03-13] MEDS: LOPRESSOR 25 MG PO (06:03)
[2025-03-13] MEDS: MAGNESIUM OXIDE 400 MG PO (06:03)
--- NOTE | 2025-03-13 06:15 | W.CVOR.SURPR ---
CVOR Surgeon Immed Pre Op
-
I have examined this patient prior to performance of the scheduled procedure.
The patient's condition is unchanged from the time of the dictated/written History and
Physical and the patient is able to undergo the scheduled procedure.
RA MIDCAB x 2
--- NOTE | 2025-03-13 07:19 | PTCARENOTE ---
AM Labs obtained. EKG complete. pt washed w/ CHG wipes. VS complete. unable to obtain LBP d/t limb restriction from prior CVA. pt awaiting CVOR.
--- NOTE | 2025-03-13 07:45 | PTCARENOTE ---
Assumed care of patient. Walking rounds completed with previous RN. Pt assessed while pt was lying in bed. Pt slow to answer questions, but oriented x3. Needed options for current year, but was able to identify 2024 as current year. Right hand grasp
weak but stronger than left d/t previous CVA. Left foot plantar flexion weaker than right. PERRLA 3mm brisk. No facial droop or tongue deviation. SB on tele with rates in the 50s-60s. BP 115/59 via right radial delroy. Heart tones audible. Bilateral
radial and DP pulses palpable. No edema noted. POX 97% on 2L NC. Lungs diminished in the bases. No cough noted. Abdomen soft, round, nontender. +BS. Condom cath in place, no urine at this time. B/l groin sites soft, dressing CDI. Right radial delroy
intact with appropriate waveform, flushed, leveled, zeroed. Right wrist 20g painful with flushing, d/c. Left EJ 18g inact and flushes. Pt NPO for CVOR today. See worklist for complete nursing assessment. Plan of care reviewed and patient in
agreement.
--- NOTE | 2025-03-13 08:15 | CM ---
Reviewed chart. Mr. Mckeon is in the operating room today. Prior to admission he resides with his spouse and mother in a one story home with ramp access or three steps to enter Prior to admission he was independent with ambulation and adls. He has
a rollator and single point cane at home. The discharge plan is some level of rehab. acute versus SNF when medically stable. Will need to pre-cert with his insurance. Medical work-up in progress. The discharge plan is to go to some level of
inpatient rehab. Acute verses SNF when medically stable and approved by insurance.
--- NOTE | 2025-03-13 08:51 | PN.DE.MGMTRT ---
Insulin Management
- -
03/13/2025: Diabetes Management Follow up
69 year old male with cardiac arrest in the ED. PMH: HTN, HLD, T2DM, Hx of CVA with L hemiparesis. Pt presented to the ED c/o SOB. He was then noted to have pulseless VT and periods of V-Fib on monitor. He underwent CPR and multiple rounds of
defibrillation here in the ED. He received epinephrine, bicarbonate, amiodarone and calcium. ROSC was achieved. Patient remained unresponsive since this event. EKG showed new LBBB and patient was taken to the lab rn for emergent ischemic
evaluation. No family at bedside.
Glucose on admission was 237 Venous. A1C 5.4%, Cr 1.3, eGFR >60.
Pt was extubated on 03/03. Awake, alert, minimally engaged verbally, able to briefly discuss diabetes care plan, family at bedside.
Was transitioned off insulin infusion on 03/04 to Lantus 8 units @ HS and corrective insulin.
Currently NPO for OR today RA MIDCAB x2. Received reduced dose of Lantus @ HS 5 units.
Glucose range of 118 to 128 yesterday, required no corrective insulin.
Fasting glucose today 156.
Patient to receive critical care glycemic protocol PO today for 48 hours.
Discussed with Nurse. Will cont to follow.
Diabetes History
- -
Pre-Admission Diabetes Regimen
03/12/25 03/13/25
18:53 05:07
Creatinine 1.0 0.9
Lab Results
Hemoglobin A1c 5.4 % (4.0-5.6) 02/28/25 03:28
Insulin Pump Settings
IP Diabetes Regimen
03/12/25 03/12/25 03/12/25
12:30 18:26 18:53
Glucose 203 H
POC Glucose 105 H 176 H
03/12/25 03/13/25
21:42 05:07
Glucose 156 H
POC Glucose 198 H
Meal type: Dinner
Patient Education
--- NOTE | 2025-03-13 08:55 | PTCARENOTE ---
Pt transported to OR
[2025-03-13] MEDS: TOPROL XL PO (09:19)
[2025-03-13] MEDS: ALDACTONE PO (09:19)
[2025-03-13] MEDS: FOLVITE PO (09:19)
[2025-03-13] MEDS: DESENEX/MITRAZOL/ZEASORB TOPICAL (09:19)
[2025-03-13] MEDS: VITAMIN B1 PO ×2 (09:20→20:31)
[2025-03-13 09:26] LABS: ACT+ - POC 148 Seconds (82-134)
[2025-03-13 09:36] LABS: Urine Character Slightly Cloudy (Clear)
[2025-03-13 10:14] LABS: B.E. - POC -2.1 mmol/L; Glucose - POC 134 mg/dl (70-99); HCO3 - POC 24 mmol/L (21-28); Hematocrit - POC 52 % PCV (42-52); Hemodilution- POC No; Hemoglobin Calculated - POC 17.6; Ionized Calcium - POC 1.26 mmol/L (1.15-1.33); Lactate - POC 0.59 mmol/L (0.36-0.75); O2 Saturation %Calculated-POC 99.8 % (94-98); PCO2 - POC 43 mmHg (35-48); PO2 - POC 221 mmHg (83-108); POC Comment PRE; Potassium - POC 4.6 mmol/L (3.5-5.1); Sodium - POC 135 mmol/L (136-145); Specimen Type - POC Arterial; pH - POC 7.35 (7.35-7.45)
[2025-03-13 10:49] LABS: Urine Urothelial Cell 0-2 /LPF (FEW); Urine White Cell 70-80 /HPF (0-5)
[2025-03-13 11:25] LABS: ACT+ - POC 549 Seconds (82-134)
[2025-03-13 11:27] LABS: B.E. - POC -6.6 mmol/L; Glucose - POC 179 mg/dl (70-99); HCO3 - POC 21 mmol/L (21-28); Hematocrit - POC 54 % PCV (42-52); Hemodilution- POC No; Hemoglobin Calculated - POC 18.2; Ionized Calcium - POC 1.23 mmol/L (1.15-1.33); Lactate - POC 0.91 mmol/L (0.36-0.75); O2 Saturation %Calculated-POC 99.2 % (94-98); PCO2 - POC 48 mmHg (35-48); PO2 - POC 167 mmHg (83-108); Potassium - POC 4.9 mmol/L (3.5-5.1); Sodium - POC 136 mmol/L (136-145); Specimen Type - POC Arterial; pH - POC 7.25 (7.35-7.45)
[2025-03-13 12:26] LABS: ACT+ - POC 452 Seconds (82-134)
[2025-03-13 12:47] LABS: ACT+ - POC 156 Seconds (82-134)
--- NOTE | 2025-03-13 12:48 | PTOTSP ---
Speech Language Pathology
SAFETY ENGINEER PRESSURE VESSELS to hold as pt for OR this date for CABG. Will require new SAFETY ENGINEER PRESSURE VESSELS orders post general anesthesia to continue to follow.
--- NOTE | 2025-03-13 13:09 | W.PN.CT.SURG ---
CT Surgery Operative Note
-
CARDIAC SURGERY OPERATIVE REPORT
Preoperative Diagnosis: Critically ill patient with severe aortic valve stenosis, acute heart failure with depressed left ventricular ejection fraction of 20% and multivessel coronary artery disease
Postoperative Diagnosis: Same
Procedure(s) Performed:
1. Robotic assisted MIDCAB (2-vessel bypass GARCIA in situ to diagonal sequential to LAD)
2. Robotic assisted harvest of internal mammary artery with anterolateral mini thoracotomy for CABG
3. Transesophageal echocardiography
4. Transonic Flowprobe assessment of GARCIA graft
Date of Surgery: 03/13/2025
Comorbidities:
1. Coronary artery disease involving the proximal LAD spanning across the diagonal vessel
2. Total occlusion of the RCA with collateralization
3. Cirrhosis
4. Thrombocytopenia
5. Recent cardiac arrest requiring CPR and resuscitation with ROSC
6. Ventricular fibrillation/ventricular tachycardia
7. Acute on chronic systolic congestive heart failure, valve related
8. Severe aortic valve stenosis, status post TAVR
9. Multivessel coronary artery disease
10. GERD
11. Hyperlipidemia
12. Hypertension
13. Diabetes
14. Cerebrovascular disease
Attending Surgeon: Ricci Merritt MD, MS
Assistants: Jeanne Wylie PA-C (present and necessary to machinist first class, exchanging robotic instruments, retraction, suction, exposure, suture management, and wound closure under my direction)
Anesthesiology: Sukhdev Kincaid MD and Alicia Cisneros CRNA
Scrub and Circulating RNs: Shruthi Verma, RN, Luisa Garcia RN
Geriatric Social Work Professor: Amauri Stone CCP
Anesthesia: GETA
EBL: per perfusion records
Products: None
Indication(s) for Procedures: This is a critically ill 69-year-old male who presented to the hospital with multiple issues. He had a respiratory/cardiac arrest with ROSC. He underwent left heart cath demonstrated multivessel coronary artery
disease. He also had severe aortic valve stenosis with acute on chronic congestive heart failure with a depressed EF of approximately 20%. Multidisciplinary team discussion can of the consensus that he would do best with a hybrid procedure
involving transcatheter intervention of his aortic valve followed by coronary revascularization in a minimally invasive setting given his history of cirrhosis and recent code with depressed left ventricular ejection fraction. Shared decision making
was to pursue this procedure. The STS risk was discussed with the patient.
Conduit(s) Quality/Internal Diameter:
GARCIA -semiskeletonized, flow probe analysis, 45 cc/min, PI of 3.8 leading into the diagonal vessel, the segment of GARCIA between the diagonal and the LAD had a mean flow of approximately 39-40 with a pulse index of less than 3.8
Target(s) Quality/Internal Diameter:
LAD -excellent sized vessel, it accommodated 2.5 mm shunt
Diagonal/large sized vessel easily accommodated a 2.0 mm shunt
Findings:
Ventricular ejection fraction preoperatively was still significantly abnormal may be 25%. There is significant regional wall motion abnormalities pertaining to the inferior and septal torres. There is significant dyskinesis and akinesis of the
segments. During the harvesting of the GARCIA graft, positive thoracic pressure was required in order to help deflate his lung. He did not tolerate this well and we had to escalate in terms of inotropic and vasoactive medications. Following
thoracotomy, this significantly improved. Following revascularization of his LAD and diagonal territories, there was significant improvement in his inferior wall motion and septal motion. It essentially normalized. He had a pre-existing bundle
branch block so there was still some dyskinesis but overall his left ventricular ejection fraction did improve. Visually looked about 40 to 45%. His cardiac index also improved significantly to above 3. This was on 2 of dobutamine [we initially
had on 5 during the GARCIA harvest]. The mammary graft was verified with Doppler probe to have excellent signals.
Description of Procedure: The patient was taken to the operating room. Their identity and procedure to be performed were verified and they were positioned supine on the operating table. Induction via general anesthesia with endotracheal intubation
was performed and central venous access and arterial monitoring were inserted. A preoperative transesophageal echocardiogram was performed to assess cardiac function and valvular function. The patient was then prepped and draped from chin to feet in
a sterile fashion and positioned with left side bumped up and left arm down. A preoperative time-out was performed with all members of the team present. A Veress needle was used to enter the chest after stopping ventilation with the left lung
verified by anesthesia. We started with slow pressure insufflation which they tolerated. An 8 mm port was inserted in the fourth intercostal space laterally and a camera was inserted verifying no intrathoracic iatrogenic injuries. 2 additional
ports(8 mm and 8mm) were placed along the midaxillary line on either side of the camera port. Single 12 mm port was used for the physician assistant surgery to pass instruments and sutures. The robotic platform was then docked and targeted towards the mammary. A
posterior pericardiotomy was created to facilitate drainage. The mammary was harvested in a skeletonized fashion. Once sufficient length was obtained, an anterior pericardiotomy was created to identify the distal target. This was marked with a
marker robotically. Full heparinization was given (a total of 35,000 units). 4 Hem-o-magaly clips were used to occlude and divide the mammary distally at its bifurcation, and a single silk suture and clip was used to secure the mammary to the
pericardium overlying the LAD target. The robot platform was then undocked and the patient and a left anterior thoracotomy was created over the target vessels. Upon entering the thoracic cavity the mammary and LAD were visible -it was located quite
medial and additional pericardial retraction sutures were required in order to rotate the heart laterally. A thoracotomy retractor was placed to facilitate exposure and a pericardial well was created. The ACT was confirmed to be over 400.
The cardiac suction stabilizer was used to isolate the diagonal target. The underbelly of the mammary graft was then incised after placing a bulldog clamp and a [id number]-yb-enxk anastomosis was created with 7-0 Prolene to the diagonal vessel. Shunt
was then removed the bulldog was then released and the vessel was then tied down. I then tested the vessel with the flow probe and had excellent flows into the diagonal vessel. The bulldog clamp was then removed and repositioned distally to the
diagonal anastomosis. Suction stabilizer was then fashioned in order to expose the LAD. It was prepared in a similar fashion using a [place] blade and a small coronary arteriotomy was then created and a 2.5 mm shunt was then inserted. The
underbelly of the distal end of the mammary graft was then incised and enlarged with Patrick scissors. 7-0 Prolene was used to perform the distal anastomosis which was also done in a [id number]-[id number] fashion. The shunt was then removed in the usual
fashion and the anastomosis was tied down with the bulldog clamp taken off. A single repair stitch was required at the toe of the diagonal vessel. Reverification of flow was performed both at the inflow into the diagonal and the intermediate
segment to the diagonal and the LAD graft. Appropriate hemostasis was confirmed. The mammary graft was inspected and was free from kinking or twisting and flowprobe evaluation demonstrated good flow and PI. A test dose of protamine was administered
and the patient was monitored for any adverse reaction before resuming protamine. A 19F roly drain into the pericardium and through the pleural cavity. Fascia was approximated with #1 vicryl suture. Local analgesia was administered to the surgical
sites. The subcutaneous, dermis and epidermis were closed in layers in a running fashion. The skin wound was cleansed and dressed.
All instrument, sponge, and needle counts were confirmed to be correct x 2 at the end of the operation. The patient was transferred to the cardiac intensive care unit extubated in critical but stable condition.
I, Dr. Ricci Merritt, was present, scrubbed for, and performed all critical elements of this procedure.
Ricci Merritt MD, MS
Cardiothoracic Surgeon
[facility]
This operative dictation was created using the [employer] dictation system. Please excuse any grammatical, typographical, or 'sound alike' errors
--- NOTE | 2025-03-13 13:25 | PTCARENOTE ---
Pt received from CVOR. Pt intubated and sedated on precedex gtt. POX 97% 8.0 ETT 25cm at the lip. SIMV 40% 16 500 5/5, no breathing over the vent. Lungs coarse. Small amount of blood suctioned from ETT, small amount of clear secretions from oral
cavity. Left pleural chest tube to -20cm suction draining dark red blood. No air leak, tidaling, crepitus noted. Pt unresponsive on precedex gtt RAAS -5. PERRLA 3 mm sluggish. SR with LBBB on tele with rates in the 80s. BP supported with levo. SBP
goal 90-[address] LINESPERSON. +Rub. PA pressures 20s/10s, CVP 5.CI 2.66. Heart tones audible. Bilateral radial and DP pulses palpable. No edema noted. Abdomen soft, nontender. Hypoactive BS. Schultz catheter intact draining clear yellow urine. Left lower
chest incision approximated with skin glue, LISS. Left lateral chest puncture sites x3 approximated, CDI. Right groin puncture site with 4x4 intact. Right IJ cordis with swan floated to 50cm intact. Right radial delroy intact with appropriate
waveform. All lines flushed, leveled, and zeroed. Left 18g EJ intact. New right forearm 22g PIV placed. Insulin infusing per critical care glycemic protocol. See MAR for medication administration. See worklist for complete nursing assessment. Post
op EKG, labs, and CXR completed. 250mL LR given as per CT LINESPERSON.
[2025-03-13 13:29] LABS: Glucose - Point of Care 182 mg/dl (70-99)
[2025-03-13 13:37] LABS: B.E. -4.5 mmol/L; HCO3 21.7 mmol/L (21-28); Hematocrit 43.9 % (39.0-52.0); Hemoglobin 15.1 g/dL (13.0-18.0); O2 Saturation % 99.3 % (94-98); PCO2 43 mmHg (35-48); PO2 112 mmHg (83-108); Platelet Count 294 10^3/uL (130-400); Potassium 4.3 mMOL/L (3.5-5.1); Sodium 131 mMOL/L (136-145)
--- NOTE | 2025-03-13 13:40 | PTCARENOTE ---
RR increased to [address] by [address] HAIR OR BEAUTY SALON ASSISTANT.
[2025-03-13] MEDS: NSS 500 IV (13:46)
[2025-03-13] MEDS: TYLENOL PO (13:46)
[2025-03-13] MEDS: CALCIUM GLUCONATE 100 IV (13:46)
[2025-03-13] MEDS: ANCEF 10 IV ×2 (13:46)
--- NOTE | 2025-03-13 13:50 | W.PN.INTV ---
Today's Communication / Plan
Recommendations
Continue mechanical ventilation, with CPAP trial once he is awake and following commands, and hemodynamically stable
Maintain BG 110�140 while on insulin drip, weaning off as per protocol
Continue dobutamine and trend CI with goal >2 and goal MVO2 >65
Keep MAP >65
Pain control
Continue DAPT with ASA + Plavix
Continue PO Amio
[facility] services will continue to follow along in CVICU
Assessment
-
69yoM PMH HTN, HLD, CVA with residual hemiplegia, NIDDM, , hepatic fibrosis, EtOH use, being worked up for hemochromatosis outpt presenting with acute respiratory distress compounded by cardiac arrest in ED put on pressors and intubated, he went
to [facility] and found to have severe CAD with left-sided heart failure, started on Bumex drip and admitted to the ICU. Patient has continued to be managed on the hospitalist service with CT surgery team following; underwent a TAVR by interventional
cardiology on 03/12/2025. Now awaiting surgical coronary revascularization via CT surgery team. [facility] services asked to see patient again for recommendations/management.
Impression:
#Multivessel CAD with history of VT/V-fib cardiac arrest and acute HFrEF s/p robotic assisted MIDCAB (2-vessel bypass GARCIA in situ to diagonal sequential to LAD) � POD #0
#Severe low-flow, low gradient aortic valve stenosis s/p TAVR (03/12/2025)
#Acute hypoxic respiratory failure - likely due to deconditioning at this point
#In-hospital cardiac arrest with VT/VF with EKG showing LBBB s/p ROSC
#Pulmonary hypertension (estimated PASP was 35-40 mmHg with trace TR and normal RV size/function, normal RA size on prior echo from November 2023)--> improved now with PASP 26mmHg on 02/28/25
#Hepatic fibrosis
#Polycythemia (unclear if primary versus secondary)
#Elevated iron saturation with normal ferritin
#Transaminitis
#Alcohol abuse (negative level on admission)
#Marijuana use
Plan:
Patient brought to [facility] initially s/p ROSC which showed severe CAD (FASHION DESIGN PROFESSOR of pRCA, FASHION DESIGN PROFESSOR of smaller OM1, complex 90% Sinha 1,1,1 proximal LAD/Diagonal lesion) with EMMA III flow in all vessels
Severe left-sided heart failure seen with LVEDP 40 mmHg at the time of the cath
Revascularization initially on hold to allow for assessment of neurological recovery --> now that he has recovered he has undergone two-vessel bypass GARCIA in situ to diagonal sequential to LAD
Ventilator settings reviewed
FiO2 will be weaned to maintain SpO2 >90-94%
Minute ventilation will be adjusted
Arterial blood gases will be monitored
Spontaneous breathing trial will be attempted with hopeful extubation after anesthesia/sedation wear off
prn nebulized bronchodilators - not currently bronchospastic
Pulmonary artery catheter parameters will be followed
Pressors/antihypertensive/inotropes/diuretics will be provided as needed
Maintain MAP>65
Replete electrolytes with K>4, Mg>2
Monitor chest tube output (left pleural chest tube x 1)
Monitor hemoglobin
Monitor platelet count and coags
Transfuse blood products as needed to maintain Hb>7g/dL, plt>50k (given post-operative status)
CT surgery managing chest tubes
Monitor blood sugar to maintain euglycemia with goal BG 110-140; HbA1c: 5.4 on 02/28/2025
Insulin drip per protocol
Regarding his high iron saturation with concern for hemochromatosis, HFE-3 variant blood work showed that he was negative for C282Y variant, heterozygous for H63D variant and negative for S65C variant --> heterozygous H63D genotypes are not
associated with symptoms of hereditary hemochromatosis
EPO: 13 (WNL) + JAK2 mutation: negative
Trend LFTs
Aspiration precautions
VAP prevention protocol
DVT prophylaxis
Early nutrition
Early mobilization
Critical care statement: A total of 46 minutes of critical care time was provided for this patient today. This includes management of ventilator, spontaneous breathing trial, arterial blood gases, pressors, of unstable vital signs, evaluation of the
patient at bedside, reviewing the patient's pertinent medical records including radiographs, microbiology, laboratory evaluations, and discussion with primary team and critical care nursing.
Subjective Dataa
Subjective Data
Date of Service:
Date of Service: March 13, 2025
Chief Complaint: [facility] Follow Up
Subjective:
Patient was seen after his MIDCAB. He is intubated on SIMV 16/500/40%/5 with PIP 27 cmH2O, VTe 410 cc and breathing at 16 breaths/minute. Current heart rate 90, PAP 26/13, and saturating 98%. Left pleural chest tube in place. Currently on
insulin drip at 2 units/hr, Levophed at 8 mcg/min, dobutamine at 2 mcg/kg/min and sedated with Precedex at 0.5 mcg/kg/h.
Review of Systems
General: Unobtainable - Sedation
Objective Data
Data Reviewed
Vital Signs / I&O / Oxygen:
Vital Signs
Temp Pulse Resp BP Pulse Ox
97.7 F 74 14 127/85 94
03/13/25 06:00 03/13/25 06:10 03/13/25 06:10 03/13/25 05:41 03/13/25 06:09
Intake and Output
03/11/25 03/12/25 03/13/25
06:59 06:59 06:59
Intake Total 960 / 960
Output Total 200 / 200 1375 / 1375 1949
Balance 760 / 760 -1375 / -1375 -1949 / -1949
SaO2 [CPAP/PSV] 100
SaO2 [CPAP] 96
SaO2 [ASV] 99
SaO2 [A/C] 95
SaO2 94
Nasal Cannula flow liters per 1
minute
Physical Exam
General: Respiratory Distress (negative), Comfortable, Chills (negative), Sweats (positive) and Other (obese male)
HEENT: Normocephalic, Anicteric and Other (ETT in place)
Cardiovascular: S1-S2, Regular Rhythm and Peripheral Edema (negative)
Respiratory: Wheeze (negative), Crackles (negative), Rhonchi (Bilateral), Non-Labored Respirations, ET Tube (Mechanical breath sounds heard bilaterally) and Chest Tube (Left pleural chest tube x 1)
GI: Soft, Distended (Abdominal obesity), Non Tender and Normal Bowel Sounds
Neurology: Tremors (negative) and Other (Sedated)
Skin: Warm, Dry, Cyanosis (negative) and Jaundice (negative)
Labs/Micro/Reports
Lab Data
03/13/25 05:07
03/13/25 05:07
Laboratory Results
03/12/25 03/12/25 03/12/25
07:34 08:46 21:42
PT 13.8
INR 1.03
APTT 30.6
pH 7.43 7.38
pCO2 33 L 35
pO2 69 L 107
HCO3 21.9 20.7 L
O2 Delivery Level Room air
[2025-03-13] MEDS: LR 250 ML IV (13:52)
[2025-03-13 13:54] LABS: Blood Urea Nitrogen 37 mg/dl (9-20); Estimated Creatinine Clearance 69 ml/min; Glucose 198 mg/dl (70-99); Magnesium 2.2 mg/dl (1.6-2.3)
[2025-03-13 13:57] LABS: INR 1.46; PT 18.0 Sec (11.4-14.6)
[2025-03-13 13:58] LABS: APTT 28.3 Sec (23.4-35.0)
--- NOTE | 2025-03-13 14:18 | W.PN.CD ---
Today's Communication / Plan
-
post CABG care
heparin once able and TTE to evalute valve function
Impression / Plan
-
Background: 69 y/o male with HTN, HLD, remote CVA complicated by left hemiparesis, transaminitis related to EtOH abuse vs. possible hemochromatosis with at least moderate hepatic fibrosis admitted with acute, vent dependent respiratory failure
complicated by VT/VF arrest and new LBBB. Found to have severe MV CAD and severe . Now s/p successful TF TAVR (03/12/2025, 26 S3UR Pieter/Rasta) and MIDCAB ([id number]) with Dr. Merritt/Rasta 03/13/25.
Severe 3 V CAD
- Cath 02/27/2025: 100% pRCA, 100% dLCx, 100% OM1, 90% complex p-mLAD; no clear cuprit lesion for CO, arrest may have been in setting of decompensated heart failure with underlying IHD. LAD supplies collaterals to the CTOs so revascularization of the
LAD and diagonal will provide near complete revasc.
- No angina
- cont. ASA, add Plavix once stable from hemostasis standpoint
- s/p MIDCAB today with XVPB-[id number]-BXB with Dr. Merritt/Rasta. Hemodynamically unstable with chest pressurized but improvement in hemodynamics and EF post-reperfusion. Noted poor AV valve leaflet opening with possible thickening on IMAN and elevated
gradient 10-15 mmHg. Concern for possible HALT. Will plan to start heparin tomorrow (POD1) and evaluate valve function on TTE; if concern for leaflet dysfunction consider CT chest to further evaluate.
- for today, cont. routine post op management with norepi to support MAP>65, dobutamine to support CI>2, wean and extubate as able
Severe Aortic Stenosis
- Echo 02/28/2025: HANNAH 0.54 cm2, mean 35 mmHg
- s/p TF TAVR with Nicole S3UR 26 mm valve 03/12/2025 (Pieter/Rasta)
- cont. SAPT with ASA, likely heparin POD1 given c/f HALT as per above
- TTE to eval valve function 03/14, low threshold to consider CT given poor leaflet opening on IMAN during MIDCAB
Secondary VT/F arrest in the ER
- Severe CAD - obstructive and severe with heart failure and class III-IV NYHA symptoms.
- No further VT/VF since ER admit
- Consider LifeVest if able to achieve revascularization if EF remains low
Severe HFrEF from a Severe Ischemic cardiomyopathy
- Cath 02/27/2025 LVEDP 40 mmHg
- Echo 02/28/2025: LVEF 15-20%
- Echo 03/08/2025: LVEF 25-30%
- Medical therapy in progress - will resume as able as recovers from MIDCAB
- Low dose ARB
- Low dose metoprolol
- SGLT2-I
- low dose MRA/Aldactone
- consider further GDMT titration post CABG
- Changed from IV Bumex to oral 03/11/2025. Continue to monitor labs and weights
LBBB, QRS 176 ms
- Watch for heart block
- Will be a candidate for MANAGER GRAPHIC with backup defibrillation in the future
- Telemetry reviewed - no pause or block noted.
Elevated Hgb, elevated MCV, and acquired transient thrombocytopenia, heme involved
- Plt improved (plt 120 on 03/06/2025), Heparin off, off Argatroban
- HIT negative, heparin can be used again if needed
- Per hematology:
- 'Jak2 is negative and EPO normal -- essentially rules out PVera
- One copy of H63D mutation. This genotype has not been associated with symptoms of hereditary hemochromatosis. No indication for phlebotomy.
- HIT Phylicia pending. Platelet count trending up'
Mixed hyperlipidemia, LDL was not at goal, goal LDL less than 55
- cont. rosuvastatin 40 daily
ETOH
Hepatic fibrosis/ steatosis, at least moderate by Fibroscan.
S/p stroke with chronic LUE weakness an mild LLE weakness
Lung disease suspected, per hospitalist, on Atrovent/albuterol
Physical Exam
Vital Signs/Labs
Vital Signs
Temp Pulse Resp BP Pulse Ox
35.2 C L 84 18 115/59 98
03/13/25 14:00 03/13/25 14:15 03/13/25 14:15 03/13/25 08:00 03/13/25 14:15
03/12/25 03/13/25 03/14/25
06:59 06:59 06:59
Actual Weight 80.4 kg 79.1 kg
03/13/25 13:27
PT 18.0 Sec (11.4-14.6) H 03/13/25 13:27
INR 1.46 03/13/25 13:27
APTT 28.3 Sec (23.4-35.0) 03/13/25 13:27
Magnesium 2.2 mg/dl (1.6-2.3) 03/13/25 13:27
Triglycerides 315 mg/dl (10-149) H 02/28/25 03:28
LDL Cholesterol, Calc 119 mg/dl 02/28/25 03:28
VLDL Cholesterol, Calc 63 mg/dl (0-30) H 02/28/25 03:28
HDL Cholesterol 63 mg/dl 02/28/25 03:28
02/27/25 02/27/25 02/27/25
18:02 18:31 19:35
Evc-J-Nqgdkfdxxwo Pept Cancelled Cancelled Cancelled
02/27/25 03/01/25
Unknown 15:17
Pzq-Y-Hvqhramlzgd Pept [id number]
Physical Exam
Constitutional: Comfortable
Cardiovascular: Rhythm & rate is regular
Respiratory: Other (intubated)
Neuro/Psych: Other (sedated)
Data Reviewed
-
Date of Service: March 13, 2025
Medical Decision Making: Reviewed Test Results
Echo: Tracing Personally Visualized and interpreted
Labs: Labs Reviewed by me
[2025-03-13 14:28] LABS: B.E. -4.0 mmol/L; HCO3 19.6 mmol/L (21-28); O2 Saturation % 98.9 % (94-98); PCO2 31 mmHg (35-48); PO2 89 mmHg (83-108)
--- NOTE | 2025-03-13 14:45 | W.PN.UPDATE ---
Update Note
Progress Note Update
IV fluids: 650
U.O.:� 250
Blood:� none
Wires:� none
Drips: Dobutamine @ 2, Levophed @ 8, Precedex @ 0.5, Insulin
�
NEURO: sedated, pupils +2mm B/L
RESP: #8OT @26cm> 500/40%/14/5. Lungs clear B/L. L pleural (10cc on arrival) chest tubes to -20cm suction. Sanguineous drainage
CV: RRR +S1, S2, no S3, no�rub, no murmur. Dermabond to left anterior thoracotomy (mild ecchymosis). RIJ w/[place] locked @ 50cm. PA XX; CVP XX; C.O XX/CI XX
ABD: round, soft, no BS
EXT: no edema, +2/4 DP pulses B/L, no femoral bruit, B/L femoral TAVR access puncture sites intact w/o erythema/ecchymosis or bleeding. Right radial A-line intact
: Schultz with clear yellow urine
�
A/P: POD #0 s/p Robotic assisted MIDCAB x 2 (GARCIA to diagonal and LAD)
POD #1 s/p R TF TAVR #26mm S3
- wean and extubate
# CAD
# Chronic LBBB
# VT/VF arrest on Hospital admission
# Acute HFrEF (25-30%) on pre-op TTE
- will require ASA, Plavix, statin, beta-indigo
- keep Dobutamin on overnight
- check TTE 03/14 to assess aortic valve and LVEF after Dobutamine weaned off
- will need GDMT as BP permits (CM pricing Farxiga, Entresto)
# Hx CVA w/left hemiparesis (2014)
- PT/OT, physiatry following for acute rehab needs
# Depression
- resume buproion 150mg daily
# moderate hepatic fibrosis (Fibroscan 7.5 kPa) and EtOH abuse leading to SIADH/hyponatremia
- check LFTs/lytes
# T2DM (A1C 5.4)
- insulin infusion x 48h
- diet controlled
�
[2025-03-13 15:00] LABS: Glucose - Point of Care 175 mg/dl (70-99)
[2025-03-13] MEDS: NEURONTIN PO (15:09)
[2025-03-13] MEDS: PACERONE PO (15:09)
--- NOTE | 2025-03-13 15:38 | PTCARENOTE ---
ETT suctioned. Pt opened eyes spontaneously. Follows commands to shake head yes, squeeze hands, wiggle toes. Left grasp weaker than right, same as 0800 assessment.
[2025-03-13 16:08] LABS: Glucose - Point of Care 149 mg/dl (70-99)
--- NOTE | 2025-03-13 16:40 | PTCARENOTE ---
Bathed patient with CHG wipes. Turned from side to side, no significant dumps from chest tube. Pt tolerated. RT at bedside to attempt cpap trial. Multiple apnea episode, pt returned back to SIMV settings. POX 99%.
[2025-03-13 17:04] LABS: Glucose - Point of Care 136 mg/dl (70-99)
[2025-03-13] MEDS: CRESTOR PO (17:06)
[2025-03-13 17:21] LABS: B.E. - POC -0.5 mmol/L; Blood Urea Nitrogen - POC 22 mg/dl (3-120); Chloride - POC 102 mmol/L (96-111); Creatinine - POC 0.93 mg/dl (0.3-1.0); Glucose - POC 129 mg/dl (70-99); HCO3 - POC 19 mmol/L (21-28); Hematocrit - POC 43 % PCV (42-52); Hemodilution- POC No; Hemoglobin Calculated - POC 14.6; Ionized Calcium - POC 1.13 mmol/L (1.15-1.33); Lactate - POC 0.99 mmol/L (0.36-0.75); O2 Saturation %Calculated-POC 97.4 % (94-98); PCO2 - POC 21 mmHg (35-48); PO2 - POC 77 mmHg (83-108); Potassium - POC 3.9 mmol/L (3.5-5.1); Sodium - POC 128 mmol/L (136-145); Specimen Type - POC Arterial; pH - POC 7.57 (7.35-7.45)
--- NOTE | 2025-03-13 17:30 | PTCARENOTE ---
Per CT SAND CLEANING MACHINE OPERATOR, 4 hr post H/H obtained via epoc ABG. Also, per CT SAND CLEANING MACHINE OPERATOR, do not replace K or ical from epoc at this time.
[2025-03-13 18:05] LABS: Glucose - Point of Care 118 mg/dl (70-99)
[2025-03-13] MEDS: ANCEF 5 IV (18:10)
[2025-03-13 18:27] LABS: Hematocrit 42.9 % (39.0-52.0); Hemoglobin 15.1 g/dL (13.0-18.0); Platelet Count 247 10^3/uL (130-400)
[2025-03-13 18:30] LABS: B.E. 0.8 mmol/L; HCO3 24.3 mmol/L (21-28); O2 Saturation % 99.2 % (94-98); PCO2 35 mmHg (35-48); PO2 104 mmHg (83-108); Potassium 4.5 mMOL/L (3.5-5.1); Sodium 131 mMOL/L (136-145)
[2025-03-13] MEDS: ASPIRIN 300 MG RECTAL (19:02)
[2025-03-13] MEDS: CARDENE 200 IV (19:11)
--- NOTE | 2025-03-13 19:34 | PTCARENOTE ---
Assumed care of patient at 1900. Patient found resting in bed at time of assessment. Patient currently still intubated, but is alert and responsive. Follows commands appropriately ie police lieutenant precinct hand wiggles toes. Patient has some profound left sided
weakness which is reportedly residual from previous stroke. Lung sounds are loud and clear ventilator assisted respirations. saO2 100% on 40% FiO2. Patient has 8.0 ETT sitting 25@lip. Ventilator has SIMV settings see worlist item fo rdetails. Heart
sounds are audible, patient is SR with BBB on the monitor, pulses are palpable throughout and there is no observable edema. Patient has hypoactive BS and beltran draining jinny yellow urine. There are 3xlateral chest punctures approx with surg
adhesive BARKEEP, an incision inferior to L breast approx with surgical adhesive LISS, a 4x4 gau[address] dressing over CT wound that is CDI, and R groin puncture with 4x4 gauze dressing CDI. Patient has R IJ cordis with swan@50cm, R radial delroy, L EJ 18G, and
R wrist 22g PIV. Patient is currently on the following gtts: Dobut@2, Cardene@2.5, Cordis/VIP KVO. Vital signs as follows: T-98.3, RR-12, P-91, BP-112/73, MAP-84, CVP-6 PAP-23/12. Call asencio within reach.
[2025-03-13 20:10] LABS: B.E. -0.6 mmol/L; HCO3 23.4 mmol/L (21-28); O2 Saturation % 99.6 % (94-98); PCO2 36 mmHg (35-48); PO2 112 mmHg (83-108); Potassium 4.3 mMOL/L (3.5-5.1)
[2025-03-13 20:25] LABS: Glucose - Point of Care 107 mg/dl (70-99)
--- NOTE | 2025-03-13 20:25 | PTCARENOTE ---
Patient placed on CPAP trial at 1927. ABG ordered for 1999 showed results WNL. Received orders to extubate. Patient successfully extubated at 2019 without incident placed on 6L via NC saO2 at 100%. Patient answered all orientation questions
appropriately. Denies pain. Call asencio within reach.
[2025-03-13] MEDS: SENOKOT PO (20:31)
--- NOTE | 2025-03-13 20:58 | RESPNOTE ---
pt extubated per Md @ 2019 without incident. pt suctioned orally and down ETT prior to extubation. pt able to vocalize, no stridor present, placed on 6L NC at this time
[2025-03-13 22:16] LABS: Glucose - Point of Care 111 mg/dl (70-99)
--- NOTE | 2025-03-13 23:00 | PTCARENOTE ---
report received from previous RN, walking rounds done. pt asleep. VSS. SR with LBBB on monitor, HR 90s. SBP 100s. heart tones clear. +peripheral pulses. no edema noted. RIJ cordis + swan intact w KVOs infusing. PAPs 20s/10s, CVP ~8. last CI 2.67.
Dobut gtt infusing @ 2mcg. bilateral breath sounds present. POX 100% on 4LNC. left pleural chest tube intact to -20cm suction, minimal drainage noted, air leak, tidaling, crepitus present. folay catheter intact, draining CYU, UO adequate. abdomen
soft, nontender. hypoactive BS present. Insulin gtt infusing per critical care glycemic protocol. PIV intact and patent. all surgical sites stable. see worklist for full assessment, VS, and interventions.
[2025-03-13] MEDS: TYLENOL 975 MG PO (23:26)
[2025-03-13] MEDS: NEURONTIN 100 MG PO (23:27)
[2025-03-13] MEDS: PACERONE 200 MG PO (23:27)
[2025-03-13] MEDS: LIPITOR 80 MG PO (23:27)
[2025-03-13 23:59] LABS: Glucose - Point of Care 111 mg/dl (70-99)
[2025-03-14] VITALS (20 sets, daily range): BP systolic 82–115; BP diastolic 56–75; PULSE 89; O2SAT 97; BMI 26.9
[2025-03-14] MEDS: ANCEF 5 IV ×2 (02:09→10:16)
[2025-03-14 02:13] LABS: Glucose - Point of Care 99 mg/dl (70-99)
[2025-03-14 04:02] LABS: Glucose - Point of Care 114 mg/dl (70-99)
[2025-03-14 04:30] LABS: Hematocrit 41.6 % (39.0-52.0); Hemoglobin 14.6 g/dL (13.0-18.0); Mean Corp Hgb Conc. 35.1 g/dL (33.0-37.0); Mean Corpuscular Volume 100.7 fL (80.0-94.0); Platelet Count 210 10^3/uL (130-400); Red Cell Dist. Width 13.3 % (11.5-14.5)
[2025-03-14 04:39] LABS: APTT 27.0 Sec (23.4-35.0)
[2025-03-14 05:01] LABS: ALT (SGPT) 54 U/L (0-50); AST (SGOT) 53 U/L (17-59); Albumin 3.1 g/dl (3.5-5.0); Alkaline Phosphatase 122 U/L (38-126); Blood Urea Nitrogen 31 mg/dl (9-20); Calcium 9.1 mg/dl (8.4-10.2); Carbon Dioxide 24 mmol/L (22-30); Chloride 107 mmol/L (98-107); Estimated Creatinine Clearance 77 ml/min; Glucose 121 mg/dl (70-99); Magnesium 2.2 mg/dl (1.6-2.3); Potassium 5.1 mmol/L (3.5-5.1); Sodium 136 mmol/L (135-145); Total Protein 6.2 g/dl (6.3-8.2); eGFR > 60.00
--- NOTE | 2025-03-14 05:04 | W.PN.CT ---
Today's Communication / Plan
-
-pod#1 from mid-CAB x2, pod #2 from R TF TAVR
-no issues overnight, extubated uneventfully at 8:20 pm
-CI 2.73, CO 5.27, mvO2 78. drips: Dobut decreased to 1 at 5am, Insulin, Heparin @ 500/hr started at 6am
-CT output: L pleur 0/60 in 12/24 hrs
-plans to start iv Heparin @ 500 units/hr at 6 am (no bolus) per Dr. Merritt for possible HALT (ordered)
-PTT and CMP are pending
-wean off Dobut as tolerated, then deline
-Echo today at noon to eval TAVR (ordered)
-current meds (ASA, Plavix, Crestor 40, Amio, Folate, Thiamine, Protonix). Will hold BB while on Dobut
-encourage IS, OOB
Assessment / Plan
-
Assessment:
-S/P Right trans femoral TAVR (26 mm [place] Resilia) by Dr Magdaleno/Pieter on 03/12/25
-S/P Robotic assisted MIDCAB (2-vessel bypass GARCIA in situ to diagonal sequential to LAD) by Dr. Merritt on 03/13/25, pod #1
-Intraop IMAN: LVEF preop was still significantly abnormal, may be 25%. There is significant regional wma pertaining to the inferior and septal torres. There is significant dyskinesis and akinesis of the segments. Following revascularization of
his LAD and diagonal territories, there was significant improvement in his inferior wall motion and septal motion. It essentially normalized. He had a pre-existing bundle branch block so there was still some dyskinesis but overall his left
ventricular ejection fraction did improve. Visually looked about 40 to 45%
-Severe aortic stenosis, symptomatic
-Multivessel CAD
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
-Acute on chronic systolic CHF
-ICM
-HFrEF (EF 25-30% per echo 03/08/25)
-Hypertension
-Hyperlipidemia
-T2DM (A1C 5.4)
-GERD
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
-Lung disease suspected, per hospitalist, on Atrovent/albuterol
-Transaminitis/hepatic fibrosis secondary to alcohol abuse/cirrhosis
-Possible hemochromatosis
-Preop Thrombocytopenia
-S/P VT/VF arrest with new LBBB, 02/27/25
-S/P VDRF, extubated on 03/03/25
-Preop hyponatremia- improving
-Preop NACHO in setting of VF arrest - resolved
-Acute postop hyperkalemia
-Acute postop pulmonary insufficiency/atelectasis
-Acute postop hypovolemia with subsequent hypervolemia
Discussed patient care with: Nursing and Care Team
Subjective
-
Date of Service: March 14, 2025
Objective Data
-
PT 18.0 Sec (11.4-14.6) H 03/13/25 13:27
INR 1.46 03/13/25 13:27
APTT 28.3 Sec (23.4-35.0) 03/13/25 13:27
Vital Signs
Vital Signs
Temp Pulse Resp BP Pulse Ox
97.8 F 94 19 98/66 100
03/14/25 00:00 03/14/25 00:00 03/14/25 00:00 03/14/25 00:00 03/14/25 00:00
CT Intake/Output/Weight
03/13/25 03/13/25 03/14/25
06:59 18:59 06:59
Intake Total 751.0 / 1009.95 258.95 / 1009.95
Output Total 650 / 1950 300 / 585 285 / 585
Balance -650 / -1950 451.0 / 424.95 -26.05 / 424.95
SaO2: 100
Physical Exam
-
General: Awake and AOx3
Cardiovascular: Regular rate & rhythm, Murmur (1/6 systolic @ lsb) and No Rub
Respiratory: Decreased Breath Sounds
Sternum: Stable
Incision: Clean, Dry and Dressing Intact
Extremities: No Edema (DPs by Doppler b/l)
L arm strength 4/5 from prior CVA
Data Reviewed
-
Lab Results: Results Reviewed
Medications: Active Meds Reviewed
Chest X-Ray: Report Reviewed and Image Reviewed
ECG: Report Reviewed and Image Reviewed
[2025-03-14] MEDS: HEPARIN 25000 UNITS/250 ML IV (06:09)
[2025-03-14] MEDS: TYLENOL 975 MG PO ×3 (06:10→21:56)
[2025-03-14 06:24] LABS: Glucose - Point of Care 94 mg/dl (70-99)
--- NOTE | 2025-03-14 07:24 | W.PN.ANS.POP ---
Anesthesia Post Operative
- Anesthesia Post Op Note
Vital Signs Stable-See Nursing Note: Yes (remains on dobutamine)
Airway Patent: Yes
Adequate Pain Control: Yes
Change in Mental Status: No
Current Postoperative Nausea & Vomiting: No
Anesthesia Complications: No
General Anesthetic Recall: No
Unplanned Admission: No
Post Op Hydration Adequate: Yes
--- NOTE | 2025-03-14 07:49 | PN.DE.MGMTRT ---
Insulin Management
- -
03/14/2025: Diabetes Management Follow up
69 year old male with cardiac arrest in the ED. PMH: HTN, HLD, T2DM, Hx of CVA with L hemiparesis. Pt presented to the ED c/o SOB. He was then noted to have pulseless VT and periods of V-Fib on monitor. He underwent CPR and multiple rounds of
defibrillation here in the ED. He received epinephrine, bicarbonate, amiodarone and calcium. ROSC was achieved. Patient remained unresponsive since this event. EKG showed new LBBB and patient was taken to the optical laboratory manager for emergent ischemic
evaluation. No family at bedside.
Glucose on admission was 237 Venous. A1C 5.4%, Cr 1.3, eGFR >60.
Pt Awake, alert, flat affect minimally engaged verbally, No family at bedside.
Was started on critical care Glycemic protocol postoperatively. Glucose range 94 to 114, requiring 0.6 to 2.3 units of insulin/hr.
Patient will remain on insulin drip today. Will reassess in am for readiness to transition off drip to SQ insulin.
Discussed with Nurse. Will cont to follow.
Diabetes History
- -
Type of Diabetes: 2 requiring insulin
Pre-Admission Diabetes Regimen
03/13/25 03/14/25
13:27 04:01
Creatinine 1.0 0.9
Lab Results
Hemoglobin A1c 5.4 % (4.0-5.6) 02/28/25 03:28
Insulin Pump Settings
IP Diabetes Regimen
03/13/25 03/13/25 03/13/25
13:27 14:58 16:07
Glucose 198 H
POC Glucose 182 H 175 H 149 H
03/13/25 03/13/25 03/13/25
17:03 18:04 20:22
Glucose
POC Glucose 136 H 118 H 107 H
03/13/25 03/13/25 03/14/25
22:14 23:58 02:12
Glucose
POC Glucose 111 H 111 H 99
03/14/25 03/14/25
04:01 06:22
Glucose 121 H
POC Glucose 114 H 94
Patient Education
[2025-03-14] MEDS: ALBUMIN 5% 250 IV ×2 (07:57→23:53)
[2025-03-14 08:03] LABS: Glucose - Point of Care 100 mg/dl (70-99)
--- NOTE | 2025-03-14 08:25 | W.PN.INTV ---
Today's Communication / Plan
Recommendations
Continue weaning off dobutamine drip, and trend CI with goal >2 and goal MVO2 >65
Maintain BG 110�140 while on insulin drip, weaning off as per protocol
Keep MAP >65
Pain control
Continue DAPT with ASA + Plavix
Continue PO Amio
[facility] Minister services will continue to follow along in CVICU
Assessment
-
69yoM PMH HTN, HLD, CVA with residual hemiplegia, NIDDM, , hepatic fibrosis, EtOH use, being worked up for hemochromatosis outpt presenting with acute respiratory distress compounded by cardiac arrest in ED put on pressors and intubated, he went
to [facility] and found to have severe CAD with left-sided heart failure, started on Bumex drip and admitted to the ICU. Patient has continued to be managed on the hospitalist service with CT surgery team following; underwent a TAVR by interventional
cardiology on 03/12/2025. Now awaiting surgical coronary revascularization via CT surgery team. [facility] services asked to see patient again for recommendations/management.
Impression:
#Multivessel CAD with history of VT/V-fib cardiac arrest and acute HFrEF s/p robotic assisted MIDCAB (2-vessel bypass GARCIA in situ to diagonal sequential to LAD) � POD #1
#Severe low-flow, low gradient aortic valve stenosis s/p TAVR (03/12/2025)
#Acute hypoxic respiratory failure - likely due to deconditioning at this point
#In-hospital cardiac arrest with VT/VF with EKG showing LBBB s/p ROSC
#Pulmonary hypertension (estimated PASP was 35-40 mmHg with trace TR and normal RV size/function, normal RA size on prior echo from November 2023)--> improved now with PASP 26mmHg on 02/28/25
#Hepatic fibrosis
#Polycythemia (unclear if primary versus secondary)
#Elevated iron saturation with normal ferritin
#Transaminitis
#Alcohol abuse (negative level on admission)
#Marijuana use
Plan:
Patient brought to [facility] initially s/p ROSC which showed severe CAD (RUGBY UNION FOOTBALLER of pRCA, RUGBY UNION FOOTBALLER of smaller OM1, complex 90% Sinha 1,1,1 proximal LAD/Diagonal lesion) with EMMA III flow in all vessels
Severe left-sided heart failure seen with LVEDP 40 mmHg at the time of the cath
Revascularization initially on hold to allow for assessment of neurological recovery --> now that he has recovered he has undergone two-vessel bypass GARCIA in situ to diagonal sequential to LAD
Patient was extubated to nasal cannula on the evening of 03/13/2025, and is now breathing comfortably on 2 L/min nasal cannula saturating 97%
Continue to wean down supplemental O2 flow rate while keeping SpO2 >90-94%
prn nebulized bronchodilators - not currently bronchospastic
Encourage IS use q1hr while awake
Pulmonary artery catheter parameters will be followed - currently on dobutamine gtt with plans to wean off later this AM
Pressors/antihypertensive/inotropes/diuretics will be provided as needed
Maintain MAP>65
Replete electrolytes with K>4, Mg>2
Monitor chest tube output (left pleural chest tube x 1)
Monitor hemoglobin
Monitor platelet count and coags
Transfuse blood products as needed to maintain Hb>7g/dL, plt>50k (given post-operative status)
CT surgery managing chest tubes
Monitor blood sugar to maintain euglycemia with goal BG 110-140; HbA1c: 5.4 on 02/28/2025
Insulin drip per protocol
Regarding his high iron saturation with concern for hemochromatosis, HFE-3 variant blood work showed that he was negative for C282Y variant, heterozygous for H63D variant and negative for S65C variant --> heterozygous H63D genotypes are not
associated with symptoms of hereditary hemochromatosis
EPO: 13 (WNL) + JAK2 mutation: negative
Trend LFTs
Aspiration precautions
DVT prophylaxis
Early nutrition
Early mobilization
Continue CVICU level of care. Was transferred to CVICU�telemetry status, then supercharge repair supervisor/pulmonary service will sign off at that time.
Critical care statement: A total of 38 minutes of critical care time was provided for this patient today. This includes management of ventilator, spontaneous breathing trial, arterial blood gases, pressors, of unstable vital signs, evaluation of the
patient at bedside, reviewing the patient's pertinent medical records including radiographs, microbiology, laboratory evaluations, and discussion with primary team and critical care nursing.
Subjective Dataa
Subjective Data
Date of Service:
Date of Service: March 14, 2025
Chief Complaint: [facility] Minister Follow Up
Subjective:
Patient seen this morning. Doing well, currently on insulin drip at 0.4 units/hr and heparin drip. Saturating 97% on 2 L/min nasal cannula, BP via NIBP 105/69 and heart rate 90. Patient's at bedside as well as the patient's mother, all
questions were answered.
Review of Systems
General: Other (Negative unless mentioned above)
Objective Data
Data Reviewed
Vital Signs / I&O / Oxygen:
Vital Signs
Temp Pulse Resp BP Pulse Ox
97.5 F 86 21 118/64 98
03/14/25 09:00 03/14/25 09:00 03/14/25 09:00 03/14/25 08:37 03/14/25 09:00
Intake and Output
03/13/25 03/14/25 03/15/25
06:59 06:59 06:59
Intake Total 1256.65 / 1285.05 115.8 / 115.8
Output Total 1949 855 / 900 /
Balance -1949 401.65 / 385.05 -89.2 / -89.2
SaO2 [SIMV] 99
SaO2 [CPAP/PSV] 100
SaO2 [CPAP] 96
SaO2 [ASV] 99
SaO2 [A/C] 95
SaO2 98
Nasal Cannula flow liters per 2
minute
Physical Exam
General: Respiratory Distress (negative), Comfortable, Chills (negative), Sweats (positive) and Other (obese male)
HEENT: Normocephalic and Anicteric
Cardiovascular: S1-S2, Regular Rhythm and Peripheral Edema (negative)
Respiratory: Wheeze (negative), Crackles (negative), Rhonchi (Bilateral), Non-Labored Respirations and Chest Tube (Left pleural chest tube x 1)
GI: Soft, Distended (Abdominal obesity), Non Tender and Normal Bowel Sounds
Neurology: Awake, Alert and Tremors (negative)
Skin: Warm, Dry, Cyanosis (negative) and Jaundice (negative)
Labs/Micro/Reports
Lab Data
03/14/25 04:01
03/14/25 04:01
Laboratory Results
03/13/25 03/13/25 03/13/25
13:27 14:20 18:18
PT 18.0 H
INR 1.46
APTT 28.3
pH 7.31 L 7.41 7.45
pCO2 43 31 L 35
pO2 112 H 89 104
HCO3 21.7 19.6 L 24.3
O2 Delivery Level
03/13/25 03/14/25
20:00 04:01
PT
INR
APTT 27.0
pH 7.42
pCO2 36
pO2 112 H
HCO3 23.4
O2 Delivery Level
[2025-03-14] MEDS: BACTROBAN 2% OINTMENT 1 APPLIC NASAL ×2 (08:36→19:57)
[2025-03-14] MEDS: PROTONIX 40 MG PO (08:36)
[2025-03-14] MEDS: MAGNESIUM OXIDE 400 MG PO ×2 (08:36→19:57)
[2025-03-14] MEDS: VITAMIN B1 100 MG PO ×2 (08:36→19:57)
[2025-03-14] MEDS: FOLVITE 1 MG PO (08:36)
[2025-03-14] MEDS: NEURONTIN 100 MG PO ×2 (08:36→16:06)
[2025-03-14] MEDS: SENOKOT 8.6 MG PO ×2 (08:36→19:57)
[2025-03-14] MEDS: PLAVIX 75 MG PO (08:36)
[2025-03-14] MEDS: LIDOCAINE 4% PATCH TOPICAL (08:37)
[2025-03-14] MEDS: LOW STRENGTH ASPIRIN 81 MG PO (08:37)
[2025-03-14] MEDS: PACERONE 200 MG PO ×3 (08:37→21:56)
--- NOTE | 2025-03-14 08:44 | PTCARENOTE ---
Patient received from research intern resting in bed, sleeping but arousable and appropriate, flat affect. Neuro intact, L sided weakness pre-existing. NSR via cm, SaO2 @ 98% on 2lnc. RIJ Cordis/[place]-Donte catheter, R radial arterial lines present -
leveled, flushed, and calibrated w/good waveforms returned. L lateral chest tube to -20cm suction, no air leak or crepitus appreciated. Schultz catheter to gravity. All procedural sites stable. Patient updated to plan of care for the day, in
agreement. See work list for full assessment, interventions performed, and intravenous infusions and titrations.
[2025-03-14] MEDS: NOVOLIN R INSULIN INFUSION 100 IV (09:12)
[2025-03-14 10:02] LABS: Glucose - Point of Care 93 mg/dl (70-99)
--- NOTE | 2025-03-14 10:22 | W.PN.CD ---
Today's Communication / Plan
-
Wean norepi and dobutamine as tolerated
Continue heparin for possible HALT
TTE today to evaluate aortic valve
Impression / Plan
-
Background: 69 y/o male with HTN, HLD, remote CVA complicated by left hemiparesis, transaminitis related to EtOH abuse vs. possible hemochromatosis with at least moderate hepatic fibrosis admitted with acute, vent dependent respiratory failure
complicated by VT/VF arrest and new LBBB. Found to have severe MV CAD and severe . Now s/p successful TF TAVR (03/12/2025, 26 S3UR Pieter/Rasta) and MIDCAB ([id number]) with Dr. Merritt/Rasta 03/13/25.
He is doing fairly well postoperatively. He remains on norepinephrine 1 and dobutamine 1. Heparin started this a.m. due to concern for HALT.
Severe 3 V CAD
- Cath 02/27/2025: 100% pRCA, 100% dLCx, 100% OM1, 90% complex p-mLAD; no clear cuprit lesion for MT, arrest may have been in setting of decompensated heart failure with underlying IHD. LAD supplies collaterals to the CTOs so revascularization of the
LAD and diagonal will provide near complete revasc.
- s/p MIDCAB with SVUF-[id number]-VWA with Dr. Acosta. Hemodynamically unstable with chest pressurized but improvement in hemodynamics and EF post-reperfusion. Noted poor AV valve leaflet opening with possible thickening on IMAN and elevated gradient
10-15 mmHg. Concern for possible HALT. Heparin started 03/14.
- No angina
- cont. ASA and Plavix
- cont. routine post op management with norepi to support MAP>65, dobutamine to support CI>2, wean as able
Severe Aortic Stenosis
- Echo 02/28/2025: HANNAH 0.54 cm2, mean 35 mmHg
- s/p TF TAVR with Nicole S3UR 26 mm valve 03/12/2025 (Pieter/Rasta)
- Noted poor AV valve leaflet opening with possible thickening on IMAN and elevated gradient 10-15 mmHg. Concern for possible HALT. Heparin started 03/14
- cont. ASA and Heparin
- TTE to eval valve function today, low threshold to consider CT
Secondary VT/F arrest in the ER
- Severe CAD - obstructive and severe with heart failure and class III-IV NYHA symptoms.
- No further VT/VF since ER admit
- Consider LifeVest if EF remains low
Severe HFrEF from a Severe Ischemic cardiomyopathy
- Cath 02/27/2025 LVEDP 40 mmHg
- Echo 02/28/2025: LVEF 15-20%
- Echo 03/08/2025: LVEF 25-30%
- Medical therapy in progress - will resume as able as recovers from MIDCAB
- Low dose ARB
- Low dose metoprolol
- SGLT2-I
- low dose MRA/Aldactone
- consider further GDMT titration post CABG
- Changed from IV Bumex to oral 03/11/2025. Held for now. Continue to monitor labs and weights
LBBB, QRS 176 ms
- Watch for heart block
- Will be a candidate for GLAZE GRINDER with backup defibrillation in the future
- Telemetry reviewed - no pause or block noted.
Elevated Hgb, elevated MCV, and acquired transient thrombocytopenia, heme involved
- Plt improved (plt 120 on 03/06/2025), Heparin off, off Argatroban
- HIT negative, heparin can be used again if needed
- Per hematology:
- 'Jak2 is negative and EPO normal -- essentially rules out PVera
- One copy of H63D mutation. This genotype has not been associated with symptoms of hereditary hemochromatosis. No indication for phlebotomy.
- HIT Phylicia pending. Platelet count trending up'
Mixed hyperlipidemia, LDL was not at goal, goal LDL less than 55
- cont. rosuvastatin 40 daily
ETOH
Hepatic fibrosis/ steatosis, at least moderate by Fibroscan.
S/p stroke with chronic LUE weakness an mild LLE weakness
Lung disease suspected, per hospitalist, on Atrovent/albuterol
Subjective: Extubated. Opens eyes easily to voice. Denies pain but otherwise not conversant.
Drips: Levo at 1, dobutamine at 1, insulin, heparin
Telemetry: Normal sinus rhythm, LBBB
CCT: 33 min
Physical Exam
Vital Signs/Labs
Vital Signs
Temp Pulse Resp BP Pulse Ox
98 F 79 17 110/73 99
03/14/25 10:00 03/14/25 10:00 03/14/25 10:00 03/14/25 10:00 03/14/25 10:00
03/13/25 03/14/25 03/15/25
06:59 06:59 06:59
Actual Weight 174 lb 6.17 oz 177 lb 0.499 oz
03/14/25 04:01
03/14/25 04:01
PT 18.0 Sec (11.4-14.6) H 03/13/25 13:27
INR 1.46 03/13/25 13:27
APTT 27.0 Sec (23.4-35.0) 03/14/25 04:01
Magnesium 2.2 mg/dl (1.6-2.3) 03/14/25 04:01
Triglycerides 315 mg/dl (10-149) H 02/28/25 03:28
LDL Cholesterol, Calc 119 mg/dl 02/28/25 03:28
VLDL Cholesterol, Calc 63 mg/dl (0-30) H 02/28/25 03:28
HDL Cholesterol 63 mg/dl 02/28/25 03:28
02/27/25 02/27/25 02/27/25
18:02 18:31 19:35
Vvh-N-Xaqogfqrqke Pept Cancelled Cancelled Cancelled
02/27/25 03/01/25
Unknown 15:17
Wjr-F-Abjnexbslfb Pept [id number]
Physical Exam
Constitutional: No acute distress and Comfortable
Cardiovascular: Rhythm & rate is regular, Pedal edema is absent, S1S2 is normal and Murmur/rub/gallop absent
Respiratory: Respiratory effort normal and Lungs clear to auscul. (anteriorly clear)
Data Reviewed
-
Date of Service: March 14, 2025
Medical Decision Making: Reviewed Test Results, Independent Historian Assessment, Test Interpretation and Review of Case with other Provider
EKG: Tracing Personally Visualized and interpreted
Echo: Tracing Personally Visualized and interpreted
Labs: Labs Reviewed by me
--- NOTE | 2025-03-14 11:20 | CARDSERVLU ---
Echocardiogram with Lumason completed after protocol screening completed. Allergies verified.
Patent IV site: _R IJ cordis____
IV site flushed with 0.9% NaCl pre and post administration.
Diluted bolus method utilized to enhance visualization of ventricular torres.
Total volume given: __6.5__ mL
Patient tolerated all procedures well without complications.
[2025-03-14 12:01] LABS: Glucose - Point of Care 112 mg/dl (70-99)
[2025-03-14 12:13] LABS: B.E. - POC -6.5 mmol/L; Glucose - POC 193 mg/dl (70-99); HCO3 - POC 21 mmol/L (21-28); Hematocrit - POC 48 % PCV (42-52); Hemodilution- POC Yes; Hemoglobin Calculated - POC 16.3; Ionized Calcium - POC 1.18 mmol/L (1.15-1.33); Lactate - POC 0.96 mmol/L (0.36-0.75); O2 Saturation %Calculated-POC 99.2 % (94-98); PCO2 - POC 45 mmHg (35-48); PO2 - POC 164 mmHg (83-108); Potassium - POC 4.3 mmol/L (3.5-5.1); Sodium - POC 135 mmol/L (136-145); Specimen Type - POC Arterial; pH - POC 7.27 (7.35-7.45)
[2025-03-14 12:22] LABS: APTT 32.9 Sec (23.4-35.0)
--- NOTE | 2025-03-14 12:30 | PTCARENOTE ---
Dobutamine weaned to off. CI remains > 2. Delined as ordered. PT/OT to bedside, patient w/2 mod assist to sit on side of bed, stood x 2. Tolerated well. VSS. Lunch ordered.
[2025-03-14] MEDS: NSS 500 IV (12:32)
--- NOTE | 2025-03-14 12:59 | CM ---
priced fraxuga ( $147/month) and entresto ( $173/month) with pts [facility]- he pays 25% cost of teir 3 meds. i gave pt 30 day free coupons for both meds and also the patient assistance applications for both as well. pt/family are agreeable to the
cost, they will first use the 30 day free coupons and then apply for assistance and are aware they can also change perscrip plans in open enrollment in Mar to see if they can increase coverage.
[2025-03-14 14:01] LABS: Glucose - Point of Care 89 mg/dl (70-99)
[2025-03-14] MEDS: FERRLECIT 110 MG IV (14:04)
[2025-03-14 16:03] LABS: Glucose - Point of Care 133 mg/dl (70-99)
--- NOTE | 2025-03-14 16:15 | PTCARENOTE ---
VS obtained, assessment unchanged. Patient resting comfortably.
[2025-03-14] MEDS: CRESTOR 40 MG PO (17:12)
[2025-03-14 18:03] LABS: Glucose - Point of Care 113 mg/dl (70-99)
[2025-03-14] MEDS: LOPRESSOR 12.5 MG PO (19:57)
[2025-03-14] MEDS: REMOVE LIDOCAINE PATCH REMOVE (19:58)
[2025-03-14 20:05] LABS: Glucose - Point of Care 75 mg/dl (70-99)
[2025-03-14 20:34] LABS: APTT 75.0 Sec (23.4-35.0)
[2025-03-14 21:10] LABS: Glucose - Point of Care 74 mg/dl (70-99)
[2025-03-14] MEDS: MUCINEX 600 MG PO (21:56)
[2025-03-14 22:09] LABS: Glucose - Point of Care 100 mg/dl (70-99)
[2025-03-14 23:06] LABS: Glucose - Point of Care 114 mg/dl (70-99)
[2025-03-15] VITALS (27 sets, daily range): BP systolic 84–129; BP diastolic 56–74; PULSE 93; O2SAT 94; BMI 27.9
[2025-03-15] LABS: Glucose - Point of Care 106 mg/dl (70-99)
--- NOTE | 2025-03-15 | PTCARENOTE ---
Patient reassessed. Patient received mucinex per CT PA for aid in secretion clearance. Following lopressor administration patient's BP remained stable SBP>100, but a few hours later patients is hypotensive SBP in 80s. CT PA notified. Received orders
for 250 cc 5% albumin. Patient asymptomatic for low BP. Remains SR on the monitor. Call asencio within reach.
--- NOTE | 2025-03-15 00:22 | PTCARENOTE ---
Assumed care of patient at 1900. Patient found resting in bed at time of assessment. Patient is AOx4, follows commands appropriately, can move all extremities. Patient has profound weakness of the left side, but is able to move the extremities these
are residuals from a stroke. Lung sounds are diminished at the bases, saO2 97% on 1L via NC. Patient has frequent productive cough with thick clear sputum. 500 IS. Heart sounds are audible, patient is SR with BBB, + radial pulses and weak but
palpable DP pulses. There is a trace generalized edema present. Patient has active BS in all four quadrants and has beltran catheter draining clear yellow urine. They have three L lateral chest punctures approx with surg adhesive CLASSROOM INSTRUCTOR, L inferior
breast incision approx with surg adhesive CLASSROOM INSTRUCTOR, L lateral CT wound with 4x4 gauze dressing CDI, R groin puncture approx with surg adhesive LISS, and a stage I pressure wound of sacrum with silicone foam dressing. Patient has R IJ cordis receiving KVO,
L EJ PIV receiving heparin, and R wrist 22G PIV. No c/o pain. VSS. Call asencio within reach.
[2025-03-15 01:08] LABS: Glucose - Point of Care 104 mg/dl (70-99)
[2025-03-15 03:15] LABS: Glucose - Point of Care 85 mg/dl (70-99)
[2025-03-15 03:44] LABS: APTT 84.4 Sec (23.4-35.0)
[2025-03-15 03:45] LABS: Hematocrit 37.1 % (39.0-52.0); Hemoglobin 12.7 g/dL (13.0-18.0); Mean Corp Hgb Conc. 34.2 g/dL (33.0-37.0); Mean Corpuscular Volume 101.4 fL (80.0-94.0); Platelet Count 165 10^3/uL (130-400); Red Cell Dist. Width 13.2 % (11.5-14.5)
--- NOTE | 2025-03-15 04:00 | PTCARENOTE ---
Patient reassessed. Blood pressure improved following albumin administration. AM labs obtained. AM hygiene care provided. OOB to chair via mar lift.
[2025-03-15 04:03] LABS: Blood Urea Nitrogen 26 mg/dl (9-20); Calcium 9.2 mg/dl (8.4-10.2); Carbon Dioxide 28 mmol/L (22-30); Chloride 101 mmol/L (98-107); Estimated Creatinine Clearance 87 ml/min; Glucose 81 mg/dl (70-99); Magnesium 2.1 mg/dl (1.6-2.3); Potassium 4.5 mmol/L (3.5-5.1); Sodium 133 mmol/L (135-145); eGFR > 60.00
[2025-03-15 05:13] LABS: Glucose - Point of Care 97 mg/dl (70-99)
[2025-03-15] MEDS: DOBUTREX 500 MG 250 IV (07:18)
[2025-03-15 07:22] LABS: Glucose - Point of Care 88 mg/dl (70-99)
[2025-03-15] MEDS: TYLENOL 975 MG PO ×3 (07:54→22:21)
--- NOTE | 2025-03-15 08:00 | PTCARENOTE ---
Assumed care of patient from maxillofacial prosthetics dentist RN. AAO x 3, Grumpy this morning, complaining that his 'ass' is killing him upon RN arrival to room. Repositioned with foam wedge and pillow. Affect flat, but answers questions appropriately. LT sided
weakness remains. Pupils equal and reactive. Follows commands. SR BBB on monitor. 1 L NC 95%, trialed on room air pulse ox down to 88%. IS and Acapella encouraged. Lungs decreased bilaterally t/o. Abdomen soft and non tender, appetite poor,
but is tolerating ensure this am. Schultz draining jinny urine. Plan of car discussed.
--- NOTE | 2025-03-15 08:17 | W.PN.INTV ---
Today's Communication / Plan
Recommendations
Continue weaning off dobutamine drip
Maintain BG 110�140; now off insulin gtt
Keep MAP >65
Pain control
Continue DAPT with ASA + Plavix
Continue PO Amio
Continue CVICU level of care. Once pt is transferred to CVICU�telemetry status, then Research Methodologist/Pulmonary service will sign off at that time.
Assessment
-
69yoM PMH HTN, HLD, CVA with residual hemiplegia, NIDDM, , hepatic fibrosis, EtOH use, being worked up for hemochromatosis outpt presenting with acute respiratory distress compounded by cardiac arrest in ED put on pressors and intubated, he went
to [facility] and found to have severe CAD with left-sided heart failure, started on Bumex drip and admitted to the ICU. Patient has continued to be managed on the hospitalist service with CT surgery team following; underwent a TAVR by interventional
cardiology on 03/12/2025. Now awaiting surgical coronary revascularization via CT surgery team. Research Methodologist services asked to see patient again for recommendations/management.
Impression:
#Multivessel CAD with history of VT/V-fib cardiac arrest and acute HFrEF s/p robotic assisted MIDCAB (2-vessel bypass GARCIA in situ to diagonal sequential to LAD) � POD #2
#Severe low-flow, low gradient aortic valve stenosis s/p TAVR (03/12/2025)
#Acute hypoxic respiratory failure - likely due to deconditioning at this point
#In-hospital cardiac arrest with VT/VF with EKG showing LBBB s/p ROSC
#Pulmonary hypertension (estimated PASP was 35-40 mmHg with trace TR and normal RV size/function, normal RA size on prior echo from November 2023)--> improved now with PASP 26mmHg on 02/28/25
#Hepatic fibrosis
#Polycythemia (unclear if primary versus secondary)
#Elevated iron saturation with normal ferritin
#Transaminitis
#Alcohol abuse (negative level on admission)
#Marijuana use
Plan:
Patient brought to [facility] initially s/p ROSC which showed severe CAD (MEETING SPECIALIST of pRCA, MEETING SPECIALIST of smaller OM1, complex 90% Sinha 1,1,1 proximal LAD/Diagonal lesion) with EMMA III flow in all vessels
Severe left-sided heart failure seen with LVEDP 40 mmHg at the time of the cath
Revascularization initially on hold to allow for assessment of neurological recovery --> now that he has recovered he has undergone two-vessel bypass GARCIA in situ to diagonal sequential to LAD
Patient was extubated to nasal cannula on the evening of 03/13/2025, and is now breathing comfortably on room air as of 03/15/2025 and saturating 94-95%
Maintain SpO2 >90-94%
prn nebulized bronchodilators - not currently bronchospastic
Encourage IS use q1hr while awake
Pulmonary artery catheter parameters will be followed - currently on dobutamine gtt with plans to wean off later this AM
Pressors/antihypertensive/inotropes/diuretics will be provided as needed
Maintain MAP>65
Replete electrolytes with K>4, Mg>2
Monitor chest tube output (left pleural chest tube x 1 - to be removed shortly this AM)
Monitor hemoglobin
Monitor platelet count and coags
Transfuse blood products as needed to maintain Hb>7g/dL, plt>50k (given post-operative status)
CT surgery managing chest tubes
Monitor blood sugar to maintain euglycemia with goal BG 110-140; HbA1c: 5.4 on 02/28/2025
Insulin drip now off - recommend ISS to keep BG at goal as above
Regarding his high iron saturation with concern for hemochromatosis, HFE-3 variant blood work showed that he was negative for C282Y variant, heterozygous for H63D variant and negative for S65C variant --> heterozygous H63D genotypes are not
associated with symptoms of hereditary hemochromatosis
EPO: 13 (WNL) + JAK2 mutation: negative
Trend LFTs
Aspiration precautions
DVT prophylaxis
Early nutrition
Early mobilization
Continue CVICU level of care. Once pt is transferred to CVICU�telemetry status, then Research Methodologist/Pulmonary service will sign off at that time.
Critical care statement: A total of 41 minutes of critical care time was provided for this patient today. This includes management of ventilator, spontaneous breathing trial, arterial blood gases, pressors, of unstable vital signs, evaluation of the
patient at bedside, reviewing the patient's pertinent medical records including radiographs, microbiology, laboratory evaluations, and discussion with primary team and critical care nursing.
Subjective Dataa
Subjective Data
Date of Service:
Date of Service: March 15, 2025
Chief Complaint: Research Methodologist Follow Up
Subjective:
Patient was seen and evaluated this morning. Resting in bed in no acute distress with and mother at bedside. On dobutamine at 1 mcg/kg/min. BP 119/61 with heart rate 97 and saturating 94% on room air. YulyJ cordis in place. He is more
talkative today, saying that he wants 'sneakers.'
Review of Systems
General: Other (Negative unless mentioned above)
Objective Data
Data Reviewed
Vital Signs / I&O / Oxygen:
Vital Signs
Temp Pulse Resp BP Pulse Ox
99.8 F 94 20 102/59 93
03/15/25 08:00 03/15/25 09:00 03/15/25 08:00 03/15/25 09:00 03/15/25 09:00
Intake and Output
03/14/25 03/15/25 03/16/25
06:59 06:59 06:59
Intake Total 1256.65 / 1285.05 1327.3 / 1327.3 372.7 / 372.7
Output Total 855 / 900 1215 / 1215 50 / 50
Balance 401.65 / 385.05 112.3 / 112.3 322.7 / 322.7
SaO2 [SIMV] 99
SaO2 [CPAP/PSV] 100
SaO2 [CPAP] 96
SaO2 [ASV] 99
SaO2 [A/C] 95
SaO2 93
Nasal Cannula flow liters per 1
minute
Physical Exam
General: Respiratory Distress (negative), Comfortable, Chills (negative), Sweats (positive) and Other (obese male)
HEENT: Normocephalic, Anicteric and Other (R-IJ cordis in place)
Cardiovascular: S1-S2, Regular Rhythm and Peripheral Edema (negative)
Respiratory: Wheeze (negative), Crackles (negative), Rhonchi (Bilateral), Non-Labored Respirations and Chest Tube (Left pleural chest tube x 1)
GI: Soft, Distended (Abdominal obesity), Non Tender and Normal Bowel Sounds
Neurology: Awake, Alert and Tremors (negative)
Skin: Warm, Dry, Cyanosis (negative) and Jaundice (negative)
Labs/Micro/Reports
Lab Data
03/15/25 03:14
03/15/25 03:14
Laboratory Results
03/14/25 03/14/25 03/15/25
11:59 20:12 03:14
APTT 32.9 75.0 H 84.4 H
Microbiology
03/13/25 09:15 Urine Urine Culture - Preliminary
Escherichia coli
--- NOTE | 2025-03-15 08:22 | W.PN.CT ---
Today's Communication / Plan
-
-pod #2 post mid-CAB x2, pod #3 TAVR
-Dobutamine weaned off yesterday 03/14 and BB restarted
-SBP has been 80s overnight, asymptomatic, map >65. No improvement with 250 Albumin
-mvO2 57.[address] am[address] Discussed with Dr. Merritt and restarted Dobut @1
-held BB while on Dobut
-L CT: 0/5 in 24 hrs
-continue iv Heparin
-continue Schultz while on Dobut for critical I&O
-encourage IS (500 max so far), started Mucinex, acapella
-Ensure supplements ordered
-continue PT/OT
Assessment / Plan
-
Assessment:
-S/P Right trans femoral TAVR (26 mm Renner Resilia) by Dr Magdaleno/Pieter on 03/12/25
-S/P Robotic assisted MIDCAB (2-vessel bypass GARCIA in situ to diagonal sequential to LAD) by Dr. Merritt on 03/13/25, pod #2
-Intraop IMAN: LVEF preop was still significantly abnormal, may be 25%. There is significant regional wma pertaining to the inferior and septal torres. There is significant dyskinesis and akinesis of the segments. Following revascularization of
his LAD and diagonal territories, there was significant improvement in his inferior wall motion and septal motion. It essentially normalized. He had a pre-existing bundle branch block so there was still some dyskinesis but overall his left
ventricular ejection fraction did improve. Visually looked about 40 to 45%
-Severe aortic stenosis, symptomatic
-Multivessel CAD
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
-Acute on chronic systolic CHF
-ICM
-HFrEF (EF 25-30% per echo 03/08/25)
-Hypertension
-Hyperlipidemia
-T2DM (A1C 5.4)
-GERD
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
-Lung disease suspected, per hospitalist, on Atrovent/albuterol
-Transaminitis/hepatic fibrosis secondary to alcohol abuse/cirrhosis
-Possible hemochromatosis
-Preop Thrombocytopenia
-S/P VT/VF arrest with new LBBB, 02/27/25
-S/P VDRF, extubated on 03/03/25
-Preop hyponatremia- improving
-Preop NAHCO in setting of VF arrest - resolved
-Acute postop hyperkalemia
-Acute postop pulmonary insufficiency/atelectasis
-Acute postop hypovolemia with subsequent hypervolemia
Discussed patient care with: Nursing and Care Team
Subjective
-
Date of Service: March 15, 2025
Objective Data
-
Lab Results
03/15/25 03:14
03/15/25 03:14
PT 18.0 Sec (11.4-14.6) H 03/13/25 13:27
INR 1.46 03/13/25 13:27
APTT 84.4 Sec (23.4-35.0) H 03/15/25 03:14
Vital Signs
Vital Signs
Temp Pulse Resp BP Pulse Ox
99.8 F 93 20 118/72 96
03/15/25 06:00 03/15/25 07:30 03/15/25 06:00 03/15/25 07:00 03/15/25 07:30
CT Intake/Output/Weight
03/14/25 03/15/25 03/15/25
18:59 06:59 18:59
Intake Total 1081.9 / 1327.3 245.4 / 1327.3
Output Total 635 / 1215 580 / 1215
Balance 446.9 / 112.3 -334.6 / 112.3
SaO2: 96
Physical Exam
-
General: Awake and AOx3
Cardiovascular: Regular rate & rhythm, No Murmurs and No Rub
Respiratory: Decreased Breath Sounds
Sternum: Stable
Incision: Clean, Dry and Intact
Extremities: Edema +1
Abdomen: soft, nontender, nondistended, + bowel sounds
Data Reviewed
-
Lab Results: Results Reviewed
Medications: Active Meds Reviewed
Chest X-Ray: Report Reviewed and Image Reviewed
ECG: Report Reviewed and Image Reviewed
[2025-03-15] MEDS: SENOKOT 8.6 MG PO ×2 (08:33→20:23)
[2025-03-15] MEDS: LOW STRENGTH ASPIRIN 81 MG PO (08:33)
[2025-03-15] MEDS: BACTROBAN 2% OINTMENT 1 APPLIC NASAL ×2 (08:33→20:23)
[2025-03-15] MEDS: MAGNESIUM OXIDE 400 MG PO ×2 (08:33→20:23)
[2025-03-15] MEDS: VITAMIN B1 100 MG PO ×2 (08:33→20:23)
[2025-03-15] MEDS: PROTONIX 40 MG PO (08:33)
[2025-03-15] MEDS: PACERONE 200 MG PO ×3 (08:33→22:21)
[2025-03-15] MEDS: PLAVIX 75 MG PO (08:33)
[2025-03-15] MEDS: MUCINEX 600 MG PO ×2 (08:33→20:23)
[2025-03-15] MEDS: FOLVITE 1 MG PO (08:33)
[2025-03-15] MEDS: LIDOCAINE 4% PATCH TOPICAL (08:34)
[2025-03-15] MEDS: NSS 500 IV (08:34)
--- NOTE | 2025-03-15 08:43 | PN.DE.MGMTRT ---
Insulin Management
- -
03/15/2025: Diabetes Management Follow up
69 year old male with cardiac arrest in the ED. PMH: HTN, HLD, T2DM, Hx of CVA with L hemiparesis. Pt presented to the ED c/o SOB. He was then noted to have pulseless VT and periods of V-Fib on monitor. He underwent CPR and multiple rounds of
defibrillation here in the ED. He received epinephrine, bicarbonate, amiodarone and calcium. ROSC was achieved. Patient remained unresponsive since this event. EKG showed new LBBB and patient was taken to the clinical lab specialist for emergent ischemic
evaluation. No family at bedside. Glucose on admission was 237 Venous. A1C 5.4%, Cr 1.3, eGFR >60.
Pt Awake, alert, flat affect minimally engaged verbally, sitting up in chair, able to briefly discuss diabetes care plan. No family at bedside.
POD #2 s/p mid-CAB x2, pod #3 TAVR, doing well. Remains on Glycemic protocol Glucose range 84 to 104, requiring 0. 3 to 0.5 units of insulin/hr.
Will transition off insulin infusion after lunch to SQ insulin. Was taking Lantus 8 units and corrective insulin prior to OR.
Give Lantus 5 units @ 11:30, turn drip off 1 hour after. Start Lantus 8 units daily in AM and low corrective insulin with meals.
Discussed with Nurse. Will cont to follow.
Diabetes History
- -
Type of Diabetes: 2 requiring insulin
Pre-Admission Diabetes Regimen
03/15/25
03:14
Creatinine 0.8
Lab Results
Hemoglobin A1c 5.4 % (4.0-5.6) 02/28/25 03:28
Insulin Pump Settings
IP Diabetes Regimen
03/14/25 03/14/25 03/14/25
10:01 11:59 13:59
Glucose
POC Glucose 93 112 H 89
03/14/25 03/14/25 03/14/25
16:02 18:01 20:04
Glucose
POC Glucose 133 H 113 H 75
03/14/25 03/14/25 03/14/25
21:04 22:03 23:05
Glucose
POC Glucose 74 100 H 114 H
03/14/25 03/15/25 03/15/25
23:57 01:06 03:11
Glucose
POC Glucose 106 H 104 H 85
03/15/25 03/15/25 03/15/25
03:14 05:12 07:20
Glucose 81
POC Glucose 97 88
Meal type: Lunch
Meal type: Breakfast
Amount consumed: 50%
Amount consumed: 100%
Patient Education
--- NOTE | 2025-03-15 09:00 | PTCARENOTE ---
Lt pleural chest tube removed per HEAD SETTER order. Pt tolerated w/o issue.
[2025-03-15 10:04] LABS: Glucose - Point of Care 152 mg/dl (70-99)
[2025-03-15] MEDS: LANTUS 0.05 UNITS SC (11:07)
--- NOTE | 2025-03-15 11:19 | PTCARENOTE ---
Pt transferred back to bed with mar lift, turned and repositioned. New mepalex foam applied to sacrum and buttock for preventive care. Insulin drip discontinued per order. Family at bedside. VSS Assessment otherwise unchanged at time
[2025-03-15] MEDS: NOVOLOG FLEXPEN-LOW RESISTANCE SC ×2 (12:21→17:26)
[2025-03-15] MEDS: TYLENOL PO (14:04)
[2025-03-15] MEDS: FERRLECIT 110 MG IV (14:04)
--- NOTE | 2025-03-15 15:40 | PTCARENOTE ---
Assist x 2 with Milad lift. VSS. Acapella preformed at RN request. Assessment otherwise unchanged from prior.
[2025-03-15 17:26] LABS: Glucose - Point of Care 139 mg/dl (70-99)
[2025-03-15] MEDS: CRESTOR 40 MG PO (17:26)
--- NOTE | 2025-03-15 18:30 | CON.MD ---
Documented by User: Catherine Orellana PA-C 03/15/25 19:26
Consultation - Medical
-
Referring Provider:�Ricci Chen
Chief Complaint:�TAVR and CABG
�
History of Present Illness:�Mr. Mckeon is a 69y M with PMH significant for HTN, HLD, CVA with residual left hemiplegia/hemiparesis 2014, NIDDM2, obesity, moderate , moderate hepatic fibrosis (Fibroscan 7.5 kPa) and EtOH abuse leading to
SIADH/hyponatremia and concerns for hemochromatosis who presents to ED on 02/27 complaining of SOB. Patient was intubated in the ED due to respiratory distress with marked hypoxemia, diaphoresis and tachypnea, he then became pulseless. He underwent
2 synchronized cardioversions for suspected unstable atrial fibrillation. EKG in the ED showed new LBBB. CT PE was negative but suggested marked acute pulmonary edema. He was taken to the [facility] with results showing chronic RCA occlusion,90% LAD
proximal LAD, and elevated LVEDP. He was then started on a Bumex, amiodarone, and heparin drip and an echocardiogram was performed on 02/28 showed hypokinesis, low EF, and severe .
Echo with ejection fraction of 15 to 20%. Revascularization was deferred for management of pulmonary edema. CT head showed prior R MCA stroke with no significant findings.
03/01, he was weaned off of vasopressors but remained intubated. Receiving medication for agitation. Hematology was consulted for elevated hemoglobin. Labs sent for hemochromatosis panel.
03/03, patient was extubated and breathing well on room air,with improved mentation. Patient was noted to be febrile however workup has been negative so far. He completed 5 days of Unasyn.
03/05 Concerns for HIT. IV heparin was switched to DOAC. Patient was downgraded from ICU to telemetry.
03/06 hemochromatosis panel came back negative ruling out polycythemia vera and HIT panel negative.
Cardiology- Consider LifeVest if able to achieve revascularization. Otherwise will need ICD before discharge. Planned on revascularization and aortic valve replacement. Repeat echo 03/08 showed EF recovery of 25 to 30%.
03/12-patient underwent right trans femoral TAVR with a 26 mm Renner Resilia TAVR valve by Dr. Magdaleno, interventional cardiology. Now awaiting coronary revascularization via CT surgery team.
03/13-underwent robotic assisted mid CABG�two-vessel bypass GARCIA in situ to diagonal sequential to LAD by Dr. Ricci Merritt. Hemodynamically unstable with chest pressurized but improvement in hemodynamics and EF post-reperfusion. Noted poor AV valve
leaflet opening with possible thickening on IMAN and elevated gradient 10-15 mmHg. Concern for possible HALT. Heparin started 03/14 with continuation of aspirin and Plavix.
03/14 Limited transthoracic echo postop was performed. Reveal moderate reduced left ventricular systolic function. LVEF 30-35%. Septal hypokinesis. Evaluation of other torres is limited by poor visualization. No significant change compared to
prior echo. Normal aortic valve gradients. EKG with normal sinus rhythm, left bundle branch block. Dobutamine weaned off and beta-indigo restarted.
03/15 patient required Milad lift to get out of bed. Blood pressure is slightly on the softer side. Patient placed back on dobutamine for short period of time, beta-indigo on hold for now. Drain DC'd. Seen by vascular surgery who would favor no
anticoagulation unless absolutely necessary due to patient history of alcohol abuse.
�
Past Medical History:�History of CVA with left hemiparesis�2014, HTN, Hypercholesterolemia, NIDDM, Valvular Disease (Moderate aortic stenosis) and Other (Moderate hepatic fibrosis, SIADH/hyponatremia in the setting of alcohol abuse)
Procedure History:�Recent TAVR and MidCABG
Family History:�CAD
�
Social History:�
Functional Level Premorbidly:�Independent with all activities�
Functional Level Currently:�Eating�min assist, grooming�max assist, toileting�dependent, lower extremity care�dependent, bed mobility�max assist x 2,
�
Tobacco:�Denies�
Alcohol: 10-12 beers daily
Drug use:�Marijuana
�
Lives with:�Spouse
24-hour assistance available:�Yes
Number of floors:�1
# steps to enter:�0
# steps to second floor:0
Potential First floor set up: Yes
Driving:�yes
Occupation:�Disabled
�
�
Allergies:�
Allergy/AdvReac Type Severity Reaction Status Date / Time
No Known Allergies Allergy Verified 09/02/20 12:02
�
Review of Systems:�
Constitutional: (x) Normal _fatigue
Eye: (x) Normal _
Ear/Nose/Throat: (x) Normal _
Respiratory: (x) Normal _
Cardiovascular: (x) abNormal _low blood pressure, s/p TAVR, cabg
Gastrointestinal: (x) Normal _
Genitourinary: (x) abNormal _urinary retention
Musculoskeletal: (x) Normal _
Integumentary: (x) Normal _
Neurologic: (x) Normal _
Psychiatric: (x) Normal _
Endocrine: (x) Normal _
Hematologic/Lymphatic: (x) Normal _
Allergic/Immunologic: (x) Normal _
�
Medications:�
Active Current Visit Medication List
Category Date Time Status
0.9% Sodium Chloride 500 ml [Nss] 500 ml Med 03/13/25 13:00 Active
IV CORDIS
Acetaminophen 1000MG/100Ml [Ofirmev] Med 03/13/25 12:54 Active
1,000 mg in 100 ml IV ONCE PRN
Acetaminophen [Tylenol] Med 03/13/25 12:54 Active
650 mg PO Q4HPRN PRN
Acetaminophen [Tylenol] Med 03/13/25 14:00 Active
975 mg PO TID@0600,1400,2200
Albuterol Nebs [Ventolin Nebules] Med 03/13/25 12:54 Active
2.5 mg INH R Q4HPRN PRN
Albuterol [ProAIR HFA INHALER] Med 03/13/25 12:54 Active
2 puff INH R Q4HPRN PRN
Amiodarone [Pacerone] Med 03/13/25 16:00 Active
200 mg PO TID
Aspirin Chewable [Low Strength Aspirin] Med 03/04/25 14:07 Active
81 mg PO DAILY
Bisacodyl [Dulcolax] Med 03/13/25 12:54 Active
10 mg RECTAL DAILYPRN PRN
Clopidogrel Bisulfate [Plavix] Med 03/14/25 08:00 Active
75 mg PO DAILY
Cyclobenzaprine HCl [Flexeril] Med 03/13/25 12:54 Active
5 mg PO Q8HPRN PRN
DOBUTamine 500 MG/D5W 250 ML [Dobutrex 500 mg] Med 03/15/25 06:45 Active
500 mg in 250 ml IV PER PROTOCOL
FOLic ACID [Folvite] Med 03/04/25 14:07 Active
1 mg PO DAILY
Ferric Gluconate [Ferrlecit] 125 mg Med 03/14/25 14:00 Active
0.9% Sodium Chloride 100 ml [Nss] 100 ml
IV DAILY@1400
Flush (0.9% Sodium Chloride) [Flush (Nss)] Med 03/13/25 14:00 Active
See Dose Instructions IV PER PROTOCOL
Guaifenesin [Mucinex] Med 03/15/25 08:00 Active
600 mg PO Q12
HYDROmorphone [Dilaudid] Med 03/13/25 12:54 Active
0.25 mg IV Q3HPRN PRN
HYDROmorphone [Dilaudid] Med 03/13/25 12:54 Active
0.5 mg IV Q3HPRN PRN
Lidocaine [Lidocaine 4% Patch] Med 03/14/25 08:00 Active
1 patch TOPICAL DAILY
Magnesium Hydroxide [Milk of Magnesia] Med 03/13/25 12:54 Active
30 ml PO BIDPRN PRN
Magnesium Oxide Med 03/14/25 08:00 Active
400 mg PO BID
Mupirocin [Bactroban 2% Ointment] Med 03/13/25 20:00 Active
See Dose Instructions NASAL Q12
Ondansetron Injectable [Zofran] Med 03/13/25 12:54 Active
4 mg IV Q8HPRN PRN
Oxycodone [Roxicodone] Med 03/13/25 12:54 Active
2.5 mg PO Q4HPRN PRN
Oxycodone [Roxicodone] Med 03/13/25 12:54 Active
5 mg PO Q4HPRN PRN
Pantoprazole [Protonix] Med 03/14/25 08:00 Active
40 mg PO DAILY
Reg Insulin 100 Units/100 ml [Novolin R Insulin Med 03/13/25 13:00 Active
Infusion]
100 units in 100 ml IV PER PROTOCOL
Remove Patch [Remove Lidocaine Patch] Med 03/14/25 20:00 Active
See Dose Instructions REMOVE DAILY@1999
Rosuvastatin Calcium [Crestor] Med 03/06/25 18:00 Active
40 mg PO QPM
Sennosides [Senokot] Med 03/13/25 20:00 Active
8.6 mg PO Q12
Thiamine HCl [Vitamin B1] Med 03/02/25 20:00 Active
100 mg PO BID
�
Vitals:�
Temp Pulse Resp BP Pulse Ox
99.8 F 93 20 118/72 96
03/15/25 06:00 03/15/25 07:30 03/15/25 06:00 03/15/25 07:00 03/15/25 08:29
Height 5 ft 8 in
Actual Weight 83.2 kg
Body Mass Index (BMI) 27.9
�
Physical Exam:�
General Appearance/Observation: Well-developed, well-nourished individual in no apparent distress on o2 via canulla.�
Pain/Comfort Assessment: Surgical incisional pain
Mood/Affect: flat, seems depressed
�
Integumentary/Operative Site:�sternal
�� Pressure Ulcer Evaluation: heels not visualized.�
��
�� Other Type of Wound: IV right neck,
�
Eyes: Conjunctiva/Lids: normal���� Pupils: pupils equal round and reactive to light and Accommodation�
Ears/Nose/Throat: oral mucosa a little dry,� throat clear-.������������ Lips/Teeth/Gums: dry�
Neck: No muscle spasm or tenderness�,
Cardiovascular: Heart: regular, no murmur,
Pulses: dorsalis pedis 2+ bilaterally�
Respiratory: Respiratory Effort/Chest Expansion: normal������� Auscultation: Diminished breath sounds, rhonchi bilaterally�
Gastrointestinal: abdomen not tender, no distension, normal abdominal bowel sounds
Genitourinary: Schultz�
Extremities:�Edema: None�Cyanosis: None�Trophic�changes: None
�
Neurology Exam:
Orientation: Alert, Oriented to self, Time, Place- Looked at the board for info�
Memory: impaired
Comprehension: Slow processing
Two step command: Slow processing
Naming: Intact
Cranial Nerves:
�� CNII:�Pupillary light reflex: Intact����Visual Field: Patient not following commands
�� CN III, IV, : Extraocular muscles: Patient not following commands x 2
�� CN V:�Facial Sensation�at�Forehead: Intact,�Maxilla: Intact,�Mandible: Intact
�� CN VII:�Facial movement: left weakness
�� CN VIII:�Hearing: Normal
�� CN IX/X:�Speech & swallow: low volume, slight slur�Position of Uvula: Midline
�� CN XI:�Shoulder shrug: left weakness
�� CN XII:�Tongue protrusion: Midline
Sensory:
�� Light touch: Intact in bilateral upper and lower extremities
��
�
Reflexes:
Biceps: 2+ bilaterally
Brachioradialis: 2+ bilaterally
Triceps: 2+ bilaterally
Patellar: 2+ bilaterally
Achilles: 0 bilaterally
Babinski: Downgoing bilaterally
Clonus: None
Sarita: Negative bilaterally
Cerebellar: Dysmetria/Ataxia: None on the right, unable to do on the left
Musculoskeletal: Motor: (Manual muscle scale 0-5)
Muscle SA EF WE EE FF FA HF KE DF EHL PF
Right 4 4 4 4 4 4 3 4 4 4 4
Left 1 0 0 0 0 0 0 0 0 4 1
LLE semi flex and externally rotated in bed. unable to straighten or unwilling to move
Tone: Normal in all extremities
Range of Motion: Passively within normal limits, did not test LEs
�
Lab Results:
Labs
WBC 10.1 10^3/uL (4.8-10.8) 03/15/25 03:14
RBC 3.66 10^6/uL (4.70-6.10) L 03/15/25 03:14
Hgb 12.7 g/dL (13.0-18.0) L 03/15/25 03:14
Hct 37.1 % (39.0-52.0) L 03/15/25 03:14
MCV 101.4 fL (80.0-94.0) H 03/15/25 03:14
MCH 34.7 pg (27.0-31.0) H 03/15/25 03:14
MCHC 34.2 g/dL (33.0-37.0) 03/15/25 03:14
RDW 13.2 % (11.5-14.5) 03/15/25 03:14
Plt Count 165 10^3/uL (130-400) D 03/15/25 03:14
MPV 11.6 fL (7.4-10.4) H 03/15/25 03:14
Abs Immat Gran (auto) 0.1 10^3/uL (0-0.05) H 03/13/25 05:07
Absolute Neuts (auto) 7.8 10^3/uL (1.4-6.5) H 03/13/25 05:07
Absolute Lymphs (auto) 0.5 10^3/uL (1.2-3.4) L 03/13/25 05:07
Absolute Monos (auto) 0.4 10^3/uL (0.1-0.6) 03/13/25 05:07
Absolute Eos (auto) 0.0 10^3/uL (0-0.7) 03/13/25 05:07
Absolute Basos (auto) 0.0 10^3/uL (0-0.2) 03/13/25 05:07
Immature Gran % 0.6 % (0-0.5) H 03/13/25 05:07
Neutrophils % 89.2 % (42.2-75.2) H 03/13/25 05:07
Lymphocytes % 5.4 % (20.5-51.1) L 03/13/25 05:07
Monocytes % 4.5 % (1.7-9.3) 03/13/25 05:07
Eosinophils % 0.0 % (0-6) 03/13/25 05:07
Basophils % 0.3 % (0-2) 03/13/25 05:07
Nucleated RBC % 0 % (-) 03/13/25 05:07
PT 18.0 Sec (11.4-14.6) H 03/13/25 13:27
INR 1.46 03/13/25 13:27
APTT 84.4 Sec (23.4-35.0) H 03/15/25 03:14
pH 7.42 (7.35-7.45) 03/13/25 20:00
pCO2 36 mmHg (35-48) 03/13/25 20:00
pO2 112 mmHg (83-108) H 03/13/25 20:00
HCO3 23.4 mmol/L (21-28) 03/13/25 20:00
Base Excess -0.6 mmol/L 03/13/25 20:00
ABG O2 Sat (Measured) 99.6 % (94-98) H 03/13/25 20:00
POC ABG O2 Sat (Calc) 97.4 % (94-98) 03/13/25 17:19
VBG pH 7.31 (7.32-7.43) L 02/27/25 18:02
VBG pCO2 83 mmHg (35-48) H* 02/27/25 18:02
VBG pO2 58 mmHg (30-50) H 02/27/25 18:02
VBG HCO3 41.8 mmol/L (22-27) H 02/27/25 18:02
VBG O2 Sat (Ronnie) 86.5 % 02/27/25 18:02
VBG Base Excess 9.7 mmol/L (-4 to +4) 02/27/25 18:02
VBG O2 Therapy 02/27/25 18:02
Mixed VBG O2 Saturation 57.8 % 03/15/25 03:24
Sodium 131 mMOL/L (136-145) L 03/13/25 18:18
Potassium 4.3 mMOL/L (3.5-5.1) 03/13/25 20:00
O2 Delivery Level 03/13/25 20:00
Sodium 133 mmol/L (135-145) L 03/15/25 03:14
Potassium 4.5 mmol/L (3.5-5.1) 03/15/25 03:14
Chloride 101 mmol/L (98-107) 03/15/25 03:14
Carbon Dioxide 28 mmol/L (22-30) 03/15/25 03:14
BUN 26 mg/dl (9-20) H 03/15/25 03:14
Creatinine 0.8 mg/dL (0.7-1.3) 03/15/25 03:14
Estimated Creat Clear 87 ml/min 03/15/25 03:14
eGFR > 60.00 03/15/25 03:14
Glucose 81 mg/dl (70-99) 03/15/25 03:14
Hemoglobin A1c 5.4 % (4.0-5.6) 02/28/25 03:28
Lactic Acid 0.7 mmol/L (0.7-2.0) 03/12/25 07:39
Calcium 9.2 mg/dl (8.4-10.2) 03/15/25 03:14
Ionized Calcium 1.22 mMOL/L (1.15-1.33) 03/13/25 20:00
Phosphorus 2.7 mg/dl (2.5-4.5) 03/05/25 05:22
Magnesium 2.1 mg/dl (1.6-2.3) 03/15/25 03:14
Iron 312 ug/dl (49-181) H 02/27/25 Unknown
TIBC 313 ug/dl (261-462) 02/27/25 Unknown
% Saturation 99 % (20-50) H 02/27/25 Unknown
Erythropoietin 13 mU/mL (4-27) 02/28/25 03:28
Ferritin 253.0 ng/ml (17.9-464.0) 02/27/25 21:50
Total Bilirubin 0.6 mg/dl (0.2-1.3) 03/14/25 04:01
Direct Bilirubin 0.4 mg/dl (0.0-0.4) 03/14/25 04:01
AST 53 U/L (17-59) 03/14/25 04:01
ALT 54 U/L (0-50) H 03/14/25 04:01
Alkaline Phosphatase 122 U/L (38-126) 03/14/25 04:01
Lactate Dehydrogenase 761 U/L (120-246) H 03/01/25 02:27
Troponin I 31.100 ng/ml H* 02/28/25 17:13
Rwf-M-Fgaiaznnepx Pept 7350 pg/ml 03/01/25 15:17
Total Protein 6.2 g/dl (6.3-8.2) L 03/14/25 04:01
Albumin 3.1 g/dl (3.5-5.0) L 03/14/25 04:01
Triglycerides 315 mg/dl (10-149) H 02/28/25 03:28
Total Cholesterol 245 mg/dl (50-199) H 02/28/25 03:28
LDL Cholesterol, Calc 119 mg/dl 02/28/25 03:28
VLDL Cholesterol, Calc 63 mg/dl (0-30) H 02/28/25 03:28
HDL Cholesterol 63 mg/dl 02/28/25 03:28
Tumor Marker AFP 13.7 ng/ml 02/27/25 21:50
TSH (Reflex) 2.82 uIU/ml (0.47-4.68) 02/27/25 21:50
Urine Color Yellow 03/13/25 09:15
Urine Clarity Slightly cloudy (Clear) 03/13/25 09:15
Urine pH 5.0 (5.0-9.0) 03/13/25 09:15
Ur Specific [place] 1.020 (<1.030) 03/13/25 09:15
Urine Ketones 1+ (Negative) A 03/13/25 09:15
Urine Occult Blood 4+ (Negative) A 02/27/25 22:57
Ur Occult Blood Reflex 4+ (Negative) A 03/13/25 09:15
Urine Nitrite Negative (Negative) 02/27/25 22:57
Urine Nitrite (Reflex) Negative (Negative) 03/13/25 09:15
Urine Bilirubin Negative (Negative) 03/13/25 09:15
Urine Urobilinogen Negative (Neg - 1+) 03/13/25 09:15
Ur Leukocyte Esterase 1+ (Negative) A 02/27/25 22:57
Leukocyte Esterase Rfl 1+ (Negative) A 03/13/25 09:15
Urine RBC 3-6 /HPF (0-2) A 03/13/25 09:15
Urine WBC 3-5 /HPF (0-5) 02/27/25 22:57
Urine WBC (Reflex) 70-80 /HPF (0-5) A 03/13/25 09:15
Ur Squamous Epith Cells 3-5 /LPF (Few) 03/13/25 09:15
Ur Urothelial Cells 0-2 /LPF (FEW) 03/13/25 09:15
Urine Bacteria Few (Negative) A 02/27/25 22:57
Urine Bacteria (Reflex) Moderate (Negative) A 03/13/25 09:15
Hyaline Casts 0-2 /LPF (0-2) 02/28/25 06:45
Granular Casts 11-15 /LPF (0) 02/27/25 22:57
Urine Mucus Few 03/02/25 11:07
Urine Glucose 3+ (Negative) A 03/13/25 09:15
Urine Albumin 3+ (Neg - Trace) A 02/27/25 22:57
Urine Albumin (Reflex) 2+ (Neg - Trace) A 03/13/25 09:15
Urine Opiates Screen Negative (Negative) 02/27/25 22:57
Ur Buprenorphine Negative (Negative) 02/27/25 22:57
Ur Oxycodone Screen Negative (Negative) 02/27/25 22:57
Urine Methadone Screen Negative (Negative) 02/27/25 22:57
Ur Barbiturates Screen Negative (Negative) 02/27/25 22:57
Ur Tricyclics Screen Negative (Negative) 02/27/25 22:57
Ur Phencyclidine Scrn Negative (Negative) 02/27/25 22:57
Ur Amphetamines Screen Negative (Negative) 02/27/25 22:57
U Methamphetamines Scrn Negative (Negative) 02/27/25 22:57
U Benzodiazepines Scrn Negative (Negative) 02/27/25 22:57
Urine Cocaine Screen Negative (Negative) 02/27/25 22:57
U Marijuana (THC) Screen Positive (Negative) H 02/27/25 22:57
Alcohol, Quantitative None detected mg/dl 02/27/25 21:50
Hep-Induced Plt Ab Phylicia 03/05/25 08:56
SARS-CoV-2 Antigen Negative (Negative) 02/28/25 06:36
Specimen Type Arterial 03/13/25 17:19
Hemochromat Specimen Whole blood 02/28/25 10:13
Hemochrom C282Y Mutation Negative 02/28/25 10:13
Hemochrom H63D Mutation Heterozygous 02/28/25 10:13
Hemochrom S65c Mutation Negative 02/28/25 10:13
Hemochromatosis Interp See note 02/28/25 10:13
JAK2 Mutation (PCR) Not detected 02/28/25 10:13
JAK2 V617F Spec Src Whole blood 02/28/25 10:13
POC ABG Comment Pre 03/13/25 09:23
POC pH 7.57 (7.35-7.45) H 03/13/25 17:19
POC Base Excess -0.5 mmol/L 03/13/25 17:19
POC pO2 77 mmHg (83-108) L 03/13/25 17:19
POC pCO2 21 mmHg (35-48) L 03/13/25 17:19
POC HCO3 19 mmol/L (21-28) L 03/13/25 17:19
POC Glucose 88 mg/dl (70-99) 03/15/25 07:20
POC Glucose 129 mg/dl (70-99) H 03/13/25 17:19
POC Sodium 128 mmol/L (136-145) L 03/13/25 17:19
POC Potassium 3.9 mmol/L (3.5-5.1) 03/13/25 17:19
POC Chloride 102 mmol/L (96-111) 03/13/25 17:19
POC BUN 22 mg/dl (3-120) 03/13/25 17:19
POC Ionized Calcium 1.13 mmol/L (1.15-1.33) L 03/13/25 17:19
POC Lactate 0.99 mmol/L (0.36-0.75) H 03/13/25 17:19
POC Creatinine 0.93 mg/dl (0.3-1.0) 03/13/25 17:19
POC ACT+ 156 Seconds (82-134) H 03/13/25 12:42
POC ACT Low Range 279 Seconds (116-155) H 03/12/25 15:13
POC Hemoglobin Calc 14.6 03/13/25 17:19
POC Hematocrit 43 % PCV (42-52) 03/13/25 17:19
POC Hemodilution No 03/13/25 17:19
Blood Type A POS 03/12/25 03:48
Blood Type Confirm A POS 03/12/25 04:11
Antibody Screen Negative (Negative) 03/12/25 03:48
Crossmatch IS Only See Detail 03/12/25 03:48
�
Diagnostic Results:�as per HPI�
Echo
1. Very technically limited study.
2. Moderately reduced left ventricular systolic function. LVEF 30-35%.
3. Septal hypokinesis. Evaluation of other torres is limited by poor visualization.
4. Normal aortic valve gradients (peak/mean 10/6 mmHg). DVI 0.5.
5. No significant change compared to prior echocardiograms.
EKG�left bundle branch block, abnormal EKG when compared with March 13 no significant change was found.
Vent. Rate : 93 BPM Atrial Rate : 93 BPM
P-R Int : 170 ms QRS Dur : 174 ms
QT Int : 462 ms P-R-T Axes : 40 -5 117 degrees
QTcB Int : 574 ms
Chest x-ray�03/15/2025
Interval removal of the Ringgold-Donte catheter. Stable position of the right internal jugular vascular sheath.
Stable left chest tube. No focal consolidation, pleural effusion, or pneumothorax. Low lung volumes. Aortic valve prosthesis. Stable cardiomediastinal silhouette.
CR jaw/mandible�03/12/2025- pre-op
Dental amalgam present. There is absence of numerous mandibular molars. There is no evidence of mandibular fracture. The paranasal sinuses appear well aerated. Moderate degenerative changes of the cervical spine.
IMPRESSION:No acute osseous abnormality of the mandible.
CT of the abdomen/pelvis with intravenous contrast�03/10
Vascular: Abdominal aorta shows advanced atherosclerotic changes with mixed calcific and noncalcific plaque formation. There is no aortic aneurysmal dilation. There is no flow-limiting aortic stenosis. Celiac axis and SMA are patent. Both the celiac
axis and the SMA show mild narrowing at their origins related to calcific plaque formation. The right renal artery is patent and shows proximal at least moderate stenosis, somewhat limited evaluation secondary to blooming artifact from the calcific
plaque at the origin of the right renal. On the left, there is patent renal artery and a patent lower pole accessory renal artery. Main renal artery is severely stenotic proximally. The DEBBI is patent. Bilateral common, internal, and external iliac
arteries are patent. Mild narrowing at the origin of both common iliac arteries secondary to calcific plaque. Bilateral common femoral arteries are patent. Mild narrowing of the right common femoral secondary to calcific plaque.
Lung Bases: Atelectatic changes at the lung bases, most pronounced in the posterior basal right lower lobe.
Abdomen and pelvis: The visceral evaluation is limited by the early timing of acquisition postcontrast administration. There are few small benign calcified granulomas within the liver. Within the limitations, no suspicious focal hepatic lesion. No
intrahepatic biliary dilation identified. Gallbladder is unremarkable. Spleen is unremarkable. Pancreas is unremarkable. The adrenal glands are unremarkable. Right kidney shows 1.2 cm benign simple fluid attenuation cyst. There is a 9 mm calculus in
the right renal collecting system. There is no hydronephrosis. The left kidney shows slightly delayed nephrogram as compared with the right. Left kidney also shows a tiny low-attenuation focus which is too small to characterize, but most likely a
cyst.
There is some dense contrast within the colon and rectum which is from previous video swallow examination. Normal appendix. No bowel obstruction. There is some colonic diverticulosis, no signs of acute diverticulitis. No abnormal focal inflammatory
reaction of the bowel is seen. No free air or free fluid within the abdomen. No retroperitoneal lymphadenopathy. There are some small foci of abnormal soft tissue attenuation with tiny foci of gas within the right anterior abdominal wall, sequela of
subcutaneous injections.
Urinary bladder is nearly completely compressed. There is diffuse wall thickening of the bladder and there is small volume of gas in the antidependent position within the urinary bladder. Prostate is unremarkable. Rectum shows dense contrast from
previous video swallow, otherwise unremarkable. No free fluid is seen within the pelvis.
Bone: Degenerative changes. There are multiple old left rib fractures. There are some cortical contour abnormalities of the anterior right ribs which are probably related to old nondisplaced fractures. No suspicious focal osseous lesions identified.
IMPRESSION:
1. Measurements for TAVR procedure to follow as addendum.
2. No acute intra-abdominal process.
3. Advanced aortic atherosclerotic changes without aneurysmal dilation or flow limiting aortic stenosis.
4. Severe stenosis of the left renal artery with associated delayed nephrogram of the left kidney.
5. Nonobstructive right nephrolithiasis.
6. Diffuse urinary bladder wall thickening. This may be partially related to underdistention. Cystitis is a consideration. There is also small volume of gas within the urinary bladder, question recent catheterization.
�
Assessment: 69-year-old male with PMH of HTN, HLD, CVA with residual left hemiplegia/hemiparesis 2014, NIDDM2, obesity, moderate , moderate hepatic fibrosis (Fibroscan 7.5 kPa) and EtOH abuse leading to SIADH/hyponatremia and concerns for
hemochromatosis who presents to ED on 02/27 complaining of SOB. Patient found to have severe aortic stenosis, symptomatic and multivessel CAD, underwent TAVR on 03/12/[address] Magdaleno and MIDCAB�two-vessel bypass by Dr. Merritt on 03/13/2025,
hemodynamically unstable with low blood pressure. Requiring dobutamine to be reinstated for short period of time.. Patient with ADL and ambulatory dysfunction.
�
Plan�
PM&R�PT/OT to increase independence with ADLs, improve balance, coordination, endurance, strength, mobility, community reintegration, decreased burden of care on others and family education.�
�
Debility: PT/OT
S/P CABG x 2: Robotic assisted MIDCAB (2-vessel bypass GARCIA in situ to diagonal sequential to LAD) by Dr. Merritt on 03/13/25, Sternal precautions.� Aspirin, not on anticoagulant
Aortic valve stenosis: Right trans femoral TAVR by Dr Magdaleno/Pieter on 03/12/25.
Coronary artery disease�: Multiple vessel�total occlusion of the RCA with collateralization, aspirin, statin, beta-indigo�
HTN: continue medications, monitor closely�
Hypotension: Patient on dobutamine per protocol. Midodrine 5 mg 3 times daily
HLD: Statin�
Atrial fibrillation:� Continue anticoagulation and rate control medications.�������������������������������������������
Acute on chronic CHF: EF 25-30% per echo 03/08/25, repeat Transthoracic echo -
�DM II:A1C 5.4. Accu-Cheks, insulin sliding scale, metformin, aspart, lantus.�
Bilateral lower extremity edema: Consider TEDS as able. Increased fluid will cause more force requirement to move lower extremities which requires more strength and increases fatigue.�
Anemia: Postop. Likely multifactorial.� Continue to monitor.�
Thrombocytopenia: Continue to monitor. With platelets less than 50,000 recommend keeping therapies to bedside. If platelets less than 20,000 will use further caution with activity levels and hold therapy for platelets less than 10,000.�
Transaminitis/hepatic fibrosis secondary to alcohol abuse/cirrhosis�
Psych: Psychology consult.� Monitor mood, adjust medications as needed.�
Skin: monitor for pressure sores/rashes/lesions.�
Pain: acetaminophen or oxycodone as needed.�
Bowel: Colace and Senna, PRN bisacodyl.�
Bladder: Time void, PVRs, PRN straight cath.�
Alcohol Abuse: Alcohol cessation education, offering of outpatient alcohol abuse program�
GI Prophylaxis: Pantoprazole�
DVT Prophylaxis: Not on anticoagulant
Pulmonary: Incentive spirometry�
Safety: Continue to reinforce assistance with all transfers.�
Code Status:� Full code
Dispo�(date/plan/equipment needs): Home with family care.� Social history reviewed.�
�
Functional and Medical Goals:�Modified Independent with ADL�s, ambulation, transfers�
�
Discharge Destination:�Patient would benefit from acute inpatient rehabilitation once he is medically and hemodynamically stable
�
Hypotension: Patient on dobutamine per protocol. Midodrine 5 mg 3 times daily. Patient need to be hemodynamically stable on p.o. medications prior to discharge
DVT Prophylaxis: Please comment if any contraindication to chemo prophylaxis as patient is not on anticoagulant.
Thank you for allowing me to care for your patient. Please contact me with any questions or concerns.
Consultation
-
Date/Time Consultation Requested: 03/14/2025- follow up
Date/Time Consultation Performed: 03/15/2025 6:30 pm
Requesting Provider: Dr. Merritt
Performing Provider: catherine Orellana/Dr. Little
Reason for Consultation: re-evaluation post surgery

Documented by User: Jai Little MD 03/16/25 00:00
Consultation - Medical
-
Referring Provider:�Ricci Chen
Chief Complaint:�TAVR and CABG
�
History of Present Illness:�Mr. Mckeon is a 69y M with PMH significant for HTN, HLD, CVA with residual left hemiplegia/hemiparesis 2014, NIDDM2, obesity, moderate , moderate hepatic fibrosis (Fibroscan 7.5 kPa) and EtOH abuse leading to
SIADH/hyponatremia and concerns for hemochromatosis who presents to ED on 02/27 complaining of SOB. Patient was intubated in the ED due to respiratory distress with marked hypoxemia, diaphoresis and tachypnea, he then became pulseless. He underwent
2 synchronized cardioversions for suspected unstable atrial fibrillation. EKG in the ED showed new LBBB. CT PE was negative but suggested marked acute pulmonary edema. He was taken to the [facility] with results showing chronic RCA occlusion,90% LAD
proximal LAD, and elevated LVEDP. He was then started on a Bumex, amiodarone, and heparin drip and an echocardiogram was performed on 02/28 showed hypokinesis, low EF, and severe .
Echo with ejection fraction of 15 to 20%. Revascularization was deferred for management of pulmonary edema. CT head showed prior R MCA stroke with no significant findings.
03/01, he was weaned off of vasopressors but remained intubated. Receiving medication for agitation. Hematology was consulted for elevated hemoglobin. Labs sent for hemochromatosis panel.
03/03, patient was extubated and breathing well on room air,with improved mentation. Patient was noted to be febrile however workup has been negative so far. He completed 5 days of Unasyn.
03/05 Concerns for HIT. IV heparin was switched to DOAC. Patient was downgraded from ICU to telemetry.
03/06 hemochromatosis panel came back negative ruling out polycythemia vera and HIT panel negative.
Cardiology- Consider LifeVest if able to achieve revascularization. Otherwise will need ICD before discharge. Planned on revascularization and aortic valve replacement. Repeat echo 03/08 showed EF recovery of 25 to 30%.
03/12-patient underwent right trans femoral TAVR with a 26 mm Renner Resilia TAVR valve by Dr. Magdaleno, interventional cardiology. Now awaiting coronary revascularization via CT surgery team.
03/13-underwent robotic assisted mid CABG�two-vessel bypass GARCIA in situ to diagonal sequential to LAD by Dr. Ricci Merritt. Hemodynamically unstable with chest pressurized but improvement in hemodynamics and EF post-reperfusion. Noted poor AV valve
leaflet opening with possible thickening on IMAN and elevated gradient 10-15 mmHg. Concern for possible HALT. Heparin started 03/14 with continuation of aspirin and Plavix.
03/14 Limited transthoracic echo postop was performed. Reveal moderate reduced left ventricular systolic function. LVEF 30-35%. Septal hypokinesis. Evaluation of other torres is limited by poor visualization. No significant change compared to
prior echo. Normal aortic valve gradients. EKG with normal sinus rhythm, left bundle branch block. Dobutamine weaned off and beta-indigo restarted.
03/15 patient required Milad lift to get out of bed. Blood pressure is slightly on the softer side. Patient placed back on dobutamine for short period of time, beta-indigo on hold for now. Drain DC'd. Seen by vascular surgery who would favor no
anticoagulation unless absolutely necessary due to patient history of alcohol abuse.
�
Past Medical History:�History of CVA with left hemiparesis�2014, HTN, Hypercholesterolemia, NIDDM, Valvular Disease (Moderate aortic stenosis) and Other (Moderate hepatic fibrosis, SIADH/hyponatremia in the setting of alcohol abuse)
Procedure History:�Recent TAVR and MidCABG
Family History:�CAD
�
Social History:�
Functional Level Premorbidly:�Independent with all activities�
Functional Level Currently:�Eating�min assist, grooming�max assist, toileting�dependent, lower extremity care�dependent, bed mobility�max assist x 2,
�
Tobacco:�Denies�
Alcohol: 10-12 beers daily
Drug use:�Marijuana
�
Lives with:�Spouse
24-hour assistance available:�Yes
Number of floors:�1
# steps to enter:�0
# steps to second floor:0
Potential First floor set up: Yes
Driving:�yes
Occupation:�Disabled
�
�
Allergies:�
Allergy/AdvReac Type Severity Reaction Status Date / Time
No Known Allergies Allergy Verified 09/02/20 12:02
�
Review of Systems:�
Constitutional: (x) Normal _fatigue
Eye: (x) Normal _
Ear/Nose/Throat: (x) Normal _
Respiratory: (x) Normal _
Cardiovascular: (x) abNormal _low blood pressure, s/p TAVR, cabg
Gastrointestinal: (x) Normal _
Genitourinary: (x) abNormal _urinary retention
Musculoskeletal: (x) Normal _
Integumentary: (x) Normal _
Neurologic: (x) Normal _
Psychiatric: (x) Normal _
Endocrine: (x) Normal _
Hematologic/Lymphatic: (x) Normal _
Allergic/Immunologic: (x) Normal _
�
Medications:�
Active Current Visit Medication List
Category Date Time Status
0.9% Sodium Chloride 500 ml [Nss] 500 ml Med 03/13/25 13:00 Active
IV CORDIS
Acetaminophen 1000MG/100Ml [Ofirmev] Med 03/13/25 12:54 Active
1,000 mg in 100 ml IV ONCE PRN
Acetaminophen [Tylenol] Med 03/13/25 12:54 Active
650 mg PO Q4HPRN PRN
Acetaminophen [Tylenol] Med 03/13/25 14:00 Active
975 mg PO TID@0600,1400,2200
Albuterol Nebs [Ventolin Nebules] Med 03/13/25 12:54 Active
2.5 mg INH R Q4HPRN PRN
Albuterol [ProAIR HFA INHALER] Med 03/13/25 12:54 Active
2 puff INH R Q4HPRN PRN
Amiodarone [Pacerone] Med 03/13/25 16:00 Active
200 mg PO TID
Aspirin Chewable [Low Strength Aspirin] Med 03/04/25 14:07 Active
81 mg PO DAILY
Bisacodyl [Dulcolax] Med 03/13/25 12:54 Active
10 mg RECTAL DAILYPRN PRN
Clopidogrel Bisulfate [Plavix] Med 03/14/25 08:00 Active
75 mg PO DAILY
Cyclobenzaprine HCl [Flexeril] Med 03/13/25 12:54 Active
5 mg PO Q8HPRN PRN
DOBUTamine 500 MG/D5W 250 ML [Dobutrex 500 mg] Med 03/15/25 06:45 Active
500 mg in 250 ml IV PER PROTOCOL
FOLic ACID [Folvite] Med 03/04/25 14:07 Active
1 mg PO DAILY
Ferric Gluconate [Ferrlecit] 125 mg Med 03/14/25 14:00 Active
0.9% Sodium Chloride 100 ml [Nss] 100 ml
IV DAILY@1400
Flush (0.9% Sodium Chloride) [Flush (Nss)] Med 03/13/25 14:00 Active
See Dose Instructions IV PER PROTOCOL
Guaifenesin [Mucinex] Med 03/15/25 08:00 Active
600 mg PO Q12
HYDROmorphone [Dilaudid] Med 03/13/25 12:54 Active
0.25 mg IV Q3HPRN PRN
HYDROmorphone [Dilaudid] Med 03/13/25 12:54 Active
0.5 mg IV Q3HPRN PRN
Lidocaine [Lidocaine 4% Patch] Med 03/14/25 08:00 Active
1 patch TOPICAL DAILY
Magnesium Hydroxide [Milk of Magnesia] Med 03/13/25 12:54 Active
30 ml PO BIDPRN PRN
Magnesium Oxide Med 03/14/25 08:00 Active
400 mg PO BID
Mupirocin [Bactroban 2% Ointment] Med 03/13/25 20:00 Active
See Dose Instructions NASAL Q12
Ondansetron Injectable [Zofran] Med 03/13/25 12:54 Active
4 mg IV Q8HPRN PRN
Oxycodone [Roxicodone] Med 03/13/25 12:54 Active
2.5 mg PO Q4HPRN PRN
Oxycodone [Roxicodone] Med 03/13/25 12:54 Active
5 mg PO Q4HPRN PRN
Pantoprazole [Protonix] Med 03/14/25 08:00 Active
40 mg PO DAILY
Reg Insulin 100 Units/100 ml [Novolin R Insulin Med 03/13/25 13:00 Active
Infusion]
100 units in 100 ml IV PER PROTOCOL
Remove Patch [Remove Lidocaine Patch] Med 03/14/25 20:00 Active
See Dose Instructions REMOVE DAILY@1999
Rosuvastatin Calcium [Crestor] Med 03/06/25 18:00 Active
40 mg PO QPM
Sennosides [Senokot] Med 03/13/25 20:00 Active
8.6 mg PO Q12
Thiamine HCl [Vitamin B1] Med 03/02/25 20:00 Active
100 mg PO BID
�
Vitals:�
Temp Pulse Resp BP Pulse Ox
99.8 F 93 20 118/72 96
03/15/25 06:00 03/15/25 07:30 03/15/25 06:00 03/15/25 07:00 03/15/25 08:29
Height 5 ft 8 in
Actual Weight 83.2 kg
Body Mass Index (BMI) 27.9
�
Physical Exam:�
General Appearance/Observation: Well-developed, well-nourished individual in no apparent distress on o2 via canulla.�
Pain/Comfort Assessment: Surgical incisional pain
Mood/Affect: flat, seems depressed
�
Integumentary/Operative Site:�sternal
�� Pressure Ulcer Evaluation: heels not visualized.�
��
�� Other Type of Wound: IV right neck,
�
Eyes: Conjunctiva/Lids: normal���� Pupils: pupils equal round and reactive to light and Accommodation�
Ears/Nose/Throat: oral mucosa a little dry,� throat clear-.������������ Lips/Teeth/Gums: dry�
Neck: No muscle spasm or tenderness�,
Cardiovascular: Heart: regular, no murmur,
Pulses: dorsalis pedis 2+ bilaterally�
Respiratory: Respiratory Effort/Chest Expansion: normal������� Auscultation: Diminished breath sounds, rhonchi bilaterally�
Gastrointestinal: abdomen not tender, no distension, normal abdominal bowel sounds
Genitourinary: Schultz�
Extremities:�Edema: None�Cyanosis: None�Trophic�changes: None
�
Neurology Exam:
Orientation: Alert, Oriented to self, Time, Place- Looked at the board for info�
Memory: impaired
Comprehension: Slow processing
Two step command: Slow processing
Naming: Intact
Cranial Nerves:
�� CNII:�Pupillary light reflex: Intact����Visual Field: Patient not following commands
�� CN III, IV, : Extraocular muscles: Patient not following commands x 2
�� CN V:�Facial Sensation�at�Forehead: Intact,�Maxilla: Intact,�Mandible: Intact
�� CN VII:�Facial movement: left weakness
�� CN VIII:�Hearing: Normal
�� CN IX/X:�Speech & swallow: low volume, dysarthria, difficulty finding words�position of Uvula: Midline
�� CN XI:�Shoulder shrug: left weakness
�� CN XII:�Tongue protrusion: Midline
Sensory:
�� Light touch: Intact in bilateral upper and lower extremities
��
�
Reflexes:
Biceps: 2+ bilaterally
Brachioradialis: 2+ bilaterally
Triceps: 2+ bilaterally
Patellar: 2+ bilaterally
Achilles: 0 bilaterally
Babinski: Downgoing bilaterally
Clonus: None
Sarita: Negative bilaterally
Cerebellar: Dysmetria/Ataxia: None on the right, unable to do on the left
Musculoskeletal: Motor: (Manual muscle scale 0-5)
Muscle SA EF WE EE FF FA HF KE DF EHL PF
Right 4 4 4 4 4 3 4 4 4 4
Left 3 2 1 1 1 1 2 2 4 1
LLE semi flex and externally rotated in bed. unable to straighten or unwilling to move
Tone: Normal in all extremities
Range of Motion: Passively within normal limits, did not test LEs
�
Lab Results:
Labs
WBC 10.1 10^3/uL (4.8-10.8) 03/15/25 03:14
RBC 3.66 10^6/uL (4.70-6.10) L 03/15/25 03:14
Hgb 12.7 g/dL (13.0-18.0) L 03/15/25 03:14
Hct 37.1 % (39.0-52.0) L 03/15/25 03:14
MCV 101.4 fL (80.0-94.0) H 03/15/25 03:14
MCH 34.7 pg (27.0-31.0) H 03/15/25 03:14
MCHC 34.2 g/dL (33.0-37.0) 03/15/25 03:14
RDW 13.2 % (11.5-14.5) 03/15/25 03:14
Plt Count 165 10^3/uL (130-400) D 03/15/25 03:14
MPV 11.6 fL (7.4-10.4) H 03/15/25 03:14
Abs Immat Gran (auto) 0.1 10^3/uL (0-0.05) H 03/13/25 05:07
Absolute Neuts (auto) 7.8 10^3/uL (1.4-6.5) H 03/13/25 05:07
Absolute Lymphs (auto) 0.5 10^3/uL (1.2-3.4) L 03/13/25 05:07
Absolute Monos (auto) 0.4 10^3/uL (0.1-0.6) 03/13/25 05:07
Absolute Eos (auto) 0.0 10^3/uL (0-0.7) 03/13/25 05:07
Absolute Basos (auto) 0.0 10^3/uL (0-0.2) 03/13/25 05:07
Immature Gran % 0.6 % (0-0.5) H 03/13/25 05:07
Neutrophils % 89.2 % (42.2-75.2) H 03/13/25 05:07
Lymphocytes % 5.4 % (20.5-51.1) L 03/13/25 05:07
Monocytes % 4.5 % (1.7-9.3) 03/13/25 05:07
Eosinophils % 0.0 % (0-6) 03/13/25 05:07
Basophils % 0.3 % (0-2) 03/13/25 05:07
Nucleated RBC % 0 % (-) 03/13/25 05:07
PT 18.0 Sec (11.4-14.6) H 03/13/25 13:27
INR 1.46 03/13/25 13:27
APTT 84.4 Sec (23.4-35.0) H 03/15/25 03:14
pH 7.42 (7.35-7.45) 03/13/25 20:00
pCO2 36 mmHg (35-48) 03/13/25 20:00
pO2 112 mmHg (83-108) H 03/13/25 20:00
HCO3 23.4 mmol/L (21-28) 03/13/25 20:00
Base Excess -0.6 mmol/L 03/13/25 20:00
ABG O2 Sat (Measured) 99.6 % (94-98) H 03/13/25 20:00
POC ABG O2 Sat (Calc) 97.4 % (94-98) 03/13/25 17:19
VBG pH 7.31 (7.32-7.43) L 02/27/25 18:02
VBG pCO2 83 mmHg (35-48) H* 02/27/25 18:02
VBG pO2 58 mmHg (30-50) H 02/27/25 18:02
VBG HCO3 41.8 mmol/L (22-27) H 02/27/25 18:02
VBG O2 Sat (Ronnie) 86.5 % 02/27/25 18:02
VBG Base Excess 9.7 mmol/L (-4 to +4) 02/27/25 18:02
VBG O2 Therapy 02/27/25 18:02
Mixed VBG O2 Saturation 57.8 % 03/15/25 03:24
Sodium 131 mMOL/L (136-145) L 03/13/25 18:18
Potassium 4.3 mMOL/L (3.5-5.1) 03/13/25 20:00
O2 Delivery Level 03/13/25 20:00
Sodium 133 mmol/L (135-145) L 03/15/25 03:14
Potassium 4.5 mmol/L (3.5-5.1) 03/15/25 03:14
Chloride 101 mmol/L (98-107) 03/15/25 03:14
Carbon Dioxide 28 mmol/L (22-30) 03/15/25 03:14
BUN 26 mg/dl (9-20) H 03/15/25 03:14
Creatinine 0.8 mg/dL (0.7-1.3) 03/15/25 03:14
Estimated Creat Clear 87 ml/min 03/15/25 03:14
eGFR > 60.00 03/15/25 03:14
Glucose 81 mg/dl (70-99) 03/15/25 03:14
Hemoglobin A1c 5.4 % (4.0-5.6) 02/28/25 03:28
Lactic Acid 0.7 mmol/L (0.7-2.0) 03/12/25 07:39
Calcium 9.2 mg/dl (8.4-10.2) 03/15/25 03:14
Ionized Calcium 1.22 mMOL/L (1.15-1.33) 03/13/25 20:00
Phosphorus 2.7 mg/dl (2.5-4.5) 03/05/25 05:22
Magnesium 2.1 mg/dl (1.6-2.3) 03/15/25 03:14
Iron 312 ug/dl (49-181) H 02/27/25 Unknown
TIBC 313 ug/dl (261-462) 02/27/25 Unknown
% Saturation 99 % (20-50) H 02/27/25 Unknown
Erythropoietin 13 mU/mL (4-27) 02/28/25 03:28
Ferritin 253.0 ng/ml (17.9-464.0) 02/27/25 21:50
Total Bilirubin 0.6 mg/dl (0.2-1.3) 03/14/25 04:01
Direct Bilirubin 0.4 mg/dl (0.0-0.4) 03/14/25 04:01
AST 53 U/L (17-59) 03/14/25 04:01
ALT 54 U/L (0-50) H 03/14/25 04:01
Alkaline Phosphatase 122 U/L (38-126) 03/14/25 04:01
Lactate Dehydrogenase 761 U/L (120-246) H 03/01/25 02:27
Troponin I 31.100 ng/ml H* 02/28/25 17:13
Mbe-F-Bgyzaugvoxs Pept 7350 pg/ml 03/01/25 15:17
Total Protein 6.2 g/dl (6.3-8.2) L 03/14/25 04:01
Albumin 3.1 g/dl (3.5-5.0) L 03/14/25 04:01
Triglycerides 315 mg/dl (10-149) H 02/28/25 03:28
Total Cholesterol 245 mg/dl (50-199) H 02/28/25 03:28
LDL Cholesterol, Calc 119 mg/dl 02/28/25 03:28
VLDL Cholesterol, Calc 63 mg/dl (0-30) H 02/28/25 03:28
HDL Cholesterol 63 mg/dl 02/28/25 03:28
Tumor Marker AFP 13.7 ng/ml 02/27/25 21:50
TSH (Reflex) 2.82 uIU/ml (0.47-4.68) 02/27/25 21:50
Urine Color Yellow 03/13/25 09:15
Urine Clarity Slightly cloudy (Clear) 03/13/25 09:15
Urine pH 5.0 (5.0-9.0) 03/13/25 09:15
Ur Specific [place] 1.020 (<1.030) 03/13/25 09:15
Urine Ketones 1+ (Negative) A 03/13/25 09:15
Urine Occult Blood 4+ (Negative) A 02/27/25 22:57
Ur Occult Blood Reflex 4+ (Negative) A 03/13/25 09:15
Urine Nitrite Negative (Negative) 02/27/25 22:57
Urine Nitrite (Reflex) Negative (Negative) 03/13/25 09:15
Urine Bilirubin Negative (Negative) 03/13/25 09:15
Urine Urobilinogen Negative (Neg - 1+) 03/13/25 09:15
Ur Leukocyte Esterase 1+ (Negative) A 02/27/25 22:57
Leukocyte Esterase Rfl 1+ (Negative) A 03/13/25 09:15
Urine RBC 3-6 /HPF (0-2) A 03/13/25 09:15
Urine WBC 3-5 /HPF (0-5) 02/27/25 22:57
Urine WBC (Reflex) 70-80 /HPF (0-5) A 03/13/25 09:15
Ur Squamous Epith Cells 3-5 /LPF (Few) 03/13/25 09:15
Ur Urothelial Cells 0-2 /LPF (FEW) 03/13/25 09:15
Urine Bacteria Few (Negative) A 02/27/25 22:57
Urine Bacteria (Reflex) Moderate (Negative) A 03/13/25 09:15
Hyaline Casts 0-2 /LPF (0-2) 02/28/25 06:45
Granular Casts 11-15 /LPF (0) 02/27/25 22:57
Urine Mucus Few 03/02/25 11:07
Urine Glucose 3+ (Negative) A 03/13/25 09:15
Urine Albumin 3+ (Neg - Trace) A 02/27/25 22:57
Urine Albumin (Reflex) 2+ (Neg - Trace) A 03/13/25 09:15
Urine Opiates Screen Negative (Negative) 02/27/25 22:57
Ur Buprenorphine Negative (Negative) 02/27/25 22:57
Ur Oxycodone Screen Negative (Negative) 02/27/25 22:57
Urine Methadone Screen Negative (Negative) 02/27/25 22:57
Ur Barbiturates Screen Negative (Negative) 02/27/25 22:57
Ur Tricyclics Screen Negative (Negative) 02/27/25 22:57
Ur Phencyclidine Scrn Negative (Negative) 02/27/25 22:57
Ur Amphetamines Screen Negative (Negative) 02/27/25 22:57
U Methamphetamines Scrn Negative (Negative) 02/27/25 22:57
U Benzodiazepines Scrn Negative (Negative) 02/27/25 22:57
Urine Cocaine Screen Negative (Negative) 02/27/25 22:57
U Marijuana (THC) Screen Positive (Negative) H 02/27/25 22:57
Alcohol, Quantitative None detected mg/dl 02/27/25 21:50
Hep-Induced Plt Ab Phylicia 03/05/25 08:56
SARS-CoV-2 Antigen Negative (Negative) 02/28/25 06:36
Specimen Type Arterial 03/13/25 17:19
Hemochromat Specimen Whole blood 02/28/25 10:13
Hemochrom C282Y Mutation Negative 02/28/25 10:13
Hemochrom H63D Mutation Heterozygous 02/28/25 10:13
Hemochrom S65c Mutation Negative 02/28/25 10:13
Hemochromatosis Interp See note 02/28/25 10:13
JAK2 Mutation (PCR) Not detected 02/28/25 10:13
JAK2 V617F Spec Src Whole blood 02/28/25 10:13
POC ABG Comment Pre 03/13/25 09:23
POC pH 7.57 (7.35-7.45) H 03/13/25 17:19
POC Base Excess -0.5 mmol/L 03/13/25 17:19
POC pO2 77 mmHg (83-108) L 03/13/25 17:19
POC pCO2 21 mmHg (35-48) L 03/13/25 17:19
POC HCO3 19 mmol/L (21-28) L 03/13/25 17:19
POC Glucose 88 mg/dl (70-99) 03/15/25 07:20
POC Glucose 129 mg/dl (70-99) H 03/13/25 17:19
POC Sodium 128 mmol/L (136-145) L 03/13/25 17:19
POC Potassium 3.9 mmol/L (3.5-5.1) 03/13/25 17:19
POC Chloride 102 mmol/L (96-111) 03/13/25 17:19
POC BUN 22 mg/dl (3-120) 03/13/25 17:19
POC Ionized Calcium 1.13 mmol/L (1.15-1.33) L 03/13/25 17:19
POC Lactate 0.99 mmol/L (0.36-0.75) H 03/13/25 17:19
POC Creatinine 0.93 mg/dl (0.3-1.0) 03/13/25 17:19
POC ACT+ 156 Seconds (82-134) H 03/13/25 12:42
POC ACT Low Range 279 Seconds (116-155) H 03/12/25 15:13
POC Hemoglobin Calc 14.6 03/13/25 17:19
POC Hematocrit 43 % PCV (42-52) 03/13/25 17:19
POC Hemodilution No 03/13/25 17:19
Blood Type A POS 03/12/25 03:48
Blood Type Confirm A POS 03/12/25 04:11
Antibody Screen Negative (Negative) 03/12/25 03:48
Crossmatch IS Only See Detail 03/12/25 03:48
�
Diagnostic Results:�as per HPI�
Echo
1. Very technically limited study.
2. Moderately reduced left ventricular systolic function. LVEF 30-35%.
3. Septal hypokinesis. Evaluation of other torres is limited by poor visualization.
4. Normal aortic valve gradients (peak/mean 10/6 mmHg). DVI 0.5.
5. No significant change compared to prior echocardiograms.
EKG�left bundle branch block, abnormal EKG when compared with March 13 no significant change was found.
Vent. Rate : 93 BPM Atrial Rate : 93 BPM
P-R Int : 170 ms QRS Dur : 174 ms
QT Int : 462 ms P-R-T Axes : 40 -5 117 degrees
QTcB Int : 574 ms
Chest x-ray�03/15/2025
Interval removal of the Ringgold-Donte catheter. Stable position of the right internal jugular vascular sheath.
Stable left chest tube. No focal consolidation, pleural effusion, or pneumothorax. Low lung volumes. Aortic valve prosthesis. Stable cardiomediastinal silhouette.
CR jaw/mandible�03/12/2025- pre-op
Dental amalgam present. There is absence of numerous mandibular molars. There is no evidence of mandibular fracture. The paranasal sinuses appear well aerated. Moderate degenerative changes of the cervical spine.
IMPRESSION:No acute osseous abnormality of the mandible.
CT of the abdomen/pelvis with intravenous contrast�03/10
Vascular: Abdominal aorta shows advanced atherosclerotic changes with mixed calcific and noncalcific plaque formation. There is no aortic aneurysmal dilation. There is no flow-limiting aortic stenosis. Celiac axis and SMA are patent. Both the celiac
axis and the SMA show mild narrowing at their origins related to calcific plaque formation. The right renal artery is patent and shows proximal at least moderate stenosis, somewhat limited evaluation secondary to blooming artifact from the calcific
plaque at the origin of the right renal. On the left, there is patent renal artery and a patent lower pole accessory renal artery. Main renal artery is severely stenotic proximally. The DEBBI is patent. Bilateral common, internal, and external iliac
arteries are patent. Mild narrowing at the origin of both common iliac arteries secondary to calcific plaque. Bilateral common femoral arteries are patent. Mild narrowing of the right common femoral secondary to calcific plaque.
Lung Bases: Atelectatic changes at the lung bases, most pronounced in the posterior basal right lower lobe.
Abdomen and pelvis: The visceral evaluation is limited by the early timing of acquisition postcontrast administration. There are few small benign calcified granulomas within the liver. Within the limitations, no suspicious focal hepatic lesion. No
intrahepatic biliary dilation identified. Gallbladder is unremarkable. Spleen is unremarkable. Pancreas is unremarkable. The adrenal glands are unremarkable. Right kidney shows 1.2 cm benign simple fluid attenuation cyst. There is a 9 mm calculus in
the right renal collecting system. There is no hydronephrosis. The left kidney shows slightly delayed nephrogram as compared with the right. Left kidney also shows a tiny low-attenuation focus which is too small to characterize, but most likely a
cyst.
There is some dense contrast within the colon and rectum which is from previous video swallow examination. Normal appendix. No bowel obstruction. There is some colonic diverticulosis, no signs of acute diverticulitis. No abnormal focal inflammatory
reaction of the bowel is seen. No free air or free fluid within the abdomen. No retroperitoneal lymphadenopathy. There are some small foci of abnormal soft tissue attenuation with tiny foci of gas within the right anterior abdominal wall, sequela of
subcutaneous injections.
Urinary bladder is nearly completely compressed. There is diffuse wall thickening of the bladder and there is small volume of gas in the antidependent position within the urinary bladder. Prostate is unremarkable. Rectum shows dense contrast from
previous video swallow, otherwise unremarkable. No free fluid is seen within the pelvis.
Bone: Degenerative changes. There are multiple old left rib fractures. There are some cortical contour abnormalities of the anterior right ribs which are probably related to old nondisplaced fractures. No suspicious focal osseous lesions identified.
IMPRESSION:
1. Measurements for TAVR procedure to follow as addendum.
2. No acute intra-abdominal process.
3. Advanced aortic atherosclerotic changes without aneurysmal dilation or flow limiting aortic stenosis.
4. Severe stenosis of the left renal artery with associated delayed nephrogram of the left kidney.
5. Nonobstructive right nephrolithiasis.
6. Diffuse urinary bladder wall thickening. This may be partially related to underdistention. Cystitis is a consideration. There is also small volume of gas within the urinary bladder, question recent catheterization.
�
Assessment: 69-year-old male with PMH of HTN, HLD, CVA with residual left hemiplegia/hemiparesis 2014, NIDDM2, obesity, moderate , moderate hepatic fibrosis (Fibroscan 7.5 kPa) and EtOH abuse leading to SIADH/hyponatremia and concerns for
hemochromatosis who presents to ED on 02/27 complaining of SOB. Patient found to have severe aortic stenosis, symptomatic and multivessel CAD, underwent TAVR on 03/12/[address] Magdaleno and MIDCAB�two-vessel bypass by Dr. Merritt on 03/13/2025,
hemodynamically unstable with low blood pressure. Requiring dobutamine to be reinstated for short period of time.. Patient with ADL and ambulatory dysfunction.
�
Plan�
PM&R�PT/OT to increase independence with ADLs, improve balance, coordination, endurance, strength, mobility, community reintegration, decreased burden of care on others and family education.�
�
Debility: PT/OT
S/P CABG x 2: Robotic assisted MIDCAB (2-vessel bypass GARCIA in situ to diagonal sequential to LAD) by Dr. Merritt on 03/13/25, Sternal precautions.� Aspirin, not on anticoagulant
Aortic valve stenosis: Right trans femoral TAVR by Dr Magdaleno/Pieter on 03/12/25.
Coronary artery disease�: Multiple vessel�total occlusion of the RCA with collateralization, aspirin, statin, beta-indigo�
HTN: continue medications, monitor closely�
Hypotension: Patient on dobutamine per protocol. Midodrine 5 mg 3 times daily
HLD: Statin�
Atrial fibrillation:� Continue anticoagulation and rate control medications.�������������������������������������������
Acute on chronic CHF: EF 25-30% per echo 03/08/25, repeat Transthoracic echo -
�DM II:A1C 5.4. Accu-Cheks, insulin sliding scale, metformin, aspart, lantus.�
Bilateral lower extremity edema: Consider TEDS as able. Increased fluid will cause more force requirement to move lower extremities which requires more strength and increases fatigue.�
Anemia: Postop. Likely multifactorial.� Continue to monitor.�
Thrombocytopenia: Continue to monitor. With platelets less than 50,000 recommend keeping therapies to bedside. If platelets less than 20,000 will use further caution with activity levels and hold therapy for platelets less than 10,000.�
Transaminitis/hepatic fibrosis secondary to alcohol abuse/cirrhosis�
Psych: Psychology consult.� Monitor mood, adjust medications as needed.�
Skin: monitor for pressure sores/rashes/lesions.�
Pain: acetaminophen or oxycodone as needed.�
Bowel: Colace and Senna, PRN bisacodyl.�
Bladder: Time void, PVRs, PRN straight cath.�
Alcohol Abuse: Alcohol cessation education, offering of outpatient alcohol abuse program�
GI Prophylaxis: Pantoprazole�
DVT Prophylaxis: Not on anticoagulant
Pulmonary: Incentive spirometry�
Safety: Continue to reinforce assistance with all transfers.�
Code Status:� Full code
Dispo�(date/plan/equipment needs): Home with family care.� Social history reviewed.�
�
Functional and Medical Goals:�Modified Independent with ADL�s, ambulation, transfers�
�
Discharge Destination:�Patient would benefit from acute inpatient rehabilitation once he is medically and hemodynamically stable
Hypotension: Patient on dobutamine per protocol. Midodrine 5 mg 3 times daily. Patient need to be hemodynamically stable on p.o. medications prior to discharge
DVT Prophylaxis: Please comment if any contraindication to chemo prophylaxis as patient is not on anticoagulant.
Attending Statement:
I saw and examined the patient today. Reviewed care plan with patient, therapy, nursing, and physician phys assistant. I agree with the above subjective and physical exam, and plan as documented by MARIAH Orellana with adjustments made as necessary. A
total of 60 minutes were spent with the patient preparing for the evaluation, obtaining history, performing examination and evaluation, counseling, data review, case management, care coordination, order make up clerk, and EMR documentation.
Thank you for allowing me to care for your patient. Please contact me with any questions or concerns.
--- NOTE | 2025-03-15 19:57 | W.PN.CD ---
Today's Communication / Plan
-
re-initiate GDMT as tolerate
cont. DAPT
target physical therapy and acute rehab discharge when able
Impression / Plan
-
Background: 69 y/o male with HTN, HLD, remote CVA complicated by left hemiparesis, transaminitis related to EtOH abuse vs. possible hemochromatosis with at least moderate hepatic fibrosis admitted with acute, vent dependent respiratory failure
complicated by VT/VF arrest and new LBBB. Found to have severe MV CAD and severe . Now s/p successful TF TAVR (03/12/2025, 26 S3UR Pieter/Rasta) and MIDCAB ([id number]) with Dr. Merritt/Rasta 03/13/25.
He is doing fairly well postoperatively. He remains on norepinephrine 1 and dobutamine 1. Heparin started this a.m. due to concern for HALT.
Severe 3 V CAD
- Cath 02/27/2025: 100% pRCA, 100% dLCx, 100% OM1, 90% complex p-mLAD; no clear cuprit lesion for OH, arrest may have been in setting of decompensated heart failure with underlying IHD. LAD supplies collaterals to the CTOs so revascularization of the
LAD and diagonal will provide near complete revasc.
- s/p MIDCAB with [id number]-UVY with Dr. Merritt/Rasta. Hemodynamically unstable with chest pressurized but improvement in hemodynamics and EF post-reperfusion. Noted poor AV valve leaflet opening with possible thickening on IMAN and elevated gradient
10-15 mmHg. Concern for possible HALT. Heparin started 03/14. However, normal gradients and valve appearance on TTE 03/14. For now given high bleeding risk with triple therapy would not in-instate AC. Will get 2 week interval echo to assess gradients.
- No angina
- cont. ASA and Plavix
Severe Aortic Stenosis
- Echo 02/28/2025: HANNAH 0.54 cm2, mean 35 mmHg
- s/p TF TAVR with Nicole S3UR 26 mm valve 03/12/2025 (Pieter/Rasta)
- as noted above, concern on IMAN for possible HALT but on follow up TTE gradients normal and given high risk for anticoagulation, will monitor for now and not continue triple therapy.
- cont. ASA and Plavix
Secondary VT/F arrest in the ER
- Severe CAD - obstructive and severe with heart failure and class III-IV NYHA symptoms.
- No further VT/VF since ER admit
- Consider LifeVest if EF remains low
Severe HFrEF from a Severe Ischemic cardiomyopathy
- Cath 02/27/2025 LVEDP 40 mmHg
- Echo 02/28/2025: LVEF 15-20%
- Echo 03/08/2025: LVEF 25-30%
- Medical therapy in progress - limited by hypotension, resume when able
- Low dose ARB when able
- Low dose metoprolol when able
- SGLT2-I as outpatient
- low dose MRA/Aldactone as outpatient
- Changed from IV Bumex to oral 03/11/2025. Held for now. Continue to monitor labs and weights
LBBB, QRS 176 ms
- Watch for heart block
- Will be a candidate for GEAR FINISHER with backup defibrillation in the future
- Telemetry reviewed - no pause or block noted.
Elevated Hgb, elevated MCV, and acquired transient thrombocytopenia, heme involved
- Plt improved (plt 120 on 03/06/2025), Heparin off, off Argatroban
- HIT negative, heparin can be used again if needed
- Per hematology:
- 'Jak2 is negative and EPO normal -- essentially rules out PVera
- One copy of H63D mutation. This genotype has not been associated with symptoms of hereditary hemochromatosis. No indication for phlebotomy.
- HIT Phylicia pending. Platelet count trending up'
Mixed hyperlipidemia, LDL was not at goal, goal LDL less than 55
- cont. rosuvastatin 40 daily
ETOH
Hepatic fibrosis/ steatosis, at least moderate by Fibroscan.
S/p stroke with chronic LUE weakness an mild LLE weakness
Lung disease suspected, per hospitalist, on Atrovent/albuterol
Subjective: Extubated. Opens eyes easily to voice. Denies pain but otherwise not conversant.
Drips: Levo at 1, dobutamine at 1, insulin, heparin
Telemetry: Normal sinus rhythm, LBBB
Physical Exam
Vital Signs/Labs
Vital Signs
Temp Pulse Resp BP Pulse Ox
37.3 C 100 20 124/72 93
03/15/25 15:37 03/15/25 15:37 03/15/25 15:37 03/15/25 15:00 03/15/25 15:37
03/14/25 03/15/25 03/16/25
06:59 06:59 06:59
Actual Weight 80.3 kg 83.2 kg
03/15/25 03:14
03/15/25 03:14
PT 18.0 Sec (11.4-14.6) H 03/13/25 13:27
INR 1.46 03/13/25 13:27
APTT 84.4 Sec (23.4-35.0) H 03/15/25 03:14
Magnesium 2.1 mg/dl (1.6-2.3) 03/15/25 03:14
Triglycerides 315 mg/dl (10-149) H 02/28/25 03:28
LDL Cholesterol, Calc 119 mg/dl 02/28/25 03:28
VLDL Cholesterol, Calc 63 mg/dl (0-30) H 02/28/25 03:28
HDL Cholesterol 63 mg/dl 02/28/25 03:28
02/27/25 02/27/25 02/27/25
18:02 18:31 19:35
Gnq-J-Cncoynhvnxb Pept Cancelled Cancelled Cancelled
02/27/25 03/01/25
Unknown 15:17
Saf-W-Fqunenwtfkc Pept [id number]
Physical Exam
Constitutional: Comfortable
Cardiovascular: Rhythm & rate is regular
Respiratory: Respiratory effort normal
Neuro/Psych: AO x 3
Data Reviewed
-
Date of Service: March 15, 2025
Medical Decision Making: Reviewed Test Results
Echo: Tracing Personally Visualized and interpreted
Labs: Labs Reviewed by me
--- NOTE | 2025-03-15 20:00 | PTCARENOTE ---
Assumed care of the patient at 1900. Pt AOx2 (d/time), L sided hemiparesis, flat affect, answering questions appropriately, PERRLA. SR with a LBBB on CM, rates 80-90's, trace generalized anasarca, pulses palpable, DP pulses weak on palpable. SpO2
95% on 1 LNC, lungs diminished throughout, cough/deep breathing and IS/acapella encouraged. Abdomen SNT, attempted to have a BM on the bedpan without success. Schultz catheter draining concentrated yellow urine. All surgical sites intact, see work
list. RIJ cordis, PIVx1, and L EJ IV catheter in place. Plan of care discussed with the patient, assessment of needs ongoing.
[2025-03-15] MEDS: REMOVE LIDOCAINE PATCH REMOVE (20:24)
[2025-03-15 22:20] LABS: Glucose - Point of Care 164 mg/dl (70-99)
[2025-03-16] VITALS (25 sets, daily range): BP systolic 81–129; BP diastolic 53–77; PULSE 92–94; O2SAT 94–95; BMI 27.7
--- NOTE | 2025-03-16 00:16 | PTCARENOTE ---
No acute changes, patient sleeping between care. Experiencing some gas discomfort. Call asencio within reach.
--- NOTE | 2025-03-16 04:29 | PTCARENOTE ---
VSS, patient sleeping between care. Able to make needs known, flat affect remains. Assessment of needs ongoing.
[2025-03-16 04:33] LABS: Hematocrit 38.2 % (39.0-52.0); Hemoglobin 13.2 g/dL (13.0-18.0); Mean Corp Hgb Conc. 34.6 g/dL (33.0-37.0); Mean Corpuscular Volume 99.7 fL (80.0-94.0); Platelet Count 169 10^3/uL (130-400); Red Cell Dist. Width 13.3 % (11.5-14.5)
[2025-03-16 04:57] LABS: Blood Urea Nitrogen 20 mg/dl (9-20); Calcium 8.6 mg/dl (8.4-10.2); Carbon Dioxide 28 mmol/L (22-30); Chloride 101 mmol/L (98-107); Estimated Creatinine Clearance 99 ml/min; Glucose 136 mg/dl (70-99); Magnesium 1.9 mg/dl (1.6-2.3); Potassium 4.7 mmol/L (3.5-5.1); Sodium 131 mmol/L (135-145); eGFR > 60.00
[2025-03-16] MEDS: TYLENOL 975 MG PO ×3 (06:07→21:48)
--- NOTE | 2025-03-16 07:24 | W.PN.CT ---
Today's Communication / Plan
-
-pod #3 post mid-CAB x2, pod #4 TAVR
-no issues overnight
-iv Heparin is off
-d/c Schultz
-encourage IS (500 max so far), started Mucinex, acapella
-Ensure supplements ordered
-continue PT/OT
Assessment / Plan
-
Assessment:
-S/P Right trans femoral TAVR (26 mm Renner Resilia) by Dr Magdaleno/Pieter on 03/12/25
-S/P Robotic assisted MIDCAB (2-vessel bypass GARCIA in situ to diagonal sequential to LAD) by Dr. Merritt on 03/13/25, pod #3
-Intraop IMAN: LVEF preop was still significantly abnormal, may be 25%. There is significant regional wma pertaining to the inferior and septal torres. There is significant dyskinesis and akinesis of the segments. Following revascularization of
his LAD and diagonal territories, there was significant improvement in his inferior wall motion and septal motion. It essentially normalized. He had a pre-existing bundle branch block so there was still some dyskinesis but overall his left
ventricular ejection fraction did improve. Visually looked about 40 to 45%
-Severe aortic stenosis, symptomatic
-Multivessel CAD
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
-Acute on chronic systolic CHF
-ICM
-HFrEF (EF 25-30% per echo 03/08/25)
-Hypertension
-Hyperlipidemia
-T2DM (A1C 5.4)
-GERD
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
-Lung disease suspected, per hospitalist, on Atrovent/albuterol
-Transaminitis/hepatic fibrosis secondary to alcohol abuse/cirrhosis
-Possible hemochromatosis
-Preop Thrombocytopenia
-S/P VT/VF arrest with new LBBB, 02/27/25
-S/P VDRF, extubated on 03/03/25
-Preop hyponatremia- improving
-Preop NACHO in setting of VF arrest - resolved
-Acute postop hyperkalemia
-Acute postop pulmonary insufficiency/atelectasis
-Acute postop hypovolemia with subsequent hypervolemia
Discussed patient care with: Nursing and Care Team
Subjective
-
Date of Service: March 16, 2025
Objective Data
-
Lab Results
03/16/25 04:21
03/16/25 04:21
PT 18.0 Sec (11.4-14.6) H 03/13/25 13:27
INR 1.46 03/13/25 13:27
APTT 84.4 Sec (23.4-35.0) H 03/15/25 03:14
Vital Signs
Vital Signs
Temp Pulse Resp BP Pulse Ox
97.9 F 100 16 129/77 96
03/16/25 04:00 03/16/25 06:00 03/16/25 04:00 03/16/25 06:00 03/16/25 04:15
CT Intake/Output/Weight
03/15/25 03/16/25 03/16/25
18:59 06:59 18:59
Intake Total 702.3 / 932.3 230 / 932.3
Output Total 510 / 1045 535 / 1045
Balance 192.3 / -112.7 -305 / -112.7
SaO2: 96
Physical Exam
-
General: Awake and AOx3
Cardiovascular: Regular rate & rhythm, No Murmurs and No Rub
Respiratory: Decreased Breath Sounds
Sternum: Stable
Incision: Clean, Dry and Intact
Abdomen: soft, nontender, nondistended, + bowel sounds
Extremities: Edema +1
Data Reviewed
-
Lab Results: Results Reviewed
Medications: Active Meds Reviewed
Chest X-Ray: Report Reviewed and Image Reviewed
ECG: Report Reviewed and Image Reviewed
--- NOTE | 2025-03-16 07:30 | PTCARENOTE ---
Assumed care of patient from shift nurse manager RN. AAO x 3, very flat affect, minimal speaking pt prefers to nod. Very limited ability to use Lt arm and leg. SR BBB on monitor. 1 L NC 95%. Lungs decreased bilaterally. Using Acapella with
encouragement. Abdomen soft and non tender, active bowel sounds t/o . Foely draining clear jinny urine. Surgical sites c,d,i. Pulses palpable. Plan for day discussed.
[2025-03-16 08:00] LABS: Glucose - Point of Care 139 mg/dl (70-99)
[2025-03-16] MEDS: LANTUS 0.08 UNITS SC (08:10)
[2025-03-16] MEDS: FOLVITE 1 MG PO (08:10)
[2025-03-16] MEDS: VITAMIN B1 100 MG PO ×2 (08:10→20:26)
[2025-03-16] MEDS: SENOKOT 8.6 MG PO ×2 (08:10→20:27)
[2025-03-16] MEDS: LOW STRENGTH ASPIRIN 81 MG PO (08:10)
[2025-03-16] MEDS: PROTONIX 40 MG PO (08:10)
[2025-03-16] MEDS: TOPROL XL 12.5 MG PO ×2 (08:10→20:26)
[2025-03-16] MEDS: PLAVIX 75 MG PO (08:10)
[2025-03-16] MEDS: LASIX 40 MG PO ×3 (08:10→20:26)
[2025-03-16] MEDS: NOVOLOG FLEXPEN-LOW RESISTANCE SC ×2 (08:11→14:15)
[2025-03-16] MEDS: MUCINEX 600 MG PO ×2 (08:11→20:26)
[2025-03-16] MEDS: LIDOCAINE 4% PATCH TOPICAL (08:11)
[2025-03-16] MEDS: MAGNESIUM OXIDE 400 MG PO ×2 (08:11→20:26)
[2025-03-16] MEDS: PACERONE 200 MG PO ×3 (08:11→21:48)
[2025-03-16] MEDS: BACTROBAN 2% OINTMENT 1 APPLIC NASAL ×2 (08:11→20:26)
--- NOTE | 2025-03-16 08:53 | PN.DE.MGMTRT ---
Insulin Management
- -
03/16/2025: Diabetes Management Follow up
69 year old male with cardiac arrest in the ED. PMH: HTN, HLD, T2DM, Hx of CVA with L hemiparesis. Pt presented to the ED c/o SOB. He was then noted to have pulseless VT and periods of V-Fib on monitor. He underwent CPR and multiple rounds of
defibrillation here in the ED. He received epinephrine, bicarbonate, amiodarone and calcium. ROSC was achieved. Patient remained unresponsive since this event. EKG showed new LBBB and patient was taken to the [facility] lab[facility] for emergent ischemic
evaluation. No family at bedside. Glucose on admission was 237 Venous. A1C 5.4%, Cr 1.3, eGFR >60.
Pt Awake, alert, flat affect minimally engaged verbally, resting in bed, able to briefly discuss diabetes care plan. Family at bedside.
POD # 3 s/p mid-CAB x2, pod #3 TAVR, doing well.
Was transitioned off Glycemic protocol yesterday to SQ insulin.
Glucose range 88 to 152, required no corrective insulin. On diet and tolerating well.
Will continue Lantus 8 units daily in AM and low corrective insulin with meals.
Discussed with Nurse. Will cont to follow.
Diabetes History
- -
Type of Diabetes: 2 requiring insulin
Pre-Admission Diabetes Regimen
03/16/25
04:21
Creatinine 0.7
Lab Results
Hemoglobin A1c 5.4 % (4.0-5.6) 02/28/25 03:28
Insulin Pump Settings
IP Diabetes Regimen
03/15/25 03/15/25 03/15/25
10:02 17:25 22:14
Glucose
POC Glucose 152 H 139 H 164 H
03/16/25 03/16/25
04:21 07:58
Glucose 136 H
POC Glucose 139 H
Meal type: Breakfast
Amount consumed: 30%
Patient Education
--- NOTE | 2025-03-16 10:35 | PTCARENOTE ---
Goss catheter removed this am. Pt provided with urinal and instructed on calling for assistance. However, pt then grossly incontinent approx an hour later. Turned , repositioned, and bathed with CHG cloths. Condom cath applied. Will continue
to monitor
--- NOTE | 2025-03-16 12:18 | PTCARENOTE ---
Resting at present, very tired today . voiding in condom cath. vss. family at bedside. assessment unchanged from prior
[2025-03-16] MEDS: NSS IV (14:15)
--- NOTE | 2025-03-16 14:17 | PTCARENOTE ---
RN in to transfer pt to chair. Pt previously removed condom cath 'accidentally', Pt noted to be saturated in urine. Pt bathed and linens/gown changed/ Pt asked if he knows when he is urinating and responded yes. Pt encouraged to ring staff if
becomes wet again. Family at bedside.
[2025-03-16] MEDS: FERRLECIT 110 MG IV (14:31)
[2025-03-16] MEDS: CRESTOR 40 MG PO (16:12)
[2025-03-16] MEDS: WELLBUTRIN XL (24 hour extended release) 150 MG PO (16:12)
[2025-03-16 16:35] LABS: Glucose - Point of Care 171 mg/dl (70-99)
[2025-03-16] MEDS: NOVOLOG FLEXPEN-LOW RESISTANCE 1 UNITS SC (17:09)
--- NOTE | 2025-03-16 17:25 | PTCARENOTE ---
Pt transferred back to bed. Condom cath again off. Pt grossly incontinent of urine. Complete bed bath given, linens changed. Pt very very flat today and not attempting to interact and assist with care. Pt previously on wellbutrin. But
states he was not taking any of his medications at home. Discussed with CT METALLOGRAPHER. Meds reordered. VSS. Assessment otherwise unchanged from prior.
--- NOTE | 2025-03-16 19:36 | W.PN.CD ---
Today's Communication / Plan
-
cont. diuresis
cont. reintroduction of low dose GDMT, ideally have on BB/RASS/SGLT2i before d/c
Impression / Plan
-
Background: 69 y/o male with HTN, HLD, remote CVA complicated by left hemiparesis, transaminitis related to EtOH abuse vs. possible hemochromatosis with at least moderate hepatic fibrosis admitted with acute, vent dependent respiratory failure
complicated by VT/VF arrest and new LBBB. Found to have severe MV CAD and severe . Now s/p successful TF TAVR (03/12/2025, 26 S3UR Pieter/Rasta) and MIDCAB ([id number]-[id number]-SXH) with Dr. Merritt/Ratsa 03/13/25.
He is doing fairly well postoperatively. Off drips.
Severe 3 V CAD
- Cath 02/27/2025: 100% pRCA, 100% dLCx, 100% OM1, 90% complex p-mLAD; no clear cuprit lesion for HI, arrest may have been in setting of decompensated heart failure with underlying IHD. LAD supplies collaterals to the CTOs so revascularization of the
LAD and diagonal will provide near complete revasc.
- s/p MIDCAB with [id number] with Dr. Acosta. Hemodynamically unstable with chest pressurized but improvement in hemodynamics and EF post-reperfusion. Noted poor AV valve leaflet opening with possible thickening on IMAN and elevated gradient
10-15 mmHg. Concern for possible HALT. Heparin started 03/14. However, normal gradients and valve appearance on TTE 03/14. For now given high bleeding risk with triple therapy would not in-instate AC. Will get 2 week interval echo to assess gradients.
- No angina
- cont. ASA and Plavix
Severe Aortic Stenosis
- Echo 02/28/2025: HANNAH 0.54 cm2, mean 35 mmHg
- s/p TF TAVR with Nicole S3UR 26 mm valve 03/12/2025 (Pieter/Rasta)
- as noted above, concern on IMAN for possible HALT but on follow up TTE gradients normal and given high risk for anticoagulation, will monitor for now and not continue triple therapy (DAPT only).
- cont. ASA and Plavix
Secondary VT/F arrest in the ER
- Severe CAD - obstructive and severe with heart failure and class III-IV NYHA symptoms.
- No further VT/VF since ER admit
- Consider LifeVest if EF remains low
Severe HFrEF from a Severe Ischemic cardiomyopathy
- Cath 02/27/2025 LVEDP 40 mmHg
- Echo 02/28/2025: LVEF 15-20%
- Echo 03/08/2025: LVEF 25-30%
- Medical therapy in progress - limited by hypotension, resume as able
- Low dose ARB when able, ideally before discharge
- Low dose metoprolol starting tonight
- SGLT2-I start tomorrow
- low dose MRA/Aldactone as outpatient
- Changed from IV Bumex to oral 03/11/2025 then held for hypotension. Restarted today in setting of weight gain. Will likely require some degree of standing diuretic to maintain euvolemia.
LBBB, QRS 176 ms
- Watch for heart block
- Will be a candidate for RN ACCESS with backup defibrillation in the future
- Telemetry reviewed - no pause or block noted.
Elevated Hgb, elevated MCV, and acquired transient thrombocytopenia, heme involved
- Plt improved (plt 120 on 03/06/2025), Heparin off, off Argatroban
- HIT negative, heparin can be used again if needed
- Per hematology:
- 'Jak2 is negative and EPO normal -- essentially rules out PVera
- One copy of H63D mutation. This genotype has not been associated with symptoms of hereditary hemochromatosis. No indication for phlebotomy.
- HIT Phylicia pending. Platelet count trending up'
Mixed hyperlipidemia, LDL was not at goal, goal LDL less than 55
- cont. rosuvastatin 40 daily
ETOH
Hepatic fibrosis/ steatosis, at least moderate by Fibroscan.
S/p stroke with chronic LUE weakness an mild LLE weakness
Lung disease suspected, per hospitalist, on Atrovent/albuterol
Subjective: Extubated. Opens eyes easily to voice. Denies pain but otherwise not conversant.
Drips: Levo at 1, dobutamine at 1, insulin, heparin
Telemetry: Normal sinus rhythm, LBBB
Physical Exam
Vital Signs/Labs
Vital Signs
Temp Pulse Resp BP Pulse Ox
37.2 C 81 18 91/61 94
03/16/25 17:17 03/16/25 17:17 03/16/25 17:17 03/16/25 16:00 03/16/25 17:17
03/15/25 03/16/25 03/17/25
06:59 06:59 06:59
Actual Weight 83.2 kg 82.7 kg
03/16/25 04:21
03/16/25 04:21
PT 18.0 Sec (11.4-14.6) H 03/13/25 13:27
INR 1.46 03/13/25 13:27
APTT 84.4 Sec (23.4-35.0) H 03/15/25 03:14
Magnesium 1.9 mg/dl (1.6-2.3) 03/16/25 04:21
Triglycerides 315 mg/dl (10-149) H 02/28/25 03:28
LDL Cholesterol, Calc 119 mg/dl 02/28/25 03:28
VLDL Cholesterol, Calc 63 mg/dl (0-30) H 02/28/25 03:28
HDL Cholesterol 63 mg/dl 02/28/25 03:28
02/27/25 02/27/25 02/27/25
18:02 18:31 19:35
Bas-B-Jingbhnjuot Pept Cancelled Cancelled Cancelled
02/27/25 03/01/25
Unknown 15:17
Oig-F-Pkugbeoaphg Pept [id number]
Physical Exam
Constitutional: Comfortable
Cardiovascular: Rhythm & rate is regular
Respiratory: Respiratory effort normal
Neuro/Psych: AO x 3
Data Reviewed
-
Date of Service: March 16, 2025
Medical Decision Making: Reviewed Test Results
Labs: Labs Reviewed by me
--- NOTE | 2025-03-16 20:00 | PTCARENOTE ---
Resumed care of the patient at 1900. Pt remains AOx2 (d/time), L sided hemiparesis/hemiplegia, flat affect, PERRLA. SR with a LBBB on CM, rates 70-80's, trace generalized anasarca, pulses palpable, DP pulses weak on palpation. SpO2 94%+ on 1 LNC,
lungs diminished throughout, cough/deep breathing and IS/acapella encouraged. Abdomen SNT, passing flatus. External male catheter in place with concentrated yellow urine. All surgical sites intact, see work list. PIVx1 in place. Call asencio within
reach, assessment of needs ongoing.
[2025-03-16] MEDS: REMOVE LIDOCAINE PATCH REMOVE (20:26)
[2025-03-16 23:02] LABS: Glucose - Point of Care 145 mg/dl (70-99)
[2025-03-17] VITALS: BP 83/59
--- NOTE | 2025-03-17 | PTCARENOTE ---
Patient hypotensive, MAP sufficient, CVNP aware, no further intervention at this time. Otherwise assessment unchanged, patient sleeping between care.
[2025-03-17 04:00] VITALS: BP 104/62
--- NOTE | 2025-03-17 04:30 | PTCARENOTE ---
New IV started d/t pt c/o pain at original site. #20 in R cephalic vein, patient tolerated well.
VSS, sleeping between care.
[2025-03-17 05:05] LABS: Hematocrit 41.4 % (39.0-52.0); Hemoglobin 13.8 g/dL (13.0-18.0); Mean Corp Hgb Conc. 33.3 g/dL (33.0-37.0); Mean Corpuscular Volume 101.5 fL (80.0-94.0); Platelet Count 189 10^3/uL (130-400); Red Cell Dist. Width 13.5 % (11.5-14.5)
--- NOTE | 2025-03-17 05:08 | W.PN.CT ---
Addendum entered and electronically signed by Scar Arguello MD 03/17/25 09:02:
I saw and examined the patient.
The PA's note was reviewed and I agree with the note.
Comment:
POD#4 s/p TF TAVR and subsequent MIDCAB
No major overnight events. Starting GDMT. AVSS. RA. No gtt. No drains. UO: adequate. Tolerating PO (poor appetite).
Depressed - restarting home Wellbutrin; psychiatry consulted
OOB/IS/ambulate
D/C planning for acute rehab, hopefully Wednesday
Original Note:
Today's Communication / Plan
-
-pod #4 post mid-CAB x2, pod #5 TAVR
-no issues overnight
-BB started yesterday, midodrine now PRN
-SGLT2 started
-encourage IS, started Mucinex, acapella
-Ensure supplements ordered
-continue PT/OT
Assessment / Plan
-
Assessment:
-S/P Right trans femoral TAVR (26 mm Renner Resilia) by Dr Magdaleno/Pieter on 03/12/25
-S/P Robotic assisted MIDCAB (2-vessel bypass GARCIA in situ to diagonal sequential to LAD) by Dr. Merritt on 03/13/25, pod #4
-Intraop IMAN: LVEF preop was still significantly abnormal, may be 25%. There is significant regional wma pertaining to the inferior and septal torres. There is significant dyskinesis and akinesis of the segments. Following revascularization of
his LAD and diagonal territories, there was significant improvement in his inferior wall motion and septal motion. It essentially normalized. He had a pre-existing bundle branch block so there was still some dyskinesis but overall his left
ventricular ejection fraction did improve. Visually looked about 40 to 45%
-Severe aortic stenosis, symptomatic
-Multivessel CAD
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
-Acute on chronic systolic CHF
-ICM
-HFrEF (EF 25-30% per echo 03/08/25)
-Hypertension
-Hyperlipidemia
-T2DM (A1C 5.4)
-GERD
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
-Lung disease suspected, per hospitalist, on Atrovent/albuterol
-Transaminitis/hepatic fibrosis secondary to alcohol abuse/cirrhosis
-Possible hemochromatosis
-Preop Thrombocytopenia
-S/P VT/VF arrest with new LBBB, 02/27/25
-S/P VDRF, extubated on 03/03/25
-Preop hyponatremia- improving
-Preop NACHO in setting of VF arrest - resolved
-Acute postop hyperkalemia
-Acute postop pulmonary insufficiency/atelectasis
-Acute postop hypovolemia with subsequent hypervolemia
Subjective
-
Date of Service: March 17, 2025
Objective Data
-
Lab Results
03/17/25 04:54
PT 18.0 Sec (11.4-14.6) H 03/13/25 13:27
INR 1.46 03/13/25 13:27
APTT 84.4 Sec (23.4-35.0) H 03/15/25 03:14
Vital Signs
Vital Signs
Temp Pulse Resp BP Pulse Ox
97.7 F 72 18 83/59 92
03/17/25 00:00 03/17/25 01:00 03/17/25 00:00 03/17/25 00:00 03/17/25 00:00
CT Intake/Output/Weight
03/16/25 03/16/25 03/17/25
06:59 18:59 06:59
Intake Total 230 / 932.3 850 / 880 30 / 880
Output Total 535 / 1045 1050 / 1630 580 / 1630
Balance -305 / -112.7 -200 / -750 -550 / -750
SaO2: 92
Physical Exam
-
General: Awake, Oriented and AOx3
Cardiovascular: Regular rate & rhythm
Respiratory: Clear and Equal
Sternum: Stable
Incision: Clean, Dry and Intact
Extremities: Edema +1
Data Reviewed
-
Lab Results: Results Reviewed
Medications: Active Meds Reviewed
Chest X-Ray: Report Reviewed
ECG: Report Reviewed
[2025-03-17] MEDS: TYLENOL 975 MG PO ×2 (05:58→21:13)
[2025-03-17 06:00] VITALS: BMI 27.4
[2025-03-17] MEDS: WELLBUTRIN XL (24 hour extended release) 150 MG PO (07:49)
[2025-03-17] MEDS: PROTONIX 40 MG PO (07:49)
[2025-03-17] MEDS: PLAVIX 75 MG PO (07:49)
[2025-03-17] MEDS: VITAMIN B1 100 MG PO ×2 (07:50→21:12)
[2025-03-17] MEDS: LASIX 40 MG PO ×2 (07:50→21:13)
[2025-03-17] MEDS: PACERONE 200 MG PO ×3 (07:50→21:13)
[2025-03-17] MEDS: MUCINEX 600 MG PO ×2 (07:50→21:12)
[2025-03-17] MEDS: SENOKOT 8.6 MG PO ×2 (07:50→21:12)
[2025-03-17] MEDS: LOW STRENGTH ASPIRIN 81 MG PO (07:50)
[2025-03-17] MEDS: TOPROL XL 12.5 MG PO ×2 (07:50→21:12)
[2025-03-17] MEDS: MAGNESIUM OXIDE 400 MG PO ×2 (07:50→21:12)
[2025-03-17] MEDS: FARXIGA 10 MG PO (07:50)
[2025-03-17] MEDS: FOLVITE 1 MG PO (07:50)
[2025-03-17] MEDS: LANTUS 0.08 UNITS SC (07:50)
[2025-03-17] MEDS: BACTROBAN 2% OINTMENT 1 APPLIC NASAL (07:59)
[2025-03-17] MEDS: LIDOCAINE 4% PATCH TOPICAL (07:59)
[2025-03-17] MEDS: NSS IV (07:59)
[2025-03-17 08:00] VITALS: BP 101/63
--- NOTE | 2025-03-17 08:00 | PTCARENOTE ---
Assumed care of patient from steward/stewardess night RN. Drowsy but arousable. Very flat affect. However more vocal today when RN asking questions. SR BBB on monitor. Room air 94%. Occasional moist cough. Abdomen with active bowel sounds. Incontinent of
urine. External male pure wick intact. Skin c,d,i. Turned and repositioned, pt not offering any help with activities. Emotional support provided.
[2025-03-17 08:24] LABS: Blood Urea Nitrogen 21 mg/dl (9-20); Calcium 8.8 mg/dl (8.4-10.2); Carbon Dioxide 25 mmol/L (22-30); Chloride 99 mmol/L (98-107); Estimated Creatinine Clearance 99 ml/min; Glucose 128 mg/dl (70-99); Magnesium 1.9 mg/dl (1.6-2.3); Potassium 4.3 mmol/L (3.5-5.1); Sodium 133 mmol/L (135-145); eGFR > 60.00
[2025-03-17] MEDS: NOVOLOG FLEXPEN-LOW RESISTANCE SC ×3 (08:51→16:30)
--- NOTE | 2025-03-17 11:49 | PTCARENOTE ---
Sleeping in bed at present, voiding w/o issue. Turned and repositioned. VSS. Will continue to encourage increased activity. Tolerating increased oral intact.
[2025-03-17 12:00] VITALS: BP 93/61
--- NOTE | 2025-03-17 12:16 | CS.PSYCHR ---
Consult Summary - Psychiatry
-
Patient seen by me on 03/17/2025 from 11:55am-12:25pm.
Chart reviewed. Psychiatry consult for depression. 69 yo male with history of depression and medical history noted below admitted on 02/27/2025 now POD#4 s/p TF TAVR and subsequent MIDCAB. Patient admits to depressive symptoms worsening during this
admission and his wish to get out of the hospital. He denies suicidal ideations and states he is motivated to do well in rehab. He understands that wellbutrin xl, a home medication, was restarted yesterday. He denies manic or psychotic history.
Spoke to his of many years who states he has been depressed over the past three months, much related to having move his with his mom who is 92 to help care for her. She notes his symptoms have worsened since being in the hospital. She states
his PCP had prescribed him wellbutrin xl but he was not taking it. She is not concerned that he would commit suicide. She states he has always been a drinker and was consuming two 6 packs of beer daily prior to admission. He has never pursued D&A
treatment. He has suffered withdrawal in the past.
UDS positive for cannabis on admission
no alcohol detected on admission
low vitamin D level in 2020 admission
MSE- lying in bed. eyes shut most of interview. impoverished speech. admits to depressed mood. congruent affect. denies suicidal ideations, active or passive. denies HI/AVH. oriented.
PMH- HTN, DM II, prior CVA with left hemiparesis
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
Family history- denies family history of mental illness]
D&A- see alcohol history above
Past psych- denies prior history of seeing a psychiatrist. PCP prescribe wellbutrin xl 150mg daily which he had not been taking
A/P- 69 yo male with unspecified depression, worsening with extended admission. Will check B12/folate, TSH and vitamin D levels. Would recommend discontinuation of wellbutrin xl and initiation of trial of zoloft 50mg daily given its better
cardiovascular safety profile. Monitor for SEs. Await clinical response.
[2025-03-17 16:18] VITALS: BP 117/62
[2025-03-17 16:20] LABS: Glucose - Point of Care 108 mg/dl (70-99)
[2025-03-17] MEDS: CRESTOR 40 MG PO (16:30)
[2025-03-17] MEDS: TYLENOL PO (16:30)
--- NOTE | 2025-03-17 16:40 | PTCARENOTE ---
Pt states hes very uncomfortable in the chair despite being repositioned multiple times. Milad lifted back to bed. Male sean cao changed per protocol, Talking a bit more this evening. Drinking his Ensure , very poor appetite. Requesting chili.
Diet changed. VSS. Assessment otherwise unchanged from prior.
--- NOTE | 2025-03-17 19:00 | PTCARENOTE ---
Assumed care of patient at 1900. Patient found resting in bed at time of assessment. Patient is AOx4, follows commands appropriately, can move all extremities. Left side is profoundly weak and is a residual from previous stroke. Patient presents
with flat affect and slow speech. Lung sounds are diminished in the bases, saO2 92% on RA. Heart sounds are audible, patient is SR with PVCs and BBB, there is trace generalized edema present, and pulses are normal, palpable. Patient has active BS in
all four quadrants, pending BM, there is a male PW in place draining clear yellow urine. Patient has L lateral chest puncturesx3 approx with surg adhesive RACK MAKER with some local erythmea, there is L lateral CT wound site that is scabbed over LISS, L
inferior breast incision approx with surg adhesive LISS, R groin puncture approx with surg adhesive LISS, and stage I pressure wound on sacrum with silicone foam dressing and barrier cream applied. Preventive foam dressings on elbows and heels. There
is a 20G PIV in R FA. Oral care provided. VSS. Call asencio within reach.
[2025-03-17 20:00] VITALS: BP 103/71
[2025-03-17] MEDS: REMOVE LIDOCAINE PATCH REMOVE (21:12)
[2025-03-17 21:39] LABS: Glucose - Point of Care 119 mg/dl (70-99)
[2025-03-18] VITALS (9 sets, daily range): BP systolic 90–126; BP diastolic 62–76; PULSE 70–76; BMI 26.7
--- NOTE | 2025-03-18 | PTCARENOTE ---
Patient reassessed. VSS. Remains SR with BBB. Call asencio within reach.
--- NOTE | 2025-03-18 05:40 | W.PN.CT ---
Addendum entered and electronically signed by Scar Arguello MD 03/18/25 09:08:
I saw and examined the patient.
The PA's note was reviewed and I agree with the note.
Comment:
POD#5 s/p MIDCAB x 2, POD#6 s/p TAVR
No issues overnight
Appreciate psychiatry input
OOB/IS/ambulate
Will need rehab placement
GDMT
Original Note:
Today's Communication / Plan
-
-pod #5 post mid-CAB x2, pod #6 TAVR
-no issues overnight
-BB started yesterday, midodrine now PRN
-BP still soft for GABE/ARB/ARNI
-SGLT2 started
-encourage IS, Mucinex, acapella
-Ensure supplements ordered
-continue PT/OT
-psych consult for depression
-DC planning
Assessment / Plan
-
Assessment:
-S/P Right trans femoral TAVR (26 mm Renner Resilia) by Dr Magdaleno/Pieter on 03/12/25
-S/P Robotic assisted MIDCAB (2-vessel bypass GARCIA in situ to diagonal sequential to LAD) by Dr. Merritt on 03/13/25, pod #5
-Intraop IMAN: LVEF preop was still significantly abnormal, may be 25%. There is significant regional wma pertaining to the inferior and septal torres. There is significant dyskinesis and akinesis of the segments. Following revascularization of
his LAD and diagonal territories, there was significant improvement in his inferior wall motion and septal motion. It essentially normalized. He had a pre-existing bundle branch block so there was still some dyskinesis but overall his left
ventricular ejection fraction did improve. Visually looked about 40 to 45%
-Severe aortic stenosis, symptomatic
-Multivessel CAD
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
-Acute on chronic systolic CHF
-ICM
-HFrEF (EF 25-30% per echo 03/08/25)
-Hypertension
-Hyperlipidemia
-T2DM (A1C 5.4)
-GERD
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
-Lung disease suspected, per hospitalist, on Atrovent/albuterol
-Transaminitis/hepatic fibrosis secondary to alcohol abuse/cirrhosis
-Possible hemochromatosis
-Preop Thrombocytopenia
-S/P VT/VF arrest with new LBBB, 02/27/25
-S/P VDRF, extubated on 03/03/25
-Preop hyponatremia- improving
-Preop NACHO in setting of VF arrest - resolved
-Acute postop hyperkalemia
-Acute postop pulmonary insufficiency/atelectasis
-Acute postop hypovolemia with subsequent hypervolemia
Subjective
-
Date of Service: March 18, 2025
Objective Data
-
PT 18.0 Sec (11.4-14.6) H 03/13/25 13:27
INR 1.46 03/13/25 13:27
APTT 84.4 Sec (23.4-35.0) H 03/15/25 03:14
Vital Signs
Vital Signs
Temp Pulse Resp BP Pulse Ox
99.2 F 71 20 98/68 92
03/18/25 00:00 03/18/25 03:00 03/18/25 00:00 03/18/25 00:00 03/18/25 00:00
CT Intake/Output/Weight
03/17/25 03/17/25 03/18/25
06:59 18:59 06:59
Intake Total 30 / 880 840 / 840
Output Total 800 / 1850 1450 / 1450
Balance -770 / -970 -610 / -610
SaO2: 92
Physical Exam
-
General: Awake and Oriented
Cardiovascular: Regular rate & rhythm
Respiratory: Clear
Sternum: Stable
Incision: Clean, Dry and Intact
Extremities: No Edema and No Erythema
Data Reviewed
-
Lab Results: Results Reviewed
Medications: Active Meds Reviewed
Chest X-Ray: Report Reviewed
ECG: Report Reviewed
[2025-03-18 05:57] LABS: Hematocrit 45.0 % (39.0-52.0); Hemoglobin 15.1 g/dL (13.0-18.0); Mean Corp Hgb Conc. 33.6 g/dL (33.0-37.0); Mean Corpuscular Volume 102.0 fL (80.0-94.0); Platelet Count 276 10^3/uL (130-400); Red Cell Dist. Width 13.6 % (11.5-14.5)
[2025-03-18 06:22] LABS: Blood Urea Nitrogen 29 mg/dl (9-20); Calcium 9.4 mg/dl (8.4-10.2); Carbon Dioxide 31 mmol/L (22-30); Chloride 96 mmol/L (98-107); Estimated Creatinine Clearance 77 ml/min; Glucose 133 mg/dl (70-99); Magnesium 2.1 mg/dl (1.6-2.3); Potassium 4.3 mmol/L (3.5-5.1); Sodium 136 mmol/L (135-145); eGFR > 60.00
[2025-03-18 06:33] LABS: Vitamin D, 25-OH*** < 12.8 ng/mL (30-80)
--- NOTE | 2025-03-18 06:40 | PTCARENOTE ---
Patient reassessed. VSS. No c/o pain. AM hygiene care provided. Elbow and heel foams replaced. AM labs obtained. Patient with incontinent episode not properly captured by pw exchanged for new. OOB to chair via mar lift. Call asencio within reach.
[2025-03-18 06:47] LABS: TSH 1.83 uIU/ml (0.47-4.68)
[2025-03-18 07:06] LABS: Vitamin B12 862 pg/ml (239-931)
[2025-03-18] MEDS: TYLENOL 975 MG PO ×3 (07:10→21:03)
[2025-03-18] MEDS: NSS IV (08:45)
--- NOTE | 2025-03-18 09:00 | PTCARENOTE ---
Assumed care of patient. Walking rounds completed with previous RN. Pt assessed while he was sitting in the chair. Pt alert and oriented x4. Slow to respond. Flat affect, but appears more involved in conversation. Left arm and leg weakness s/p
previous CVA. SR with LBBB on tele with rates in the 70s. BP 90/65. Bilateral radial and DP pulses palpable. Heart tones audible. POX 94%on RA. Lungs diminished throughout. IS encouraged-750mL achieved. Occasional dry nonproductive cough noted.
Abdomen soft, round, nontender. +BS. Pt drinking ensure for breakfast. Male purwick in place, due to void. Left lateral chest puncture sites approximated, SHERIFF SERGEANT. Left chest incision approximated with skin glue, LISS. B/l groin sites soft, nontender.
Right groin dressing CDI. Stg 1 to sacrum, foam intact. Repositioned q2hr and PRN. Right forearm 20g PIV intact. See MAR for medication administration. See worklist for complete nursing assessment. Plan of care reviewed and patient in agreement.
Specific schedule for being OOB provided, and patient in agreement.
[2025-03-18] MEDS: LASIX 40 MG PO (09:14)
[2025-03-18] MEDS: LOW STRENGTH ASPIRIN 81 MG PO (09:14)
[2025-03-18] MEDS: FARXIGA 10 MG PO (09:14)
[2025-03-18] MEDS: PACERONE 200 MG PO ×3 (09:14→21:03)
[2025-03-18] MEDS: NOVOLOG FLEXPEN-LOW RESISTANCE SC ×3 (09:14→16:45)
[2025-03-18] MEDS: FOLVITE 1 MG PO (09:14)
[2025-03-18] MEDS: LIDOCAINE 4% PATCH 1 PATCH TOPICAL (09:14)
[2025-03-18] MEDS: ZOLOFT 50 MG PO (09:14)
[2025-03-18] MEDS: MUCINEX 600 MG PO ×2 (09:15→20:56)
[2025-03-18] MEDS: PROTONIX 40 MG PO (09:15)
[2025-03-18] MEDS: MILK OF MAGNESIA 30 ML PO (09:15)
[2025-03-18] MEDS: VITAMIN B1 100 MG PO ×2 (09:15→20:56)
[2025-03-18] MEDS: PLAVIX 75 MG PO (09:15)
[2025-03-18] MEDS: MAGNESIUM OXIDE 400 MG PO ×2 (09:15→20:56)
[2025-03-18 09:21] LABS: Glucose - Point of Care 141 mg/dl (70-99)
[2025-03-18] MEDS: LANTUS 0.08 UNITS SC (09:24)
[2025-03-18] MEDS: SENOKOT 8.6 MG PO ×2 (09:24→20:57)
--- NOTE | 2025-03-18 12:00 | PTCARENOTE ---
Pt reassessed. Assisted PT/OT to get patient into chair via mar lift. Remains SR with LBBB with rates in the 70s. BP 97/67. POX 93% on RA. Surgical sites stable. Remains due to void, encouraged patient to void. Surgical sites stable. Emotional
support provided.
[2025-03-18] MEDS: TOPROL XL PO (12:09)
[2025-03-18 12:17] LABS: Glucose - Point of Care 132 mg/dl (70-99)
--- NOTE | 2025-03-18 16:00 | PTCARENOTE ---
Pt reassessed. Pt voiding adequate amounts of jinny urine via the male purwick. Large watery BM x2. VSS. No acute changes. Pt OOB to chair via mar lift.
[2025-03-18] MEDS: CRESTOR 40 MG PO (16:40)
[2025-03-18 16:46] LABS: Glucose - Point of Care 143 mg/dl (70-99)
[2025-03-18] MEDS: REMOVE LIDOCAINE PATCH 1 PATCH REMOVE (20:59)
[2025-03-18] MEDS: TOPROL XL 12.5 MG PO (21:03)
--- NOTE | 2025-03-18 21:15 | PTCARENOTE ---
Assumed care of pt from kari RN. Walking rounds completed. Pt resting in chair. Pt AAOx3. Flat affect. Slow speech. Hx of left arm and leg weakness s/p previous CVA. Pt is SR w/ LBBB on the tele monitor. HR 60-70s. BP stable. Palpable pulses
throughout. Trace generalized edema. Pt is 95% on RA. Lung sounds diminished throughout. Deep breathing and IS encouraged. Abdomen soft/ nontender. +BSx4. + soft BM. Male pure wick in place and pt voiding yellow urine. All surgical sites stable. PIV
x1 intact. Stage 1 sore to sacrum present, foam changed. Pt repositioned as documented. Pt assisted from the chair to the bed via Milad lift. See worklist for full nursing assessment and interventions. Call asencio within reach.
[2025-03-19] VITALS (9 sets, daily range): BP systolic 106–135; BP diastolic 64–80; PULSE 70–71; O2SAT 91–94; BMI 26.9
--- NOTE | 2025-03-19 00:19 | PTCARENOTE ---
No acute changes in assessment. Pt resting in bed at this time. Remains SR w/ L BBB on the tele monitor. HR 60s. BP stable. 93% on RA. Afebrile. Pt denies pain at this time. Call asencio within reach.
--- NOTE | 2025-03-19 02:59 | W.PN.CT ---
Today's Communication / Plan
-
No issues overnight�
Preparing for transfer to acute rehab�
Current Meds (amiodarone, ASA, Plavix,�Lasix, metoprolol,�protonix,�Crestor,�zoloft)�
I/O = -680
OOB/IS/ambulate�
Assessment / Plan
-
Assessment:
-S/P Right trans femoral TAVR (26 mm Renner Resilia) by Dr Magdaleno/Pieter on 03/12/25
-S/P Robotic assisted MIDCAB (2-vessel bypass GARCIA in situ to diagonal sequential to LAD) by Dr. Merritt on 03/13/25, pod #6
-Intraop IMAN: LVEF preop was still significantly abnormal, may be 25%. There is significant regional wma pertaining to the inferior and septal torres. There is significant dyskinesis and akinesis of the segments. Following revascularization of
his LAD and diagonal territories, there was significant improvement in his inferior wall motion and septal motion. It essentially normalized. He had a pre-existing bundle branch block so there was still some dyskinesis but overall his left
ventricular ejection fraction did improve. Visually looked about 40 to 45%
-Severe aortic stenosis, symptomatic
-Multivessel CAD
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
-Acute on chronic systolic CHF
-ICM
-HFrEF (EF 25-30% per echo 03/08/25)
-Hypertension
-Hyperlipidemia
-T2DM (A1C 5.4)
-GERD
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
-Lung disease suspected, per hospitalist, on Atrovent/albuterol
-Transaminitis/hepatic fibrosis secondary to alcohol abuse/cirrhosis
-Possible hemochromatosis
-Preop Thrombocytopenia
-S/P VT/VF arrest with new LBBB, 02/27/25
-S/P VDRF, extubated on 03/03/25
-Preop hyponatremia- improving
-Preop NACHO in setting of VF arrest - resolved
-Acute postop hyperkalemia
-Acute postop pulmonary insufficiency/atelectasis
-Acute postop hypovolemia with subsequent hypervolemia
Subjective
-
Date of Service: March 19, 2025
Objective Data
-
PT 18.0 Sec (11.4-14.6) H 03/13/25 13:27
INR 1.46 03/13/25 13:27
APTT 84.4 Sec (23.4-35.0) H 03/15/25 03:14
Vital Signs
Vital Signs
Temp Pulse Resp BP Pulse Ox
98 F 67 16 100/63 93
03/18/25 23:29 03/18/25 23:29 03/18/25 23:29 03/18/25 23:29 03/18/25 23:29
CT Intake/Output/Weight
03/18/25 03/18/25 03/19/25
06:59 18:59 06:59
Intake Total 720 / 720
Output Total 725 / 2175 850 / 1150 300 / 1150
Balance -725 / -1335 -130 / -430 -300 / -430
SaO2: 93
Physical Exam
-
General: Awake
Cardiovascular: Regular rate & rhythm
Respiratory: Clear and Equal
Incision: Clean, Dry and Intact
Extremities: Edema +1
Data Reviewed
-
Lab Results: Results Reviewed
Medications: Active Meds Reviewed
--- NOTE | 2025-03-19 04:20 | PTCARENOTE ---
No change in assessment. Pt is SR w/ L BBB on the tele monitor. HR 60-70s. BP stable. 93% on RA. All surgical site stable. Repositioned as documented. Pt voiding jinny to yellow urine via male pure-wick w/o issue. Labs drawn and sent. Call asencio
within reach.
[2025-03-19 04:34] LABS: Hematocrit 38.3 % (39.0-52.0); Hemoglobin 13.5 g/dL (13.0-18.0); Mean Corp Hgb Conc. 35.2 g/dL (33.0-37.0); Mean Corpuscular Volume 100.5 fL (80.0-94.0); Platelet Count 252 10^3/uL (130-400); Red Cell Dist. Width 13.4 % (11.5-14.5)
[2025-03-19 04:48] LABS: Blood Urea Nitrogen 26 mg/dl (9-20); Calcium 8.9 mg/dl (8.4-10.2); Carbon Dioxide 31 mmol/L (22-30); Chloride 97 mmol/L (98-107); Estimated Creatinine Clearance 99 ml/min; Glucose 110 mg/dl (70-99); Magnesium 2.1 mg/dl (1.6-2.3); Potassium 4.0 mmol/L (3.5-5.1); Sodium 133 mmol/L (135-145); eGFR > 60.00
[2025-03-19] MEDS: TYLENOL 975 MG PO ×3 (06:20→22:55)
--- NOTE | 2025-03-19 08:13 | W.PN.CD ---
Today's Communication / Plan
-
Start lisinopril 2.5 mg daily.
Monitor Na/renal function.
Ambulation/incentive spirometry.
Discharge to Rehab when possible.
Impression / Plan
-
Background: 69 y/o male with HTN, HLD, remote CVA complicated by left hemiparesis, transaminitis related to EtOH abuse vs. possible hemochromatosis with at least moderate hepatic fibrosis admitted with acute, vent dependent respiratory failure
complicated by VT/VF arrest and new LBBB. Found to have severe MV CAD and severe . Now s/p successful TF TAVR (03/12/2025, 26 S3UR Pieter/Rasta) and MIDCAB ([id number]) with Dr. Merritt/Rasta 03/13/25.
#3V CAD
-Chronic, progressive.
-Cath 02/27/2025: 100% pRCA, 100% dLCx, 100% OM1, 90% complex p-mLAD; no clear cuprit lesion for [place], arrest may have been in setting of decompensated heart failure with underlying IHD. LAD supplies collaterals to the CTOs. Ergo revascularization of
the LAD and diagonal provides near complete revascularization.
-s/p MIDCAB with [id number] with Dr. Acosta. Hemodynamically unstable with chest pressurized but improvement in hemodynamics and EF post-reperfusion.
-Continue secondary prevention/post operative management with amiodarone, aspirin, clopidogrel, metoprolol succinate and rosuvastatin.
#Severe Aortic Stenosis
-Chronic, progressive.
-Echo 02/28/2025: HANNAH 0.54 cm2, mean 35 mmHg (LVEF 15%).
-s/p #26 Renner JOSE MARTIN S3 TF TAVR, 03/12/2025 (Julisa).
-Poor AV valve leaflet opening with possible thickening on IMAN (MIDCAB) and elevated gradient 10-15 mmHg. Concern for possible HALT.
-Follow up TTE gradients normal. Given high risk for anticoagulation, will monitor for now and not continue triple therapy (antithrombotic therapy with ASA and clopidogrel only).
-2 week interval echo to assess gradients.
#Secondary VT/VF arrest in the ER
-Severe CAD - obstructive and severe with heart failure and class III-IV NYHA symptoms.
-No further VT/VF since ER admit.
-Consider LifeVest if EF remains low.
#HFrEF/Ischemic cardiomyopathy
-Acute on chronic, improved.
-Cath 02/27/2025 LVEDP 40 mmHg.
-Echo 02/28/2025: LVEF 15-20%.
-Echo 03/08/2025: LVEF 25-30%.
-Patient is now revascularized and fixed valve obstruction has been removed.
-GDMT - limited by hypotension, resume as able:
-Diuretics: Furosemide 40 mg PO daily.
-Beta indigo: Metoprolol succinate 12.5 mg daily.
-ACEI/ARB/ARNi: Start lisinopril 2.5 mg this morning. Maintain midodrine PRN (has not needed in 3 days).
-MRA: On hold while we start lisinopril.
-SGLT2i: Dapagliflozin 10 mg daily.
-ICD: Not yet indicated. Consider LifeVest (no VT/VF since admission).
#LBBB, QRS 176 ms
-Chronic, stable.
-Monitor for heart block.
-Will be a candidate for BREED TO WEAN PRODUCTION TECHNICIAN with backup defibrillation if ICD is warranted.
#Elevated Hgb, elevated MCV, and acquired transient thrombocytopenia
-New finding (at time of admission). Heme involved.
- Plt improved (plt 120 on 03/06/2025), Heparin off, off Argatroban
- HIT negative, heparin can be used again if needed
- Per hematology:
- 'Jak2 is negative and EPO normal -- essentially rules out PVera
- One copy of H63D mutation. This genotype has not been associated with symptoms of hereditary hemochromatosis. No indication for phlebotomy.
- HIT Phylicia pending. Platelet count trending up'
#Mixed hyperlipidemia
-Chronic, untreated.
-Continue rosuvastatin 40 daily.
-Goal LDL < 55.
#ETOH
#Hepatic fibrosis/ steatosis, at least moderate by Fibroscan.
#S/p stroke with chronic LUE weakness an mild LLE weakness
#Lung disease suspected, per hospitalist, on Atrovent/albuterol
Subjective/Interval History:
Started on sertraline for depression due to better CV risk profile.
Blood pressures remain marginal.
DATA:
TTE, 03/16/2025:
SUMMARY
1. Very technically limited study.
2. Moderately reduced left ventricular systolic function. LVEF 30-35%.
3. Septal hypokinesis. Evaluation of other torres is limited by poor visualization.
4. Normal aortic valve gradients (peak/mean 10/6 mmHg). DVI 0.5.
5. No significant change compared to prior echocardiograms.
CT Surgery, 03/13/2025:
Procedure(s) Performed:
1. Robotic assisted MIDCAB (2-vessel bypass GARCIA in situ to diagonal sequential to LAD)
2. Robotic assisted harvest of internal mammary artery with anterolateral mini thoracotomy for CABG
3. Transesophageal echocardiography
4. Transonic Flowprobe assessment of GARCIA graft
TAVR, 03/12/2025:
CONCLUSIONS
1. Successful placement of an Renner JOSE MARTIN 3 Ultra RESILIA 26 mm transcatheter aortic valve via right transfemoral approach with no acute complications.
2. Acute on chronic systolic heart failure with severely reduced LVEF (20-25%).
Physical Exam
Vital Signs/Labs
Vital Signs
Temp Pulse Resp BP Pulse Ox
36.4 C 72 18 116/74 93
03/19/25 03:59 03/19/25 06:00 03/19/25 03:59 03/19/25 03:59 03/19/25 04:00
03/17/25 03/18/25 03/19/25
11:59 11:59 11:59
Actual Weight 81.7 kg 79.6 kg 80.2 kg
03/19/25 04:09
03/19/25 04:09
PT 18.0 Sec (11.4-14.6) H 03/13/25 13:27
INR 1.46 03/13/25 13:27
APTT 84.4 Sec (23.4-35.0) H 03/15/25 03:14
Magnesium 2.1 mg/dl (1.6-2.3) 03/19/25 04:09
Triglycerides 315 mg/dl (10-149) H 02/28/25 03:28
LDL Cholesterol, Calc 119 mg/dl 02/28/25 03:28
VLDL Cholesterol, Calc 63 mg/dl (0-30) H 02/28/25 03:28
HDL Cholesterol 63 mg/dl 02/28/25 03:28
TSH 1.83 uIU/ml (0.47-4.68) 03/18/25 05:33
02/27/25 02/27/25 02/27/25
18:02 18:31 19:35
Nak-Q-Bzkgrlbeiri Pept Cancelled Cancelled Cancelled
02/27/25 03/01/25
Unknown 15:17
Unn-K-Ifedndeerny Pept [id number]
Physical Exam
Constitutional: No acute distress and Comfortable
EENT: Anicteric and Moist mucous membranes
Cardiovascular: Rhythm & rate is regular, Pedal edema is absent, JVD pressure is normal, S1S2 is normal and Murmur/rub/gallop absent
Respiratory: Respiratory effort normal, Lungs clear to auscul., Wheeze Absent, Crackles Absent and Rhonchi Absent
GI: Soft, Distention absent, Flat, Non tender and Normal bowel sounds
Neuro/Psych: AO x 3 and Other (Flat affect.)
Data Reviewed
-
Date of Service: March 19, 2025
Medical Decision Making: Reviewed Test Results, Independent Historian Assessment and Test Interpretation
EKG: Tracing Personally Visualized and interpreted and Report Reviewed by me
Echo: Tracing Personally Visualized and interpreted and Report Reviewed by me
X-Ray/CT/US/MRI/NUC/PET: Image Personally Visualized and interpreted and Report Reviewed by me
Medical Tests (PFT, Pathology etc): Image Personally Visualized and interpreted and Report Reviewed by me
Labs: Labs Reviewed by me
--- NOTE | 2025-03-19 08:21 | PN.DE.MGMTRT ---
Insulin Management
- -
03/19/2025: Diabetes Management Follow up
69 year old male with cardiac arrest in the ED. PMH: HTN, HLD, T2DM, Hx of CVA with L hemiparesis. Pt presented to the ED c/o SOB. He was then noted to have pulseless VT and periods of V-Fib on monitor. He underwent CPR and multiple rounds of
defibrillation here in the ED. He received epinephrine, bicarbonate, amiodarone and calcium. ROSC was achieved. Patient remained unresponsive since this event. EKG showed new LBBB and patient was taken to the recyclable products sorter for emergent ischemic
evaluation. No family at bedside. Glucose on admission was 237 Venous. A1C 5.4%, Cr 1.3, eGFR >60.
Pt Awake, alert, flat affect minimally engaged verbally, resting in bed, able to briefly discuss diabetes care plan. Family at bedside.
POD # 6 s/p mid-CAB x2, pod #3 TAVR, doing well.
Was transitioned off Glycemic protocol on 03/15 to SQ insulin.
Glucose stable and in range, 132 to 143, required no corrective insulin. FBG 110 V. On diet and tolerating well.
Will continue Lantus 8 units daily in AM and low corrective insulin with meals.
Discussed with Nurse. Will cont to follow.
Diabetes History
- -
Type of Diabetes: 2 requiring insulin
Pre-Admission Diabetes Regimen
03/19/25
04:09
Creatinine 0.7
Lab Results
Hemoglobin A1c 5.4 % (4.0-5.6) 02/28/25 03:28
Insulin Pump Settings
IP Diabetes Regimen
03/18/25 03/18/25 03/18/25
09:12 12:15 16:44
Glucose
POC Glucose 141 H 132 H 143 H
03/19/25
04:09
Glucose 110 H
POC Glucose
Meal type: Dinner
Meal type: Breakfast
Amount consumed: 25%
Amount consumed: 25%
Patient Education
[2025-03-19] MEDS: LASIX 40 MG PO ×2 (08:30→17:07)
[2025-03-19] MEDS: VITAMIN B1 100 MG PO ×2 (08:30→20:47)
[2025-03-19] MEDS: NOVOLOG FLEXPEN-LOW RESISTANCE SC ×3 (08:30→16:18)
[2025-03-19] MEDS: FARXIGA 10 MG PO (08:30)
[2025-03-19] MEDS: PROTONIX 40 MG PO (08:30)
[2025-03-19] MEDS: MUCINEX 600 MG PO ×2 (08:30→20:47)
[2025-03-19] MEDS: PACERONE 200 MG PO ×3 (08:30→22:55)
[2025-03-19] MEDS: LANTUS 0.08 UNITS SC (08:30)
[2025-03-19] MEDS: MAGNESIUM OXIDE 400 MG PO ×2 (08:30→20:47)
[2025-03-19] MEDS: FOLVITE 1 MG PO (08:30)
[2025-03-19] MEDS: PLAVIX 75 MG PO (08:30)
[2025-03-19] MEDS: ZOLOFT 50 MG PO (08:30)
[2025-03-19] MEDS: LOW STRENGTH ASPIRIN 81 MG PO (08:31)
[2025-03-19] MEDS: SENOKOT PO ×2 (08:31→20:47)
[2025-03-19] MEDS: LIDOCAINE 4% PATCH TOPICAL (08:31)
[2025-03-19 08:39] LABS: Glucose - Point of Care 124 mg/dl (70-99)
--- NOTE | 2025-03-19 09:13 | PTCARENOTE ---
Received pt from shift boss RN at 0700; NSR LBBB on monitor and VSS; PIV x1 patent; Lungs diminished; IS to 500; positive bowel sound; male purewick in place and C/D/I; palpable pulses throughout; trace generalized edema; all surgical sites C/D/I;
Sacrum foam intact, B/L heels and elbow foams intact; see nursing documentation for further details.
[2025-03-19] MEDS: ZESTRIL 2.5 MG PO (09:36)
[2025-03-19 11:32] LABS: Glucose - Point of Care 117 mg/dl (70-99)
[2025-03-19] MEDS: NSS IV (11:59)
--- NOTE | 2025-03-19 12:00 | PTCARENOTE ---
Assumed care of patient at 1100, received report from RN. Nursing assessment completed and as documented. Neurocheck as documented. PT/OT assisted patient from chair to bed with maksim walker x2 assist with belt in use. Patient with spirometer at
bedside, assisted with use, patient able to pull volume of 750. at bedside, VSS, call asencio within reach, denies needs at this time, care ongoing.
--- NOTE | 2025-03-19 14:28 | CM ---
Addendum entered by Lelia Nguyen 03/19/25 15:59:
Unit Sec. made ambulance arrangements [facility] for a 11:00 a.m. transfer time. Telephone call to Mrs. Mckeon to update her regarding tentative discharge date. Updated Mr. Mckeon. Updated medical team and Nursing. Medical
work-up in progress. The discharge plan is to to to [facility]. when medically stable.
Original Note:
Reviewed chart. Telephone call to [facility]. Liaiosn to check on status of referral. Candido Tammy can accpet Mr. Mckeon for admission on 03/20/25. Telephone call to [facility] to precert for acute Rehab. and ambulance
transport. [facility] approved seven days with next review on 03/26/25. The auth number for Acute [facility]. is [id number]. [facility] auth is [id number]. Candido Ryanerd would like him to leave here tomorrow around 1:00 p.m. Updated medical
team and family. Medical work-up in progress. The discharge plan is to go to [facility]. on Wednesday03/20/25 if medically stable.
--- NOTE | 2025-03-19 16:00 | PTCARENOTE ---
No changes to physical assessment. CVNP ordered another dose of lasix, see MAR. Appetite poor, requires encouragement to eat, at bedside assisting with meals. Repositioned, VSS, call asencio within reach, care ongoing.
[2025-03-19 16:18] LABS: Glucose - Point of Care 110 mg/dl (70-99)
[2025-03-19] MEDS: CRESTOR 40 MG PO (17:07)
--- NOTE | 2025-03-19 20:30 | PTCARENOTE ---
Assumed care of pt from dayshift RN. Walking rounds completed. Pt AAOx3. Flat affect. Slow speech. Hx of left arm and leg weakness s/p previous CVA 2014. Pt is SR w/ LBBB on the tele monitor. HR 60-70s. BP stable. Palpable pulses throughout. Trace
generalized edema. Pt is 92% on RA. Lung sounds diminished throughout. Deep breathing and IS encouraged. Abdomen soft/ nontender. +BSx4. Male pure wick in place and pt voiding yellow urine. All surgical sites stable. PIV x1 intact. Stage 1 sore to
sacrum present, foam intact. Pt repositioned as documented. See worklist for full nursing assessment and interventions. Call asencio within reach.
[2025-03-19] MEDS: KCL 20 MEQ PO (20:47)
[2025-03-19] MEDS: REMOVE LIDOCAINE PATCH 1 PATCH REMOVE (20:47)
[2025-03-19] MEDS: TOPROL XL 12.5 MG PO (22:55)
--- NOTE | 2025-03-20 00:04 | PTCARENOTE ---
No acute changes in assessment. Pt resting in bed at this time. Remains SR w/ L BBB on the tele monitor. HR 70s. BP stable. 92% on RA. Afebrile. Pt denies pain at this time. Male pure-wick changed for a better seal. Call asencio within reach.
[2025-03-20 03:40] VITALS: BP 121/71
--- NOTE | 2025-03-20 03:51 | W.PN.CT ---
Today's Communication / Plan
-
Plan
-No major issues overnight. Hemodynamically and neurologically intact
-Off all drips
-On GDMT for HFrEF (Farxiga, Lisinopril, Lasix, Toprol XL)
-On PRN Midodrine
-Cont. current meds (ASA, Plavix, Crestor, Zoloft, GDMT as BP permits)
-OOB into chair/Ambulate/ PT-OT f/u
-Diabetes management f/u
-Encourage use of IS
-Encourage nutritional intake, prealbumin 10.1
-Will replete calcium and potassium
-D/C to [facility] today
Assessment / Plan
-
Assessment:
-S/P Right trans femoral TAVR (26 mm Renner Resilia) by Dr Magdaleno/Pieter on 03/12/25, POD #8
-S/P Robotic assisted MIDCAB (2-vessel bypass GARCIA in situ to diagonal sequential to LAD) by Dr. Merritt on 03/13/25, pod #7
-Intraop IMAN: LVEF preop was still significantly abnormal, may be 25%. There is significant regional wma pertaining to the inferior and septal torres. There is significant dyskinesis and akinesis of the segments. Following revascularization of
his LAD and diagonal territories, there was significant improvement in his inferior wall motion and septal motion. It essentially normalized. He had a pre-existing bundle branch block so there was still some dyskinesis but overall his left
ventricular ejection fraction did improve. Visually looked about 40 to 45%
-Severe aortic stenosis, symptomatic
-Multivessel CAD
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
-Acute on chronic systolic CHF
-ICM
-HFrEF (EF 25-30% per echo 03/08/25)
-Hypertension
-Hyperlipidemia
-T2DM (A1C 5.4)
-GERD
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
-Lung disease suspected, per hospitalist, on Atrovent/albuterol
-Transaminitis/hepatic fibrosis secondary to alcohol abuse/cirrhosis
-Possible hemochromatosis
-Preop Thrombocytopenia
-S/P VT/VF arrest with new LBBB, 02/27/25
-S/P VDRF, extubated on 03/03/25
-Preop hyponatremia- improving
-Preop NACHO in setting of VF arrest - resolved
-Acute postop hyperkalemia
-Acute postop pulmonary insufficiency/atelectasis
-Acute postop hypovolemia with subsequent hypervolemia
Discussed patient care with: Cardiology, Nursing, Respiratory Therapy, Pharmacy and Care Team
Subjective
-
Date of Service: March 20, 2025
Pt c/o of feeling deconditioned, otherwise feels well. Encourage to increase nutritional intake to help with energy and the recovery process
Objective Data
-
Lab Results
03/19/25 04:09
PT 18.0 Sec (11.4-14.6) H 03/13/25 13:27
INR 1.46 03/13/25 13:27
APTT 84.4 Sec (23.4-35.0) H 03/15/25 03:14
Vital Signs
Vital Signs
Temp Pulse Resp BP Pulse Ox
98.3 F 70 18 121/71 92
03/20/25 03:40 03/20/25 03:40 03/20/25 03:40 03/20/25 03:40 03/20/25 03:40
CT Intake/Output/Weight
03/19/25 03/19/25 03/20/25
06:59 18:59 06:59
Intake Total 120 / 120
Output Total 550 / 1400 127 / 5 / 2074
Balance -550 / -680 -1155 / -1954 -800 / -1954
SaO2: 92 (RA)
Physical Exam
-
General: Awake, Oriented and AOx3
Cardiovascular: Regular rate & rhythm and No Murmurs
Respiratory: Decreased Breath Sounds (at bases, otherwise clear)
Sternum: Stable
Incision: Clean, Dry, Intact and Dressing Intact
Extremities: Other (+trace edema)
Data Reviewed
-
Lab Results: Results Reviewed
Medications: Active Meds Reviewed
Chest X-Ray: Report Reviewed and Image Reviewed
ECG: Report Reviewed and Image Reviewed
[2025-03-20 04:00] VITALS: BMI 26.6
--- NOTE | 2025-03-20 04:06 | PTCARENOTE ---
Pt reassessed. SR w/ L BBB on the tele monitor. HR 70s. BP stable. Male pure-wick in place. Pt voiding yellow urine. Lab drawn and sent. Repositioned as documented. No c/o pain at this time. Call asencio within reach.
[2025-03-20 04:21] LABS: Blood Urea Nitrogen 21 mg/dl (9-20); Calcium 8.7 mg/dl (8.4-10.2); Carbon Dioxide 31 mmol/L (22-30); Chloride 96 mmol/L (98-107); Estimated Creatinine Clearance 99 ml/min; Glucose 101 mg/dl (70-99); Magnesium 2.1 mg/dl (1.6-2.3); Potassium 3.9 mmol/L (3.5-5.1); Sodium 133 mmol/L (135-145); eGFR > 60.00
[2025-03-20 04:39] LABS: Prealbumin (Transthyretin) 10.1 mg/dl (17.6-36.0)
[2025-03-20] MEDS: KCL 20 MEQ PO ×2 (04:54→08:47)
[2025-03-20] MEDS: CALCIUM GLUCONATE 130 MG IV (04:54)
[2025-03-20 04:55] VITALS: BP 112/71
[2025-03-20] MEDS: TYLENOL 975 MG PO (06:07)
[2025-03-20 08:02] VITALS: BP 122/78
--- NOTE | 2025-03-20 08:18 | PN.DE.MGMTRT ---
Insulin Management
- -
03/20/2025: Diabetes Management Follow up
Patient admitted 02/27 with breathing problem - cardiac arrest in the ED. PMH: HTN, HLD, T2DM, Hx of CVA with L hemiparesis. He was then noted to have pulseless VT and periods of V-Fib on monitor. He underwent CPR and multiple rounds of
defibrillation here in the ED. He received epinephrine, bicarbonate, amiodarone and calcium. ROSC was achieved. EKG showed new LBBB and patient was taken to the odd job laborer for emergent ischemic evaluation. On admission A1C 5.4%, Cr 1.3, eGFR >60.
Pt Awake, alert, flat affect minimally engaged verbally, resting in bed, able to briefly discuss diabetes care plan. Family at bedside.
POD # 7 s/p mid-CAB x2, pod #4 TAVR, doing well.
Was transitioned off Glycemic protocol on 03/15 to SQ insulin.
Glucose stable and in range, 110 to 117, required no corrective insulin. FBG 101 V. On diet and tolerating well.
Will continue Lantus 8 units daily in AM and low corrective insulin with meals.
[facility]
Discussed with Nurse.
Diabetes History
- -
Pre-Admission Diabetes Regimen
03/20/25
03:49
Creatinine 0.7
Lab Results
Hemoglobin A1c 5.4 % (4.0-5.6) 02/28/25 03:28
Insulin Pump Settings
IP Diabetes Regimen
03/19/25 03/19/25 03/19/25
08: 11:30 16:16
Glucose
POC Glucose 124 H 117 H 110 H
03/20/25
03:49
Glucose 101 H
POC Glucose
Meal type: Dinner
Meal type: Lunch
Meal type: Breakfast
Amount consumed: 50%
Amount consumed: 20%
Amount consumed: 30%
Patient Education
--- NOTE | 2025-03-20 08:36 | W.PN.CD ---
Today's Communication / Plan
-
Discharge on low-dose GDMT (metoprolol succinate 12.5 mg daily, lisinopril 2.5 mg daily, dapagliflozin 10 mg daily) + ASA, Plavix, statin
Follow-up echo in 2 weeks to evaluate AV gradients
Stable for discharge from cardiovascular standpoint
Impression / Plan
-
Background: 69 y/o male with HTN, HLD, remote CVA complicated by left hemiparesis, transaminitis related to EtOH abuse vs. possible hemochromatosis with at least moderate hepatic fibrosis admitted with acute, vent dependent respiratory failure
complicated by VT/VF arrest and new LBBB. Found to have severe MV CAD and severe . Now s/p successful TF TAVR (03/12/2025, 26 S3UR Pieter/Rasta) and MIDCAB ([id number]) with Dr. Merritt/Rasta 03/13/25.
#3V CAD
-Chronic, progressive.
-Cath 02/27/2025: 100% pRCA, 100% dLCx, 100% OM1, 90% complex p-mLAD; no clear cuprit lesion for LA, arrest may have been in setting of decompensated heart failure with underlying IHD. LAD supplies collaterals to the CTOs. Ergo revascularization of
the LAD and diagonal provides near complete revascularization.
-s/p MIDCAB with [id number] with Dr. Acosta. Hemodynamically unstable with chest pressurized but improvement in hemodynamics and EF post-reperfusion.
-Continue secondary prevention/post operative management with amiodarone, aspirin, clopidogrel, metoprolol succinate and rosuvastatin.
#Severe Aortic Stenosis
-Chronic, progressive.
-Echo 02/28/2025: HANNAH 0.54 cm2, mean 35 mmHg (LVEF 15%).
-s/p #26 Renner JOSE MARTIN S3 TF TAVR, 03/12/2025 (Pieter/Rasta).
-Poor AV valve leaflet opening with possible thickening on IMAN (MIDCAB) and elevated gradient 10-15 mmHg. Concern for possible HALT.
-Follow up TTE gradients normal. Given high risk for anticoagulation, will monitor for now and not continue triple therapy (antithrombotic therapy with ASA and clopidogrel only).
-2 week interval echo to assess gradients.
#Secondary VT/VF arrest in the ER
-Severe CAD - obstructive and severe with heart failure and class III-IV NYHA symptoms.
-No further VT/VF since ER admit.
-Will defer LifeVest given no ectopy on telemetry
#HFrEF/Ischemic cardiomyopathy
-Acute on chronic, improved.
-Cath 02/27/2025 LVEDP 40 mmHg.
-Echo 02/28/2025: LVEF 15-20%.
-Echo 03/08/2025: LVEF 25-30%.
-Patient is now revascularized and fixed valve obstruction has been removed.
-GDMT - limited by hypotension, resume as able:
-Diuretics: Furosemide 40 mg PO daily.
-Beta indigo: Metoprolol succinate 12.5 mg daily.
-ACEI/ARB/ARNi: lisinopril 2.5 mg started this admission
-MRA: On hold while we start lisinopril. reassess outpatient
-SGLT2i: Dapagliflozin 10 mg daily.
-ICD: Not yet indicated. Reassess LVEF in 3 mos
#LBBB, QRS 176 ms
-Chronic, stable.
-Monitor for heart block.
-Will be a candidate for BUSINESS SERVICES INTERN with backup defibrillation if ICD is warranted.
#Elevated Hgb, elevated MCV, and acquired transient thrombocytopenia
-New finding (at time of admission). Heme involved.
- Plt improved (plt 120 on 03/06/2025), Heparin off, off Argatroban
- HIT negative, heparin can be used again if needed
- Per hematology:
- 'Jak2 is negative and EPO normal -- essentially rules out PVera
- One copy of H63D mutation. This genotype has not been associated with symptoms of hereditary hemochromatosis. No indication for phlebotomy.
- HIT Phylicia pending. Platelet count trending up'
#Mixed hyperlipidemia
-Chronic, untreated.
-Continue rosuvastatin 40 daily.
-Goal LDL < 55.
#ETOH
#Hepatic fibrosis/ steatosis, at least moderate by Fibroscan.
#S/p stroke with chronic LUE weakness an mild LLE weakness
#Lung disease suspected, per hospitalist, on Atrovent/albuterol
DATA:
TTE, 03/16/2025:
SUMMARY
1. Very technically limited study.
2. Moderately reduced left ventricular systolic function. LVEF 30-35%.
3. Septal hypokinesis. Evaluation of other torres is limited by poor visualization.
4. Normal aortic valve gradients (peak/mean 10/6 mmHg). DVI 0.5.
5. No significant change compared to prior echocardiograms.
CT Surgery, 03/13/2025:
Procedure(s) Performed:
1. Robotic assisted MIDCAB (2-vessel bypass GARCIA in situ to diagonal sequential to LAD)
2. Robotic assisted harvest of internal mammary artery with anterolateral mini thoracotomy for CABG
3. Transesophageal echocardiography
4. Transonic Flowprobe assessment of GARCIA graft
TAVR, 03/12/2025:
CONCLUSIONS
1. Successful placement of an Renner JOSE MARTIN 3 Ultra RESILIA 26 mm transcatheter aortic valve via right transfemoral approach with no acute complications.
2. Acute on chronic systolic heart failure with severely reduced LVEF (20-25%).
Physical Exam
Vital Signs/Labs
Vital Signs
Temp Pulse Resp BP Pulse Ox
98.3 F 78 18 112/71 92
03/20/25 03:40 03/20/25 06:00 03/20/25 03:40 03/20/25 04:55 03/20/25 03:56
03/19/25 03/20/25 03/21/25
06:59 06:59 06:59
Actual Weight 176 lb 12.972 oz 174 lb 13.225 oz
03/19/25 04:09
03/20/25 03:49
PT 18.0 Sec (11.4-14.6) H 03/13/25 13:27
INR 1.46 03/13/25 13:27
APTT 84.4 Sec (23.4-35.0) H 03/15/25 03:14
Magnesium 2.1 mg/dl (1.6-2.3) 03/20/25 03:49
Triglycerides 315 mg/dl (10-149) H 02/28/25 03:28
LDL Cholesterol, Calc 119 mg/dl 02/28/25 03:28
VLDL Cholesterol, Calc 63 mg/dl (0-30) H 02/28/25 03:28
HDL Cholesterol 63 mg/dl 02/28/25 03:28
TSH 1.83 uIU/ml (0.47-4.68) 03/18/25 05:33
02/27/25 02/27/25 02/27/25
18:02 18:31 19:35
Poe-V-Nnrbipmqcpz Pept Cancelled Cancelled Cancelled
02/27/25 03/01/25
Unknown 15:17
Tur-K-Imixzdzuqvc Pept 12589 7350
Physical Exam
Constitutional: No acute distress and Comfortable
Cardiovascular: Rhythm & rate is regular, Pedal edema is absent, S1S2 is normal and Murmur/rub/gallop absent
Respiratory: Respiratory effort normal and Lungs clear to auscul.
Data Reviewed
-
Date of Service: March 20, 2025
Medical Decision Making: Reviewed Test Results, Test Interpretation and Review of Case with other Provider
EKG: Tracing Personally Visualized and interpreted
Echo: Report Reviewed by me
Labs: Labs Reviewed by me
--- NOTE | 2025-03-20 08:42 | W.DCSUMMARY ---
Discharge Summary
Discharge Data
Date of Admission: 02/27/25
Date of Discharge: 03/20/25
-
Pending Results: No
Hospital Course
Primary care physician: none
Outpatient actuarial analyst:
Inpatient consultants: [facility] Cardiology, pulmonary foreman/project manager, oncology, diabetes nurse practitioner, psychiatry
Procedures:
1. R TF TAVR #26mm Sapien3 (03/12/25)
2. MIDCAB x 2 GARCIA-LAD and diag (03/13/25)
Primary Diagnosis:
1. Severe aortic stenosis, symptomatic
Secondary Diagnoses:
-Multivessel CAD
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
-Acute on chronic systolic CHF
-ICM
-HFrEF (EF 25-30% per echo 03/08/25)
-Hypertension
-Hyperlipidemia
-T2DM (A1C 5.4)
-GERD
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
-Lung disease suspected, per hospitalist, on Atrovent/albuterol
-Transaminitis/hepatic fibrosis secondary to alcohol abuse/cirrhosis
-Possible hemochromatosis
-Preop Thrombocytopenia
-S/P VT/VF arrest with new LBBB, 02/27/25
-S/P VDRF, extubated on 03/03/25
-Preop hyponatremia- improving
-Preop NACHO in setting of VF arrest - resolved
-pre-op urinary retention-resolved
-preopStage 1 sacral pressure injury
-pre-op ambulatory dysfunction due to multiple co-morbidities
-Acute postop hyperkalemia
-Acute postop pulmonary insufficiency/atelectasis
-Acute postop hypovolemia with subsequent hypervolemia
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
with acute respiratory distress requiring intubation and mechanical ventilation. Following intubation, the patient went into VT/VF arrest and required CPR/ACLS. He received a total of 6-7 minutes of CPR and defibrillation. ROSC was achieved.
Post arrest EKG showed new LBBB. CTPE was negative for PE but did suggest marked acute pulmonary edema. CT head negative for hemorrhage/mass effect.
Hospital course: During the cath, he was found to have chronic total occlusions of multiple coronary arteries, severely elevated filling pressures, and moderate aortic valve stenosis. Given the patient's presentation, he was started on a Bumex,
amiodarone, and heparin drip and an echocardiogram was performed which reported ed hypokinesis, low EF, and severe . Patient was extubated on 03/03. Patient was noted to be febrile however workup was negative. He completed 5 days of empiric
Unasyn. Patient's transaminitis normalized and a Schultz catheter remains in place for urinary retention. Patient is also noted to have a stage I sacral pressure injury. Due to the patient's comorbidities, CT surgery was consulted for SAVR versus
TAVR evaluation. Decision was made to pursue staged TAVR with MIDCAB and patient was taken to the operating room on 03/12/2025 and underwent right transfemoral TAVR #26 mm JOSE MARTIN [address] Ricci Merritt and Quintin Thornton. Postprocedure ECG reported
sinus rhythm with continued left bundle branch block. Patient return to CVICU on dobutamine. Patient returned for staged MIDCAB x 2 on 03/13/2025 with GARCIA to LAD and diagonal by Dr. Ricci Merritt. Insulin infusion was maintained as sugars were
high. Aspirin and Plavix were initiated on POD #1. Plavix will continue for 3 months. Postprocedure TTE reported an EF of 30-35%. Dobutamine was weaned off on postoperative day #3. Chest tube was removed and patient transition from insulin drip
to Lantus insulin. On postoperative #4, beta-indigo and Farxiga were initiated. Gentle diuresis was started. Psychiatry was consulted for postoperative depression and Wellbutrin was changed to Zoloft. Low-dose lisinopril was initiated for
additional goal-directed medical therapy as BP marginal for Entresto. Low dose Aldactone was added 03/20 as SBP 122mhg. Continue ACEi on discharge per cardiology with likely conversion to Entresto as outpatient. Patient was evaluated by PT/OT and
deemed appropriate for intermediate on discharge. [facility]
Home medication changes:
GDMT: ASA, Beta-indigo, ACEi (as BP soft for Entresto), ARNI, diuretic
Lipitor changed to Crestor 20 mg daily
Lisinopril 10 mg changed to 2.5 mg daily
Wellbutrin changed to Zoloft
Discharge Plan
-
Patient Disposition: Alf/SNF
Discharge Diagnosis/Procedures: Aortic Stenosis, Coronary Artery Disease, Heart Failure s/p Transfemoral TAVR (03/12/25) with Dr. Merritt & Dr. Stapleton & and MID CAB (03/13/25) with Dr. Merritt
Condition: Good
Diet: Low Cholesterol, 2 Gram Sodium and Diabetic, Carb Controlled
Activity: As tolerated
Driving Restrictions: Not until seen by your Dr
Bathing Restrictions: OK to Shower
Blood Work: BMP in 1 week
Others Tests: 30 Day Follow Up Echocardiogram: 03/30/2025 at 4:[address] [facility]
Other Services: Cardiac Rehab
Specialty Instructions: Weigh Daily- Call MD for wt gain/loss 3 lbs overnight/5 lbs in 1 week
Referrals:
[facility] [Other]
Leatha Mike CRNP [Specified Professional Personl, Cardiology] - 03/19/25 10:40 am
Guy Taveras MD [Active, Pulmonary Medicine] - in three to four weeks
NONE,* [Active, Internal Medicine]
UNKNOWN - PT NOT,INTERVIEWE [Family Provider]
Tonya Smart CRNP [Specified Professional Personl, Cardiac Surgery] - 04/12/25 11:30 am
Prescriptions:
New
acetaminophen 325 mg Tablet
650 mg PO Q4HPRN PRN (Reason: mild pain,headache,temp >101F ) Qty: 0 0RF
clopidogrel 75 mg Tablet
75 mg PO DAILY Qty: 0 0RF
metoprolol succinate 25 mg Tablet Extended Release 24 Hr
12.5 mg PO HS Qty: 0 0RF
lisinopril 2.5 mg Tablet
2.5 mg PO DAILY Qty: 0 0RF
rosuvastatin 20 mg Tablet
40 mg PO QPM Qty: 0 0RF
sertraline 50 mg Tablet
50 mg PO DAILY Qty: 0 0RF
furosemide 40 mg Tablet
40 mg PO DAILY Qty: 0 0RF
dapagliflozin propanediol 10 mg Tablet
10 mg PO DAILY Qty: 0 0RF
guaifenesin 600 mg Tablet Extended Release 12hr
600 mg PO Q12 Qty: 0 0RF
Insulin Glargine Lantus [Lantus] 8 UNITS
Subcutaneous Insulin Syringe [Syringe-Insulin] 0 UNIT
As Directed mls/hr SC DAILY
Reason for use: Diabetes
Ordered By: Lashell Salvador CRNP
Last Taken: 03/20/25 08:46 0.08 mls
folic acid 1 mg Tablet
1 mg PO DAILY Qty: 0 0RF
thiamine mononitrate (vit B1) 100 mg Tablet
100 mg PO BID Qty: 0 0RF
spironolactone 25 mg Tablet
12.5 mg PO DAILY Qty: 0 0RF
Continued
aspirin 81 MG tablet,delayed release (DR/EC)
81 mg PO DAILY Qty: 0 0RF
Discontinued
atorvastatin 40 MG tablet
40 mg PO QPM
lisinopril 10 MG tablet
10 mg PO DAILY 0RF
metoprolol succinate 25 MG tablet extended release 24 hr
25 mg PO DAILY 0RF
bupropion HCl 150 mg Tablet Extended Release 24 Hr
150 mg PO DAILY
Discharge Orders:
Discharge Patient (As Directed); Ordered 03/20/25
Ordered By: Lashell Salvador
Care Plan Goals
Care Plan Goals:
Problem: Readiness for enhanced knowledge related to diagnosis and treatment plan
Goal: Understand your diagnosis and treatment plan needs, including medications if applicable.
Instructions: Know your diagnosis, underlying causes and treatment plan options, including medications if applicable. Consult with your health care team to learn about your diagnosis and treatment plan, including medications if applicable.
Discharge Date and Time
Print Language: SLOVENIAN
[2025-03-20] MEDS: LANTUS 0.08 UNITS SC (08:46)
[2025-03-20 08:47] LABS: Glucose - Point of Care 106 mg/dl (70-99)
[2025-03-20] MEDS: MUCINEX 600 MG PO (08:47)
[2025-03-20] MEDS: PACERONE 200 MG PO (08:47)
[2025-03-20] MEDS: FOLVITE 1 MG PO (08:47)
[2025-03-20] MEDS: LOW STRENGTH ASPIRIN 81 MG PO (08:47)
[2025-03-20] MEDS: LASIX 40 MG PO (08:47)
[2025-03-20] MEDS: LIDOCAINE 4% PATCH TOPICAL (08:47)
[2025-03-20] MEDS: VITAMIN B1 100 MG PO (08:47)
[2025-03-20] MEDS: PROTONIX 40 MG PO (08:47)
[2025-03-20] MEDS: MAGNESIUM OXIDE 400 MG PO (08:47)
[2025-03-20] MEDS: ZOLOFT 50 MG PO (08:47)
[2025-03-20] MEDS: FARXIGA 10 MG PO (08:47)
[2025-03-20] MEDS: PLAVIX 75 MG PO (08:47)
[2025-03-20] MEDS: ZESTRIL 2.5 MG PO (08:47)
[2025-03-20] MEDS: SENOKOT PO (08:48)
[2025-03-20] MEDS: NOVOLOG FLEXPEN-LOW RESISTANCE SC (08:48)
[2025-03-20] MEDS: ALDACTONE 12.5 MG PO (09:50)
--- NOTE | 2025-03-20 10:02 | PTCARENOTE ---
Received pt from novelty printing machine operator RN at 0700; pt AAOX3 flat affect; NSR LBBB on monitor and VSS; PIV x1 patent; Lungs diminished; positive bowel sounds; male purewick in placed and skin C/D/I; palpable pulses throughout; no edema noted; all surgical
sites C/D/I; see nursing documentation for further details.
[2025-03-20 10:53] VITALS: BP 124/72
--- NOTE | 2025-03-20 11:04 | PTCARENOTE ---
Report given to Kelly Muñoz; pt belongings packed; NSR on monitor and VSS; updated pt on discharge time; awaiting ambulance.
--- NOTE | 2025-03-20 11:10 | CM ---
Reviewed chart. Received telephone call from [facility] Liaison who confirms ability to accept Mr. Mckeon for admission today. Met with Mr. Mckeon and telephone call to Mrs. Mckeon to inform them of transfer date and time. Medical work-up
in progress. The discharge plan is to go to [facility] when medically stable.
--- NOTE | 2025-03-20 11:25 | PTCARENOTE ---
Ambulance transported pt to [facility]; IV and plow shaker removed; VSS.
== END 2025-03-20 11:27 | DRG 233 ==
LOC: CVICU 20:09
PROVIDERS: Clinical Nurse Specialist Acute Care; Hospitalist; Nurse Practitioner; Nurse Practitioner Family; Nurse Practitioner Primary Care; Physician Assistant Medical; Student in an Organized Health Care Education/Training Program; ADMITTING PHYSICIAN Hospitalist; ATTENDING PHYSICIAN Thoracic Surgery (Cardiothoracic Vascular Surgery); CONSULT PHYSICIAN Internal Medicine Cardiovascular Disease; CONSULT PHYSICIAN Internal Medicine Critical Care Medicine; CONSULT PHYSICIAN Physical Medicine & Rehabilitation; CONSULT PHYSICIAN Psychiatry & Neurology Psychiatry; EMERGENCY PHYSICIAN Student in an Organized Health Care Education/Training Program; OTHER PHYSICIAN Internal Medicine Hematology & Oncology
PROC: 4A023N7 Measurement of Cardiac Sampling and Pressure, Left Heart, Percutaneous Approach (ICD-10-PCS; 2025-02-27)
PROC: 5A1945Z Respiratory Ventilation, 24-96 Consecutive Hours (ICD-10-PCS; 2025-02-27)
PROC: 0BH17EZ Insertion of Endotracheal Airway into Trachea, Via Natural or Artificial Opening (ICD-10-PCS; 2025-02-27)
PROC: 5A2204Z Restoration of Cardiac Rhythm, Single (ICD-10-PCS; 2025-02-27)
PROC: B2111ZZ Fluoroscopy of Multiple Coronary Arteries using Low Osmolar Contrast (ICD-10-PCS; 2025-02-27)
PROC: 5A12012 Performance of Cardiac Output, Single, Manual (ICD-10-PCS; 2025-02-27)
PROC: 03HY32Z Insertion of Monitoring Device into Upper Artery, Percutaneous Approach (ICD-10-PCS; 2025-02-27)
PROC: 02HV33Z Insertion of Infusion Device into Superior Vena Cava, Percutaneous Approach (ICD-10-PCS; 2025-02-28)
PROC: 02RF38Z Replacement of Aortic Valve with Zooplastic Tissue, Percutaneous Approach (ICD-10-PCS; 2025-03-12)
PROC: B24BZZ4 Ultrasonography of Heart with Aorta, Transesophageal (ICD-10-PCS; 2025-03-13)
PROC: 02110Z9 Bypass Coronary Artery, Two Arteries from Left Internal Mammary, Open Approach (ICD-10-PCS; 2025-03-13)
PROC: 8E0W0CZ Robotic Assisted Procedure of Trunk Region, Open Approach (ICD-10-PCS; 2025-03-13)
DX: I35.0 Nonrheumatic aortic (valve) stenosis (principal); I46.2 Cardiac arrest due to underlying cardiac condition; I49.01 Ventricular fibrillation; I50.23 Acute on chronic systolic (congestive) heart failure; J96.01 Acute respiratory failure with hypoxia; J96.02 Acute respiratory failure with hypercapnia; J95.1 Acute pulmonary insufficiency following thoracic surgery; R57.0 Cardiogenic shock; I69.354 Hemiplegia and hemiparesis following cerebral infarction affecting left non-dominant side; I47.20 Ventricular tachycardia, unspecified; E22.2 Syndrome of inappropriate secretion of antidiuretic hormone; N17.9 Acute kidney failure, unspecified; J98.11 Atelectasis; R65.10 Systemic inflammatory response syndrome (SIRS) of non-infectious origin without acute organ dysfunction; E87.21 Acute metabolic acidosis; I25.10 Atherosclerotic heart disease of native coronary artery without angina pectoris; I11.0 Hypertensive heart disease with heart failure; I25.5 Ischemic cardiomyopathy; E11.649 Type 2 diabetes mellitus with hypoglycemia without coma; I48.0 Paroxysmal atrial fibrillation; I44.7 Left bundle-branch block, unspecified; E78.00 Pure hypercholesterolemia, unspecified; I25.82 Chronic total occlusion of coronary artery; R50.9 Fever, unspecified; K74.00 Hepatic fibrosis, unspecified; K70.10 Alcoholic hepatitis without ascites; F32.A Depression, unspecified; D75.1 Secondary polycythemia; D72.829 Elevated white blood cell count, unspecified; D69.6 Thrombocytopenia, unspecified; D64.9 Anemia, unspecified; E83.119 Hemochromatosis, unspecified; R33.9 Retention of urine, unspecified; L89.151 Pressure ulcer of sacral region, stage 1; E87.5 Hyperkalemia; R13.10 Dysphagia, unspecified; E87.6 Hypokalemia; E86.1 Hypovolemia; F10.10 Alcohol abuse, uncomplicated; K21.9 Gastro-esophageal reflux disease without esophagitis; Y83.2 Surgical operation with anastomosis, bypass or graft as the cause of abnormal reaction of the patient, or of later complication, without mention of misadventure at the time of the procedure; I27.20 Pulmonary hypertension, unspecified; K74.60 Unspecified cirrhosis of liver; E66.9 Obesity, unspecified; Z68.26 Body mass index [BMI] 26.0-26.9, adult; Z91.148 Patient's other noncompliance with medication regimen for other reason; Z87.891 Personal history of nicotine dependence; Z79.84 Long term (current) use of oral hypoglycemic drugs; Z79.4 Long term (current) use of insulin; Z11.52 Encounter for screening for COVID-19
CPT/HCPCS: 31500; 33361; 36600; 70100; 70450; 71045; 71046; 71275; 74018; 74174; 74230; 75572; 76700; 80048; 80053; 80061; 80306; 81003; 81015; 81256; 81270; 82077; 82105; 82248; 82306; 82330; 82565; 82607; 82668; 82728; 82805; 82810; 82947; 82962; 83036; 83540; 83550; 83605; 83615; 83735; 83880; 84100; 84132; 84134; 84302; 84443; 84478; 84484; 84520; 85014; 85018; 85025; 85027; 85049; 85347; 85610; 85730; 86022; 86850; 86900; 86901; 86920; 87040; 87070; 87086; 87088; 87186; 87205; 87449; 87502; 87811; 87899; 92523; 92526; 92610; 92611; 92950; 92960; 93005; 93306; 93308; 93321; 93325; 93458; 93975; 94002; 94003; 94640; 94644; 96365; 96366; 96367; 96375; 97163; 97164; 97167; 97168; 97530; 97535; 99152; 99153; 99291; 99292; C1760; C1769; C1894; J0883; J1939; J2916; P9045; Q9950; Q9967

== ENCOUNTER → 2025-04-25 10:16 | Outpatient (REF) | payer OTHER, SELFPAY ==
--- NOTE | 2025-04-25 11:57 | CARDSERVDEF ---
Echocardiogram with Definity completed after protocol screening completed. Allergies verified.
Patent IV site: _Right dorsal venous arch 22 G PC____
IV site flushed with 0.9% NaCl pre and post administration.
Diluted bolus method utilized to enhance visualization of ventricular torres.
Total volume given: __3__ mL
Patient tolerated all procedures well without complications.
Heplock D/C ed at 1156, site clear, no redness, no edema. Pressure held, no bleeding. 2x2 applied and taped. Pt offers no complaints.
== END ==
LOC: RCS 10:16
PROVIDERS: ATTENDING PHYSICIAN Nurse Practitioner; FAMILY PHYSICIAN Family Medicine
DX: Z95.2 Presence of prosthetic heart valve (principal)
CPT/HCPCS: 93306; Q9950